=== PATIENT | female | born 1940 | race Caucasian/White ===

== ENCOUNTER 2016-10-29 11:28 | Outpatient (RCR) | payer MEDICARE, OTHER ==
--- OUTSIDE RECORDS SUMMARY | 2016-08-06 09:46 | XMS REPORT | Continuity of Care Document ---
Author Author [facility] Organization [facility] Address Unknown Phone Unavailable Support Name Relationship Address Phone MONROEMESHA CAMACHO Melly PATEL Caregiver [address] [place] [address] SHANTEL LIZ MD Caregiver VIA [facility] [address] [place] [address] REANNA PERSON Next Of Kin [address] [place] [address] Insurance Providers Payer Name Policy Number Subscriber Name Relationship Wps Medicare [id number] Shanita Luis 16 Self / Same As Patient Advance Directives Directive Response Recorded Date/Time Advance Directives No 11/14/14 9:15am Health Care Power of Reproduction Technician No 11/14/14 9:15am Organ Donor No 11/14/14 9:15am Problems Medical Problems Problem Onset Date Status Carcinoma of colon Unknown Active History of placement of stent for coronary artery disease Unknown Active History of - hypertension Unknown Active Hyperlipidemia Unknown Active Acute myocardial infarction Unknown Resolved Surgical Problems Problem Onset Date Recorded Date/Time Status Colostomy Unknown 09/17/2013 8:11am Active Medications Medication Dose Route Sig Days/Qty Instructions Order Date Discontinued Date Status Quinapril Hcl 20 Mg PO DAILY TAKES 1/2 (40MG) TABLET 10/31/09 Active Levothyroxine Sodium 175 Mcg PO DAILY 10/31/09 09/09/13 Discontinued Furosemide 20 Mg PO DAILY 10/31/09 09/09/13 Discontinued Amlodipine Besylate (Norvasc 5 Mg) 5 Mg PO DAILY 08/01/10 09/06/13 Discontinued Simvastatin 10 Mg PO BEDTIME 08/01/10 Active Cephalexin Monohydrate (Keflex) 1 Each PO THREE TIMES A DAY 09/27/10 09/02/13 Discontinued Atenolol 25 Mg PO 1500 09/06/13 Active Levothyroxine Sodium 175 Mcg PO DAILY 09/09/13 Active Furosemide 40 Mg PO DAILY 09/09/13 04/05/14 Discontinued Ferrous Sulfate 325 Mg PO TWICE A DAY 09/09/13 04/05/14 Discontinued Magnesium Oxide 400 Mg PO DAILY 09/09/13 Active Aspirin 81 Mg PO DAILY 09/09/13 Active Tramadol HCl 50 Mg PO TWICE A DAY PRN PAIN 30 Qty 09/22/13 04/05/14 Discontinued Furosemide (Lasix) 40 Mg PO DAILY 04/05/14 Active Calcium/Vitamin D 1 Tab PO DAILY 04/05/14 Active [place]-3 Fatty Acids/Fish Oil 1,000 Mg PO DAILY PRN WHEN NOT EATING FISH TAKE 1 CAPSULE WHEN NOT EATING FISH STICKS 04/05/14 Active Clopidogrel Bisulfate 75 Mg PO EVERY AFTERNOON 04/05/14 10/11/14 Discontinued Amlodipine Besylate 5 Mg PO DAILY 30 Qty 04/09/14 10/11/14 Discontinued Cefuroxime Axetil (Ceftin) 1 Each PO TWICE A DAY 14 Qty 04/09/1410/11 Discontinued Gentamicin Sulfate 1 Drop OD FOUR TIMES DAILY 10/11/14 Active Prednisolone Acetate 1 Drop OD FOUR TIMES DAILY 10/11/14 Active Potassium Gluconate 99 Mg PO DAILY 10/11/14 Active Amlodipine Besylate 10 Mg PO DAILY 30 Qty 10/11/14 Active Social History Social History Problem Response Recorded Date/Time Alcohol Use Denies Use 04/05/2014 3:05pm Recreational Drug Use No 04/05/2014 3:05pm Recent Foreign Travel No 04/05/2014 3:05pm Recent Infectious Disease Exposure No 04/05/2014 3:05pm Hospitalization with Isolation Denies 04/09/2014 3:20pm Sexually Transmitted Disease No 04/05/2014 3:05pm HIV/AIDS No 04/05/2014 3:05pm Hospital Discharge Instructions No hospital discharge instructions. Plan of Care No plan of care. Functional Status No functional status results. Allergies, Adverse Reactions, Alerts Allergen Type Severity Reaction Status Last Updated No Known Drug Allergies Active 01/02/09 Immunizations Name Given Type Date of Pneumonia Vaccine 11/03/11 Historical Date of Influenza Vaccine 08/24/14 Historical Tetanus Booster (TDap) More than 5yrs Historical Vital Signs Acute Vital Signs Vital Response Date/Time Temperature (Fahrenheit) 97.8 degrees F (97.6 - 99.5) Temperature (Calculated Celsius) 36.26456 degrees C (36.4 - 37.5) Temperature Source Tympanic Pulse Rate (adult) 52 bpm (60 - 90) Respiratory Rate 18 bpm (12 - 24) O2 Sat by Pulse Oximetry 96 % (88 - 100) Blood Pressure 149/57 mm Hg Pain Pain Intensity 0 Height (Feet) 5 feet Height (Inches) 2.00 inches Height (Calculated Centimeters) 157.372239 cm Weight (Pounds) 175 pounds Weight (Ounces) 6.4 oz Weight (Calculated Grams) 99310.102 gm Weight (Calculated Kilograms) 79.926732 kilograms Results No known relevant diagnostic tests, laboratory data and/or discharge summary. Procedures Procedure Status Date Provider(s) COLONOSCOPY W/LESION REMOVAL completed 10/24/14 YOLANDA CLEMONS MD Encounters Encounter Location Date/Time Registered Recurring Via [facility] 11/14/14 12:43pm Registered Surgical Day Care Via [facility] 11/14/14 8:48am Registered Clinic Via [facility] 11/11/14 5:55am Registered Surgical Day Care Via [facility] 10/24/14 11:48am Registered Clinic Via [facility] 10/19/14 6:21am
[2016-08-06 10:16] LABS: BASOPHILS % (AUTO) 0 % (0-10); EOSINOPHILS % (AUTO) 0 % (0-10); LYMPHOCYTES # (AUTO) 1.6 X 10^3 (1.0-4.0); LYMPHOCYTES % (AUTO) 43 % (12-44); MEAN CORPUSCULAR HEMOGLOBIN 31 PG (25-34); MEAN CORPUSCULAR HGB CONC 30 G/DL (32-36); MEAN CORPUSCULAR VOLUME 102 FL (80-99); MONOCYTES # (AUTO) 0.3 X 10^3 (0.0-1.0); MONOCYTES % (AUTO) 8 % (0-12); NEUTROPHILS # (AUTO) 1.8 X 10^3 (1.8-7.8); NEUTROPHILS % (AUTO) 48 % (42-75); PLATELET COUNT 111 10^3/uL (130-400); RED BLOOD COUNT 2.89 10^6/uL (4.35-5.85); RED CELL DISTRIBUTION WIDTH 15.4 % (10.0-14.5); WHITE BLOOD COUNT 3.8 10^3/uL (4.3-11.0)
[2016-08-06 10:45] LABS: CALCIUM 8.9 MG/DL (8.5-10.1); CREATININE SERUM 0.91 MG/DL (0.60-1.30); POTASSIUM 4.6 MMOL/L (3.6-5.0)
[2016-08-13 11:04] LABS: BASOPHILS % (AUTO) 0 % (0-10); EOSINOPHILS % (AUTO) 0 % (0-10); LYMPHOCYTES # (AUTO) 1.1 X 10^3 (1.0-4.0); LYMPHOCYTES % (AUTO) 23 % (12-44); MEAN CORPUSCULAR HEMOGLOBIN 30 PG (25-34); MEAN CORPUSCULAR HGB CONC 30 G/DL (32-36); MEAN CORPUSCULAR VOLUME 102 FL (80-99); MEAN PLATELET VOLUME 9.4 FL (7.4-10.4); MONOCYTES # (AUTO) 0.5 X 10^3 (0.0-1.0); MONOCYTES % (AUTO) 11 % (0-12); NEUTROPHILS % (AUTO) 66 % (42-75); PLATELET COUNT 105 10^3/uL (130-400); RED BLOOD COUNT 2.89 10^6/uL (4.35-5.85); RED CELL DISTRIBUTION WIDTH 15.4 % (10.0-14.5); WHITE BLOOD COUNT 4.6 10^3/uL (4.3-11.0)
[2016-08-13 11:35] LABS: ALANINE AMINOTRANSFERASE 11 U/L (0-55); ALBUMIN 3.5 G/DL (3.2-4.5); ANION GAP 12 MMOL/L (5-14); ASPARTATE AMINO TRANSFERASE 15 U/L (5-34); BILIRUBIN,TOTAL 0.3 MG/DL (0.1-1.0); BLOOD UREA NITROGEN 12 MG/DL (7-18); BUN/CREATININE RATIO 15; CALCIUM 8.7 MG/DL (8.5-10.1); CARBON DIOXIDE 23 MMOL/L (21-32); CHLORIDE 107 MMOL/L (98-107); CREATININE SERUM 0.78 MG/DL (0.60-1.30); GFR ESTIMATED > 60; GLUCOSE 98 MG/DL (70-105); POTASSIUM 3.4 MMOL/L (3.6-5.0); SODIUM 142 MMOL/L (135-145); TOTAL PROTEIN 5.9 G/DL (6.4-8.2)
[2016-08-20 10:39] LABS: BASOPHILS % (AUTO) 0 % (0-10); EOSINOPHILS % (AUTO) 0 % (0-10); LYMPHOCYTES % (AUTO) 39 % (12-44); MEAN CORPUSCULAR HEMOGLOBIN 30 PG (25-34); MEAN CORPUSCULAR HGB CONC 30 G/DL (32-36); MEAN CORPUSCULAR VOLUME 102 FL (80-99); MEAN PLATELET VOLUME 9.8 FL (7.4-10.4); MONOCYTES # (AUTO) 0.2 X 10^3 (0.0-1.0); MONOCYTES % (AUTO) 8 % (0-12); NEUTROPHILS # (AUTO) 1.4 X 10^3 (1.8-7.8); NEUTROPHILS % (AUTO) 53 % (42-75); PLATELET COUNT 102 10^3/uL (130-400); RED BLOOD COUNT 2.86 10^6/uL (4.35-5.85); RED CELL DISTRIBUTION WIDTH 15.3 % (10.0-14.5); WHITE BLOOD COUNT 2.6 10^3/uL (4.3-11.0)
[2016-08-20 11:22] LABS: ANION GAP 8 MMOL/L (5-14); BLOOD UREA NITROGEN 12 MG/DL (7-18); BUN/CREATININE RATIO 14; CALCIUM 8.7 MG/DL (8.5-10.1); CARBON DIOXIDE 28 MMOL/L (21-32); CHLORIDE 107 MMOL/L (98-107); CREATININE SERUM 0.88 MG/DL (0.60-1.30); GFR ESTIMATED > 60; GLUCOSE 114 MG/DL (70-105); POTASSIUM 4.5 MMOL/L (3.6-5.0); SODIUM 143 MMOL/L (135-145)
[2016-08-27 09:34] LABS: BASOPHILS % (AUTO) 0 % (0-10); EOSINOPHILS % (AUTO) 0 % (0-10); LYMPHOCYTES # (AUTO) 1.3 X 10^3 (1.0-4.0); LYMPHOCYTES % (AUTO) 28 % (12-44); MEAN CORPUSCULAR HEMOGLOBIN 31 PG (25-34); MEAN CORPUSCULAR HGB CONC 30 G/DL (32-36); MEAN CORPUSCULAR VOLUME 102 FL (80-99); MEAN PLATELET VOLUME 9.3 FL (7.4-10.4); MONOCYTES # (AUTO) 0.5 X 10^3 (0.0-1.0); MONOCYTES % (AUTO) 11 % (0-12); NEUTROPHILS # (AUTO) 2.8 X 10^3 (1.8-7.8); NEUTROPHILS % (AUTO) 61 % (42-75); PLATELET COUNT 107 10^3/uL (130-400); RED BLOOD COUNT 2.81 10^6/uL (4.35-5.85); RED CELL DISTRIBUTION WIDTH 15.7 % (10.0-14.5); WHITE BLOOD COUNT 4.6 10^3/uL (4.3-11.0)
[2016-08-27 10:02] LABS: ALANINE AMINOTRANSFERASE 11 U/L (0-55); ALBUMIN 3.5 G/DL (3.2-4.5); ANION GAP 8 MMOL/L (5-14); ASPARTATE AMINO TRANSFERASE 13 U/L (5-34); BILIRUBIN,TOTAL 0.4 MG/DL (0.1-1.0); BLOOD UREA NITROGEN 12 MG/DL (7-18); BUN/CREATININE RATIO 15; CALCIUM 8.5 MG/DL (8.5-10.1); CARBON DIOXIDE 25 MMOL/L (21-32); CHLORIDE 109 MMOL/L (98-107); CREATININE SERUM 0.81 MG/DL (0.60-1.30); GFR ESTIMATED > 60; GLUCOSE 99 MG/DL (70-105); MAGNESIUM 1.9 MG/DL (1.8-2.4); POTASSIUM 3.9 MMOL/L (3.6-5.0); SODIUM 142 MMOL/L (135-145); TOTAL PROTEIN 6.1 G/DL (6.4-8.2)
[2016-09-02 14:20] LABS: BASOPHILS % (AUTO) 0 % (0-10); EOSINOPHILS % (AUTO) 0 % (0-10); LYMPHOCYTES # (AUTO) 1.2 X 10^3 (1.0-4.0); LYMPHOCYTES % (AUTO) 47 % (12-44); MEAN CORPUSCULAR HEMOGLOBIN 30 PG (25-34); MEAN CORPUSCULAR HGB CONC 30 G/DL (32-36); MEAN CORPUSCULAR VOLUME 101 FL (80-99); MEAN PLATELET VOLUME 9.5 FL (7.4-10.4); MONOCYTES # (AUTO) 0.1 X 10^3 (0.0-1.0); MONOCYTES % (AUTO) 5 % (0-12); NEUTROPHILS # (AUTO) 1.2 X 10^3 (1.8-7.8); NEUTROPHILS % (AUTO) 47 % (42-75); PLATELET COUNT 131 10^3/uL (130-400); RED BLOOD COUNT 2.97 10^6/uL (4.35-5.85); RED CELL DISTRIBUTION WIDTH 15.4 % (10.0-14.5); WHITE BLOOD COUNT 2.5 10^3/uL (4.3-11.0)
[2016-09-02 14:39] LABS: BILIRUBIN,URINE NEGATIVE (NEGATIVE); KETONES,URINE NEGATIVE (NEGATIVE); LEUKOCYTE ESTERASE ,URINE 3+ (NEGATIVE); NITRITE,URINE NEGATIVE (NEGATIVE); PH,URINE 7 (5-9); PROTEIN,URINE NEGATIVE (NEGATIVE); UROBILINOGEN,URINE NORMAL (NORMAL)
[2016-09-02 14:48] LABS: ALANINE AMINOTRANSFERASE 17 U/L (0-55); ALBUMIN 3.6 G/DL (3.2-4.5); ANION GAP 5 MMOL/L (5-14); ASPARTATE AMINO TRANSFERASE 17 U/L (5-34); BILIRUBIN,TOTAL 0.3 MG/DL (0.1-1.0); BLOOD UREA NITROGEN 10 MG/DL (7-18); BUN/CREATININE RATIO 13; CALCIUM 8.6 MG/DL (8.5-10.1); CARBON DIOXIDE 31 MMOL/L (21-32); CHLORIDE 106 MMOL/L (98-107); CREATININE SERUM 0.79 MG/DL (0.60-1.30); GFR ESTIMATED > 60; GLUCOSE 106 MG/DL (70-105); POTASSIUM 4.1 MMOL/L (3.6-5.0); SODIUM 142 MMOL/L (135-145)
[2016-09-02 14:50] LABS: SQUAMOUS EPITHELIAL CELL,UR 25-50 /HPF
[2016-09-02 14:51] LABS: YEAST,URINE FEW /HPF
[2016-09-10 10:12] LABS: BASOPHILS % (AUTO) 0 % (0-10); EOSINOPHILS % (AUTO) 0 % (0-10); LYMPHOCYTES # (AUTO) 1.2 X 10^3 (1.0-4.0); LYMPHOCYTES % (AUTO) 38 % (12-44); MEAN CORPUSCULAR HEMOGLOBIN 31 PG (25-34); MEAN CORPUSCULAR HGB CONC 31 G/DL (32-36); MEAN CORPUSCULAR VOLUME 102 FL (80-99); MEAN PLATELET VOLUME 9.3 FL (7.4-10.4); MONOCYTES # (AUTO) 0.4 X 10^3 (0.0-1.0); MONOCYTES % (AUTO) 13 % (0-12); NEUTROPHILS # (AUTO) 1.6 X 10^3 (1.8-7.8); NEUTROPHILS % (AUTO) 49 % (42-75); PLATELET COUNT 95 10^3/uL (130-400); RED BLOOD COUNT 2.69 10^6/uL (4.35-5.85); RED CELL DISTRIBUTION WIDTH 16.3 % (10.0-14.5); WHITE BLOOD COUNT 3.1 10^3/uL (4.3-11.0)
[2016-09-17 09:09] LABS: BASOPHILS % (AUTO) 0 % (0-10); EOSINOPHILS % (AUTO) 0 % (0-10); LYMPHOCYTES % (AUTO) 29 % (12-44); MEAN CORPUSCULAR HEMOGLOBIN 31 PG (25-34); MEAN CORPUSCULAR HGB CONC 30 G/DL (32-36); MEAN CORPUSCULAR VOLUME 102 FL (80-99); MEAN PLATELET VOLUME 10.4 FL (7.4-10.4); MONOCYTES # (AUTO) 0.4 X 10^3 (0.0-1.0); MONOCYTES % (AUTO) 12 % (0-12); NEUTROPHILS % (AUTO) 59 % (42-75); PLATELET COUNT 134 10^3/uL (130-400); RED BLOOD COUNT 2.95 10^6/uL (4.35-5.85); RED CELL DISTRIBUTION WIDTH 16.2 % (10.0-14.5); WHITE BLOOD COUNT 3.3 10^3/uL (4.3-11.0)
[2016-09-23 09:53] LABS: BASOPHILS % (AUTO) 0 % (0-10); EOSINOPHILS % (AUTO) 0 % (0-10); LYMPHOCYTES # (AUTO) 1.3 X 10^3 (1.0-4.0); LYMPHOCYTES % (AUTO) 20 % (12-44); MEAN CORPUSCULAR HEMOGLOBIN 30 PG (25-34); MEAN CORPUSCULAR HGB CONC 30 G/DL (32-36); MEAN CORPUSCULAR VOLUME 101 FL (80-99); MEAN PLATELET VOLUME 10.1 FL (7.4-10.4); MONOCYTES # (AUTO) 0.6 X 10^3 (0.0-1.0); MONOCYTES % (AUTO) 10 % (0-12); NEUTROPHILS # (AUTO) 4.5 X 10^3 (1.8-7.8); NEUTROPHILS % (AUTO) 70 % (42-75); PLATELET COUNT 152 10^3/uL (130-400); RED BLOOD COUNT 3.08 10^6/uL (4.35-5.85); RED CELL DISTRIBUTION WIDTH 15.8 % (10.0-14.5); WHITE BLOOD COUNT 6.4 10^3/uL (4.3-11.0)
[2016-09-23 10:50] LABS: ANION GAP 10 MMOL/L (5-14); BLOOD UREA NITROGEN 14 MG/DL (7-18); BUN/CREATININE RATIO 20; CALCIUM 8.6 MG/DL (8.5-10.1); CARBON DIOXIDE 26 MMOL/L (21-32); CHLORIDE 109 MMOL/L (98-107); GFR ESTIMATED > 60; GLUCOSE 91 MG/DL (70-105); POTASSIUM 3.5 MMOL/L (3.6-5.0); SODIUM 145 MMOL/L (135-145)
[2016-09-30 13:54] LABS: BASOPHILS % (AUTO) 0 % (0-10); EOSINOPHILS % (AUTO) 0 % (0-10); LYMPHOCYTES # (AUTO) 1.4 X 10^3 (1.0-4.0); LYMPHOCYTES % (AUTO) 26 % (12-44); MEAN CORPUSCULAR HEMOGLOBIN 30 PG (25-34); MEAN CORPUSCULAR HGB CONC 29 G/DL (32-36); MEAN CORPUSCULAR VOLUME 102 FL (80-99); MEAN PLATELET VOLUME 9.8 FL (7.4-10.4); MONOCYTES # (AUTO) 0.5 X 10^3 (0.0-1.0); MONOCYTES % (AUTO) 9 % (0-12); NEUTROPHILS # (AUTO) 3.3 X 10^3 (1.8-7.8); NEUTROPHILS % (AUTO) 64 % (42-75); PLATELET COUNT 142 10^3/uL (130-400); RED BLOOD COUNT 2.83 10^6/uL (4.35-5.85); WHITE BLOOD COUNT 5.2 10^3/uL (4.3-11.0)
--- NOTE | 2016-09-30 15:28 | Diagnostic Imaging Report ---
PROCEDURE: US left lower extremity venous. INDICATION: Left leg pain and swelling. COMPARISON: None. TECHNIQUE: The left lower extremity deep venous system was interrogated from the common femoral vein through the popliteal vein. These images were assessed for grayscale appearance, color and spectral Doppler blood flow, compression, and augmentation. FINDINGS: There is no evidence of intraluminal filling defect. Normal compression and augmentation is noted throughout. Soft tissues are unremarkable. IMPRESSION: 1. No sonographic evidence of deep venous thrombosis in the left lower extremity. Dictated by: Dictated on workstation # [id number]
[2016-09-30 15:32] LABS: BILIRUBIN,URINE NEGATIVE (NEGATIVE); KETONES,URINE NEGATIVE (NEGATIVE); LEUKOCYTE ESTERASE ,URINE 3+ (NEGATIVE); NITRITE,URINE NEGATIVE (NEGATIVE); PH,URINE 6.5 (5-9); PROTEIN,URINE 1+ (NEGATIVE); UROBILINOGEN,URINE NORMAL (NORMAL)
[2016-09-30 15:35] LABS: WBC,URINE >100 /HPF
[2016-09-30 15:43] LABS: ALANINE AMINOTRANSFERASE 8 U/L (0-55); ALBUMIN 3.2 G/DL (3.2-4.5); ANION GAP 8 MMOL/L (5-14); ASPARTATE AMINO TRANSFERASE 19 U/L (5-34); BILIRUBIN,TOTAL 0.3 MG/DL (0.1-1.0); BLOOD UREA NITROGEN 14 MG/DL (7-18); BUN/CREATININE RATIO 18; CALCIUM 8.3 MG/DL (8.5-10.1); CARBON DIOXIDE 30 MMOL/L (21-32); CHLORIDE 107 MMOL/L (98-107); CREATININE SERUM 0.77 MG/DL (0.60-1.30); GFR ESTIMATED > 60; GLUCOSE 138 MG/DL (70-105); MAGNESIUM 1.4 MG/DL (1.8-2.4); POTASSIUM 3.1 MMOL/L (3.6-5.0); SODIUM 145 MMOL/L (135-145); TOTAL PROTEIN 5.6 G/DL (6.4-8.2)
[2016-10-08 10:43] LABS: BASOPHILS % (AUTO) 0 % (0-10); EOSINOPHILS % (AUTO) 0 % (0-10); LYMPHOCYTES % (AUTO) 32 % (12-44); MEAN CORPUSCULAR HEMOGLOBIN 30 PG (25-34); MEAN CORPUSCULAR HGB CONC 30 G/DL (32-36); MEAN CORPUSCULAR VOLUME 102 FL (80-99); MEAN PLATELET VOLUME 9.3 FL (7.4-10.4); MONOCYTES # (AUTO) 0.6 X 10^3 (0.0-1.0); MONOCYTES % (AUTO) 9 % (0-12); NEUTROPHILS # (AUTO) 3.7 X 10^3 (1.8-7.8); NEUTROPHILS % (AUTO) 59 % (42-75); PLATELET COUNT 149 10^3/uL (130-400); RED BLOOD COUNT 2.94 10^6/uL (4.35-5.85); RED CELL DISTRIBUTION WIDTH 16.3 % (10.0-14.5); WHITE BLOOD COUNT 6.3 10^3/uL (4.3-11.0)
[2016-10-08 11:37] LABS: ANION GAP 6 MMOL/L (5-14); BLOOD UREA NITROGEN 17 MG/DL (7-18); BUN/CREATININE RATIO 22; CALCIUM 8.8 MG/DL (8.5-10.1); CARBON DIOXIDE 29 MMOL/L (21-32); CHLORIDE 108 MMOL/L (98-107); CREATININE SERUM 0.77 MG/DL (0.60-1.30); GFR ESTIMATED > 60; GLUCOSE 90 MG/DL (70-105); POTASSIUM 4.1 MMOL/L (3.6-5.0); SODIUM 143 MMOL/L (135-145)
[2016-10-16 10:44] LABS: BASOPHILS % (AUTO) 0 % (0-10); EOSINOPHILS % (AUTO) 1 % (0-10); LYMPHOCYTES # (AUTO) 1.6 X 10^3 (1.0-4.0); LYMPHOCYTES % (AUTO) 33 % (12-44); MEAN CORPUSCULAR HEMOGLOBIN 30 PG (25-34); MEAN CORPUSCULAR HGB CONC 29 G/DL (32-36); MEAN CORPUSCULAR VOLUME 102 FL (80-99); MEAN PLATELET VOLUME 10.7 FL (7.4-10.4); MONOCYTES # (AUTO) 0.4 X 10^3 (0.0-1.0); MONOCYTES % (AUTO) 7 % (0-12); NEUTROPHILS # (AUTO) 2.9 X 10^3 (1.8-7.8); NEUTROPHILS % (AUTO) 59 % (42-75); PLATELET COUNT 123 10^3/uL (130-400); RED BLOOD COUNT 2.93 10^6/uL (4.35-5.85); RED CELL DISTRIBUTION WIDTH 15.5 % (10.0-14.5); WHITE BLOOD COUNT 4.9 10^3/uL (4.3-11.0)
[2016-10-16 11:19] LABS: ALANINE AMINOTRANSFERASE 10 U/L (0-55); ALBUMIN 3.3 G/DL (3.2-4.5); ANION GAP 9 MMOL/L (5-14); ASPARTATE AMINO TRANSFERASE 17 U/L (5-34); BILIRUBIN,TOTAL 0.3 MG/DL (0.1-1.0); BLOOD UREA NITROGEN 18 MG/DL (7-18); BUN/CREATININE RATIO 26; CALCIUM 8.5 MG/DL (8.5-10.1); CARBON DIOXIDE 25 MMOL/L (21-32); CHLORIDE 107 MMOL/L (98-107); CREATININE SERUM 0.69 MG/DL (0.60-1.30); GFR ESTIMATED > 60; GLUCOSE 93 MG/DL (70-105); MAGNESIUM 1.7 MG/DL (1.8-2.4); POTASSIUM 3.6 MMOL/L (3.6-5.0); SODIUM 141 MMOL/L (135-145); TOTAL PROTEIN 5.9 G/DL (6.4-8.2)
[~2016-10-29] VITALS: Ht 158.8 cm; Wt 72.1 kg
[~2016-10-29 11:28] MED LIST: AMLO10TA PO; AMLO5TAB2 PO; ASP81TEC PO; ATEN-155 PO; ATROPINE INJ 0.4 MG/ML SDV (CANCER CENTER) INJ SCH; CEFD300C3 PO; CEFU500T5 PO; CEPH500C PO; CLD600T PO; CLPD75T PO; D5W IV SCH; DARBEPOETIN 40 MCG/1 ML ARANESP IJ SCH; DEXAMETHASONE IV SCH; FAMOTIDINE 20MG/2ML IV (CANCER CTR) IV SCH; FLU TRIvalent (5 YOA+) 2016-17 (CANCER CTR) 0.5 ML IM ONE; FLUOROURACIL 700 MG in SYRINGE-IVPB 1 SYRINGE IV SCH; FLUOROURACIL IV SCH; FRS325T PO; FRSM20T PO; FRSM40T PO; FURO20TA4 PO; GABA-486 PO; GENT5DRO3 OD; HYDR-1231 PO; IRINOTECAN HCL 200 MG, IRINOTECAN HCL 40 MG in D5W 250 ML IVPB (CANCER CTR) 250 ML IV SCH; IRINOTECAN HCL IV SCH; LEUCOVORIN CALCIUM IV SCH; LEVO175T3 PO; LVT.025T PO; MAGN400T6 PO; MULT-301 PO; NS IV 500 ML (CANCER CENTER) IV SCH; OMEG1CAP51 PO; ONDANSETRON IV SCH; POTA99TA15 PO; PRED5DRO5 OD; QUIN40TA PO; SIMV10TA3 PO; TRAM50TA2 PO; TRM50T PO; VALA100033 PO; [UNRECOGNIZED DRUG - OTHER] IV SCH; diphenhydrAMINE 25 MG TAB (BENADRYL) CANCER CENTER PO SCH
[2016-10-29 12:24] LABS: BASOPHILS % (AUTO) 0 % (0-10); EOSINOPHILS % (AUTO) 0 % (0-10); LYMPHOCYTES # (AUTO) 1.3 X 10^3 (1.0-4.0); LYMPHOCYTES % (AUTO) 25 % (12-44); MEAN CORPUSCULAR HEMOGLOBIN 29 PG (25-34); MEAN CORPUSCULAR HGB CONC 29 G/DL (32-36); MEAN CORPUSCULAR VOLUME 99 FL (80-99); MEAN PLATELET VOLUME 10.3 FL (7.4-10.4); MONOCYTES # (AUTO) 0.4 X 10^3 (0.0-1.0); MONOCYTES % (AUTO) 8 % (0-12); NEUTROPHILS # (AUTO) 3.4 X 10^3 (1.8-7.8); NEUTROPHILS % (AUTO) 67 % (42-75); PLATELET COUNT 114 10^3/uL (130-400); RED BLOOD COUNT 3.21 10^6/uL (4.35-5.85); RED CELL DISTRIBUTION WIDTH 15.2 % (10.0-14.5)
== END 2016-11-04 | disposition home or self-care (01) ==
LOC: ONC 11:28
PROVIDERS: ATTEND Internal Medicine Hematology & Oncology
DX: Z51.11 Encounter for antineoplastic chemotherapy (principal); C18.7 Malignant neoplasm of sigmoid colon; D63.1 Anemia in chronic kidney disease; N18.9 Chronic kidney disease, unspecified; I12.9 Hypertensive chronic kidney disease with stage 1 through stage 4 chronic kidney disease, or unspecified chronic kidney disease; D51.3 Other dietary vitamin B12 deficiency anemia; I25.10 Atherosclerotic heart disease of native coronary artery without angina pectoris; E03.9 Hypothyroidism, unspecified; E78.5 Hyperlipidemia, unspecified; R60.9 Edema, unspecified; R82.99 Other abnormal findings in urine; Z95.1 Presence of aortocoronary bypass graft; Z79.899 Other long term (current) drug therapy; Z23 Encounter for immunization
CPT/HCPCS: 36415; 36591; 80048; 80053; 81000; 82378; 82607; 83735; 85025; 87088; 87106; 90471; 96368; 96372; 96375; 96411; 96413; 96415; 96521; 99213

== ENCOUNTER 2016-12-04 06:06 | Outpatient (CLI) | payer MEDICARE, OTHER ==
[~2016-12-04] VITALS: Ht 157.5 cm; Wt 68.5 kg
[~2016-12-04 06:06] MED LIST changes: -ATROPINE INJ 0.4 MG/ML SDV (CANCER CENTER) INJ SCH; -D5W IV SCH; -DARBEPOETIN 40 MCG/1 ML ARANESP IJ SCH; -DEXAMETHASONE IV SCH; -FAMOTIDINE 20MG/2ML IV (CANCER CTR) IV SCH; -FLU TRIvalent (5 YOA+) 2016-17 (CANCER CTR) 0.5 ML IM ONE; -FLUOROURACIL 700 MG in SYRINGE-IVPB 1 SYRINGE IV SCH; -FLUOROURACIL IV SCH; -IRINOTECAN HCL 200 MG, IRINOTECAN HCL 40 MG in D5W 250 ML IVPB (CANCER CTR) 250 ML IV SCH; -IRINOTECAN HCL IV SCH; -LEUCOVORIN CALCIUM IV SCH; -NS IV 500 ML (CANCER CENTER) IV SCH; -ONDANSETRON IV SCH; -[UNRECOGNIZED DRUG - OTHER] IV SCH; -diphenhydrAMINE 25 MG TAB (BENADRYL) CANCER CENTER PO SCH
--- OUTSIDE RECORDS SUMMARY | 2016-12-04 06:09 | XMS REPORT | Continuity of Care Document ---
Author Author [facility] Organization [facility] Address Unknown Phone Unavailable Support Name Relationship Address Phone MONROEMESHA CAMACHO Melly PATEL Caregiver [address] [place] [address] SHANTEL LIZ MD Caregiver VIA [facility] [address] [place] [address] REANNA PERSON Next Of Kin [address] [place] [address] Insurance Providers Payer Name Policy Number Subscriber Name Relationship Wps Medicare [id number] Shanita Luis 16 Self / Same As Patient Advance Directives Directive Response Recorded Date/Time Advance Directives No 11/14/14 9:15am Health Care Power of Certified Surgical Technician No 11/14/14 9:15am Organ Donor No [...] D 1 Tab PO DAILY 04/05/14 Active [place]-3 Fatty Acids/Fish Oil 1,000 Mg PO DAILY [...] F (97.6 - 99.5) Temperature (Calculated Celsius) 36.94552 degrees C (36.4 - 37.5) Temperature Source Tympanic Pulse Rate (adult) 52 bpm (60 - 90) Respiratory Rate 18 bpm (12 - 24) O2 Sat by Pulse Oximetry 96 % (88 - 100) Blood Pressure 149/57 mm Hg Pain Pain Intensity 0 Height (Feet) 5 feet Height (Inches) 2.00 inches Height (Calculated Centimeters) 157.222433 cm Weight (Pounds) 175 pounds Weight (Ounces) 6.4 oz Weight (Calculated Grams) 68285.102 gm Weight (Calculated Kilograms) 79.634367 kilograms Results No known relevant diagnostic tests, laboratory data and/or discharge summary. Procedures Procedure Status Date Provider(s) COLONOSCOPY W/LESION REMOVAL completed 10/24/14 YOLANDA CLEMONS MD Encounters Encounter Location Date/Time Registered Recurring Via [facility] 11/14/14 12:43pm Registered Surgical Day Care Via [facility] 11/14/14 8:48am Registered Clinic Via [facility] 11/11/14 5:55am Registered Surgical Day Care Via [facility] 10/24/14 11:48am Registered Clinic Via [facility] 10/19/14 6:21am
[2016-12-04] MEDS ORDERED: AMLO10TA2 PO (15:24)
[2016-12-04] MEDS ORDERED: GABA-488 PO (15:24)
== END 2016-12-04 15:31 ==
LOC: PREOP 06:06
PROVIDERS: ATTEND Surgery
DX: Z01.818 Encounter for other preprocedural examination (principal); C18.9 Malignant neoplasm of colon, unspecified

== ENCOUNTER 2016-12-06 09:35 | Day surgery (SDC) | payer MEDICARE, OTHER ==
[~2016-12-06] VITALS: Ht 157.5 cm; Wt 68.5 kg
--- NOTE | 2016-12-06 09:11 | History & Physicial ---
History of Present Illness History of Present Illness Reason for visit/HPI for removal of Lzctol-i-Qnvo, having completed adjuvant therapy Date of Admission I consulted on this patient on 12/06/16 09:10 Attending Physician Yolanda Clemons MD Admitting Physician Jhony Garcia DO Consult Allergies and Home Medications Allergies Coded Allergies: No Known Drug Allergies (Verified , 01/30/16) Home Medications Amlodipine Besylate 10 Mg Tablet 10 MG PO DAILY (Reported) Aspirin 81 Mg Tabec 81 MG PO DAILY (Reported) Atenolol 25 Mg Tablet 25 MG PO 1500 (Reported) Gabapentin 300 Mg Capsule 600 MG PO HS (Reported) take 2 (300mg) tabs Levothyroxine Sodium 175 Mcg Tablet 175 MCG PO DAILY (Reported) Magnesium Oxide 400 Mg Tablet 400 MG PO DAILY (Reported) Multivitamin 1 Each Tablet 1 EACH PO DAILY (Reported) Quinapril Hcl 40 Mg Tablet 40 MG PO DAILY (Reported) Simvastatin 10 Mg Tablet 10 MG PO HS (Reported) Past Faysbxz-Qscruz-Xymphj Hx Patient Social History Employed/Student: retired Alcohol Use: Denies Use Former smoker/When Quit: Oct 24, 1974 Recent Hopitalizations: No Immunizations Up To Date Tetanus Booster (TDap): More than 5yrs Date of Pneumonia Vaccine: Oct 15, 2012 Date of Influenza Vaccine: Aug 13, 2016 Seasonal Allergies Seasonal Allergies: No Surgeries HX Surgeries: Yes (COLON CA, ABDOMINAL HERNIA X 3, LASIK, PORT R CHEST) Surgeries: Abdominal, Appendectomy, Bowel Surgery, Cardiac, CABG, Eye Surgery, Gallbladder Respiratory Hx Respiratory Disorders: No Cardiovascular Hx Cardiovascular Disorders: Yes (LEGS SWELL, DOUBLE BYPASS) Cardiac Disorders: Aneurysm, Chronic Edema/Swelling, Coronary Artery Disease, Heart Attack, High Cholesterol, Hypertension Neurological Hx Neurological Disorders: No Reproductive System Hx Reproductive Disorders: No Sexually Transmitted Disease: No HIV/AIDS: No Female Reproductive Disorders: Denies Genitourinary Hx Genitourinary Disorders: No Gastrointestinal Hx Gastrointestinal Disorders: Yes (COLOSTOMY / COLON CANCER) Musculoskeletal Hx Musculoskeletal Disorders: Yes Musculoskeletal Disorders: Arthritis Endocrine Hx Endocrine Disorders: Yes Endocrine Disorders: Hypothyroidsim HEENT HX ENT Disorders: Yes (GLASSES, CATARACTS OU, DENTURES, LASIK SURGERY) HEENT Disorders: Cataract Loss of Vision: Denies Hearing Impairment: Denies Cancer Hx Cancer: Yes (RECURRENT COLON CA DX 2012-S/P SURGERY-COLOSTOMY,NOW ON CHEMO) Cancer: Skin, Colon Psychosocial Hx Psychiatric Problems: No Integumentary HX Skin/Integumentary Disorder: No Blood Transfusions Hx Blood Disorders: No (BRUISING) Adverse Reaction to a Blood Tr: No Family Medical History Family Hx: Cancer 03 FATHER (UNSURE OF TYPE) 09 SISTER (UTERUS) Family history: Hypertension 03 MOTHER 09 SISTER History of - respiratory disease 09 SISTER Myocardial infarction 09 BROTHER No Family History of: Abdominal aortic aneurysm Bhaskar's disease Alcoholism Aphasia Constitutional: see HPI EENTM: see HPI Respiratory: see HPI Cardiovascular: see HPI Gastrointestinal: see HPI Genitourinary: see HPI Physical Exam Vital Signs Capillary Refill : General Appearance: No Apparent Distress WD/WN HEENT: PERRL/EOMI Neck: Full Range of Motion Respiratory: Lungs Clear Cardiovascular: Regular Rate, Rhythm Gastrointestinal: No Organomegaly Non Tender Assessment/Plan Assessment and Plan for removal of Zximga-s-Nogs Admission Diagnosis colon cancer, adjuvant therapy completed YOLANDA CLEMONS MD Dec 06, 2016 9:11 am
[~2016-12-06 09:35] MED LIST changes: +AMLO10TA2 PO; +GABA-488 PO
--- OUTSIDE RECORDS SUMMARY | 2016-12-06 09:39 | XMS REPORT | Continuity of Care Document ---
Author Author [facility] Organization [facility] Address Unknown Phone Unavailable Support Name Relationship Address Phone MONROEMESHA CAMACHO Melly PATEL Caregiver [address] [place] [address] SHANTEL LIZ MD Caregiver VIA [facility] [address] [place] [address] REANNA PERSON Next Of Kin [address] [place] [address] Insurance Providers Payer Name Policy Number Subscriber Name Relationship Wps Medicare [id number] Shanita Luis 16 Self / Same As Patient Advance Directives Directive Response Recorded Date/Time Advance Directives No 11/14/14 9:15am Health Care Power of Advanced Analytics Associate No 11/14/14 9:15am Organ Donor No 11/14/14 [...] D 1 Tab PO DAILY 04/05/14 Active [place]-3 Fatty Acids/Fish Oil 1,000 Mg PO DAILY [...] F (97.6 - 99.5) Temperature (Calculated Celsius) 36.43336 degrees C (36.4 - 37.5) Temperature Source Tympanic Pulse Rate (adult) 52 bpm (60 - 90) Respiratory Rate 18 bpm (12 - 24) O2 Sat by Pulse Oximetry 96 % (88 - 100) Blood Pressure 149/57 mm Hg Pain Pain Intensity 0 Height (Feet) 5 feet Height (Inches) 2.00 inches Height (Calculated Centimeters) 157.893710 cm Weight (Pounds) 175 pounds Weight (Ounces) 6.4 oz Weight (Calculated Grams) 00542.102 gm Weight (Calculated Kilograms) 79.870885 kilograms Results No known relevant diagnostic tests, laboratory data and/or discharge summary. Procedures Procedure Status Date Provider(s) COLONOSCOPY W/LESION REMOVAL completed 10/24/14 YOLANDA CLEMONS MD Encounters Encounter Location Date/Time Registered Recurring Via [facility] 11/14/14 12:43pm Registered Surgical Day Care Via [facility] 11/14/14 8:48am Registered Clinic Via [facility] 11/11/14 5:55am Registered Surgical Day Care Via [facility] 10/24/14 11:48am Registered Clinic Via [facility] 10/19/14 6:21am
--- OUTSIDE RECORDS SUMMARY | 2016-12-06 09:39 | XMS REPORT | Continuity of Care Document ---
Author Author [facility] Organization [facility] Address Unknown Phone Unavailable Support Name Relationship Address Phone MONROEMESHA CAMACHO Melly PATEL Caregiver [address] [place] [address] SHANTEL LIZ MD Caregiver VIA [facility] [address] [place] [address] REANNA PERSON Next Of Kin [address] [place] [address] Insurance Providers Payer Name Policy Number Subscriber Name Relationship Wps Medicare [id number] Shanita Luis 16 Self / Same As Patient Advance Directives Directive Response Recorded Date/Time Advance Directives No 11/14/14 9:15am Health Care Power of White Metal Caster No 11/14/14 9:15am Organ Donor No 11/14/14 [...] D 1 Tab PO DAILY 04/05/14 Active [place]-3 Fatty Acids/Fish Oil 1,000 Mg PO DAILY [...] F (97.6 - 99.5) Temperature (Calculated Celsius) 36.79634 degrees C (36.4 - 37.5) Temperature Source Tympanic Pulse Rate (adult) 52 bpm (60 - 90) Respiratory Rate 18 bpm (12 - 24) O2 Sat by Pulse Oximetry 96 % (88 - 100) Blood Pressure 149/57 mm Hg Pain Pain Intensity 0 Height (Feet) 5 feet Height (Inches) 2.00 inches Height (Calculated Centimeters) 157.903331 cm Weight (Pounds) 175 pounds Weight (Ounces) 6.4 oz Weight (Calculated Grams) 69120.102 gm Weight (Calculated Kilograms) 79.450646 kilograms Results No known relevant diagnostic tests, laboratory data and/or discharge summary. Procedures Procedure Status Date Provider(s) COLONOSCOPY W/LESION REMOVAL completed 10/24/14 YOLANDA CLEMONS MD Encounters Encounter Location Date/Time Registered Recurring Via [facility] 11/14/14 12:43pm Registered Surgical Day Care Via [facility] 11/14/14 8:48am Registered Clinic Via [facility] 11/11/14 5:55am Registered Surgical Day Care Via [facility] 10/24/14 11:48am Registered Clinic Via [facility] 10/19/14 6:21am
--- NOTE | 2016-12-06 09:58 | Progress Note-Pre Operative ---
Pre-Operative Progress Note H&P Reviewed The H&P was reviewed, patient examined and no changes noted. Date H&P Reviewed: Dec 06, 2016 Time H&P Reviewed: 09:58 Pre-Operative Diagnosis: colon cancer treated YOLANDA CLEMONS MD Dec 06, 2016 9:58 am
[2016-12-06] MEDS ORDERED: BUP/EPI 0.25% 1:200,000 (MARCAINE) 30 ML VIAL ONE (10:02)
[2016-12-06] MEDS ORDERED: fentaNYL INJECTION 100 MCG/2 ML AMP ONE (10:15)
[2016-12-06] MEDS ORDERED: MIDAZOLAM 2 MG/2 ML (VERSED) VIAL ONE (10:15)
[2016-12-06] MEDS ORDERED: LIDOCAINE PF 2% 10 ML (XYLOCAINE) AMP ONE (10:15)
[2016-12-06] MEDS ORDERED: proPOfol 200 MG/20 ML (DIPRIVAN) VIAL IV ONE (10:15)
[2016-12-06] MEDS ORDERED: LACTATED RINGERS 1,000 ML IV PRN (10:18)
[2016-12-06] MEDS ORDERED: ceFAZolin 1,000 MG (ANCEF) VIAL ONE (10:21)
[2016-12-06] MEDS ORDERED: NS (IVPB) 50 ML ONE (10:21)
[2016-12-06 10:37] VITALS: BP 187/70
[2016-12-06] MEDS ORDERED: ceFAZolin 1 GM/NS 50 ML IVPB IV ONE ×2 (11:00)
--- NOTE | 2016-12-06 11:20 | Progress Note-Post Operative ---
Post-Operative Progess Note Pre-Operative Diagnosis colon cancer treated Post-Operative Diagnosis same Post-Op Procedure Note Date of Procedure: Dec 06, 2016 Name of Procedure: removal of Hkiemf-p-Wnff Anesthesia Type sedation with local YOLANDA CLEMONS MD Dec 06, 2016 11:20 am
--- NOTE | 2016-12-06 11:22 | Discharge Inst-Simple/Standard ---
Discharge Inst-Standard Discharge Medications New, Converted or Re-Newed RX: Other Patient Instructions/Follow Up Plan of Care/Instructions/FU: dressings off in 48 hours. Activity as Tolerated: Yes Discharge Diet: No Restrictions YOLANDA CLEMONS MD Dec 06, 2016 11:21 am
[2016-12-06] MEDS ORDERED: morphine INJ 10 MG/ML 1ML (SYR OR VIAL) IV PRN (11:30)
[2016-12-06] MEDS ORDERED: ONDANSETRON 4 MG/2 ML (SDV) Z0FRAN IV PRN (11:30)
[2016-12-06] MEDS ORDERED: PROMETHAZINE INJ 25 MG/ML (PHENERGAN) AMP IV PRN (11:30)
[2016-12-06 11:55] VITALS: BP 162/57
[2016-12-06 12:25] VITALS: BP 172/62
[2016-12-06 12:55] VITALS: BP 183/72
[2016-12-06 13:15] VITALS: BP 183/72
--- NOTE | 2016-12-09 10:18 | OPERATIVE REPORT ---
PROCEDURE PHYSICIAN: YOLANDA CLEMONS DATE OF PROCEDURE: 12/06/2016 PREOPERATIVE DIAGNOSIS: Colon cancer with inoperable recurrence. POSTOPERATIVE DIAGNOSIS: Colon cancer with inoperable recurrence. PROCEDURE: Removal of Uwoqfd-w-Kvxs. SURGEON: Dr. Clemons ANESTHESIA: Sedation with local. BLOOD LOSS: Minimal. FLUIDS: 300 mL of Crystalloids. TYPE OF WOUND: Type not I (clean wound). 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 She completed the recommend adjuvant therapy. She has since developed inoperable recurrence and requested comfort measures. After an adequate discussion with her oncologist, we elected to remove the Eelotm-y-Fbty. Informed consent was obtained after reviewing the procedure in detail. DESCRIPTION OF PROCEDURE: She was placed supine on the operative table and our FABRIC CUTTER administered sedation, monitoring her vital signs. A gram of Ancef was administered intravenously as prophylaxis against wound infection. Sequential compression devices were placed around her legs, to minimize the risk of venous thrombosis. Right infraclavicular fossa was prepared and draped in the usual sterile manner. Local anesthesia was achieved using 0.25% Marcaine with epinephrine. A secondary incision was made along the previous scar and the Jgmsim-t-Cgrt removed without risking air embolism. The incision was then closed using 3-0 Vicryl for subcutaneous tissue and 4-0 Vicryl for skin, in a subcuticular fashion. She tolerated the procedure well and was taken back to the nursing area in a stable condition. Job ID: [id number] Dictated Date: 12/06/2016 11:17:55 Ammonia Refrigeration Worker Date: 12/09/2016 10:11:32 / anastasia ESTES
== END 2016-12-06 13:15 | disposition home or self-care (01) ==
LOC: SDC 09:35
PROVIDERS: ATTEND Surgery
DX: C19 Malignant neoplasm of rectosigmoid junction (principal)
CPT/HCPCS: 87081

== ENCOUNTER 2017-01-27 14:46 | Outpatient (RCR) | payer MEDICARE, OTHER ==
--- OUTSIDE RECORDS SUMMARY | 2016-11-14 10:09 | XMS REPORT | Continuity of Care Document ---
Author Author [facility] Organization [facility] Address Unknown Phone Unavailable Support Name Relationship Address Phone MONROEMESHA CAMACHO Melly PATEL Caregiver [address] [place] [address] SHANTEL LIZ MD Caregiver VIA [facility] [address] [place] [address] REANNA PERSON Next Of Kin [address] [place] [address] Insurance Providers Payer Name Policy Number Subscriber Name Relationship Wps Medicare [id number] Shanita Luis 18 Self / Same As Patient Advance Directives Directive Response Recorded Date/Time Advance Directives No 11/14/14 9:15am Health Care Power of Notched Blade Loader No 11/14/14 9:15am Organ Donor No 11/14/14 [...] D 1 Tab PO DAILY 04/05/14 Active [place]-3 Fatty Acids/Fish Oil 1,000 Mg PO DAILY [...] F (97.6 - 99.5) Temperature (Calculated Celsius) 36.22367 degrees C (36.4 - 37.5) Temperature Source Tympanic Pulse Rate (adult) 52 bpm (60 - 90) Respiratory Rate 18 bpm (12 - 24) O2 Sat by Pulse Oximetry 96 % (88 - 100) Blood Pressure 149/57 mm Hg Pain Pain Intensity 0 Height (Feet) 5 feet Height (Inches) 2.00 inches Height (Calculated Centimeters) 157.186088 cm Weight (Pounds) 175 pounds Weight (Ounces) 6.4 oz Weight (Calculated Grams) 79127.102 gm Weight (Calculated Kilograms) 79.807543 kilograms Results No known relevant diagnostic tests, laboratory data and/or discharge summary. Procedures Procedure Status Date Provider(s) COLONOSCOPY W/LESION REMOVAL completed 10/24/14 YOLANDA CLEMONS MD Encounters Encounter Location Date/Time Registered Recurring Via [facility] 11/14/14 12:43pm Registered Surgical Day Care Via [facility] 11/14/14 8:48am Registered Clinic Via [facility] 11/11/14 5:55am Registered Surgical Day Care [facility] 10/24/14 11:48am Registered Clinic Via [facility] 10/19/14 6:21am
[2016-11-14 10:23] LABS: BASOPHILS % (AUTO) 0 % (0-10); EOSINOPHILS % (AUTO) 0 % (0-10); LYMPHOCYTES # (AUTO) 1.9 X 10^3 (1.0-4.0); LYMPHOCYTES % (AUTO) 34 % (12-44); MEAN CORPUSCULAR HEMOGLOBIN 28 PG (25-34); MEAN CORPUSCULAR HGB CONC 29 G/DL (32-36); MEAN CORPUSCULAR VOLUME 97 FL (80-99); MEAN PLATELET VOLUME 9.5 FL (7.4-10.4); MONOCYTES # (AUTO) 0.5 X 10^3 (0.0-1.0); MONOCYTES % (AUTO) 9 % (0-12); NEUTROPHILS # (AUTO) 3.2 X 10^3 (1.8-7.8); NEUTROPHILS % (AUTO) 57 % (42-75); PLATELET COUNT 136 10^3/uL (130-400); RED BLOOD COUNT 3.42 10^6/uL (4.35-5.85); RED CELL DISTRIBUTION WIDTH 15.7 % (10.0-14.5); WHITE BLOOD COUNT 5.6 10^3/uL (4.3-11.0)
[2016-11-14 11:03] LABS: ALANINE AMINOTRANSFERASE 12 U/L (0-55); ALBUMIN 3.7 G/DL (3.2-4.5); ANION GAP 9 MMOL/L (5-14); ASPARTATE AMINO TRANSFERASE 19 U/L (5-34); BILIRUBIN,TOTAL 0.4 MG/DL (0.1-1.0); BLOOD UREA NITROGEN 22 MG/DL (7-18); BUN/CREATININE RATIO 29; CALCIUM 9.1 MG/DL (8.5-10.1); CARBON DIOXIDE 27 MMOL/L (21-32); CHLORIDE 104 MMOL/L (98-107); CREATININE SERUM 0.75 MG/DL (0.60-1.30); GFR ESTIMATED > 60; GLUCOSE 89 MG/DL (70-105); POTASSIUM 4.1 MMOL/L (3.6-5.0); SODIUM 140 MMOL/L (135-145); TOTAL PROTEIN 6.5 G/DL (6.4-8.2)
[2016-12-11 10:51] LABS: BASOPHILS % (AUTO) 0 % (0-10); EOSINOPHILS % (AUTO) 0 % (0-10); LYMPHOCYTES # (AUTO) 1.7 X 10^3 (1.0-4.0); LYMPHOCYTES % (AUTO) 34 % (12-44); MEAN CORPUSCULAR HEMOGLOBIN 28 PG (25-34); MEAN CORPUSCULAR HGB CONC 30 G/DL (32-36); MEAN CORPUSCULAR VOLUME 95 FL (80-99); MEAN PLATELET VOLUME 10.2 FL (7.4-10.4); MONOCYTES # (AUTO) 0.4 X 10^3 (0.0-1.0); MONOCYTES % (AUTO) 8 % (0-12); NEUTROPHILS # (AUTO) 2.8 X 10^3 (1.8-7.8); NEUTROPHILS % (AUTO) 57 % (42-75); PLATELET COUNT 128 10^3/uL (130-400); RED BLOOD COUNT 3.56 10^6/uL (4.35-5.85); RED CELL DISTRIBUTION WIDTH 15.5 % (10.0-14.5)
[2016-12-11 11:18] LABS: ALANINE AMINOTRANSFERASE 10 U/L (0-55); ALBUMIN 3.7 G/DL (3.2-4.5); ANION GAP 9 MMOL/L (5-14); ASPARTATE AMINO TRANSFERASE 17 U/L (5-34); BILIRUBIN,TOTAL 0.3 MG/DL (0.1-1.0); BLOOD UREA NITROGEN 23 MG/DL (7-18); BUN/CREATININE RATIO 31; CALCIUM 9.1 MG/DL (8.5-10.1); CARBON DIOXIDE 29 MMOL/L (21-32); CHLORIDE 108 MMOL/L (98-107); CREATININE SERUM 0.75 MG/DL (0.60-1.30); GFR ESTIMATED > 60; GLUCOSE 86 MG/DL (70-105); POTASSIUM 4.5 MMOL/L (3.6-5.0); SODIUM 146 MMOL/L (135-145); TOTAL PROTEIN 6.6 G/DL (6.4-8.2)
[2016-12-24 10:27] LABS: BASOPHILS % (AUTO) 0 % (0-10); EOSINOPHILS % (AUTO) 0 % (0-10); LYMPHOCYTES # (AUTO) 1.3 X 10^3 (1.0-4.0); LYMPHOCYTES % (AUTO) 25 % (12-44); MEAN CORPUSCULAR HEMOGLOBIN 28 PG (25-34); MEAN CORPUSCULAR HGB CONC 30 G/DL (32-36); MEAN CORPUSCULAR VOLUME 94 FL (80-99); MEAN PLATELET VOLUME 9.9 FL (7.4-10.4); MONOCYTES # (AUTO) 0.4 X 10^3 (0.0-1.0); MONOCYTES % (AUTO) 7 % (0-12); NEUTROPHILS # (AUTO) 3.6 X 10^3 (1.8-7.8); NEUTROPHILS % (AUTO) 67 % (42-75); PLATELET COUNT 129 10^3/uL (130-400); RED BLOOD COUNT 3.59 10^6/uL (4.35-5.85); RED CELL DISTRIBUTION WIDTH 15.5 % (10.0-14.5); WHITE BLOOD COUNT 5.4 10^3/uL (4.3-11.0)
[2016-12-24 11:01] LABS: ALANINE AMINOTRANSFERASE 15 U/L (0-55); ALBUMIN 3.5 G/DL (3.2-4.5); ANION GAP 8 MMOL/L (5-14); ASPARTATE AMINO TRANSFERASE 20 U/L (5-34); BILIRUBIN,TOTAL 0.3 MG/DL (0.1-1.0); BLOOD UREA NITROGEN 22 MG/DL (7-18); BUN/CREATININE RATIO 30; CALCIUM 9.1 MG/DL (8.5-10.1); CARBON DIOXIDE 31 MMOL/L (21-32); CHLORIDE 106 MMOL/L (98-107); CREATININE SERUM 0.74 MG/DL (0.60-1.30); GFR ESTIMATED > 60; GLUCOSE 94 MG/DL (70-105); POTASSIUM 4.2 MMOL/L (3.6-5.0); SODIUM 145 MMOL/L (135-145); TOTAL PROTEIN 6.4 G/DL (6.4-8.2)
[~2017-01-27 14:46] MED LIST changes: +ATROPINE INJ 0.4 MG/ML SDV (CANCER CENTER) INJ SCH; +D5W IV SCH; +DARBEPOETIN 40 MCG/1 ML ARANESP IJ SCH; +DARBEPOETIN 60 MCG/ML ARANESP (CANCER CTR) INJ SCH; +DEXAMETHASONE IV SCH; +FAMOTIDINE 20MG/2ML IV (CANCER CTR) IV SCH; +FLUOROURACIL IV SCH; +IRINOTECAN HCL IV SCH; +LEUCOVORIN CALCIUM IV SCH; +NS IV 500 ML (CANCER CENTER) IV SCH; +ONDANSETRON IV SCH; +[UNRECOGNIZED DRUG - OTHER] IV SCH; +diphenhydrAMINE 25 MG TAB (BENADRYL) CANCER CENTER PO SCH
[2017-01-27 15:04] LABS: BASOPHILS % (AUTO) 0 % (0-10); EOSINOPHILS % (AUTO) 0 % (0-10); LYMPHOCYTES # (AUTO) 1.9 X 10^3 (1.0-4.0); LYMPHOCYTES % (AUTO) 28 % (12-44); MEAN CORPUSCULAR HEMOGLOBIN 28 PG (25-34); MEAN CORPUSCULAR HGB CONC 30 G/DL (32-36); MEAN CORPUSCULAR VOLUME 93 FL (80-99); MEAN PLATELET VOLUME 8.7 FL (7.4-10.4); MONOCYTES # (AUTO) 0.5 X 10^3 (0.0-1.0); MONOCYTES % (AUTO) 8 % (0-12); NEUTROPHILS # (AUTO) 4.2 X 10^3 (1.8-7.8); NEUTROPHILS % (AUTO) 64 % (42-75); PLATELET COUNT 203 10^3/uL (130-400); RED BLOOD COUNT 3.56 10^6/uL (4.35-5.85); RED CELL DISTRIBUTION WIDTH 15.9 % (10.0-14.5); WHITE BLOOD COUNT 6.7 10^3/uL (4.3-11.0)
[2017-01-27 16:10] LABS: ANION GAP 7 MMOL/L (5-14); BLOOD UREA NITROGEN 23 MG/DL (7-18); BUN/CREATININE RATIO 26; CARBON DIOXIDE 31 MMOL/L (21-32); CHLORIDE 107 MMOL/L (98-107); CREATININE SERUM 0.87 MG/DL (0.60-1.30); GFR ESTIMATED > 60; GLUCOSE 102 MG/DL (70-105); POTASSIUM 4.2 MMOL/L (3.6-5.0); SODIUM 145 MMOL/L (135-145)
[2017-01-30] MEDS ORDERED: GABA-488 PO (13:14)
[2017-01-30] MEDS ORDERED: TRAM50TA2 PO (13:14)
[2017-01-30] MEDS ORDERED: CYAN10006 PO (14:02)
[2017-01-30] MEDS ORDERED: TRIF1TAB7 PO (14:02)
[2017-01-30] MEDS ORDERED: TRIF1TAB10 PO (14:02)
[2017-01-31] MEDS ORDERED: APIX2.5T PO (08:32)
[2017-01-31] MEDS ORDERED: AMOX500C2 PO (10:47)
== END 2017-02-12 | disposition home or self-care (01) ==
LOC: ONC 14:46
PROVIDERS: ATTEND Internal Medicine Hematology & Oncology
DX: C18.7 Malignant neoplasm of sigmoid colon (principal); D63.1 Anemia in chronic kidney disease; N18.9 Chronic kidney disease, unspecified; I12.9 Hypertensive chronic kidney disease with stage 1 through stage 4 chronic kidney disease, or unspecified chronic kidney disease; D51.3 Other dietary vitamin B12 deficiency anemia; I25.10 Atherosclerotic heart disease of native coronary artery without angina pectoris; E03.9 Hypothyroidism, unspecified; E78.5 Hyperlipidemia, unspecified; R60.9 Edema, unspecified; R82.99 Other abnormal findings in urine; Z95.1 Presence of aortocoronary bypass graft; Z79.899 Other long term (current) drug therapy; Z23 Encounter for immunization
CPT/HCPCS: 36415; 36591; 80048; 80053; 82378; 82607; 82728; 83540; 85025; 96372; 99213

== ENCOUNTER 2017-01-30 10:20 | Observation (INO) | payer MEDICARE, OTHER ==
[~2017-01-30] VITALS: Ht 157.5 cm; Wt 67.5 kg
[~2017-01-30 10:20] MED LIST changes: -ATROPINE INJ 0.4 MG/ML SDV (CANCER CENTER) INJ SCH; -D5W IV SCH; -DARBEPOETIN 40 MCG/1 ML ARANESP IJ SCH; -DARBEPOETIN 60 MCG/ML ARANESP (CANCER CTR) INJ SCH; -DEXAMETHASONE IV SCH; -FAMOTIDINE 20MG/2ML IV (CANCER CTR) IV SCH; -FLUOROURACIL IV SCH; -IRINOTECAN HCL IV SCH; -LEUCOVORIN CALCIUM IV SCH; -NS IV 500 ML (CANCER CENTER) IV SCH; -ONDANSETRON IV SCH; -[UNRECOGNIZED DRUG - OTHER] IV SCH; -diphenhydrAMINE 25 MG TAB (BENADRYL) CANCER CENTER PO SCH
[2017-01-30] MEDS ORDERED: ASPIRIN 81 MG CHEW (CHILDREN'S ASA) ONE (10:26)
[2017-01-30] MEDS ORDERED: RX-NITROGLYCERIN 0.4 MG TAB BTL 25'S SL ONE ×2 (10:27→10:30)
[2017-01-30] MEDS ORDERED: ASPIRIN 81 MG CHEW (CHILDREN'S ASA) PO ONE (10:30)
--- NOTE | 2017-01-30 10:41 | ED Chest Pain ---
General Chief Complaint: Chest Pain Stated Complaint: CHEST PAIN Source: patient Exam Limitations: no limitations History of Present Illness Time seen by provider: 10:20 Initial Comments Here by wheelchair from cancer center where she presented with chest pain. Patient has history of colon cancer. States that she had chest pain started sometime this morning but not exactly sure. She believes it has been a couple hours. Described as a tightness across the top of her chest and is associated with nausea. Denies vomiting. Denies fever or chills. Timing/Duration: 1-3 hours Severity/Quality: moderate Location: central Radiation: other (across upper chest bilaterally) Activities at Onset: none Prior CP/Workup: heart attack Modifying Factors: improves with rest ASA po INVESTOR RELATIONS DIRECTOR: No NTG SL INVESTOR RELATIONS DIRECTOR: No Associated Symptoms: No abdominal pain, No back pain, No diaphoresis, nausea/ vomiting, shortness of breath, weakness Allergies and Home Medications Allergies Coded Allergies: No Known Drug Allergies (Verified , 01/30/16) Home Medications Amlodipine Besylate 10 Mg Tablet, 10 MG PO DAILY, (Reported) Amoxicillin 500 Mg Capsule, 500 MG PO TID for 7 Days, #21 Prescribed by: JIMMY JIMÉNEZ on 01/31/17 1047 Apixaban 2.5 Mg Tablet, 2.5 MG PO BID, #60 Ref 5 Prescribed by: LINH PAT on 01/31/17 0832 Aspirin 81 Mg Tabec, 81 MG PO DAILY, (Reported) Cyanocobalamin (Vitamin B-12) 1,000 Mcg Tablet, 1,000 MCG PO DAILY, (Reported) Gabapentin 300 Mg Capsule, 600 MG PO HS, (Reported) TAKES 2 (300 MG) CAPSULES Gabapentin 300 Mg Capsule, 300 MG PO DAILY@1100, (Reported) Magnesium Oxide 400 Mg Tablet, 400 MG PO DAILY, (Reported) Quinapril Hcl 40 Mg Tablet, 40 MG PO DAILY, (Reported) Simvastatin 10 Mg Tablet, 10 MG PO HS, (Reported) Tramadol HCl 50 Mg Tablet, 50 MG PO Q12H PRN for PAIN, (Reported) Trifluridine/Tipiracil HCl 1 Each Tablet, 40 MG PO UD, (Reported) TAKES 2 (20 MG) TABLETS ALONG WITH 1 (15 MG) TABLET FOR A TOTAL DOSE OF 55MG / TAKES ON DAYS 1-5 & 8-12 EVERY 28 DAYS Trifluridine/Tipiracil HCl 1 Each Tablet, 15 MG PO, (Reported) TAKES 1 (15 MG) TABLET ALONG WITH 2 (20 MG) TABLETS FOR A TOTAL DOSE OF 55MG / TAKES ON DAYS 1-5 & 8-12 EVERY 28 DAYS Review of Systems Constitutional: see HPI, No chills, No fever EENTM: No Symptoms Reported Respiratory: See HPI Cardiovascular: See HPI Gastrointestinal: See HPI, Denies Diarrhea Genitourinary: No Symptoms Reported Musculoskeletal: no symptoms reported Skin: no symptoms reported All Other Systems Reviewed Negative Unless Noted: Yes Past Omhwelu-Imcmex-Qkrztv Hx Patient Social History Alcohol Use: Denies Use Recreational Drug Use: No Smoking Status: Former Smoker Former Smoker/When Quit: Oct 24, 1974 Recent Hopitalizations: No Immunizations Up To Date Tetanus Booster (TDap): More than 5yrs Date of Pneumonia Vaccine: Oct 15, 2012 Date of Influenza Vaccine: Aug 13, 2016 Seasonal Allergies Seasonal Allergies: No Surgeries HX Surgeries: Yes (COLON CA, ABDOMINAL HERNIA X 3, LASIK, PORT R CHEST) Surgeries: Abdominal, Appendectomy, Bowel Surgery, Cardiac, CABG, Eye Surgery, Gallbladder Respiratory Hx Respiratory Disorders: No Cardiovascular Hx Cardiac Disorders: Yes (LEGS SWELL, DOUBLE BYPASS) Cardiac Disorders: Aneurysm, Chronic Edema/Swelling, Coronary Artery Disease, Heart Attack, High Cholesterol, Hypertension Neurological Hx Neurological Disorders: No Reproductive System Hx Reproductive Disorders: No Sexually Transmitted Disease: No HIV/AIDS: No Female Reproductive Disorders: Denies Genitourinary Hx Genitourinary Disorders: No Gastrointestinal Hx Gastrointestinal Disorders: Yes (COLOSTOMY / COLON CANCER) Musculoskeletal Hx Musculoskeletal Disorders: Yes Musculoskeletal Disorders: Arthritis Endocrine Hx Endocrine Disorders: Yes Endocrine Disorders: Hypothyroidsim HEENT HX ENT Disorders: Yes (GLASSES, CATARACTS OU, DENTURES, LASIK SURGERY) HEENT Disorders: Cataract Loss of Vision: Denies Hearing Impairment: Denies Cancer Hx Cancer: Yes (RECURRENT COLON CA DX 2012-S/P SURGERY-COLOSTOMY,NOW ON CHEMO) Cancer: Skin, Colon Psychosocial Hx Psychiatric Problems: No Integumentary HX Skin/Integumentary Disorder: No Blood Transfusions Hx Blood Disorders: No (BRUISING) Adverse Reaction to a Blood Tr: No Family Medical History Family Medial History: Cancer 03 FATHER (UNSURE OF TYPE) 09 SISTER (UTERUS) Family history: Hypertension 03 MOTHER 09 SISTER History of - respiratory disease 09 SISTER Myocardial infarction 09 BROTHER No Family History of: Abdominal aortic aneurysm Bhaskar's disease Alcoholism Aphasia Physical Exam Vital Signs Capillary Refill : Less Than 3 Seconds General Appearance: No Apparent Distress, WD/WN HEENT: PERRL/EOMI, Pharynx Normal Neck: Non Tender, Supple Respiratory: Lungs Clear, Normal Breath Sounds Cardiovascular: Regular Rate, Rhythm, Systolic Murmur Gastrointestinal: Non Tender, Soft Extremity: Normal Range of Motion, Non Tender, No Calf Tenderness Neurologic/Psychiatric: Alert, Oriented x3 Skin: Normal Color, Warm/Dry Progress/Results/Core Measures Results/Orders Lab Results Laboratory Tests Test 01/30/17 10:40 Range/Units White Blood Count 6.6 4.3-11.0 10^3/uL Red Blood Count 3.43 L 4.35-5.85 10^6/uL Hemoglobin 9.6 L 11.5-16.0 G/DL Hematocrit 32 L 35-52 % Mean Corpuscular Volume 93 80-99 FL Mean Corpuscular Hemoglobin 28 25-34 PG Mean Corpuscular Hemoglobin Concent 30 L 32-36 G/DL Red Cell Distribution Width 15.7 H 10.0-14.5 % Platelet Count 186 130-400 10^3/uL Mean Platelet Volume 9.6 7.4-10.4 FL Neutrophils (%) (Auto) 67 42-75 % Lymphocytes (%) (Auto) 25 12-44 % Monocytes (%) (Auto) 8 0-12 % Eosinophils (%) (Auto) 1 0-10 % Basophils (%) (Auto) 0 0-10 % Neutrophils # (Auto) 4.4 1.8-7.8 X 10^3 Lymphocytes # (Auto) 1.6 1.0-4.0 X 10^3 Monocytes # (Auto) 0.5 0.0-1.0 X 10^3 Eosinophils # (Auto) 0.0 0.0-0.3 10^3/uL Basophils # (Auto) 0.0 0.0-0.1 10^3/uL Prothrombin Time 13.8 12.2-14.7 SEC INR Comment 1.1 0.8-1.4 Activated Partial Thromboplast Time 29 24-35 SEC Sodium Level 144 135-145 MMOL/L Potassium Level 4.0 3.6-5.0 MMOL/L Chloride Level 106 98-107 MMOL/L Carbon Dioxide Level 31 21-32 MMOL/L Anion Gap 7 5-14 MMOL/L Blood Urea Nitrogen 23 H 7-18 MG/DL Creatinine 0.83 0.60-1.30 MG/DL Estimat Glomerular Filtration Rate > 60 BUN/Creatinine Ratio 28 Glucose Level 97 70-105 MG/DL Calcium Level 8.9 8.5-10.1 MG/DL Magnesium Level 1.7 L 1.8-2.4 MG/DL Total Bilirubin 0.3 0.1-1.0 MG/DL Aspartate Amino Transf (AST/SGOT) 19 5-34 U/L Alanine Aminotransferase (ALT/SGPT) 12 0-55 U/L Alkaline Phosphatase 72 40-136 U/L Myoglobin 52.8 10.0-92.0 NG/ML Troponin I < 0.30 <0.30 NG/ML Total Protein 6.4 6.4-8.2 G/DL Albumin 3.3 3.2-4.5 G/DL My Orders Orders - DENG MCMAHON MD Aspirin Chewable Tablet (Baby Aspirin Ch (01/30/17 10:26) Rx-Nitroglycerin Sl Tabs (Rx-Nitrostat S (01/30/17 10:27) Cbc With Automated Diff (01/30/17 10:30) Magnesium (01/30/17 10:30) Chest 1 View, Ap/Pa Only (01/30/17 10:30) Ekg Tracing (01/30/17 10:30) Cardiac Profile 1 (01/30/17 10:30) Comprehensive Metabolic Panel (01/30/17 10:30) Myoglobin Serum (01/30/17 10:30) Protime With Inr (01/30/17 10:30) Partial Thromboplastin Time (01/30/17 10:30) O2 (01/30/17 10:30) Monitor-Rhythm Ecg Trace Only (01/30/17 10:30) Lipid Panel (01/31/17 06:00) Aspirin Chewable Tablet (Baby Aspirin Ch (01/30/17 10:30) Rx-Nitroglycerin Sl Tabs (Rx-Nitrostat S (01/30/17 10:30) Saline Lock/Iv-Start (01/30/17 10:30) Medications Given in ED Vital Signs/I&O Progress Note : Progress Note Seen and evaluated. IV, labs, EKG and chest x-ray ordered. ASA 324 mg by mouth and nitroglycerin sublingual ordered. Monitor patient. No significant findings. Admit for further evaluation. Discussed with Dr. Fuentes who accepts admission. Consult Dr. Foster and Dr. fuentes. 10. Patient agrees to admission. ECG Initial ECG Impression Date: Jan 30, 2017 Initial ECG Impression Time: 10:24 Initial ECG Rate: 54 Initial ECG Rhythm: Normal Sinus Comment Sinus rhythm with left ventricular hypertrophy. Normal axis. No evidence of ST elevation MO. Overall similar in appearance to October,. Interpreted by me. Diagnostic Imaging Diagonstic Imaging: Xray Plain Films/CT/US/NM/MRI: chest Comments NAME: LIUDMILA KHAN [facility] REC#: [id number] PT STATUS: ADM Gabriela : 1940 PHYSICIAN: DENG MCMAHON MD ADMIT DATE: 01/30/17/ICU Signed Date of Exam: 01/30/17 CHEST 1 VIEW, AP/PA ONLY INDICATION: Chest pain and heaviness. Frontal chest obtained at 11:29 a.m. and compared with 08/31/16. FINDINGS: There is poststernotomy change with cardiomegaly. There is no acute infiltrate or pneumothorax or pleural fluid. IMPRESSION: Cardiomegaly and poststernotomy change. No acute infiltrate or edema or pleural fluid. Dictated by: Dictated on workstation # [id number] Dict: 01/30/17 1139 Trans: 01/31/17 0832 [id number] Interpreted by: REENA DOWELL MD Electronically signed by:REENA DOWELL MD 01/31/17 0832 Departure Communication Time/Spoke to Admitting Phy: 12:29 Time/Spoke to Consulting Physi: 12:30 Impression Impression: Primary Impression: Chest pain Qualified Codes: R07.9 - Chest pain, unspecified Disposition: ADMITTED INPATIENT Condition: Against Medical Advice Decision to Admit Reason: Admit from ER (General) Decision to Admit/Date: Jan 30, 2017 Time/Decision to Admit Time: 12:29 Departure-Patient Inst. Referrals: MESHA FUENTES DO (PCP/Family) Primary Care Physician Scripts Amoxicillin (Amoxicillin) 500 Mg Capsule 500 MG PO TID for 7 Days, #21 CAP Prov: MESHA FUENTES DO 01/31/17 Apixaban (Eliquis) 2.5 Mg Tablet 2.5 MG PO BID, #60 TAB 5 Refills Prov: LINH PAT 01/31/17 DENG MCMAHON MD Jan 30, 2017 10:41
[2017-01-30 10:53] LABS: BASOPHILS % (AUTO) 0 % (0-10); EOSINOPHILS % (AUTO) 1 % (0-10); LYMPHOCYTES # (AUTO) 1.6 X 10^3 (1.0-4.0); LYMPHOCYTES % (AUTO) 25 % (12-44); MEAN CORPUSCULAR HEMOGLOBIN 28 PG (25-34); MEAN CORPUSCULAR HGB CONC 30 G/DL (32-36); MEAN CORPUSCULAR VOLUME 93 FL (80-99); MEAN PLATELET VOLUME 9.6 FL (7.4-10.4); MONOCYTES # (AUTO) 0.5 X 10^3 (0.0-1.0); MONOCYTES % (AUTO) 8 % (0-12); NEUTROPHILS # (AUTO) 4.4 X 10^3 (1.8-7.8); NEUTROPHILS % (AUTO) 67 % (42-75); PLATELET COUNT 186 10^3/uL (130-400); RED BLOOD COUNT 3.43 10^6/uL (4.35-5.85); RED CELL DISTRIBUTION WIDTH 15.7 % (10.0-14.5); WHITE BLOOD COUNT 6.6 10^3/uL (4.3-11.0)
[2017-01-30 11:05] LABS: INR 1.1 (0.8-1.4); PROTHROMBIN TIME PATIENT 13.8 SEC (12.2-14.7)
[2017-01-30 11:16] LABS: ALANINE AMINOTRANSFERASE 12 U/L (0-55); ALBUMIN 3.3 G/DL (3.2-4.5); ANION GAP 7 MMOL/L (5-14); ASPARTATE AMINO TRANSFERASE 19 U/L (5-34); BILIRUBIN,TOTAL 0.3 MG/DL (0.1-1.0); BLOOD UREA NITROGEN 23 MG/DL (7-18); BUN/CREATININE RATIO 28; CALCIUM 8.9 MG/DL (8.5-10.1); CARBON DIOXIDE 31 MMOL/L (21-32); CHLORIDE 106 MMOL/L (98-107); CREATININE SERUM 0.83 MG/DL (0.60-1.30); GFR ESTIMATED > 60; GLUCOSE 97 MG/DL (70-105); MAGNESIUM 1.7 MG/DL (1.8-2.4); SODIUM 144 MMOL/L (135-145); TOTAL PROTEIN 6.4 G/DL (6.4-8.2)
[2017-01-30 11:22] LABS: MYOGLOBIN SERUM 52.8 NG/ML (10.0-92.0)
--- NOTE | 2017-01-30 11:42 | Diagnostic Imaging Report ---
INDICATION: Chest pain and heaviness. Frontal chest obtained at 11:29 a.m. and compared with 08/31/16. FINDINGS: There is poststernotomy change with cardiomegaly. There is no acute infiltrate or pneumothorax or pleural fluid. IMPRESSION: Cardiomegaly and poststernotomy change. No acute infiltrate or edema or pleural fluid. Dictated by: Dictated on workstation # [id number]
[2017-01-30] MEDS ORDERED: TRAM50TA2 PO (13:14)
[2017-01-30] MEDS ORDERED: GABA-488 PO (13:14)
[2017-01-30] MEDS ORDERED: NS IV 1000 ML 1,000 ML IV SCH (13:15)
[2017-01-30] MEDS ORDERED: CATHETER FLUSH 10 ML SYR IV PRN (13:15)
[2017-01-30] MEDS ORDERED: RT-ALBUTEROL/IPRATROPIUM 3 ML (DUONEB) VIAL INH PRN (14:00)
[2017-01-30] MEDS ORDERED: TRIF1TAB10 PO (14:02)
[2017-01-30] MEDS ORDERED: CYAN10006 PO (14:02)
[2017-01-30] MEDS ORDERED: TRIF1TAB7 PO (14:02)
[2017-01-30 16:00] VITALS: BP 154/52
--- NOTE | 2017-01-30 17:24 | History & Physicial ---
History of Present Illness History of Present Illness Reason for visit/HPI chest pain and chest tightness. Patient had this morning chest pain and chest tightness area Patient went out to the cancer Center and from there patient in wheelchair sent to the emergency room. Pain went across the chest and did not radiate down the arms or neck or upper abdomen. Surgeries appendectomy, gallbladder, hernia, hysterectomy, and colon cancer. Patient has history of having a heart attack. Family history father sister this cancer. Mother and large heart. Denies asthma TB diabetes in family Date of Admission Jan 30, 2017 at 12:33 I consulted on this patient on 01/30/17 17:19 Attending Physician Jhony Fuentes DO Admitting Physician Jhony Fuentes DO Consult Allergies and Home Medications Allergies Coded Allergies: No Known Drug Allergies (Verified , 01/30/16) Home Medications Amlodipine Besylate 10 Mg Tablet, 10 MG PO DAILY, (Reported) Aspirin 81 Mg Tabec, 81 MG PO DAILY, (Reported) Atenolol 25 Mg Tablet, 25 MG PO DAILY@1400, (Reported) Cyanocobalamin (Vitamin B-12) 1,000 Mcg Tablet, 1,000 MCG PO DAILY, (Reported) Gabapentin 300 Mg Capsule, 600 MG PO HS, (Reported) TAKES 2 (300 MG) CAPSULES Gabapentin 300 Mg Capsule, 300 MG PO DAILY@1100, (Reported) Levothyroxine Sodium 175 Mcg Tablet, 175 MCG PO DAILY@0015, (Reported) Magnesium Oxide 400 Mg Tablet, 400 MG PO DAILY, (Reported) Quinapril Hcl 40 Mg Tablet, 40 MG PO DAILY, (Reported) Simvastatin 10 Mg Tablet, 10 MG PO HS, (Reported) Tramadol HCl 50 Mg Tablet, 50 MG PO Q12H PRN for PAIN, (Reported) Trifluridine/Tipiracil HCl 1 Each Tablet, 40 MG PO UD, (Reported) TAKES 2 (20 MG) TABLETS ALONG WITH 1 (15 MG) TABLET FOR A TOTAL DOSE OF 55MG / TAKES ON DAYS 1-5 & 8-12 EVERY 28 DAYS Trifluridine/Tipiracil HCl 1 Each Tablet, 15 MG PO, (Reported) TAKES 1 (15 MG) TABLET ALONG WITH 2 (20 MG) TABLETS FOR A TOTAL DOSE OF 55MG / TAKES ON DAYS 1-5 & 8-12 EVERY 28 DAYS Past Iligffy-Ruasrl-Wetvpw Hx Patient Social History Employed/Student: unemployed Alcohol Use: Denies Use Recreational Drug Use: No Smoking Status: Former Smoker Former smoker/When Quit: Oct 24, 1974 Physical Abuse Screen: No Sexual Abuse: No Recent Foreign Travel: No Contact w/other who traveled: No Recent Hopitalizations: No Recent Infectious Disease Expo: No Immunizations Up To Date Tetanus Booster (TDap): More than 5yrs Date of Pneumonia Vaccine: Oct 15, 2012 Date of Influenza Vaccine: Aug 13, 2016 Seasonal Allergies Seasonal Allergies: No Surgeries HX Surgeries: Yes (COLON CA, ABDOMINAL HERNIA X 3, LASIK, PORT R CHEST) Surgeries: Abdominal, Appendectomy, Bowel Surgery, Cardiac, CABG, Eye Surgery, Gallbladder Respiratory Hx Respiratory Disorders: No Cardiovascular Hx Cardiovascular Disorders: Yes (LEGS SWELL, DOUBLE BYPASS) Cardiac Disorders: Aneurysm, Chronic Edema/Swelling, Coronary Artery Disease, Heart Attack, High Cholesterol, Hypertension Neurological Hx Neurological Disorders: No Reproductive System Hx Reproductive Disorders: No Sexually Transmitted Disease: No HIV/AIDS: No Female Reproductive Disorders: Denies Genitourinary Hx Genitourinary Disorders: No Gastrointestinal Hx Gastrointestinal Disorders: Yes (COLOSTOMY / COLON CANCER) Musculoskeletal Hx Musculoskeletal Disorders: Yes Musculoskeletal Disorders: Arthritis Endocrine Hx Endocrine Disorders: Yes Endocrine Disorders: Hypothyroidsim HEENT HX ENT Disorders: Yes (GLASSES, CATARACTS OU, DENTURES, LASIK SURGERY) HEENT Disorders: Cataract Loss of Vision: Denies Hearing Impairment: Denies Cancer Hx Cancer: Yes (RECURRENT COLON CA DX 2012-S/P SURGERY-COLOSTOMY,NOW ON CHEMO) Cancer: Skin, Colon Psychosocial Hx Psychiatric Problems: No Integumentary HX Skin/Integumentary Disorder: No Blood Transfusions Hx Blood Disorders: No (BRUISING) Adverse Reaction to a Blood Tr: No Family Medical History Family Hx: Cancer 03 FATHER (UNSURE OF TYPE) 09 SISTER (UTERUS) Family history: Hypertension 03 MOTHER 09 SISTER History of - respiratory disease 09 SISTER Myocardial infarction 09 BROTHER No Family History of: Abdominal aortic aneurysm Bhaskar's disease Alcoholism Aphasia Constitutional: no symptoms reported EENTM: no symptoms reported Respiratory: no symptoms reported Cardiovascular: chest pain Gastrointestinal: no symptoms reported, other (colostomy) Genitourinary: no symptoms reported Physical Exam Vital Signs Vital Sign - Last 12Hours 01/30/17 15:09 O2 Flow Rate 2.00 Capillary Refill : Less Than 3 Seconds General Appearance: No Apparent Distress, WD/WN Eyes: Bilateral Eye Normal Inspection HEENT: Normal ENT Inspection Neck: Full Range of Motion, Normal Inspection Respiratory: Chest Non Tender, Lungs Clear, Normal Breath Sounds, No Accessory Muscle Use, No Respiratory Distress Cardiovascular: Regular Rate, Rhythm, Other (murmur present) Gastrointestinal: Non Tender, Soft, Other (colostomy left lower abdomen) Assessment/Plan Assessment and Plan chest pain. Previous AR. Coronary artery disease. Hyperlipidemia. Colon cancer. Hypertension Problems: Clinical Quality Measures AMI/AHF: ASA po Prior to arrival: No DVT/VTE Risk/Contraindication: Risk Factor Score Per Nursin RFS Level Per Nursing on Admit: 3=High JHONY FUENTES DO Jan 30, 2017 17:24
[2017-01-30] MEDS ORDERED: ENOXAPARIN 40 MG/0.4 ML (LOVENOX) SYR SC SCH (17:30)
--- NOTE | 2017-01-30 17:40 | Consultation ---
History of Present Illness History of Present Illness Patient Consulted On(nash/time) 01/30/17 17:40 Date of Admission 01/30/17 History of Present Illness This is a 76-year-old lady well known to me who has metastatic colon cancer recently diagnosed in 2012 and found to have tumor progression after having received 11 cycles of FOLFOX and 3 cycles of FOLFIRI. Patient was recently started on Lonsurf (trifluridine and tipiracil) . She states that she noted onset of nausea and chest tightness this morning. The nausea resolved with use of Zofran but the chest I stressed this persisted so patient came to the cancer center. She was sent to the emergency room because of persistent chest tightness which resolved with use of sublingual nitroglycerin. She has been noted to the area between A. fib flutter and sinus bradycardia since being admitted to the cardiac stepdown unit. She is awaiting evaluation by the medical care administrator but states she has no chest pain at this time. Past medical history is significant for CABG in 1999 and done at [facility]. Allergies and Home Medications Allergies Coded Allergies: No Known Drug Allergies (Verified , 01/30/16) Home Medications Amlodipine Besylate 10 Mg Tablet, 10 MG PO DAILY, (Reported) Aspirin 81 Mg Tabec, 81 MG PO DAILY, (Reported) Atenolol 25 Mg Tablet, 25 MG PO DAILY@1400, (Reported) Cyanocobalamin (Vitamin B-12) 1,000 Mcg Tablet, 1,000 MCG PO DAILY, (Reported) Gabapentin 300 Mg Capsule, 600 MG PO HS, (Reported) TAKES 2 (300 MG) CAPSULES Gabapentin 300 Mg Capsule, 300 MG PO DAILY@1100, (Reported) Levothyroxine Sodium 175 Mcg Tablet, 175 MCG PO DAILY@0015, (Reported) Magnesium Oxide 400 Mg Tablet, 400 MG PO DAILY, (Reported) Quinapril Hcl 40 Mg Tablet, 40 MG PO DAILY, (Reported) Simvastatin 10 Mg Tablet, 10 MG PO HS, (Reported) Tramadol HCl 50 Mg Tablet, 50 MG PO Q12H PRN for PAIN, (Reported) Trifluridine/Tipiracil HCl 1 Each Tablet, 40 MG PO UD, (Reported) TAKES 2 (20 MG) TABLETS ALONG WITH 1 (15 MG) TABLET FOR A TOTAL DOSE OF 55MG / TAKES ON DAYS 1-5 & 8-12 EVERY 28 DAYS Trifluridine/Tipiracil HCl 1 Each Tablet, 15 MG PO, (Reported) TAKES 1 (15 MG) TABLET ALONG WITH 2 (20 MG) TABLETS FOR A TOTAL DOSE OF 55MG / TAKES ON DAYS 1-5 & 8-12 EVERY 28 DAYS Past Ehyofvc-Pqcgqe-Uccmpe Hx Patient Social History Alcohol Use: Denies Use Recreational Drug Use: No Smoking Status: Former Smoker Former Smoker/When Quit: Oct 24, 1974 Recent Foreign Travel: No Contact w/Someone Who Travel: No Recent Infectious Disease Expo: No Recent Hopitalizations: No Physical Abuse Screen: No Sexual Abuse: No Immunizations Up To Date Tetanus Booster (TDap): More than 5yrs Date of Pneumonia Vaccine: Oct 15, 2012 Date of Influenza Vaccine: Aug 13, 2016 Seasonal Allergies Seasonal Allergies: No Surgeries HX Surgeries: Yes (COLON CA, ABDOMINAL HERNIA X 3, LASIK, PORT R CHEST) Surgeries: Abdominal, Appendectomy, Bowel Surgery, Cardiac, CABG, Eye Surgery, Gallbladder Respiratory Hx Respiratory Disorders: No Cardiovascular Hx Cardiac Disorders: Yes (LEGS SWELL, DOUBLE BYPASS) Cardiac Disorders: Aneurysm, Chronic Edema/Swelling, Coronary Artery Disease, Heart Attack, High Cholesterol, Hypertension Neurological Hx Neurological Disorders: No Reproductive System Hx Reproductive Disorders: No Sexually Transmitted Disease: No HIV/AIDS: No Female Reproductive Disorders: Denies Genitourinary Hx Genitourinary Disorders: No Gastrointestinal Hx Gastrointestinal Disorders: Yes (COLOSTOMY / COLON CANCER) Musculoskeletal Hx Musculoskeletal Disorders: Yes Musculoskeletal Disorders: Arthritis Endocrine Hx Endocrine Disorders: Yes Endocrine Disorders: Hypothyroidsim HEENT HX ENT Disorders: Yes (GLASSES, CATARACTS OU, DENTURES, LASIK SURGERY) HEENT Disorders: Cataract Loss of Vision: Denies Hearing Impairment: Denies Cancer Hx Cancer: Yes (RECURRENT COLON CA DX 2012-S/P SURGERY-COLOSTOMY,NOW ON CHEMO) Cancer: Skin, Colon Psychosocial Hx Psychiatric Problems: No Integumentary HX Skin/Integumentary Disorder: No Blood Transfusions Hx Blood Disorders: No (BRUISING) Adverse Reaction to a Blood Tr: No Family Medical History Family Medial History: Cancer 03 FATHER (UNSURE OF TYPE) 09 SISTER (UTERUS) Family history: Hypertension 03 MOTHER 09 SISTER History of - respiratory disease 09 SISTER Myocardial infarction 09 BROTHER No Family History of: Abdominal aortic aneurysm Bhasakr's disease Alcoholism Aphasia Review of Systems-General Constitutional: see HPI Cardiovascular: see HPI, chest pain Gastrointestinal: nausea Psychiatric/Neurological: Numbness (chronic numbness in fingers and toes) Physical Exam-General Problems Physical Exam Vital Signs Vital Sign - Last 12Hours 01/30/17 15:09 O2 Flow Rate 2.00 Capillary Refill : Less Than 3 Seconds General Appearance: no apparent distress HEENT: PERRL/EOMI Neck: non-tender, full range of motion, supple, normal inspection Respiratory: lungs clear, normal breath sounds, no respiratory distress, no accessory muscle use Cardiovascular: regular rate, rhythm, bradycardia, extra beats Gastrointestinal: normal bowel sounds, non tender, other ( colostomy with brown stool in bag and multiple abdominal scars present) Rectal: deferred Back: normal inspection, no CVA tenderness Extremities: normal range of motion, non-tender, normal inspection, no pedal edema, no calf tenderness Neurologic/Psychiatric: 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 No acute infiltrate or edema or pleural fluid. Assessment/Plan Assessment/Plan Admission Diagnosis/Plan 1. Chest pain--troponin is not elevated; currently does have paroxysmal atrial fib and intermittent a flight of alternating with sinus bradycardia-cardiology is evaluating. 2. Paroxysmal atrial fibrillation-Cardiology is following. 3. Metastatic colon cancer-receiving treatment with the oral agent, Lonsurf, which is a combination agent of trifluridine (a nucleoside analog) and tipiracil , a thymidine phosphorylase inhibitor. 4. CAD-status post CABG 2009 5. Hypothyroidism 6. Hypertension 7. Chronic anemia, multifactorial in origin secondary to cancer and his treatment, anemia of chronic disease, and vitamin B-12 deficiency. Clinical Quality Measures AMI/AHF: ASA po Prior to arrival: No DVT/VTE Risk/Contraindication: Risk Factor Score Per Nursin RFS Level Per Nursing on Admit: 3=High SHANTEL LIZ MD Jan 30, 2017 17:40
[2017-01-30] MEDS ORDERED: PATIENT MAY USE OWN MEDS, ALL MC SCH (17:45)
--- NOTE | 2017-01-30 18:07 | Consultation-Cardiology ---
HPI-Cardiology Cardiology Consultation: Date of Consultation 01/30/17 Date of Admission 01/30/17 Attending Physician Jhony Garcia DO Admitting Physician Jhony Garcia DO Consulting Physician FRANK WINKLER MD, FACP, FACC, [facility], CCDS Physician requesting consult: Dr Gracia HPI: Chief Complaint: Chest discomfort 76 yo woman who suffers from colon CA and had [facility] she had reported chest discomfort and was transferred to ER from where she was admitted Chest discomfort transthoracic, pressure-like, mild to mod, nonradiating, lasting only a few min, not associated with other symptoms, improved with s/l NTG, non-recurrent She feels comfortable now Denies syncope or palp. Has chronic exertional shortness of breath. Denies ankle swelling Review of Systems-Cardiology Review of Systems Constitutional: malaise, tiredness, No weight loss, No weight gain Eyes: No vision change Ears/Nose/Throat: No ear discharge, No nasal drainage, No recent hearing loss Respiratory: As described under HPI Cardiovascular: As described under HPI Gastrointestinal: No constipation, No diarrhea, No nausea, No vomiting Genitourinary: No dysuria, No hematuria, No urine frequency changes Musculoskeletal: back pain (chronic) Skin: No rash, No ulcerations Psychiatric/Neurological: No focal weakness, No seizure, No syncope Hematologic: No bleeding abnormalities All Other Systems Reviewed Negative Unless Noted: Yes [id number] Hx Patient Social History Employed/Student: unemployed Alcohol Use: Denies Use Recreational Drug Use: No Smoking Status: Former Smoker Former smoker/When Quit: Oct 24, 1974 Recent Foreign Travel: No Recent Infectious Disease Expo: No Hospitalization with Isolation: Denies Physical Abuse Screen: No Sexual Abuse: No Immunizations Up To Date Tetanus Booster (TDap): More than 5yrs Date of Pneumonia Vaccine: Oct 15, 2012 Date of Influenza Vaccine: Aug 13, 2016 Past Medical History PMH As described under Assessment. Family Medical History Family History: Cancer 03 FATHER (UNSURE OF TYPE) 09 SISTER (UTERUS) Family history: Hypertension 03 MOTHER 09 SISTER History of - respiratory disease 09 SISTER Myocardial infarction 09 BROTHER No Family History of: Abdominal aortic aneurysm Ransom's disease Alcoholism Aphasia Allergies and Home Medications Allergies Coded Allergies: No Known Drug Allergies (Verified , 01/30/16) Home Medications Amlodipine Besylate 10 Mg Tablet, 10 MG PO DAILY, (Reported) Aspirin 81 Mg Tabec, 81 MG PO DAILY, (Reported) Atenolol 25 Mg Tablet, 25 MG PO DAILY@1400, (Reported) Cyanocobalamin (Vitamin B-12) 1,000 Mcg Tablet, 1,000 MCG PO DAILY, (Reported) Gabapentin 300 Mg Capsule, 600 MG PO HS, (Reported) TAKES 2 (300 MG) CAPSULES Gabapentin 300 Mg Capsule, 300 MG PO DAILY@1100, (Reported) Levothyroxine Sodium 175 Mcg Tablet, 175 MCG PO DAILY@0015, (Reported) Magnesium Oxide 400 Mg Tablet, 400 MG PO DAILY, (Reported) Quinapril Hcl 40 Mg Tablet, 40 MG PO DAILY, (Reported) Simvastatin 10 Mg Tablet, 10 MG PO HS, (Reported) Tramadol HCl 50 Mg Tablet, 50 MG PO Q12H PRN for PAIN, (Reported) Trifluridine/Tipiracil HCl 1 Each Tablet, 40 MG PO UD, (Reported) TAKES 2 (20 MG) TABLETS ALONG WITH 1 (15 MG) TABLET FOR A TOTAL DOSE OF 55MG / TAKES ON DAYS 1-5 & 8-12 EVERY 28 DAYS Trifluridine/Tipiracil HCl 1 Each Tablet, 15 MG PO, (Reported) TAKES 1 (15 MG) TABLET ALONG WITH 2 (20 MG) TABLETS FOR A TOTAL DOSE OF 55MG / TAKES ON DAYS 1-5 & 8-12 EVERY 28 DAYS Physical Exam-Cardiology Physical Exam Vital Signs/I&O Vital Sign - Last 12Hours 01/30/17 01/30/17 01/30/17 01/30/17 10:20 10:20 13:00 13:07 Temp 97.2 97.2 Pulse 51 51 43 Resp 18 18 B/P (MAP) 162/67 Pulse Ox 97 97 O2 Delivery Room Air Room Air 01/30/17 01/30/17 01/30/17 01/30/17 13:49 15:09 16:00 16:00 Temp 98.0 Pulse 49 Resp 20 B/P (MAP) 154/52 Pulse Ox 88 98 96 O2 Delivery Nasal Cannula Nasal Cannula O2 Flow Rate 2.00 2.00 2.00 Capillary Refill : Less Than 3 Seconds Constitutional: AAO x 3, other (thin-appearin) HEENT: PERRL, hearing is well preserved, No xanthelasmas are seen Neck: carotid pulses are 2 + bilaterally, with good upstrokes Respiratory: No accessory muscle use, other (fair bilat air entry) Cardiovascular: regular rate-rhythm, S1 and S2, systolic murmur (faint MENDY at card base) Gastrointestinal: No tender, soft, No guarding, No rebound, audible bowel sounds Extremities: No clubbing, No cyanosis, No significant edema Neurologic/Psychiatric: grossly intact, power is 5/5 both on sides Skin: No rash on exposed areas, No ulcerations on exposed areas Data Review Labs Laboratory Tests 01/30/17 10:40: White Blood Count 6.6, Red Blood Count 3.43L, Hemoglobin 9.6L, Hematocrit 32L, Mean Corpuscular Volume 93, Mean Corpuscular Hemoglobin 28, Mean Corpuscular Hemoglobin Concent 30L, Red Cell Distribution Width 15.7H, Platelet Count 186, Mean Platelet Volume 9.6, Neutrophils (%) (Auto) 67, Lymphocytes (%) (Auto) 25, Monocytes (%) (Auto) 8, Eosinophils (%) (Auto) 1, Basophils (%) (Auto) 0, Neutrophils # (Auto) 4.4, Lymphocytes # (Auto) 1.6, Monocytes # (Auto) 0.5, Eosinophils # (Auto) 0.0, Basophils # (Auto) 0.0, Prothrombin Time 13.8, INR Comment 1.1, Activated Partial Thromboplast Time 29, Sodium Level 144, Potassium Level 4.0, Chloride Level 106, Carbon Dioxide Level 31, Anion Gap 7, Blood Urea Nitrogen 23H, Creatinine 0.83, Estimat Glomerular Filtration Rate > 60, BUN/Creatinine Ratio 28, Glucose Level 97, Calcium Level 8.9, Magnesium Level 1.7L, Total Bilirubin 0.3, Aspartate Amino Transf (AST/SGOT) 19, Alanine Aminotransferase (ALT/SGPT) 12, Alkaline Phosphatase 72, Myoglobin 52.8, Troponin I < 0.30, Total Protein 6.4, Albumin 3.3 01/30/17 16:58: Troponin I < 0.30 Laboratory Tests 01/30/17 10:40 A/P-Cardiology Assessment/Admission Diagnosis Paroxysmal atrial flutter with controlled/slow vent response alternating with sinus ross, asymptomatic Chest discomfort w/o any evidence of ACS so far Coronary artery disease with a history of coronary artery bypass surgery in late September 2010. This consisted of left internal mammary artery graft to left anterior descending artery and a saphenous vein graft to the distal right coronary artery by Dr. Tinoco at [facility] in [place], [place]. Cardiac cath of October 2014 showed patent left intermal mammary artery graft to mid left anterior descending aretery. Patent saphenous vein graft to distal right coronary artery. Moderate sized abdominal aortic aneurysm, infrarenal per cardiac cath of 2013 for which she is following with Dr. Devries. CT abdomen of 04/02/16 at [facility] showed l AAA measuring up to 3.6 cm Echo of 04/05/16 showed LVEF 60%, mild MR & TR, mod with valve area approx 1.2 sq cm, PASP 35 mmHg Hypothyroidism, being treated with thyroid replacement therapy and being followed by Dr. Garcia Hypertension, currently controlled Hyperlipidemia, being treated with simvastatin and currently well controlled Remote history of tobaccoism. She quit 30 years ago Chronic bilateral lower extremity edema, greater on the left, which has improved after cessation of calcium channel gianluca therapy and addition of diuretics Chronic chest wall sternal incision tenderness, from coronary artery bypass grafting carried out in 2009, now resolved Recent episode of shingles, which was managed by Dr. Garcia Carotid u/s from March 2014 showed 60-79% right ICA; 40-59% left ICA. U/S from April 2015 shoed 40-59% bilat stenoses. U/S of 10/06/15 showed mild carotid arterial disease Normal ankle brachial indices bilaterally on 10/02/2012. 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
[2017-01-30 20:00] VITALS: BP_SYST 133; BP_SYST 154; BP_DIAS 52; BP_DIAS 80
[2017-01-30] MEDS ORDERED: GABAPENTIN 300 MG (NEURONTIN) CAP PO SCH (21:00)
[2017-01-30] MEDS ORDERED: SIMvastatin 10 MG (ZOCOR) TAB PO SCH (21:00)
[2017-01-30] MEDS: APIXABAN 2.5 MG (ELIQUIS) TABLET PO SCH (21:11)
[2017-01-30 22:29] LABS: BILIRUBIN,URINE NEGATIVE (NEGATIVE); KETONES,URINE NEGATIVE (NEGATIVE); LEUKOCYTE ESTERASE ,URINE 3+ (NEGATIVE); NITRITE,URINE NEGATIVE (NEGATIVE); PH,URINE 6 (5-9); PROTEIN,URINE 1+ (NEGATIVE); UROBILINOGEN,URINE NORMAL (NORMAL)
[2017-01-30 22:40] LABS: WBC,URINE TNTC /HPF
[2017-01-31] VITALS: BP 141/52
[2017-01-31] MEDS ORDERED: LEVOTHYROXINE 175 MCG TAB PO SCH (00:15)
[2017-01-31 04:00] VITALS: BP 116/51
[2017-01-31 04:01] LABS: BASOPHILS % (AUTO) 0 % (0-10); EOSINOPHILS % (AUTO) 0 % (0-10); LYMPHOCYTES # (AUTO) 1.3 X 10^3 (1.0-4.0); LYMPHOCYTES % (AUTO) 18 % (12-44); MEAN CORPUSCULAR HEMOGLOBIN 28 PG (25-34); MEAN CORPUSCULAR HGB CONC 31 G/DL (32-36); MEAN CORPUSCULAR VOLUME 93 FL (80-99); MEAN PLATELET VOLUME 10.1 FL (7.4-10.4); MONOCYTES # (AUTO) 0.5 X 10^3 (0.0-1.0); MONOCYTES % (AUTO) 6 % (0-12); NEUTROPHILS # (AUTO) 5.4 X 10^3 (1.8-7.8); NEUTROPHILS % (AUTO) 75 % (42-75); PLATELET COUNT 172 10^3/uL (130-400); RED BLOOD COUNT 3.24 10^6/uL (4.35-5.85); RED CELL DISTRIBUTION WIDTH 15.7 % (10.0-14.5); WHITE BLOOD COUNT 7.2 10^3/uL (4.3-11.0)
[2017-01-31 04:59] LABS: CHOLESTEROL 123 MG/DL (< 200); DIRECT LDL 64 MG/DL (1-129); TRIGLYCERIDES 94 MG/DL (<150); VLDL CHOLESTEROL 19 MG/DL (5-40)
[2017-01-31 05:08] LABS: ALANINE AMINOTRANSFERASE 27 U/L (0-55); ALBUMIN 2.9 G/DL (3.2-4.5); ANION GAP 8 MMOL/L (5-14); ASPARTATE AMINO TRANSFERASE 66 U/L (5-34); BILIRUBIN,TOTAL 0.3 MG/DL (0.1-1.0); BLOOD UREA NITROGEN 22 MG/DL (7-18); BUN/CREATININE RATIO 29; CALCIUM 8.4 MG/DL (8.5-10.1); CARBON DIOXIDE 25 MMOL/L (21-32); CHLORIDE 109 MMOL/L (98-107); CREATININE SERUM 0.76 MG/DL (0.60-1.30); GFR ESTIMATED > 60; GLUCOSE 84 MG/DL (70-105); POTASSIUM 3.9 MMOL/L (3.6-5.0); SODIUM 142 MMOL/L (135-145); TOTAL PROTEIN 5.8 G/DL (6.4-8.2)
[2017-01-31 05:29] LABS: THYROID STIMULATING HORMONE 0.11 UIU/ML (0.35-4.94)
--- NOTE | 2017-01-31 07:43 | Progress Note (SOAP) ---
Subjective Subjective/Events-last exam chest pain. Coronary artery disease. Colon cancer. Hypothyroid. UA shows infection. TSH low on Synthroid the hold off on it. Patient had a good night feels good and no chest pain. Pulse ox went down below 88. Patient may need oxygen at home Objective Exam Vital Signs Date Time Temp Pulse Resp B/P (MAP) Pulse Ox O2 Delivery O2 Flow Rate FiO2 01/31/17 07:23 96 1.00 01/31/17 04:00 2.00 01/31/17 04:00 97.7 59 18 116/51 93 Nasal Cannula 2.00 01/31/17 01:00 57 01/31/17 00:00 2.00 01/31/17 00:00 97.5 59 18 141/52 96 Nasal Cannula 2.00 01/30/17 21:14 95 2.00 01/30/17 21:00 Nasal Cannula 1.00 01/30/17 20:00 98.0 49 20 133/80 98 Nasal Cannula 1.00 01/30/17 20:00 1.00 01/30/17 19:00 49 01/30/17 16:00 2.00 01/30/17 16:00 98.0 49 20 154/52 96 Nasal Cannula 2.00 01/30/17 15:09 98 Nasal Cannula 2.00 01/30/17 13:49 88 01/30/17 13:07 43 01/30/17 13:00 97.2 51 18 97 01/30/17 10:20 Room Air 01/30/17 10:20 97.2 51 18 162/67 97 Room Air I & O 01/31/17 07:00 Intake Total 550 ml Output Total 475 ml Balance 75 ml Capillary Refill : Less Than 3 Seconds General Appearance: No Apparent Distress, WD/WN HEENT: Normal ENT Inspection Neck: Full Range of Motion, Non Tender Respiratory: Chest Non Tender, No Accessory Muscle Use, No Respiratory Distress Cardiovascular: Regular Rate, Rhythm, Other (marijuana) Gastrointestinal: non tender, soft Results Lab Laboratory Tests 01/30/17 10:40 01/31/17 03:07 Laboratory Tests 01/30/17 10:40: White Blood Count 6.6, Red Blood Count 3.43L, Hemoglobin 9.6L, Hematocrit 32L, Mean Corpuscular Volume 93, Mean Corpuscular Hemoglobin 28, Mean Corpuscular Hemoglobin Concent 30L, Red Cell Distribution Width 15.7H, Platelet Count 186, Mean Platelet Volume 9.6, Neutrophils (%) (Auto) 67, Lymphocytes (%) (Auto) 25, Monocytes (%) (Auto) 8, Eosinophils (%) (Auto) 1, Basophils (%) (Auto) 0, Neutrophils # (Auto) 4.4, Lymphocytes # (Auto) 1.6, Monocytes # (Auto) 0.5, Eosinophils # (Auto) 0.0, Basophils # (Auto) 0.0, Prothrombin Time 13.8, INR Comment 1.1, Activated Partial Thromboplast Time 29, Sodium Level 144, Potassium Level 4.0, Chloride Level 106, Carbon Dioxide Level 31, Anion Gap 7, Blood Urea Nitrogen 23H, Creatinine 0.83, Estimat Glomerular Filtration Rate > 60, BUN/Creatinine Ratio 28, Glucose Level 97, Calcium Level 8.9, Magnesium Level 1.7L, Total Bilirubin 0.3, Aspartate Amino Transf (AST/SGOT) 19, Alanine Aminotransferase (ALT/SGPT) 12, Alkaline Phosphatase 72, Myoglobin 52.8, Troponin I < 0.30, Total Protein 6.4, Albumin 3.3 01/30/17 16:58: Troponin I < 0.30 01/30/17 22:20: Urine Color YELLOW, Urine Clarity SLIGHTLY CLOUDY, Urine pH 6, Urine Specific [place] 1.015L, Urine Protein 1+H, Urine Glucose (UA) NEGATIVE, Urine Ketones NEGATIVE, Urine Nitrite NEGATIVE, Urine Bilirubin NEGATIVE, Urine Urobilinogen NORMAL, Urine Leukocyte Esterase 3+H, Urine RBC (Auto) 1+H, Urine RBC RARE, Urine WBC TNTCH, Urine Crystals NONE, Urine Bacteria MODERATEH, Urine Casts NONE , Urine Mucus NEGATIVE, Urine Culture Indicated YES 01/31/17 03:07: White Blood Count 7.2, Red Blood Count 3.24L, Hemoglobin 9.2L, Hematocrit 30L, Mean Corpuscular Volume 93, Mean Corpuscular Hemoglobin 28, Mean Corpuscular Hemoglobin Concent 31L, Red Cell Distribution Width 15.7H, Platelet Count 172, Mean Platelet Volume 10.1, Neutrophils (%) (Auto) 75, Lymphocytes (%) (Auto) 18 , Monocytes (%) (Auto) 6, Eosinophils (%) (Auto) 0, Basophils (%) (Auto) 0, Neutrophils # (Auto) 5.4, Lymphocytes # (Auto) 1.3, Monocytes # (Auto) 0.5, Eosinophils # (Auto) 0.0, Basophils # (Auto) 0.0, Sodium Level 142, Potassium Level 3.9, Chloride Level 109H, Carbon Dioxide Level 25, Anion Gap 8, Blood Urea Nitrogen 22H, Creatinine 0.76, Estimat Glomerular Filtration Rate > 60, BUN /Creatinine Ratio 29, Glucose Level 84, Calcium Level 8.4L, Total Bilirubin 0.3 , Aspartate Amino Transf (AST/SGOT) 66H, Alanine Aminotransferase (ALT/SGPT) 27 , Alkaline Phosphatase 75, Total Protein 5.8L, Albumin 2.9L, Triglycerides Level 94, Cholesterol Level 123, LDL Cholesterol Direct 64, VLDL Cholesterol 19 , HDL Cholesterol 31L, Thyroid Stimulating Hormone (TSH) 0.11L Assessment/Plan Assessment/Plan Assess & Plan/Chief Complaint chest pain resolved. Coronary artery disease. Colon cancer. Hypothyroid history. Patient feeling good today. Clinical Quality Measures AMI/AHF: ASA po Prior to arrival: No DVT/VTE Risk/Contraindication: Risk Factor Score Per Nursin RFS Level Per Nursing on Admit: 3=High MESHA FUENTES DO Jan 31, 2017 07:43
[2017-01-31 08:27] VITALS: BP 157/56
--- NOTE | 2017-01-31 08:30 | Progress Note-Cardiology ---
Cardiology SOAP Progress Note Subjective: Sitting up on the side of the bed. Daughter at the bedside. No c/o CP, palpitations, syncope or near syncope. No c/o shortness of breath. States she feels good this morning. Objective: I&O/Vital Signs Vital Sign - Last 12Hours 01/30/17 01/31/17 01/31/17 01/31/17 21:14 00:00 00:00 01:00 Temp 97.5 Pulse 59 57 Resp 18 B/P (MAP) 141/52 Pulse Ox 95 96 O2 Delivery Nasal Cannula O2 Flow Rate 2.00 2.00 2.00 01/31/17 01/31/17 01/31/17 01/31/17 04:00 04:00 07:00 07:23 Temp 97.7 Pulse 59 51 Resp 18 B/P (MAP) 116/51 Pulse Ox 93 96 O2 Delivery Nasal Cannula O2 Flow Rate 2.00 2.00 1.00 01/31/17 01/31/17 08:05 08:27 Temp 97.4 Pulse 51 Resp 20 B/P (MAP) 157/56 Pulse Ox 97 O2 Delivery Nasal Cannula O2 Flow Rate 2.00 2.00 Intake and Output 01/31/17 00:00 Intake Total 400 ml Balance 400 ml Weight (Pounds): 148 Weight (Ounces): 14.0 Weight (Calculated Kilograms): [id number] Constitutional: AAO x 3, other (thin-appearin) Respiratory: No accessory muscle use, other (fair bilat air entry) Cardiovascular: regular rate-rhythm, S1 and S2, systolic murmur (faint MENDY at card base) Gastrointestional: No tender, soft, No guarding, No rebound, audible bowel sounds Extremities: No clubbing, No cyanosis, No significant edema Neurologic/Psychiatric: grossly intact, power is 5/5 both on sides Skin: No rash on exposed areas, No ulcerations on exposed areas Results/Procedures: Labs Laboratory Tests 01/30/17 10:40: White Blood Count 6.6, Red Blood Count 3.43L, Hemoglobin 9.6L, Hematocrit 32L, Mean Corpuscular Volume 93, Mean Corpuscular Hemoglobin 28, Mean Corpuscular Hemoglobin Concent 30L, Red Cell Distribution Width 15.7H, Platelet Count 186, Mean Platelet Volume 9.6, Neutrophils (%) (Auto) 67, Lymphocytes (%) (Auto) 25, Monocytes (%) (Auto) 8, Eosinophils (%) (Auto) 1, Basophils (%) (Auto) 0, Neutrophils # (Auto) 4.4, Lymphocytes # (Auto) 1.6, Monocytes # (Auto) 0.5, Eosinophils # (Auto) 0.0, Basophils # (Auto) 0.0, Prothrombin Time 13.8, INR Comment 1.1, Activated Partial Thromboplast Time 29, Sodium Level 144, Potassium Level 4.0, Chloride Level 106, Carbon Dioxide Level 31, Anion Gap 7, Blood Urea Nitrogen 23H, Creatinine 0.83, Estimat Glomerular Filtration Rate > 60, BUN/Creatinine Ratio 28, Glucose Level 97, Calcium Level 8.9, Magnesium Level 1.7L, Total Bilirubin 0.3, Aspartate Amino Transf (AST/SGOT) 19, Alanine Aminotransferase (ALT/SGPT) 12, Alkaline Phosphatase 72, Myoglobin 52.8, Troponin I < 0.30, Total Protein 6.4, Albumin 3.3 01/30/17 16:58: Troponin I < 0.30 01/30/17 22:20: Urine Color YELLOW, Urine Clarity SLIGHTLY CLOUDY, Urine pH 6, Urine Specific [place] 1.015L, Urine Protein 1+H, Urine Glucose (UA) NEGATIVE, Urine Ketones NEGATIVE, Urine Nitrite NEGATIVE, Urine Bilirubin NEGATIVE, Urine Urobilinogen NORMAL, Urine Leukocyte Esterase 3+H, Urine RBC (Auto) 1+H, Urine RBC RARE, Urine WBC TNTCH, Urine Crystals NONE, Urine Bacteria MODERATEH, Urine Casts NONE , Urine Mucus NEGATIVE, Urine Culture Indicated YES 01/31/17 03:07: White Blood Count 7.2, Red Blood Count 3.24L, Hemoglobin 9.2L, Hematocrit 30L, Mean Corpuscular Volume 93, Mean Corpuscular Hemoglobin 28, Mean Corpuscular Hemoglobin Concent 31L, Red Cell Distribution Width 15.7H, Platelet Count 172, Mean Platelet Volume 10.1, Neutrophils (%) (Auto) 75, Lymphocytes (%) (Auto) 18 , Monocytes (%) (Auto) 6, Eosinophils (%) (Auto) 0, Basophils (%) (Auto) 0, Neutrophils # (Auto) 5.4, Lymphocytes # (Auto) 1.3, Monocytes # (Auto) 0.5, Eosinophils # (Auto) 0.0, Basophils # (Auto) 0.0, Sodium Level 142, Potassium Level 3.9, Chloride Level 109H, Carbon Dioxide Level 25, Anion Gap 8, Blood Urea Nitrogen 22H, Creatinine 0.76, Estimat Glomerular Filtration Rate > 60, BUN /Creatinine Ratio 29, Glucose Level 84, Calcium Level 8.4L, Total Bilirubin 0.3 , Aspartate Amino Transf (AST/SGOT) 66H, Alanine Aminotransferase (ALT/SGPT) 27 , Alkaline Phosphatase 75, Total Protein 5.8L, Albumin 2.9L, Triglycerides Level 94, Cholesterol Level 123, LDL Cholesterol Direct 64, VLDL Cholesterol 19 , HDL Cholesterol 31L, Thyroid Stimulating Hormone (TSH) 0.11L A/P: Assessment: Paroxysmal atrial flutter with controlled/slow vent response alternating with sinus ross, asymptomatic Chest discomfort w/o any evidence of ACS so far - no further c/o UTI - management per medical services Coronary artery disease with a history of coronary artery bypass surgery in late September 2010. This consisted of left internal mammary artery graft to left anterior descending artery and a saphenous vein graft to the distal right coronary artery by Dr. Tinoco at [facility] in [place], [place]. Cardiac cath of October 2014 showed patent left internal mammary artery graft to mid left anterior descending artery. Patent saphenous vein graft to distal right coronary artery. Moderate sized abdominal aortic aneurysm, infrarenal per cardiac cath of 2013 for which she is following with Dr. Devries. CT abdomen of 04/02/16 at [facility] showed l AAA measuring up to 3.6 cm Echo of 04/05/16 showed LVEF 60%, mild MR & TR, mod with valve area approx 1.2 sq cm, PASP 35 mmHg Hypothyroidism, being treated with thyroid replacement therapy and being followed by Dr. Garcia - currently hyperthyroid - replacement being managed by her PCP Hypertension, currently controlled Hyperlipidemia, being treated with simvastatin and currently well controlled Remote history of tobaccoism. She quit 30 years ago Chronic bilateral lower extremity edema, greater on the left, which has improved after cessation of calcium channel gianluca therapy and addition of diuretics Chronic chest wall sternal incision tenderness, from coronary artery bypass grafting carried out in 2009, now resolved Recent episode of shingles, which was managed by Dr. Gellender Carotid u/s from March 2014 showed 60-79% right ICA; 40-59% left ICA. U/S from April 2015 shoed 40-59% bilat stenoses. U/S of 10/06/15 showed mild carotid arterial disease Normal ankle brachial indices bilaterally on 10/02/2012. 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 Plan: * No evidence of ACS; no further c/o chest discomfort * UTI - management per medical services * Stroke prophylaxis with apixaban * Given age approaching 78, low body wgt, anemia and risk bleed, we will use the lower dose for apixaban, if approved by the Med and Onc services * O2 de-sat overnight - home oxygen arrangements being made per medical services * Hyperthyroid at this time - thyroid replacement being managed per medical services Physician Assessment Physician Assessment Lungs: good bilat air entry Cor: reg A&R * As documented in our note above * I spoke with her and her fam in detail and answered questions and advised outpatient f/u * Beta-gianluca d/c'd Clinical Quality Measures AMI/AHF: ASA po Prior to arrival: LINH Sutton Jan 31, 2017 08:30 FRANK WINKLER MD FACP FAC CCDS Jan 31, 2017 09:11
[2017-01-31] MEDS ORDERED: APIX2.5T PO (08:32)
[2017-01-31] MEDS: APIXABAN 2.5 MG (ELIQUIS) TABLET PO SCH (08:36)
[2017-01-31] MEDS: AMOXICILLIN 500 MG (POLYMOX) CAP PO SCH ×2 (08:36→13:15)
[2017-01-31] MEDS ORDERED: ASPIRIN E.C. 81 MG (ECOTRIN) TAB PO SCH (09:00)
[2017-01-31] MEDS ORDERED: MAGNESIUM OXIDE (MAG-OX)400 MG TAB PO SCH ×2 (09:00)
[2017-01-31] MEDS ORDERED: QUINAPRIL 40 MG PO SCH (09:00)
[2017-01-31] MEDS ORDERED: amLODIPine 10 MG (NORVASC) TAB PO SCH (09:00)
[2017-01-31] MEDS ORDERED: VITAMIN B-12 1000 MCG TAB PO SCH (09:00)
[2017-01-31] MEDS ORDERED: AMOX500C2 PO (10:47)
[2017-01-31] MEDS ORDERED: GABAPENTIN 300 MG (NEURONTIN) CAP PO SCH (11:00)
[2017-01-31 11:18] VITALS: BP 131/47
--- NOTE | 2017-01-31 12:53 | Progress Note (SOAP) ---
Subjective Subjective/Events-last exam No complaints of chest pain; Sitting up and feeling ready to go home; Objective Exam Vital Signs Date Time Temp Pulse Resp B/P (MAP) Pulse Ox O2 Delivery O2 Flow Rate FiO2 01/31/17 11:18 96.7 54 20 131/47 93 Room Air 01/31/17 08:27 97.4 51 20 157/56 97 Nasal Cannula 2.00 01/31/17 08:05 2.00 01/31/17 08:05 Nasal Cannula 2.00 01/31/17 07:23 96 1.00 01/31/17 07:00 51 01/31/17 04:00 2.00 01/31/17 04:00 97.7 59 18 116/51 93 Nasal Cannula 2.00 01/31/17 01:00 57 01/31/17 00:00 2.00 01/31/17 00:00 97.5 59 18 141/52 96 Nasal Cannula 2.00 01/30/17 21:14 95 2.00 01/30/17 21:00 Nasal Cannula 1.00 01/30/17 20:00 98.0 49 20 133/80 98 Nasal Cannula 1.00 01/30/17 20:00 1.00 01/30/17 19:00 49 01/30/17 16:00 2.00 01/30/17 16:00 98.0 49 20 154/52 96 Nasal Cannula 2.00 01/30/17 15:09 98 Nasal Cannula 2.00 01/30/17 13:49 88 01/30/17 13:07 43 01/30/17 13:00 97.2 51 18 97 I & O 01/31/17 07:00 Intake Total 550 ml Output Total 475 ml Balance 75 ml Capillary Refill : Less Than 3 Seconds General Appearance: No Apparent Distress, WD/WN HEENT: PERRL/EOMI Neck: Full Range of Motion, Non Tender, Supple Respiratory: Lungs Clear, No Accessory Muscle Use Cardiovascular: No Edema, No Gallop, No JVD, Bradycardia Gastrointestinal: normal bowel sounds, non tender, soft, other (Colostomy in place with brown stool in bag;) Extremity: Non Tender, No Calf Tenderness, No Pedal Edema Neurologic/Psychiatric: Alert, Oriented x3, No Motor/Sensory Deficits, Normal Mood/Affect, ux manager II-XII Norm as Tested Lymphatic: No Adenopathy Results Lab Laboratory Tests 01/30/17 16:58: Troponin I < 0.30 01/30/17 22:20: Urine Color YELLOW, Urine Clarity SLIGHTLY CLOUDY, Urine pH 6, Urine Specific [place] 1.015L, Urine Protein 1+H, Urine Glucose (UA) NEGATIVE, Urine Ketones NEGATIVE, Urine Nitrite NEGATIVE, Urine Bilirubin NEGATIVE, Urine Urobilinogen NORMAL, Urine Leukocyte Esterase 3+H, Urine RBC (Auto) 1+H, Urine RBC RARE, Urine WBC TNTCH, Urine Crystals NONE, Urine Bacteria MODERATEH, Urine Casts NONE , Urine Mucus NEGATIVE, Urine Culture Indicated YES 01/31/17 03:07: White Blood Count 7.2, Red Blood Count 3.24L, Hemoglobin 9.2L, Hematocrit 30L, Mean Corpuscular Volume 93, Mean Corpuscular Hemoglobin 28, Mean Corpuscular Hemoglobin Concent 31L, Red Cell Distribution Width 15.7H, Platelet Count 172, Mean Platelet Volume 10.1, Neutrophils (%) (Auto) 75, Lymphocytes (%) (Auto) 18 , Monocytes (%) (Auto) 6, Eosinophils (%) (Auto) 0, Basophils (%) (Auto) 0, Neutrophils # (Auto) 5.4, Lymphocytes # (Auto) 1.3, Monocytes # (Auto) 0.5, Eosinophils # (Auto) 0.0, Basophils # (Auto) 0.0, Sodium Level 142, Potassium Level 3.9, Chloride Level 109H, Carbon Dioxide Level 25, Anion Gap 8, Blood Urea Nitrogen 22H, Creatinine 0.76, Estimat Glomerular Filtration Rate > 60, BUN /Creatinine Ratio 29, Glucose Level 84, Calcium Level 8.4L, Total Bilirubin 0.3 , Aspartate Amino Transf (AST/SGOT) 66H, Alanine Aminotransferase (ALT/SGPT) 27 , Alkaline Phosphatase 75, Total Protein 5.8L, Albumin 2.9L, Triglycerides Level 94, Cholesterol Level 123, LDL Cholesterol Direct 64, VLDL Cholesterol 19 , HDL Cholesterol 31L, Thyroid Stimulating Hormone (TSH) 0.11L Assessment/Plan Assessment/Plan Assess & Plan/Chief Complaint 1. Chest pain-- chest pain has resolved. Serial Troponins were not elevated; Paroxysmal atrial fib and intermittent a flight of alternating with sinus bradycardia was found and patient has been started on Eliquis (apixaban) 2.5mg twice daily.. 2. Paroxysmal atrial fibrillation-Cardiology is following. Agree with starting apixaban at 2.5 mg twice daily 3. Metastatic colon cancer-receiving treatment with the oral agent, Lonsurf, which is a combination agent of trifluridine (a nucleoside analog) and tipiracil , a thymidine phosphorylase inhibitor. 4. CAD-status post CABG 2009 5. Hypothyroidism 6. Hypertension 7. Chronic anemia, multifactorial in origin secondary to cancer and his treatment, anemia of chronic disease, and vitamin B-12 deficiency. 8. Keep follow-up appointment in cancer Center as previously scheduled and continue with weekly lab visits. Clinical Quality Measures AMI/AHF: ASA po Prior to arrival: No DVT/VTE Risk/Contraindication: Risk Factor Score Per Nursin RFS Level Per Nursing on Admit: 3=High SHANTEL LIZ MD Jan 31, 2017 12:53
[2017-01-31 14:00] VITALS: BP 131/47
[2017-01-31] MEDS ORDERED: ATENOLOL 25 MG (TENORMIN) TAB PO SCH (14:00)
--- OUTSIDE RECORDS SUMMARY | 2017-02-23 06:01 | XMS REPORT | Continuity of Care Document ---
Author Author [facility] Organization [facility] Address Unknown Phone Unavailable Allergies Active Description Code Type Severity Reaction Onset Reported/Identified Relationship to Patient Clinical Status Yes No Known Drug Allergies [id number] Drug Allergy Unknown N/ A 01/30/2016 Medications Problems Date Dx Coded Attending Type Code Diagnosis Diagnosed By 08/07/2010 Ot 173.7 09/27/2010 Ot 244.9 09/27/2010 Ot 401.9 09/27/2010 Ot 410.41 09/27/2010 Ot 414.01 09/27/2010 Ot 715.90 09/27/2010 Ot V15.82 09/22/2013 KACI ORTA, YOLANDA Mccoy Ot 154.0 MAL DESTINY RECTOSIGMOID JCT 09/22/2013 KACI ORTA, YOLANDA Mccoy Ot 211.3 BENIGN NEOPLASM LG BOWEL 09/22/2013 KACI ORTA, YOLANDA Mccoy Ot 244.9 HYPOTHYROIDISM NOS 09/22/2013 YOLANDA CLEMONS MD Ot 272.0 PURE HYPERCHOLESTEROLEM 09/22/2013 YOLANDA CLEMONS MD Ot 275.2 DIS MAGNESIUM METABOLISM 09/22/2013 YOLANDA CLEMONS MD Ot 276.8 HYPOPOTASSEMIA 09/22/2013 YOLANDA CLEMONS MD Ot 285.9 ANEMIA NOS 09/22/2013 KACI ORTA, YOLANDA Mccoy Ot 401.9 HYPERTENSION NOS 09/22/2013 KACI ORTA, YOLANDA Mccoy Ot 412 OLD MYOCARDIAL INFARCT 09/22/2013 KACI ORTA, YOLANDA Mccoy Ot 414.00 CORON ATHEROSCLER NOS TYPE VESSEL, NATIV 09/22/2013 KACI ORTA, YOLANDA Mccoy Ot 442.1 RENAL ARTERY ANEURYSM 09/22/2013 YOLANDA CLEMONS MD Ot 553.21 INCISIONAL HERNIA 09/22/2013 YOLANDA CLEMONS MD Ot V45.81 AORTOCORONARY BYPASS 11/04/2013 MESHA FUENTES DO Ot 569.62 [facility] COMPL/COLOSTOMY ENTEROSTOMY 02/14/2014 SHANTEL LIZ MD Ot 154.0 MAL DESTINY RECTOSIGMOID JCT 02/14/2014 SHANTEL LIZ MD Ot 244.9 HYPOTHYROIDISM NOS 02/14/2014 SHANTEL LIZ MD Ot 272.4 HYPERLIPIDEMIA NEC/NOS 02/14/2014 SHANTEL LIZ MD Ot 401.9 HYPERTENSION NOS 02/14/2014 SHANTEL LIZ MD Ot 414.00 CORON ATHEROSCLER NOS TYPE VESSEL, NATIV 02/14/2014 SHANTEL LIZ MD Ot 782.3 EDEMA 02/14/2014 SHANTEL LIZ MD Ot V44.3 COLOSTOMY STATUS 02/14/2014 SHANTEL LIZ MD Ot V45.81 AORTOCORONARY BYPASS 02/14/2014 SHANTEL LIZ MD Ot V58.69 OTH MED,LT,CURRENT USE 04/09/2014 MONROELENDER MESHA PATEL Ot 272.4 HYPERLIPIDEMIA NEC/NOS 04/09/2014 MONROELENMESHA DORADO DO Ot 401.9 HYPERTENSION NOS 04/09/2014 GELLENDER , MESHA Pickard Ot 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 04/09/2014 MESHA FUENTES DO Ot 682.6 CELLULITIS OF LEG 04/09/2014 MESHA FUENTES DO Ot V44.3 COLOSTOMY STATUS 06/27/2014 SHANTEL LIZ MD Ot 154.0 MAL DESTINY RECTOSIGMOID JCT 06/27/2014 SHANTEL LIZ MD Ot 244.9 HYPOTHYROIDISM NOS 06/27/2014 SHANTEL LIZ MD Ot 272.4 HYPERLIPIDEMIA NEC/NOS 06/27/2014 SHANTEL LIZ MD Ot 285.9 ANEMIA NOS 06/27/2014 SHANTEL LIZ MD Ot 401.9 HYPERTENSION NOS 06/27/2014 SHANTEL LIZ MD Ot 414.00 CORON ATHEROSCLER NOS TYPE VESSEL, NATIV 06/27/2014 SHANTEL LIZ MD Ot 782.3 EDEMA 06/27/2014 SHANTEL LIZ MD Ot V44.3 COLOSTOMY STATUS 06/27/2014 SHANTEL LIZ MD Ot V45.81 AORTOCORONARY BYPASS 06/27/2014 SHANTEL LIZ MD Ot V58.69 OTH MED,LT,CURRENT USE 06/30/2014 GELLENDER MESHA PATEL Ot 457.1 OTHER LYMPHEDEMA 06/30/2014 MESHA FUENTES DO Ot 729.81 SWELLING OF LIMB 06/30/2014 MESHA FUENTES DO Ot V57.21 ENCOUNTER FOR OCCUPATIONAL THERAPY 09/21/2014 Ot V76.12 09/21/2014 Ot 173.2 09/21/2014 Ot V72.63 09/21/2014 Ot V72.81 09/21/2014 Ot V74.8 09/21/2014 Ot 709.9 09/21/2014 Ot V72.63 09/21/2014 Ot V72.81 09/21/2014 Ot V74.8 09/21/2014 Ot V76.12 09/21/2014 Ot 272.4 09/21/2014 Ot 396.3 09/21/2014 Ot 397.0 09/21/2014 Ot 414.00 09/21/2014 Ot 425.4 09/21/2014 Ot V58.69 09/21/2014 Ot V58.83 09/21/2014 Ot 275.2 09/21/2014 Ot 401.9 09/21/2014 Ot 414.01 09/21/2014 Ot 414.8 09/21/2014 Ot 244.9 09/21/2014 Ot 272.4 09/21/2014 Ot 275.2 09/21/2014 Ot 401.9 09/21/2014 Ot 414.01 09/21/2014 Ot 729.81 09/21/2014 Ot 275.2 09/21/2014 Ot 401.9 09/21/2014 Ot 414.01 09/21/2014 Ot V58.69 09/21/2014 Ot 272.4 09/21/2014 Ot 401.9 09/21/2014 Ot 414.01 09/21/2014 Ot V58.69 09/21/2014 Ot 401.9 09/21/2014 Ot 414.00 09/21/2014 Ot V58.69 09/21/2014 Ot 401.9 09/21/2014 Ot 414.01 09/21/2014 Ot V58.69 09/21/2014 Ot 401.9 09/21/2014 Ot 414.00 09/21/2014 Ot V58.69 09/21/2014 Ot 275.2 09/21/2014 Ot V58.69 09/21/2014 Ot 401.9 09/21/2014 Ot 414.01 09/21/2014 Ot V58.69 09/21/2014 Ot 244.9 09/21/2014 Ot 272.4 09/21/2014 Ot V58.69 09/21/2014 Ot 729.5 09/21/2014 BIEVONNELINH L PLANT PACKER Ot 785.2 09/21/2014 LINH PAT PLANT PACKER Ot 272.4 09/21/2014 BAIMALINH PLANT PACKER Ot V58.69 09/21/2014 KACI ORAT, YOLANDA M Ot 154.0 09/21/2014 KACI ORTA, YOLANDA M Ot 211.3 09/21/2014 KACI ORTA, YOLANDA M Ot 280.9 09/21/2014 KACI ORTA, YOLANDA M Ot V16.0 09/21/2014 KACI ORTA, YOLANDA M Ot V72.84 09/21/2014 KACI ORTA, YOLANDA M Ot 153.3 09/21/2014 KACI ORTA, YOLANDA M Ot 441.4 09/21/2014 KACI ORTA, YOLANDA M Ot 553.20 09/21/2014 KACI ORTA, YOLANDA M Ot 199.1 09/21/2014 KACI ORTA, YOLANDA M Ot V72.63 09/21/2014 KACI ORTA, YOLANDA M Ot V74.8 09/21/2014 CATHI ORTA FACC, ALI FACP CCDS Ot 244.9 09/21/2014 CATHI ORTA FACC, ALI FACP CCDS Ot 272.4 09/21/2014 CATHI ORTA FACC, ALI FACP CCDS Ot 401.9 09/21/2014 CATHI ORTA FACC, ALI FACP CCDS Ot 414.00 09/21/2014 CATHI ORTA FACC, ALI FACP CCDS Ot 414.8 09/21/2014 CATHI ORTA FACC, ALI FACP CCDS Ot 447.9 09/21/2014 CATHI ORTA FACC, ALI FACP CCDS Ot 782.0 09/21/2014 CATHI ORTA FACC, ALI FACP CCDS Ot 782.3 09/21/2014 LINH PAT L PLANT PACKER Ot 272.4 09/21/2014 LINH PTA L PLANT PACKER Ot 401.9 09/21/2014 BI LINH L PLANT PACKER Ot 414.00 09/21/2014 LINH PAT L PLANT PACKER Ot V58.69 09/21/2014 SHALONDA ORTA, SHANTEL Crain Ot 154.0 09/21/2014 SHALONDA ORTA, SHANTEL Crain Ot 244.9 09/21/2014 SHALONDA ORTA, SHANTEL Crain Ot 272.4 09/21/2014 SHALONDA ORTA, SHANTEL Crain Ot 285.9 09/21/2014 SHALONDA ORTA, SHANTEL Crain Ot 401.9 09/21/2014 SHALONDA ORTA, SHANTEL Crain Ot 414.00 09/21/2014 SHALONDA ORTA, SHANTEL Breann Ot 782.3 09/21/2014 SHALONDA ORTA, SHANTEL Crain Ot V44.3 09/21/2014 SHANTEL LIZ MD Ot V45.81 09/21/2014 SHALONDA ORTA SHANTEL Breann Ot V58.69 09/21/2014 SHALONDA ORTA, SHANTEL Breann Ot 153.3 09/21/2014 SHALONDA ORTA SHANTEL Breann Ot V76.12 09/21/2014 LINH PAT PLANT PACKER Ot 272.4 09/26/2014 SHANTEL LIZ MD Ot 154.0 MAL DESTINY RECTOSIGMOID JCT 09/26/2014 SHANTEL LIZ MD Ot 244.9 HYPOTHYROIDISM NOS 09/26/2014 SHANTEL LIZ MD Ot 272.4 HYPERLIPIDEMIA NEC/NOS 09/26/2014 SHANTEL LIZ MD Ot 285.9 ANEMIA NOS 09/26/2014 SHALONDA ORTA, SHANTEL Crain Ot 401.9 HYPERTENSION NOS 09/26/2014 SHALONDA ORTA, SHANTEL Crain Ot 414.00 CORON ATHEROSCLER NOS TYPE VESSEL, NATIV 09/26/2014 SHALONDA ORTA, SHANTEL Crain Ot 782.3 EDEMA 09/26/2014 SHANTEL LIZ MD Ot V44.3 COLOSTOMY STATUS 09/26/2014 SHANTEL LIZ MD Ot V45.81 AORTOCORONARY BYPASS 09/26/2014 SHALONDA ORTA, SHANTEL Crain Ot V58.69 OTH MED,LT,CURRENT USE 09/26/2014 Ot V76.12 09/26/2014 Ot 173.2 09/26/2014 Ot V72.63 09/26/2014 Ot V72.81 09/26/2014 Ot V74.8 09/26/2014 Ot 709.9 09/26/2014 Ot V72.63 09/26/2014 Ot V72.81 09/26/2014 Ot V74.8 09/26/2014 Ot V76.12 09/26/2014 Ot 272.4 09/26/2014 Ot 396.3 09/26/2014 Ot 397.0 09/26/2014 Ot 414.00 09/26/2014 Ot 425.4 09/26/2014 Ot V58.69 09/26/2014 Ot V58.83 09/26/2014 Ot 275.2 09/26/2014 Ot 401.9 09/26/2014 Ot 414.01 09/26/2014 Ot 414.8 09/26/2014 Ot 244.9 09/26/2014 Ot 272.4 09/26/2014 Ot 275.2 09/26/2014 Ot 401.9 09/26/2014 Ot 414.01 09/26/2014 Ot 729.81 09/26/2014 Ot 275.2 09/26/2014 Ot 401.9 09/26/2014 Ot 414.01 09/26/2014 Ot V58.69 09/26/2014 Ot 272.4 09/26/2014 Ot 401.9 09/26/2014 Ot 414.01 09/26/2014 Ot V58.69 09/26/2014 Ot 401.9 09/26/2014 Ot 414.00 09/26/2014 Ot V58.69 09/26/2014 Ot 401.9 09/26/2014 Ot 414.01 09/26/2014 Ot V58.69 09/26/2014 Ot 401.9 09/26/2014 Ot 414.00 09/26/2014 Ot V58.69 09/26/2014 Ot 275.2 09/26/2014 Ot V58.69 09/26/2014 Ot 401.9 09/26/2014 Ot 414.01 09/26/2014 Ot V58.69 09/26/2014 Ot 244.9 09/26/2014 Ot 272.4 09/26/2014 Ot V58.69 09/26/2014 Ot 729.5 09/26/2014 LINH PAT PLANT PACKER Ot 785.2 09/26/2014 LINH PAT PLANT PACKER Ot 272.4 09/26/2014 LINH PAT PLANT PACKER Ot V58.69 09/26/2014 KACI ORTA, YOLANDA M Ot 154.0 09/26/2014 KACI ORTA, YOLANDA M Ot 211.3 09/26/2014 KACI ORTA, YOLANDA M Ot 280.9 09/26/2014 KACI ORTA, YOLANDA M Ot V16.0 09/26/2014 KACI ORTA, YOLANDA M Ot V72.84 09/26/2014 KACI ORTA, YOLANDA M Ot 153.3 09/26/2014 KACI ORTA, YOLANDA M Ot 441.4 09/26/2014 KACI ORTA, YOLANDA M Ot 553.20 09/26/2014 KACI ORTA, YOLANDA M Ot 199.1 09/26/2014 KACI ORTA, YOLANDA M Ot V72.63 09/26/2014 KACI ORTA, YOLANDA M Ot V74.8 09/26/2014 CATHI ORTA FACC, ALI FACP CCDS Ot 244.9 09/26/2014 CATHI ORTA FACC, ALI FACP CCDS Ot 272.4 09/26/2014 CATHI ORTA FACC, ALI FACP CCDS Ot 401.9 09/26/2014 CATHI ORTA FACC, ALI FACP CCDS Ot 414.00 09/26/2014 CATHI ORTA FACC, ALI FACP CCDS Ot 414.8 09/26/2014 CATHI ORTA FACC, ALI FACP CCDS Ot 447.9 09/26/2014 CATHI ORTA FACC, ALI FACP CCDS Ot 782.0 09/26/2014 CATHI ORTA FACC, ALI FACP CCDS Ot 782.3 09/26/2014 LINH PAT PLANT PACKER Ot 272.4 09/26/2014 LINH PAT PLANT PACKER Ot 401.9 09/26/2014 LINH PAT PLANT PACKER Ot 414.00 09/26/2014 LINH PAT PLANT PACKER Ot V58.69 09/26/2014 SHALONDA ORTA, SHANTEL K Ot 154.0 09/26/2014 SHALONDA ORTA, SHANTEL K Ot 244.9 09/26/2014 SHALONDA ORTA, SHANTEL K Ot 272.4 09/26/2014 SHALONDA ORTA, SHANTEL Breann Ot 285.9 09/26/2014 SHALONDA ORTA, SHANTEL K Ot 401.9 09/26/2014 SHALONDA ORTA, SHANTEL K Ot 414.00 09/26/2014 SHALONDA ORTA, SHANTEL K Ot 782.3 09/26/2014 SHALONDA ORTA, SHANTEL K Ot V44.3 09/26/2014 SHALONDA ORTA, SHANTEL K Ot V45.81 09/26/2014 SHALONDA ORTA, SHANTEL K Ot V58.69 09/26/2014 SHALONDA ORTA, SHANTEL K Ot 153.3 09/26/2014 SHALONDA ORTA, SHANTEL K Ot V76.12 09/26/2014 LINH PAT PLANT PACKER Ot 272.4 09/26/2014 CATHI ORTA FACC, ALI FACP CCDS Ot 401.9 09/26/2014 CATHI ORTA FACC, FRANK FACP CCDS Ot 414.00 09/26/2014 CATHI ORTA FACC, ALI FACP CCDS Ot 414.8 09/26/2014 CATHI ORTA FACC, ALI FACP CCDS Ot 441.9 09/26/2014 CATHI ORTA FACC, ALI FACP CCDS Ot 786.09 10/03/2014 Ot V76.12 10/03/2014 Ot 173.2 10/03/2014 Ot V72.63 10/03/2014 Ot V72.81 10/03/2014 Ot V74.8 10/03/2014 Ot 709.9 10/03/2014 Ot V72.63 10/03/2014 Ot V72.81 10/03/2014 Ot V74.8 10/03/2014 Ot V76.12 10/03/2014 Ot 272.4 10/03/2014 Ot 396.3 10/03/2014 Ot 397.0 10/03/2014 Ot 414.00 10/03/2014 Ot 425.4 10/03/2014 Ot V58.69 10/03/2014 Ot V58.83 10/03/2014 Ot 275.2 10/03/2014 Ot 401.9 10/03/2014 Ot 414.01 10/03/2014 Ot 414.8 10/03/2014 Ot 244.9 10/03/2014 Ot 272.4 10/03/2014 Ot 275.2 10/03/2014 Ot 401.9 10/03/2014 Ot 414.01 10/03/2014 Ot 729.81 10/03/2014 Ot 275.2 10/03/2014 Ot 401.9 10/03/2014 Ot 414.01 10/03/2014 Ot V58.69 10/03/2014 Ot 272.4 10/03/2014 Ot 401.9 10/03/2014 Ot 414.01 10/03/2014 Ot V58.69 10/03/2014 Ot 401.9 10/03/2014 Ot 414.00 10/03/2014 Ot V58.69 10/03/2014 Ot 401.9 10/03/2014 Ot 414.01 10/03/2014 Ot V58.69 10/03/2014 Ot 401.9 10/03/2014 Ot 414.00 10/03/2014 Ot V58.69 10/03/2014 Ot 275.2 10/03/2014 Ot V58.69 10/03/2014 Ot 401.9 10/03/2014 Ot 414.01 10/03/2014 Ot V58.69 10/03/2014 Ot 244.9 10/03/2014 Ot 272.4 10/03/2014 Ot V58.69 10/03/2014 Ot 729.5 10/03/2014 LINH PAT PLANT PACKER Ot 785.2 10/03/2014 LINH PAT PLANT PACKER Ot 272.4 10/03/2014 LINH PAT PLANT PACKER Ot V58.69 10/03/2014 KACI ORTA, YOLANDA M Ot 154.0 10/03/2014 KACI ORTA, YOLANDA M Ot 211.3 10/03/2014 KACI ORTA, YOLANDA M Ot 280.9 10/03/2014 KACI ORTA, YOLANDA M Ot V16.0 10/03/2014 KACI ORTA, YOLANDA M Ot V72.84 10/03/2014 KACI ORTA, YOLANDA M Ot 153.3 10/03/2014 KACI ORTA, YOLANDA M Ot 441.4 10/03/2014 KACI ORTA, YOLANDA M Ot 553.20 10/03/2014 KACI ORTA, YOLANDA M Ot 199.1 10/03/2014 KACI ORTA, YOLANDA M Ot V72.63 10/03/2014 KACI ORTA, YOLANDA M Ot V74.8 10/03/2014 CATHI ORTA FACC, ALI FACP CCDS Ot 244.9 10/03/2014 CATHI ORTA FACC, ALI FACP CCDS Ot 272.4 10/03/2014 CATHI ORTA FACC, ALI FACP CCDS Ot 401.9 10/03/2014 CATHI ORTA FACC, ALI FACP CCDS Ot 414.00 10/03/2014 CATHI ORTA FACC, ALI FACP CCDS Ot 414.8 10/03/2014 CATHI ORTA FACC, ALI FACP CCDS Ot 447.9 10/03/2014 CATHI ORTA FACC, ALI FACP CCDS Ot 782.0 10/03/2014 CATHI ORTA FACC, ALI FACP CCDS Ot 782.3 10/03/2014 LINH PAT L PLANT PACKER Ot 272.4 10/03/2014 FRANKIELINH REYEZ L PLANT PACKER Ot 401.9 10/03/2014 FRANKIELINH REYEZ L PLANT PACKER Ot 414.00 10/03/2014 BILINH L PLANT PACKER Ot V58.69 10/03/2014 SHALONDA ORTA, SHANTEL K Ot 153.3 10/03/2014 SHALONDA ORTA, SHANTEL K Ot V76.12 10/03/2014 BILINH PLANT PACKER Ot 272.4 10/03/2014 CATHI ORTA FACC, ALI FACP CCDS Ot 401.9 10/03/2014 CATHI ORTA FACC, ALI FACP CCDS Ot 414.00 10/03/2014 CATHI ORTA FACC, ALI FACP CCDS Ot 414.8 10/03/2014 CATHI ORTA FACC, ALI FACP CCDS Ot 441.9 10/03/2014 CATHI ORTA FACC, ALI FACP CCDS Ot 786.09 10/03/2014 CATHI ORTA FACC, ALI FACP CCDS Ot 272.4 10/03/2014 CATHI ORTA FACC, ALI FACP CCDS Ot 401.9 10/03/2014 CATHI ORTA FACC, ALI FACP CCDS Ot 414.00 10/03/2014 CATHI ORTA FACC, ALI FACP CCDS Ot 414.8 10/03/2014 CATHI ORTA FACC, ALI FACP CCDS Ot 786.09 10/03/2014 SHALONDA ORTA, SHANTEL K Ot 154.0 10/03/2014 SHALONDA ORTA, SHANTEL K Ot 244.9 10/03/2014 SHALONDA ORTA, SHANTEL K Ot 272.4 10/03/2014 SHALONDA ORTA, SHANTEL K Ot 285.9 10/03/2014 SHALONDA ORTA, SHANTEL K Ot 401.9 10/03/2014 SHALONDA ORTA, SHANTEL K Ot 414.00 10/03/2014 SHALONDA ORTA, SHANTEL K Ot 782.3 10/03/2014 SHALONDA ORTA, SHANTEL K Ot V44.3 10/03/2014 SHALONDA ORTA, SHANTEL K Ot V45.81 10/03/2014 SHALONDA ORTA, SHANTEL K Ot V58.69 10/11/2014 CATHI ORTA FACC, ALI FACP CCDS Ot 244.9 HYPOTHYROIDISM NOS 10/11/2014 CATHI ORTA FACC, ALI FACP CCDS Ot 272.4 HYPERLIPIDEMIA NEC/NOS 10/11/2014 CATHI GONZALEZ, FRANK FACP CCDS Ot 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 10/11/2014 CATHI ORTA FACC, FRANK FACP CCDS Ot 441.4 ABDOM AORTIC ANEURYSM 10/11/2014 CATHI ORTA FACC, ALI FACP CCDS Ot 794.30 ABN CARDIOVASC STUDY NOS 10/11/2014 CATHI ORTA FACC, ALI FACP CCDS Ot V15.82 HISTORY OF TOBACCO USE 10/11/2014 CATHI ORTA FACC, FRANK FACP CCDS Ot V45.81 AORTOCORONARY BYPASS 10/11/2014 CATHI ORTA FACC, FRANK FACP CCDS Ot V58.69 OTH MED,LT,CURRENT USE 10/13/2014 SHALONDA ORTA, SHANTEL K Ot 154.0 10/13/2014 SHALONDA ORTA, SHANTEL K Ot 244.9 10/13/2014 SHALONDA ORTA, SHANTEL K Ot 272.4 10/13/2014 SHALONDA ORTA, SHANTEL K Ot 285.9 10/13/2014 SHALONDA ORTA, SHANTEL K Ot 401.9 10/13/2014 SHALONDA ORTA, SHANTEL K Ot 414.00 10/13/2014 SHALONDA ORTA, SHANTEL K Ot 782.3 10/13/2014 SHALONDA ORTA, SHANTEL K Ot V44.3 10/13/2014 SHALONDA ORTA, SHANTEL K Ot V45.81 10/13/2014 SHALONDA ORTA, SHANTEL K Ot V58.69 10/13/2014 SHALONDA ORTA, SHANTEL K Ot 154.0 10/13/2014 SHALONDA ORTA, SHANTEL K Ot 244.9 10/13/2014 SHALONDA ORTA, SHANTEL K Ot 272.4 10/13/2014 SHALONDA ORTA, SHANTEL K Ot 285.9 10/13/2014 SHALONDA ORTA, SHANTEL K Ot 401.9 10/13/2014 SHALONDA ORTA, SHANTEL K Ot 414.00 10/13/2014 SHALONDA ORTA, SHANTEL K Ot 782.3 10/13/2014 SHALONDA ORTA, SHANTEL K Ot V44.3 10/13/2014 SHALONDA ORTA, SHANTEL K Ot V45.81 10/13/2014 SHALONDA ORTA, SHANTEL K Ot V58.69 10/13/2014 SHALONDA ORTA, SHANTEL K Ot 154.0 10/13/2014 SHALONDA ORTA, SHANTEL K Ot 244.9 10/13/2014 SHALONDA ORTA, SHANTEL K Ot 272.4 10/13/2014 SHALONDA ORTA, SHANTEL K Ot 285.9 10/13/2014 SHALONDA ORTA, SHANTEL Crain Ot 401.9 10/13/2014 SHALONDA ORTA, SHANTEL Crain Ot 414.00 10/13/2014 SHALONDA ORTA, SHANTEL Crain Ot 782.3 10/13/2014 SHALONDA ORTA, SHANTEL Crain Ot V44.3 10/13/2014 SHALONDA ORTA, SHANTEL Crain Ot V45.81 10/13/2014 SHALONDA ORTA, SHANTEL Crain Ot V58.69 10/14/2014 Ot 173.2 10/14/2014 Ot 401.9 10/14/2014 Ot V58.69 10/14/2014 Ot V72.81 10/14/2014 Ot V72.83 10/14/2014 Ot V76.12 10/14/2014 Ot V76.12 10/14/2014 Ot 173.6 10/14/2014 Ot V72.81 10/14/2014 Ot V72.83 10/14/2014 Ot V74.8 10/14/2014 Ot V76.12 10/14/2014 Ot 173.2 10/14/2014 Ot V72.63 10/14/2014 Ot V72.81 10/14/2014 Ot V74.8 10/14/2014 KACI ORTA, YOLANDA Mccoy Ot V72.84 10/14/2014 SHALONDA ORTA, SHANTEL Crain Ot 154.0 10/14/2014 SHALONDA ORTA, SHANTEL Crain Ot 244.9 10/14/2014 SHALONDA ORTA, SHANTEL Crain Ot 272.4 10/14/2014 SHALONDA ORTA, SHANTEL Crain Ot 285.9 10/14/2014 SHALONDA ORTA, SHANTEL Crain Ot 401.9 10/14/2014 SHALONDA ORTA, SHANTEL Crain Ot 414.00 10/14/2014 SHALONDA ORTA, SHANTEL Crain Ot 782.3 10/14/2014 SHALONDA ORTA, SHANTEL Crain Ot V44.3 10/14/2014 SHALONDA ORTA, SHANTEL Crain Ot V45.81 10/14/2014 SHALONDA ORTA, SHANTEL Crain Ot V58.69 10/20/2014 CATHI ORTA FACC, ALI FACP CCDS Ot 401.9 10/20/2014 CATHI ORTA FACC, ALI FACP CCDS Ot 414.00 10/20/2014 CATHI ORTA FACC, ALI FACP CCDS Ot 414.8 10/20/2014 CATHI ORTA FACC, ALI FACP CCDS Ot 441.9 10/20/2014 CATHI ORTA FACC, ALI FACP CCDS Ot 786.09 10/24/2014 KACI ORTA, YOLANDA Mccoy Ot 154.0 MAL DESTINY RECTOSIGMOID JCT 10/24/2014 KACI ORTA, YOLANDA Mccoy Ot 211.3 BENIGN NEOPLASM LG BOWEL 10/24/2014 KACI ORTA, YOLANDA Mccoy Ot V67.09 SURGERY FOLLOW-UP, OTHER SURGERY 10/24/2014 CATHI ORTA FACC, ALI FACP CCDS Ot 272.4 10/24/2014 CATHI ORTA FACC, ALI FACP CCDS Ot 401.9 10/24/2014 CATHI ORTA FACC, ALI FACP CCDS Ot 414.00 10/24/2014 CATHI ORTA FACC, ALI FACP CCDS Ot 414.8 10/24/2014 CATHI ORTA FACC, FRANK FACP CCDS Ot 786.09 11/14/2014 KACI ORTA, YOLANDA Mccoy Ot 211.3 BENIGN NEOPLASM LG BOWEL 11/14/2014 KACI ORTA, YOLANDA Mccoy Ot V10.05 HX OF COLONIC MALIGNANCY 11/14/2014 KACI ORTA, YOLANDA Mccoy Ot V67.09 SURGERY FOLLOW-UP, OTHER SURGERY 11/16/2014 DARRIAN PRICE Ot 560.9 INTESTINAL OBSTRUCT NOS 11/16/2014 DARRIAN PRICE L Ot 724.2 LUMBAGO 11/22/2014 SHALONDA ORTA, SHANTEL K Ot 154.0 11/22/2014 SHALONDA ORTA, SHANTEL K Ot 244.9 11/22/2014 SHALONDA ORTA, SHANTEL K Ot 272.4 11/22/2014 SHALONDA ORTA, SHANTEL K Ot 285.9 11/22/2014 SHALONDA ORTA, SHANTEL K Ot 401.9 11/22/2014 SHALONDA ORTA, SHANTEL K Ot 414.00 11/22/2014 SHALONDA ORTA, SHANTEL K Ot 782.3 11/22/2014 SHALONDA ORTA, SHANTEL K Ot V44.3 11/22/2014 SHALONDA ORTA, SHANTEL K Ot V45.81 11/22/2014 SHALONDA ORTA, SHANTEL K Ot V58.69 11/22/2014 CATHI ORTA FACC, ALI FACP CCDS Ot 401.9 11/22/2014 CATHI GONZALEZC, ALI FACP CCDS Ot 414.00 11/22/2014 CATHI ORTA FACC, ALI FACP CCDS Ot 414.8 11/22/2014 CATHI ORTA FACC, ALI FACP CCDS Ot 441.9 11/22/2014 CATHI ORTA FAC, ALI FACP CCDS Ot 786.09 11/22/2014 CATHI ORTA FAC, ALI FACP CCDS Ot 272.4 11/22/2014 CATHI ORTA FAC, ALI FACP CCDS Ot 401.9 11/22/2014 CATHI ORTA FAC, ALI FACP CCDS Ot 414.00 11/22/2014 CATHI ORTA FAC, ALI FACP CCDS Ot 414.8 11/22/2014 [facility] ORTA FAC, [facility] Ot 786.09 11/30/2014 SHALONDA ORTA, SHANTEL Crain Ot 266.2 11/30/2014 SHALONDA ORTA SHANTEL Crain Ot V58.69 11/30/2014 Ot V76.12 11/30/2014 Ot 173.2 11/30/2014 Ot V72.63 11/30/2014 Ot V72.81 11/30/2014 Ot V74.8 11/30/2014 Ot 709.9 11/30/2014 Ot V72.63 11/30/2014 Ot V72.81 11/30/2014 Ot V74.8 11/30/2014 Ot V76.12 11/30/2014 Ot 272.4 11/30/2014 Ot 396.3 11/30/2014 Ot 397.0 11/30/2014 Ot 414.00 11/30/2014 Ot 425.4 11/30/2014 Ot V58.69 11/30/2014 Ot V58.83 11/30/2014 Ot 275.2 11/30/2014 Ot 401.9 11/30/2014 Ot 414.01 11/30/2014 Ot 414.8 11/30/2014 Ot 244.9 11/30/2014 Ot 272.4 11/30/2014 Ot 275.2 11/30/2014 Ot 401.9 11/30/2014 Ot 414.01 11/30/2014 Ot 729.81 11/30/2014 Ot 275.2 11/30/2014 Ot 401.9 11/30/2014 Ot 414.01 11/30/2014 Ot V58.69 11/30/2014 Ot 272.4 11/30/2014 Ot 401.9 11/30/2014 Ot 414.01 11/30/2014 Ot V58.69 11/30/2014 Ot 401.9 11/30/2014 Ot 414.00 11/30/2014 Ot V58.69 11/30/2014 Ot 401.9 11/30/2014 Ot 414.01 11/30/2014 Ot V58.69 11/30/2014 Ot 401.9 11/30/2014 Ot 414.00 11/30/2014 Ot V58.69 11/30/2014 Ot 275.2 11/30/2014 Ot V58.69 11/30/2014 Ot 401.9 11/30/2014 Ot 414.01 11/30/2014 Ot V58.69 11/30/2014 Ot 244.9 11/30/2014 Ot 272.4 11/30/2014 Ot V58.69 11/30/2014 Ot 729.5 11/30/2014 LINH PAT PLANT PACKER Ot 785.2 11/30/2014 LINH PAT PLANT PACKER Ot 272.4 11/30/2014 LINH PAT PLANT PACKER Ot V58.69 11/30/2014 KACI ORTA, YOLANDA M Ot 154.0 11/30/2014 KACI ORTA, YOLANDA M Ot 211.3 11/30/2014 KACI ORTA, YOLANDA M Ot 280.9 11/30/2014 KACI ORTA, YOLANDA M Ot V16.0 11/30/2014 KACI ORTA, YOLANDA M Ot V72.84 11/30/2014 KACI ORTA, YOLANDA M Ot 153.3 11/30/2014 KACI ORTA, YOLANDA M Ot 441.4 11/30/2014 KACI ORTA, YOLANDA M Ot 553.20 11/30/2014 KACI ORTA, YOLANDA M Ot 199.1 11/30/2014 KACI ORTA, YOLANDA M Ot V72.63 11/30/2014 KACI ORTA, YOLANDA M Ot V74.8 11/30/2014 CATHI ORTA FACC, ALI FACP CCDS Ot 244.9 11/30/2014 CATHI ORTA FACC, ALI FACP CCDS Ot 272.4 11/30/2014 CATHI ORTA FACC, ALI FACP CCDS Ot 401.9 11/30/2014 CATHI ORTA FACC, ALI FACP CCDS Ot 414.00 11/30/2014 CATHI ORTA FACC, ALI FACP CCDS Ot 414.8 11/30/2014 CATHI ORTA FACC, ALI FACP CCDS Ot 447.9 11/30/2014 CATHI ORTA FACC, ALI FACP CCDS Ot 782.0 11/30/2014 CATHI ORTA FACC, ALI FACP CCDS Ot 782.3 11/30/2014 BILINH L PLANT PACKER Ot 272.4 11/30/2014 BAIMA, LINH L PLANT PACKER Ot 401.9 11/30/2014 BAIMA, LINH L PLANT PACKER Ot 414.00 11/30/2014 BI, LINH L PLANT PACKER Ot V58.69 11/30/2014 SHALONDA ORTA, SHANTEL Crain Ot 153.3 11/30/2014 SHALONDA ORTA, SHANTEL Breann Ot V76.12 11/30/2014 BI, LINH L PLANT PACKER Ot 272.4 11/30/2014 CATHI ORTA FACC, ALI FACP CCDS Ot 401.9 11/30/2014 CATHI ORTA FACC, ALI FACP CCDS Ot 414.00 11/30/2014 CATHI ORTA FACC, ALI FACP CCDS Ot 414.8 11/30/2014 CATHI ORTA FACC, ALI FACP CCDS Ot 441.9 11/30/2014 CATHI ORTA FACC, ALI FACP CCDS Ot 786.09 11/30/2014 CATHI ORTA FACC, ALI FACP CCDS Ot 272.4 11/30/2014 CATHI ORTA FACC, ALI FACP CCDS Ot 401.9 11/30/2014 CATHI ORTA FACC, ALI FACP CCDS Ot 414.00 11/30/2014 CATHI ORTA FACC, ALI FACP CCDS Ot 414.8 11/30/2014 CATHI ORTA FACC, ALI FACP CCDS Ot 786.09 11/30/2014 SHALONDA ORTA, SHANTEL Breann Ot 154.0 11/30/2014 SHALONDA ORTA, SHANTEL Breann Ot 244.9 11/30/2014 SHALONDA ORTA, SHANTEL Breann Ot 272.4 11/30/2014 SHALONDA ORTA, SHANTEL Crain Ot 285.9 11/30/2014 SHALONDA ORTA, SHANTEL Crain Ot 401.9 11/30/2014 SHALONDA ORTA, SHANTEL Crain Ot 414.00 11/30/2014 SHALONDA ORTA, SHANTEL Crain Ot 782.3 11/30/2014 SHALONDA ORTA, SHANTEL Crain Ot V44.3 11/30/2014 SHALONDA ORTA, SHANTEL Crain Ot V45.81 11/30/2014 SHALONDA ORTA, SHANTEL Crain Ot V58.69 11/30/2014 KACI ORTA, YOLANDA M Ot V72.84 11/30/2014 SHALONDA ORTA, SHANTEL Crain Ot 266.2 11/30/2014 SHALONDA ORTA, SHANTEL Crain Ot V58.69 11/30/2014 KACI ORTA, YOLANDA M Ot V72.84 11/30/2014 SHALONDA ORTA, SHANTEL Crain Ot 266.2 11/30/2014 SHALONDA ORTA, SHANTEL Crain Ot V58.69 12/29/2014 CATHI ORTA FACC, ALI FACP CCDS Ot 401.9 12/29/2014 CATHI ORTA FACC, ALI FACP CCDS Ot 414.00 12/29/2014 CATHI ORTA FACC, ALI FACP CCDS Ot 414.8 12/29/2014 CATHI ORTA FACC, ALI FACP CCDS Ot 441.9 12/29/2014 CATHI ORTA FACC, ALI FACP CCDS Ot 786.09 12/29/2014 CATHI ORTA FACC, ALI FACP CCDS Ot 272.4 12/29/2014 CATHI ORTA FACC, ALI FACP CCDS Ot 401.9 12/29/2014 CATHI ORTA FACC, ALI FACP CCDS Ot 414.00 12/29/2014 CATHI ORTA FACC, ALI FACP CCDS Ot 414.8 12/29/2014 CATHI ORTA FACC, ALI FACP CCDS Ot 786.09 12/29/2014 SHALONDA ORTA, SHANTEL Breann Ot 154.0 12/29/2014 SHALONDA ORTA, SHANTEL Breann Ot 244.9 12/29/2014 SHALONDA ORTA, SHANTEL Breann Ot 272.4 12/29/2014 SHALONDA ORTA, SHANTEL Breann Ot 285.9 12/29/2014 SHALONDA ORTA, SHANTEL Breann Ot 401.9 12/29/2014 SHALONDA ORTA, SHANTEL Breann Ot 414.00 12/29/2014 SHALONDA ORTA, SHANTEL Breann Ot 782.3 12/29/2014 SHALONDA ORTA, SHANTEL Crain Ot V44.3 12/29/2014 SHALONDA ORTA, SHANTEL Crain Ot V45.81 12/29/2014 SHALONDA ORTA, SHANTEL Crain Ot V58.69 01/31/2015 SHALONDA ORTA, SHANTEL Crain Ot 266.2 01/31/2015 SHALONDA ORTA, SHANTEL Crain Ot V58.69 02/06/2015 SHALONDA ORTA, SHANTEL Crain Ot 266.2 B-COMPLEX DEFIC NEC 02/06/2015 SHALONDA ORTA, SHANTEL Crain Ot V58.69 OTH MED,LT,CURRENT USE 02/07/2015 SHALONDA ORTA, SHANTEL Crain Ot 266.2 02/07/2015 SHALONDA ORTA, SHANTEL Crain Ot V58.69 02/07/2015 SHALONDA ORTA, SHANTEL Crain Ot 266.2 02/07/2015 SHALONDA ORTA, SHANTEL Crain Ot V58.69 02/08/2015 SHALONDA ORTA, SHANTEL Crain Ot 266.2 02/08/2015 SHALONDA ORTA, SHANTEL Crain Ot V58.69 02/15/2015 SHALONDA ORTA, SHANTEL Crain Ot 266.2 02/15/2015 SHALONDA ORTA, SHANTEL Crain Ot V58.69 02/22/2015 KACI ORTA, YOLANDA Mccoy Ot V72.84 04/02/2015 SHALONDA ORTA, SHANTEL Crain Ot 153.3 04/02/2015 SHALONDA ORTA, SHANTEL Crain Ot 305.1 04/14/2015 LINH PAT PLANT PACKER Ot 272.4 04/14/2015 LINH PAT PLANT PACKER Ot 401.9 04/14/2015 LINH PAT PLANT PACKER Ot 414.00 04/14/2015 LINH PAT L PLANT PACKER Ot 414.8 04/14/2015 BI LINH L PLANT PACKER Ot 433.10 04/14/2015 LINH PAT L PLANT PACKER Ot 441.4 04/17/2015 SHALONDA ORTA, SHANTEL Crain Ot 153.3 04/17/2015 SHALONDA ORTA, SHANTEL Crain Ot 305.1 04/19/2015 SHALONDA ORTA, SHANTEL Crain Ot 153.3 04/19/2015 SHALNODA ORTA, SHANTEL Crain Ot 305.1 04/27/2015 SHALONDA ORTA, SHANTEL Crain Ot 153.3 04/27/2015 SHALONDA ORTA, SHANTEL Crain Ot 305.1 05/15/2015 SHALONDA ORTA, SHANTEL Crain Ot 154.0 MAL DESTINY RECTOSIGMOID JCT 05/15/2015 SHANTEL LIZ MD Ot 244.9 HYPOTHYROIDISM NOS 05/15/2015 SHANTEL LIZ MD Ot 266.2 B-COMPLEX DEFIC NEC 05/15/2015 SHANTEL LIZ MD Ot 272.4 HYPERLIPIDEMIA NEC/NOS 05/15/2015 SHANTEL LIZ MD Ot 285.9 ANEMIA NOS 05/15/2015 SHANTEL LIZ MD Ot 401.9 HYPERTENSION NOS 05/15/2015 SHANTEL LIZ MD Ot 414.00 CORON ATHEROSCLER NOS TYPE VESSEL, NATIV 05/15/2015 SHANTEL LIZ MD Ot 782.3 EDEMA 05/15/2015 SHALONDA ORTA, SHANTEL Crain Ot V44.3 COLOSTOMY STATUS 05/15/2015 SHALONDA ORTA, SHANTEL Crain Ot V45.81 AORTOCORONARY BYPASS 05/15/2015 SHALONDA ORTA, SHANTEL Crain Ot V58.69 OT MED,LT,CURRENT USE 05/16/2015 SHALONDA ORTA, SHANTEL Crain Ot 154.0 05/16/2015 SHALONDA ORTA, SHANTEL Crain Ot 244.9 05/16/2015 SHALONDA ORTA, SHANTEL Crain Ot 266.2 05/16/2015 SHALONDA ORTA, SHANTEL Crain Ot 272.4 05/16/2015 SHALONDA ORTA, SHANTEL Crain Ot 285.9 05/16/2015 SHALONDA ORTA, SHANTEL Crain Ot 401.9 05/16/2015 SHALONDA ORTA, SHANTEL Crain Ot 414.00 05/16/2015 SHALONDA ORTA, SHANTEL Crain Ot 782.3 05/16/2015 SHALONDA ORTA, SHANTEL Crain Ot V44.3 05/16/2015 SHALONDA ORTA, SHANTEL Crain Ot V45.81 05/16/2015 SHALONDA ORTA, SHANTEL Crain Ot V58.69 05/16/2015 SHALONDA ORTA, SHANTEL Crain Ot 154.0 05/16/2015 SHALONDA ORTA, SHANTEL Crain Ot 244.9 05/16/2015 SHALONDA ORTA, SHANTEL Crain Ot 266.2 05/16/2015 SHALONDA ORTA, SHANTEL Crain Ot 272.4 05/16/2015 SHALONDA ORTA, SHANTEL Crain Ot 285.9 05/16/2015 SHALONDA ORTA, SHANTEL Crain Ot 401.9 05/16/2015 SHALONDA ORTA, SHANTEL Crain Ot 414.00 05/16/2015 SHALONDA ORTA, SHANTEL Crain Ot 782.3 05/16/2015 SHALONDA ORTA, SHANTEL Crain Ot V44.3 05/16/2015 SHALONDA ORTA, SHANTEL Crain Ot V45.81 05/16/2015 SHALONDA ORTA, SHANTEL Crain Ot V58.69 05/16/2015 SHALONDA ORTA, SHANTEL Crain Ot 154.0 05/16/2015 SHALONDA ORTA, SHANTEL Crain Ot 244.9 05/16/2015 SHALONDA ORTA, SHANTEL Crain Ot 266.2 05/16/2015 SHALONDA ORTA, SHANTEL Crain Ot 272.4 05/16/2015 SHALONDA ORAT, SHANTEL Crain Ot 285.9 05/16/2015 SHALONDA ORTA, SHANTEL Crain Ot 401.9 05/16/2015 SHALONDA ORTA, SHANTEL Crain Ot 414.00 05/16/2015 SHALONDA ORTA, SHANTEL Crain Ot 782.3 05/16/2015 SHALONDA ORTA, SHANTEL K Ot V44.3 05/16/2015 SHALONDA ORTA, SHANTEL K Ot V45.81 05/16/2015 SHALONDA ORTA, SHANTEL K Ot V58.69 05/17/2015 SHALONDA ORTA, SHANTEL K Ot 154.0 05/17/2015 SHALONDA ORTA, SHANTEL K Ot 244.9 05/17/2015 SHALONDA ORTA, SHANTEL K Ot 266.2 05/17/2015 SHALONDA ORTA, SHANTEL K Ot 272.4 05/17/2015 SHALONDA ORTA, SHANTEL K Ot 285.9 05/17/2015 SHALONDA ORTA, SHANTEL K Ot 401.9 05/17/2015 SHALONDA ORTA, SHANTEL K Ot 414.00 05/17/2015 SHALONDA ORTA, SHANTEL K Ot 782.3 05/17/2015 SHALONDA ORTA, SHANTEL K Ot V44.3 05/17/2015 SHALONDA ORTA, SHANTEL K Ot V45.81 05/17/2015 SHALONDA ORTA, SHANTEL K Ot V58.69 05/25/2015 SHALONDA ORTA, SHANTEL K Ot 154.0 05/25/2015 SHALONDA ORTA, SHANTEL K Ot 244.9 05/25/2015 SHALONDA ORTA, SHANTEL K Ot 272.4 05/25/2015 SHALONDA ORTA, SHANTEL K Ot 285.9 05/25/2015 SHALONDA ORTA, SHANTEL K Ot 401.9 05/25/2015 SHALONDA ORTA, SHANTEL K Ot 414.00 05/25/2015 SHALONDA ORTA, SHANTEL K Ot 782.3 05/25/2015 SHALONDA ORTA, SHANTEL K Ot V44.3 05/25/2015 SHALONDA ORTA, SHANTEL K Ot V45.81 05/25/2015 SHALONDA ORTA, SHANTEL K Ot V58.69 06/30/2015 SHALONDA ORTA, SHANTEL K Ot 153.3 06/30/2015 SHALONDA ORTA, SHANTEL K Ot 305.1 07/17/2015 SHALONDA ORTA, SHANTEL K Ot 154.0 07/17/2015 SHALONDA ORTA, SHANTEL K Ot 244.9 07/17/2015 SHALONDA ORTA, SHANTEL K Ot 266.2 07/17/2015 SHALONDA ORTA, SHANTEL K Ot 272.4 07/17/2015 SHALONDA ORTA, SHANTEL K Ot 285.9 07/17/2015 SHALONDA ORTA, SHANTEL K Ot 401.9 07/17/2015 SHALONDA ORTA, SHANTEL K Ot 414.00 07/17/2015 SHALONDA ORTA, SHANTEL K Ot 782.3 07/17/2015 SHALONDA ORTA, SHANTEL K Ot V44.3 07/17/2015 SHALONDA ORTA, SHANTEL K Ot V45.81 07/17/2015 SHALONDA ORTA, SHANTEL Crain Ot V58.69 07/17/2015 SHALONDA ORTA, SHANTEL Crain Ot 153.3 07/17/2015 SHALONDA ORTA, SHANTEL Crain Ot 305.1 07/17/2015 GINA PATELMESHA Ot V76.12 07/17/2015 Ot 709.9 07/17/2015 Ot V72.63 07/17/2015 Ot V72.81 07/17/2015 Ot V74.8 07/17/2015 Ot V76.12 07/17/2015 Ot 272.4 07/17/2015 Ot 396.3 07/17/2015 Ot 397.0 07/17/2015 Ot 414.00 07/17/2015 Ot 425.4 07/17/2015 Ot V58.69 07/17/2015 Ot V58.83 07/17/2015 Ot 275.2 07/17/2015 Ot 401.9 07/17/2015 Ot 414.01 07/17/2015 Ot 414.8 07/17/2015 Ot 244.9 07/17/2015 Ot 272.4 07/17/2015 Ot 275.2 07/17/2015 Ot 401.9 07/17/2015 Ot 414.01 07/17/2015 Ot 729.81 07/17/2015 Ot 275.2 07/17/2015 Ot 401.9 07/17/2015 Ot 414.01 07/17/2015 Ot V58.69 07/17/2015 Ot 272.4 07/17/2015 Ot 401.9 07/17/2015 Ot 414.01 07/17/2015 Ot V58.69 07/17/2015 Ot 401.9 07/17/2015 Ot 414.00 07/17/2015 Ot V58.69 07/17/2015 Ot 401.9 07/17/2015 Ot 414.01 07/17/2015 Ot V58.69 07/17/2015 Ot 401.9 07/17/2015 Ot 414.00 07/17/2015 Ot V58.69 07/17/2015 Ot 275.2 07/17/2015 Ot V58.69 07/17/2015 Ot 401.9 07/17/2015 Ot 414.01 07/17/2015 Ot V58.69 07/17/2015 Ot 244.9 07/17/2015 Ot 272.4 07/17/2015 Ot V58.69 07/17/2015 Ot 729.5 07/17/2015 BILINH L PLANT PACKER Ot 785.2 07/17/2015 BAIMALINH L PLANT PACKER Ot 272.4 07/17/2015 BAIMALINH L PLANT PACKER Ot V58.69 07/17/2015 KACI ORTA, YOLANDA M Ot 154.0 07/17/2015 KACI ORTA, YOLANDA M Ot 211.3 07/17/2015 KACI ORTA, YOLANDA M Ot 280.9 07/17/2015 KACI ORTA, YOLANDA M Ot V16.0 07/17/2015 KACI ORTA, YOLANDA M Ot V72.84 07/17/2015 KACI ORTA, YOLANDA M Ot 153.3 07/17/2015 KACI ORTA, YOLANDA M Ot 441.4 07/17/2015 KACI ORTA, YOLANDA M Ot 553.20 07/17/2015 KACI ORTA, YOLANDA M Ot 199.1 07/17/2015 KACI ORTA, YOLANDA M Ot V72.63 07/17/2015 KACI ORTA, YOLANDA M Ot V74.8 07/17/2015 CATHI ORTA FACC, ALI FACP CCDS Ot 244.9 07/17/2015 CATHI ORTA FACC, ALI FACP CCDS Ot 272.4 07/17/2015 CATHI ORTA FACC, ALI FACP CCDS Ot 401.9 07/17/2015 CATHI ORTA FACC, ALI FACP CCDS Ot 414.00 07/17/2015 CATHI ORTA FACC, ALI FACP CCDS Ot 414.8 07/17/2015 CATHI ORTA FACC, ALI FACP CCDS Ot 447.9 07/17/2015 CATHI ORTA FACC, ALI FACP CCDS Ot 782.0 07/17/2015 CATHI ORTA FACC, ALI FACP CCDS Ot 782.3 07/17/2015 BILINH L PLANT PACKER Ot 272.4 07/17/2015 FRANKIEMALINH L PLANT PACKER Ot 401.9 07/17/2015 FRANKIELINH REYEZ L PLANT PACKER Ot 414.00 07/17/2015 LINH PAT L PLANT PACKER Ot V58.69 07/17/2015 SHALONDA ORTA, SHANTEL K Ot 153.3 07/17/2015 SHALONDA ORTA, SHANTEL K Ot V76.12 07/17/2015 BI, LINH L PLANT PACKER Ot 272.4 07/17/2015 CATHI ORTA FACC, ALI FACP CCDS Ot 401.9 07/17/2015 CATHI ORTA FACC, ALI FACP CCDS Ot 414.00 07/17/2015 CATHI ORTA FACC, ALI FACP CCDS Ot 414.8 07/17/2015 CATHI ORTA FACC, ALI FACP CCDS Ot 441.9 07/17/2015 CATHI ORTA FACC, ALI FACP CCDS Ot 786.09 07/17/2015 CATHI ORTA FACC, ALI FACP CCDS Ot 272.4 07/17/2015 CATHI ORTA FACC, ALI FACP CCDS Ot 401.9 07/17/2015 CATHI ORTA FACC, ALI FACP CCDS Ot 414.00 07/17/2015 CATHI ORTA FACC, ALI FACP CCDS Ot 414.8 07/17/2015 CATHI OTRA FACC, ALI FACP CCDS Ot 786.09 07/17/2015 SHALONDA ORTA, SHANTEL K Ot 154.0 07/17/2015 SHALONDA ORTA, SHANTEL K Ot 244.9 07/17/2015 SHALONDA ORTA, SHANTEL K Ot 272.4 07/17/2015 SHALONDA ORTA, SHANTEL K Ot 285.9 07/17/2015 SHALONDA ORTA, SHANTEL K Ot 401.9 07/17/2015 SHALONDA ORTA, SHANTEL K Ot 414.00 07/17/2015 SHALONDA ORTA, SHANTEL K Ot 782.3 07/17/2015 SHALONDA ORTA, SHANTEL K Ot V44.3 07/17/2015 SHALONDA ORTA, SHANTEL K Ot V45.81 07/17/2015 SHALONDA ORTA, SHANTEL K Ot V58.69 07/17/2015 KACI ORTA, YOLANDA Mccoy Ot V72.84 07/17/2015 KACI ORTA, YOLANDA M Ot V72.84 07/17/2015 SHALONDA ORTA, SHANTEL K Ot 153.3 07/17/2015 SHALONDA ORTA, SHANTEL K Ot 305.1 07/17/2015 BI, LINH L PLANT PACKER Ot 272.4 07/17/2015 BI, LINH L PLANT PACKER Ot 401.9 07/17/2015 BI, LINH L PLANT PACKER Ot 414.00 07/17/2015 BI, LINH L PLANT PACKER Ot 414.8 07/17/2015 BILINH PLANT PACKER Ot 433.10 07/17/2015 BILINH PLANT PACKER Ot 441.4 07/17/2015 SHALONDA ORTA, SHANTEL Crain Ot 154.0 07/17/2015 SHALONDA ORTA, SHANTEL Crain Ot 244.9 07/17/2015 SHALONDA ORTA, SHANTEL Crain Ot 266.2 07/17/2015 SHALONDA ORTA, SHANTEL Crain Ot 272.4 07/17/2015 SHALONDA ORTA, SHANTEL Crain Ot 285.9 07/17/2015 SHALONDA ORTA, SHANTEL Crain Ot 401.9 07/17/2015 SHALONDA ORTA, SHANTEL Crain Ot 414.00 07/17/2015 SHALONDA ORTA, SHANTEL Crain Ot 782.3 07/17/2015 SHALONDA ORTA, SHANTEL Crain Ot V44.3 07/17/2015 SHALONDA ORTA, SHANTEL Crain Ot V45.81 07/17/2015 SHALONDA ORTA, SHANTEL Crain Ot V58.69 07/17/2015 SHALONDA ORTA, SHANTEL Crain Ot 153.3 07/17/2015 SHALONDA ORTA, SHANTEL Crain Ot 305.1 07/17/2015 MESHA FUENTES DO Ot V76.12 07/31/2015 SHALONDA ORTA, SHANTEL Crain Ot 153.3 07/31/2015 SHALONDA ORTA, SHANTEL Crain Ot 305.1 08/01/2015 SHALONDA ORTA, SHANTEL Crain Ot 154.0 08/01/2015 SHALONDA ORTA, SHANTEL Crain Ot 244.9 08/01/2015 SHALONDA ORTA, SHANTEL Crain Ot 266.2 08/01/2015 SHALONDA ORTA, SHANTEL Crain Ot 272.4 08/01/2015 SHALONDA ORTA, SHANTEL Crain Ot 285.9 08/01/2015 SHALONDA ORTA, SHANTEL Crain Ot 401.9 08/01/2015 SHALONDA ORTA, SHANTEL Crain Ot 414.00 08/01/2015 SHALONDA ORTA, SHANTEL Crain Ot 782.3 08/01/2015 SHALONDA ORTA, SHANTEL Crain Ot V44.3 08/01/2015 SHALONDA ORTA, SHANTEL Crain Ot V45.81 08/01/2015 SHALONDA ORTA, SHANTEL Crain Ot V58.69 08/02/2015 SHALONDA ORTA, SHANTEL Crain Ot 154.0 MAL DESTINY RECTOSIGMOID JCT 08/02/2015 SHALONDA ORTA, SHANTEL Crain Ot 244.9 HYPOTHYROIDISM NOS 08/02/2015 SHALONDA ORTA, SHANTEL Crain Ot 266.2 B-COMPLEX DEFIC NEC 08/02/2015 SHALONDA ORTA, SHANTEL Crain Ot 272.4 HYPERLIPIDEMIA NEC/NOS 08/02/2015 SHALONDA ORTA, SHANTEL Crain Ot 285.9 ANEMIA NOS 08/02/2015 SHALONDA ORTA, SHANTEL Crain Ot 401.9 HYPERTENSION NOS 08/02/2015 SHALONDA ORTA, SHANTEL Crain Ot 414.00 CORON ATHEROSCLER NOS TYPE VESSEL, NATIV 08/02/2015 SHALONDA ORTA, SHANTEL Crain Ot 782.3 EDEMA 08/02/2015 SHALONDA ORTA, SHANTEL Crain Ot V44.3 COLOSTOMY STATUS 08/02/2015 SHALONDA ORTA, SHANTEL Crain Ot V45.81 AORTOCORONARY BYPASS 08/02/2015 SHALONDA ORTA, SHANTEL Crain Ot V58.69 [facility] MED,LT,CURRENT USE 08/02/2015 GINA DOMESHA Ot V76.12 09/21/2015 BAIMALINH L PLANT PACKER Ot E78.5 09/21/2015 BAIMA LINH L PLANT PACKER Ot I10 09/21/2015 BAIMA, LINH L PLANT PACKER Ot I25.10 09/21/2015 BAIMA, LINH L PLANT PACKER Ot I25.5 09/21/2015 BAIMA, LINH L PLANT PACKER Ot I71.4 09/21/2015 BAIMA, LINH L PLANT PACKER Ot I77.9 10/02/2015 SHALONDA ORTA, SHANTEL Crain Ot 154.0 10/02/2015 SHALONDA ORTA, SHANTEL Crain Ot 244.9 10/02/2015 SHALONDA ORTA, SHANTEL Crain Ot 266.2 10/02/2015 SHALONDA ORTA, SHANTEL Crain Ot 272.4 10/02/2015 SHALONDA ORTA, SHANTEL Crain Ot 285.9 10/02/2015 SHALONDA ORTA, SHANTEL Crain Ot 401.9 10/02/2015 SHALONDA ORTA, SHANTEL Crain Ot 414.00 10/02/2015 SHALONDA ORTA, SHANTEL Crain Ot 782.3 10/02/2015 SHALONDA ORTA, SHANTEL Crain Ot V44.3 10/02/2015 SHALONDA ORTA, SHANTEL Crain Ot V45.81 10/02/2015 SHALONDA ORTA, SHANTEL Crain Ot V58.69 10/09/2015 BAIMA, LINH L PLANT PACKER Ot E78.5 10/09/2015 BAIMA, LINH L PLANT PACKER Ot I10 10/09/2015 BAIMA, LINH L PLANT PACKER Ot I25.10 10/09/2015 BAIMA, LINH L PLANT PACKER Ot I25.5 10/09/2015 BAIMA, LINH L PLANT PACKER Ot I71.4 10/09/2015 LINH PAT Heidy PLANT PACKER Ot I77.9 11/06/2015 SHALONDA ORTA, SHANTEL Crain Ot E53.8 DEFICIENCY OF OTHER SPECIFIED B GROUP 11/06/2015 SHALONDA ORTA, SHANTEL Crain Ot Z79.899 OTHER STEWARD RACETRACK (CURRENT) DRUG THERAPY 12/05/2015 SHALONDA ORTA, SHANTEL Crain Ot E53.8 12/05/2015 SHALONDA ORTA, SHANTEL Crain Ot Z79.899 12/13/2015 SHALONDA ORTA, SHANTEL Crain Ot E53.8 12/13/2015 SHALONDA ORTA, SHANTEL Crain Ot Z79.899 12/25/2015 SHALONDA ORTA, SHANTEL Crain Ot C18.7 01/12/2016 KACI ORTA, YOLANDA Mccoy Ot Z01.818 ENCOUNTER FOR OTHER PREPROCEDURAL EXAMIN 01/15/2016 KACI ORTA, YOLANDA Mccoy Ot Z08 ENCNTR FOR FOLLOW-UP EXAM AFTER TRTMT FO 01/15/2016 KACI ORTA, YOLANDA Mccoy Ot Z85.048 PRSNL HX OF MALIG NEOPLM OF RECTUM, RECT 01/15/2016 SHALONDA ORTA, SHANTEL Crain Ot C18.7 01/15/2016 KACI ORTA, YOLANDA Mccoy Ot Z01.818 01/16/2016 SHALONDA ORTA, SHANTEL Crain Ot D51.3 01/16/2016 SHALONDA ORTA, SHANTEL Crain Ot E03.9 01/16/2016 SHALONDA ORTA, SHANTEL Crain Ot E78.5 01/16/2016 SHALONDA ORTA, SHANTEL Crain Ot I10 01/16/2016 SHALONDA ORTA, SHANTEL Crain Ot I25.10 01/16/2016 SHALONDA ORTA, SHANTEL Crain Ot R60.9 01/16/2016 SHALONDA ORTA, SHANTEL Crain Ot Z08 01/16/2016 SHALONDA ORTA, SHANTEL Crain Ot Z79.899 01/16/2016 SHALONDA ORTA, SHANTEL Crain Ot Z85.038 01/16/2016 SHALONDA ORTA, SHANTEL Crain Ot Z95.1 01/17/2016 SHALONDA ORTA, SHANTEL Crain Ot R94.8 01/24/2016 SHAE VERDUGO PLANT PACKER Ot C79.51 01/24/2016 SHAE VERDUGO PLANT PACKER Ot C79.89 01/24/2016 SHAE VERDUGO PLANT PACKER Ot D51.3 01/24/2016 SHAE VERDUGO PLANT PACKER Ot E03.9 01/24/2016 SHAE VERDUGOP Ot E78.5 01/24/2016 VERDUGOSHAE Young PLANT PACKER Ot I10 01/24/2016 VERDUGOSHAE Young S PLANT PACKER Ot I25.10 01/24/2016 SHAE VERDUGO S PLANT PACKER Ot R60.9 01/24/2016 VERDUGOSHAE Young S PLANT PACKER Ot Z79.899 01/24/2016 VERDUGOSHAE S PLANT PACKER Ot Z85.038 01/24/2016 VERDUGOSHAE Young S PLANT PACKER Ot Z95.1 01/24/2016 SHALONDA ORTA, SHANTEL K Ot R94.8 01/24/2016 VERDUGOSHAE S PLANT PACKER Ot C79.51 01/24/2016 VERDUGOSHAE S PLANT PACKER Ot C79.89 01/24/2016 VERDUGOSHAE Young S PLANT PACKER Ot D51.3 01/24/2016 VERDUGOSHAE Young PLANT PACKER Ot E03.9 01/24/2016 KARTIKSHAE PLANT PACKER Ot E78.5 01/24/2016 VERDUGOSHAE Young S PLANT PACKER Ot I10 01/24/2016 VERDUGOSHAE Young PLANT PACKER Ot I25.10 01/24/2016 VERDUGOSHAE Young PLANT PACKER Ot R60.9 01/24/2016 VERDUGOSHAE Young S PLANT PACKER Ot Z79.899 01/24/2016 VERDUGOSHAE Young S PLANT PACKER Ot Z85.038 01/24/2016 VERDUGOSHAE Yonug PLANT PACKER Ot Z95.1 01/24/2016 SHALONDA ORTA, SHANTEL K Ot C18.7 01/24/2016 SHALONDA ORTA, SHANTEL K Ot R97.0 01/24/2016 SHALONDA ORTA, SHANTEL K Ot C18.7 01/24/2016 SHALONDA ORTA, SHANTEL K Ot D51.3 01/24/2016 SHALONDA ORTA, SHANTEL K Ot E03.9 01/24/2016 SHALONDA ORTA, SHANTEL K Ot E78.5 01/24/2016 SHALONDA ORTA, SHANTEL K Ot I10 01/24/2016 SHALONDA ORTA, SHANTEL K Ot I25.10 01/24/2016 SHALONDA ORTA, SHANTEL K Ot R60.9 01/24/2016 SHALONDA ORTA, SHANTEL K Ot Z08 01/24/2016 SHALONDA ORTA, SHANTEL K Ot Z79.899 01/24/2016 SHALONDA ORTA, SHANTEL K Ot Z85.038 01/24/2016 SHALONDA ORTA, SHANTEL Crain Ot Z95.1 01/30/2016 KACI ORTA, YOLANDA M Ot C18.9 MALIGNANT NEOPLASM OF COLON, UNSPECIFIED 01/30/2016 KACI ORTA, YOLANDA M Ot Z01.818 ENCOUNTER FOR OTHER PREPROCEDURAL EXAMIN 01/30/2016 SHALONDA ORTA, SHANTEL Crain Ot C18.7 01/30/2016 SHALONDA ORTA, SHANTEL Crain Ot R97.0 01/31/2016 KACI ORTA, YOLANDA M Ot C18.9 01/31/2016 KACI ORTA, YOLANDA M Ot Z01.818 02/01/2016 KACI ORTA, YOLANDA M Ot C18.9 MALIGNANT NEOPLASM OF COLON, UNSPECIFIED 02/01/2016 KACI ORTA, YOLANDA M Ot E03.9 HYPOTHYROIDISM, UNSPECIFIED 02/01/2016 KACI ORTA, YOLANDA M Ot E78.5 HYPERLIPIDEMIA, UNSPECIFIED 02/01/2016 KACI ORTA, YOLANDA M Ot I10 ESSENTIAL (PRIMARY) HYPERTENSION 02/02/2016 KACI ORTA, YOLANDA M Ot C18.9 02/02/2016 KACI ORTA, YOLANDA M Ot E03.9 02/02/2016 KACI ORTA, YOLANDA M Ot E78.5 02/02/2016 KACI ORTA, YOLANDA M Ot I10 02/06/2016 SHALONDA ORTA, SHANTEL Breann Ot D51.3 02/06/2016 SHALONDA ORTA, SHANTEL Crain Ot E03.9 02/06/2016 SHALONDA ORTA, SHANTEL Crain Ot E78.5 02/06/2016 SHALONDA ORTA, SHANTEL Crain Ot I10 02/06/2016 SHALONDA ORTA, SHANTEL Breann Ot I25.10 02/06/2016 SHALONDA ORTA, SHANTEL Crain Ot R60.9 02/06/2016 SHALONDA ORTA, SHANTEL Crain Ot Z08 02/06/2016 SHALONDA ORTA, SHANTEL Crain Ot Z79.899 02/06/2016 SHALONDA ORTA, SHANTEL Crain Ot Z85.038 02/06/2016 SHALONDA ORTA, SHANTEL Crain Ot Z95.1 02/09/2016 AMBROSIO VALENTINO DO Ot C18.9 MALIGNANT NEOPLASM OF COLON, UNSPECIFIED 02/09/2016 AMBROSIO VALENTINO DO Ot T82.514A BREAKDOWN (MECHANICAL) OF INFUSION MAR[place] 02/09/2016 AMBROSIO VALENTINO DO Ot Z87.891 PERSONAL HISTORY OF NICOTINE DEPENDENCE 02/09/2016 AMBROSIO VALENTINO DO Ot Z93.3 COLOSTOMY STATUS 02/09/2016 AMBROSIO VALENTNIO DO Ot C18.9 02/09/2016 AMBROSIO VALENTINO DO Ot T82.514A 02/09/2016 AMBROSIO VALENTINO DO Ot Z87.891 02/09/2016 AMBROSIO VALENTINO DO Ot Z93.3 02/14/2016 KARTIK SHAE Young PLANT PACKER Ot C79.51 02/14/2016 KARTIK SHAE S PLANT PACKER Ot C79.89 02/14/2016 KARTIK SHAE S PLANT PACKER Ot D51.3 02/14/2016 KARTIK SHAE S PLANT PACKER Ot E03.9 02/14/2016 PAVITHRA VERDUGOBIBI S PLANT PACKER Ot E78.5 02/14/2016 KARTIK SHAE S PLANT PACKER Ot I10 02/14/2016 KARTIK SHAE S PLANT PACKER Ot I25.10 02/14/2016 KARTIK SHAE S PLANT PACKER Ot R60.9 02/14/2016 KARTIK SHAE S PLANT PACKER Ot Z79.899 02/14/2016 KARTIK SHAE S PLANT PACKER Ot Z85.038 02/14/2016 PAVITHRA VERDUGOBIBI S PLANT PACKER Ot Z95.1 02/21/2016 SHANTEL LIZ MD Ot C79.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 OF OTHER SP 02/21/2016 SHANTEL LIZ MD Ot C80.1 MALIGNANT (PRIMARY) NEOPLASM, UNSPECIFIE 02/21/2016 SHANTEL LIZ MD Ot D51.3 OTHER DIETARY VITAMIN B12 DEFICIENCY ANE 02/21/2016 SHANTEL LIZ MD Ot E03.9 HYPOTHYROIDISM, UNSPECIFIED 02/21/2016 SHANTEL LIZ MD Ot E78.5 HYPERLIPIDEMIA, UNSPECIFIED 02/21/2016 SHANTEL LIZ MD Ot I10 ESSENTIAL (PRIMARY) HYPERTENSION 02/21/2016 SHANTEL LIZ MD Ot 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 02/21/2016 SHANTEL LIZ MD Ot R60.9 EDEMA, UNSPECIFIED 02/21/2016 SHANTEL LIZ MD Ot Z08 ENCNTR FOR FOLLOW-UP EXAM AFTER TRTMT FO 02/21/2016 SHANTEL LIZ MD Ot Z79.899 OTHER STEWARD RACETRACK (CURRENT) DRUG THERAPY 02/21/2016 SHANTEL LIZ MD Ot Z85.038 PERSONAL HISTORY OF MALIGNANT NEOPLASM O 02/21/2016 SHANTEL LIZ MD Ot Z95.1 PRESENCE OF AORTOCORONARY BYPASS GRAFT 03/01/2016 SHANTEL LIZ MD Ot C79.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 OF OTHER SP 03/01/2016 SHANTEL LIZ MD, Ot C80.1 MALIGNANT (PRIMARY) NEOPLASM, UNSPECIFIE 03/01/2016 SHANTEL LIZ MD Ot C18.7 MALIGNANT NEOPLASM OF SIGMOID COLON 03/01/2016 SHANTEL LIZ MD, Ot R97.0 ELEVATED CARCINOEMBRYONIC ANTIGEN [CEA] 03/06/2016 SHANTEL LIZ MD, Ot D51.3 OTHER DIETARY VITAMIN B12 DEFICIENCY ANE 03/06/2016 SHANTEL LIZ MD, Ot E03.9 HYPOTHYROIDISM, UNSPECIFIED 03/06/2016 SHANTEL LIZ MD, Ot E78.5 HYPERLIPIDEMIA, UNSPECIFIED 03/06/2016 SHANTEL LIZ MD Ot I10 ESSENTIAL (PRIMARY) HYPERTENSION 03/06/2016 SHANTEL LIZ MD, Ot 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 03/06/2016 SHANTEL LIZ MD Ot R60.9 EDEMA, UNSPECIFIED 03/06/2016 SHANTEL LIZ MD Ot Z08 ENCNTR FOR FOLLOW-UP EXAM AFTER TRTMT FO 03/06/2016 SHANTEL LIZ MD, Ot Z79.899 OTHER CUSTODIAL (CURRENT) DRUG THERAPY 03/06/2016 SHANTEL LIZ MD, Ot Z85.038 PERSONAL HISTORY OF MALIGNANT NEOPLASM O 03/06/2016 SHANTEL LIZ MD Ot Z95.1 PRESENCE OF AORTOCORONARY BYPASS GRAFT 03/11/2016 SHANTEL LIZ MD, Ot D51.3 OTHER DIETARY VITAMIN B12 DEFICIENCY ANE 03/11/2016 SHANTEL LIZ MD, Ot E03.9 HYPOTHYROIDISM, UNSPECIFIED 03/11/2016 SHANTEL LIZ MD, Ot E78.5 HYPERLIPIDEMIA, UNSPECIFIED 03/11/2016 SHANTEL LIZ MD Ot I10 ESSENTIAL (PRIMARY) HYPERTENSION 03/11/2016 SHANTEL LIZ MD Ot 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 03/11/2016 SHANTEL LIZ MD Ot R60.9 EDEMA, UNSPECIFIED 03/11/2016 SHANTEL LIZ MD Ot Z08 ENCNTR FOR FOLLOW-UP EXAM AFTER TRTMT FO 03/11/2016 SHANTEL LIZ MD, Ot Z79.899 OTHER STEWARD RACETRACK (CURRENT) DRUG THERAPY 03/11/2016 SHANTEL LIZ MD Ot Z85.038 PERSONAL HISTORY OF MALIGNANT NEOPLASM O 03/11/2016 SHANTEL ILZ MD Ot Z95.1 PRESENCE OF AORTOCORONARY BYPASS GRAFT 03/14/2016 SHANTEL LIZ MD Ot C18.7 MALIGNANT NEOPLASM OF SIGMOID COLON 03/14/2016 SHANTEL LIZ MD, Ot R97.0 ELEVATED CARCINOEMBRYONIC ANTIGEN [CEA] 03/14/2016 SHANTEL LIZ MD, Ot C79.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 OF OTHER SP 03/14/2016 SHANTEL LIZ MD, Ot C80.1 MALIGNANT (PRIMARY) NEOPLASM, UNSPECIFIE 03/20/2016 SHANTEL LIZ MD, Ot D51.3 OTHER DIETARY VITAMIN B12 DEFICIENCY ANE 03/20/2016 SHANTEL LIZ MD Ot E03.9 HYPOTHYROIDISM, UNSPECIFIED 03/20/2016 SHANTEL LIZ MD Ot E78.5 HYPERLIPIDEMIA, UNSPECIFIED 03/20/2016 SHANTEL LIZ MD Ot I10 ESSENTIAL (PRIMARY) HYPERTENSION 03/20/2016 SHANTEL LIZ MD, Ot 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 03/20/2016 SHANTEL LIZ MD Ot R60.9 EDEMA, UNSPECIFIED 03/20/2016 SHANTEL LIZ MD Ot Z08 ENCNTR FOR FOLLOW-UP EXAM AFTER TRTMT FO 03/20/2016 SHANTEL LIZ MD, Ot Z79.899 OTHER STEWARD RACETRACK (CURRENT) DRUG THERAPY 03/20/2016 SHANTEL LIZ MD Ot Z85.038 PERSONAL HISTORY OF MALIGNANT NEOPLASM O 03/20/2016 SHANTEL LIZ MD Ot Z95.1 PRESENCE OF AORTOCORONARY BYPASS GRAFT 04/03/2016 SHANTEL LIZ MD, Ot D51.3 OTHER DIETARY VITAMIN B12 DEFICIENCY ANE 04/03/2016 SHANTEL LIZ MD Ot E03.9 HYPOTHYROIDISM, UNSPECIFIED 04/03/2016 SHANTEL LIZ MD Ot E78.5 HYPERLIPIDEMIA, UNSPECIFIED 04/03/2016 SHANTEL LIZ MD Ot I10 ESSENTIAL (PRIMARY) HYPERTENSION 04/03/2016 SHANTEL LIZ MD Ot 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 04/03/2016 SHANTEL LIZ MD Ot R60.9 EDEMA, UNSPECIFIED 04/03/2016 SHANTEL LIZ MD Ot Z08 ENCNTR FOR FOLLOW-UP EXAM AFTER TRTMT FO 04/03/2016 SHANTEL LIZ MD Ot Z79.899 OTHER STEWARD RACETRACK (CURRENT) DRUG THERAPY 04/03/2016 SHANTEL LIZ MD Ot Z85.038 PERSONAL HISTORY OF MALIGNANT NEOPLASM O 04/03/2016 SHANTEL LIZ MD Ot Z95.1 PRESENCE OF AORTOCORONARY BYPASS GRAFT 04/08/2016 SHANTEL LIZ MD Ot C18.7 MALIGNANT NEOPLASM OF SIGMOID COLON 04/08/2016 SHANTEL LIZ MD Ot C79.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 OF OTHER SP 04/08/2016 SHANTEL LIZ MD Ot I71.4 ABDOMINAL AORTIC ANEURYSM, WITHOUT RUPTU 04/17/2016 SHANTEL LIZ MD Ot D51.3 OTHER DIETARY VITAMIN B12 DEFICIENCY ANE 04/17/2016 SHANTEL LIZ MD Ot E03.9 HYPOTHYROIDISM, UNSPECIFIED 04/17/2016 SHANTEL LIZ MD Ot E78.5 HYPERLIPIDEMIA, UNSPECIFIED 04/17/2016 SHANTEL LIZ MD Ot I10 ESSENTIAL (PRIMARY) HYPERTENSION 04/17/2016 SHANTEL LIZ MD Ot 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 04/17/2016 SHANTEL LIZ MD Ot R60.9 EDEMA, UNSPECIFIED 04/17/2016 SHANTEL LIZ MD Ot Z08 ENCNTR FOR FOLLOW-UP EXAM AFTER TRTMT FO 04/17/2016 SHANTEL LIZ MD Ot Z79.899 OTHER STEWARD RACETRACK (CURRENT) DRUG THERAPY 04/17/2016 SHANTEL LIZ MD Ot Z85.038 PERSONAL HISTORY OF MALIGNANT NEOPLASM O 04/17/2016 SHANTEL LIZ MD Ot Z95.1 PRESENCE OF AORTOCORONARY BYPASS GRAFT 04/25/2016 CATHI ORTA FACC, FRANK GONZALEZP CCDS Ot C79.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 OF OTHER SP 04/25/2016 CATHI ORTA FACC, FRANK FACP CCDS Ot E78.4 OTHER HYPERLIPIDEMIA 04/25/2016 CATHI ORTA FACC, ALI FACP CCDS Ot I10 ESSENTIAL (PRIMARY) HYPERTENSION 04/25/2016 CATHI ORTA FACC, FRANK FACP CCDS Ot 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 04/25/2016 CATHI ORTA FACC, FRANK FACP CCDS Ot I65.23 OCCLUSION AND STENOSIS OF BILATERAL ELAINE 04/25/2016 CATHI ORTA FACC, FRANK FACP CCDS Ot I71.4 ABDOMINAL AORTIC ANEURYSM, WITHOUT RUPTU 04/26/2016 SHANTEL LIZ MD Ot C18.7 MALIGNANT NEOPLASM OF SIGMOID COLON 04/26/2016 SHANTEL LIZ MD Ot C79.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 OF OTHER SP 04/26/2016 SHANTEL LIZ MD, Ot I71.4 ABDOMINAL AORTIC ANEURYSM, WITHOUT RUPTU 05/13/2016 SHANTEL LIZ MD Ot D51.3 OTHER DIETARY VITAMIN B12 DEFICIENCY ANE 05/13/2016 SHANTEL LIZ MD Ot E03.9 HYPOTHYROIDISM, UNSPECIFIED 05/13/2016 SHANTEL LIZ MD Ot E78.5 HYPERLIPIDEMIA, UNSPECIFIED 05/13/2016 SHANTEL LIZ MD Ot I10 ESSENTIAL (PRIMARY) HYPERTENSION 05/13/2016 SHANTEL LIZ MD Ot 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 05/13/2016 SHANTEL LIZ MD Ot R60.9 EDEMA, UNSPECIFIED 05/13/2016 SHANTEL LIZ MD Ot Z08 ENCNTR FOR FOLLOW-UP EXAM AFTER TRTMT FO 05/13/2016 SHANTEL LIZ MD, Ot Z79.899 OTHER STEWARD RACETRACK (CURRENT) DRUG THERAPY 05/13/2016 SHANTEL LIZ MD Ot Z85.038 PERSONAL HISTORY OF MALIGNANT NEOPLASM O 05/13/2016 SHANTEL LIZ MD Ot Z95.1 PRESENCE OF AORTOCORONARY BYPASS GRAFT 05/15/2016 SHANTEL LIZ MD, Ot C18.7 MALIGNANT NEOPLASM OF SIGMOID COLON 05/15/2016 SHANTEL LIZ MD, Ot D51.3 OTHER DIETARY VITAMIN B12 DEFICIENCY ANE 05/15/2016 SHANTEL LIZ MD Ot E03.9 HYPOTHYROIDISM, UNSPECIFIED 05/15/2016 SHANTEL LIZ MD, Ot E78.5 HYPERLIPIDEMIA, UNSPECIFIED 05/15/2016 SHANTEL LIZ MD Ot I10 ESSENTIAL (PRIMARY) HYPERTENSION 05/15/2016 SHANTEL LIZ MD Ot 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 05/15/2016 SHANTEL LIZ MD Ot R60.9 EDEMA, UNSPECIFIED 05/15/2016 SHANTEL LIZ MD Ot Z51.11 ENCOUNTER FOR ANTINEOPLASTIC CHEMOTHERAP 05/15/2016 SHANTEL LIZ MD Ot Z79.899 OTHER STEWARD RACETRACK (CURRENT) DRUG THERAPY 05/15/2016 SHANTEL LIZ MD Ot Z95.1 PRESENCE OF AORTOCORONARY BYPASS GRAFT 05/16/2016 SHANTEL LIZ MD, Ot C18.7 MALIGNANT NEOPLASM OF SIGMOID COLON 05/16/2016 SHANTEL LIZ MD, Ot C79.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 OF OTHER SP 05/16/2016 SHANTEL LIZ MD, Ot I71.4 ABDOMINAL AORTIC ANEURYSM, WITHOUT RUPTU 05/16/2016 CATHI GONZALEZ, ALI LISAP DAYNES Ot C79.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 OF OTHER SP 05/16/2016 CATHI ORTA FACC, ALI FACP CCDS Ot E78.4 OTHER HYPERLIPIDEMIA 05/16/2016 [facility] F[facility] CCDS Ot I10 ESSENTIAL (PRIMARY) HYPERTENSION 05/16/2016 CATHI ORTA [facility], ALI FACP CCDS Ot 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 05/16/2016 CATHI ORTA FACC, FRANK FACP CCDS Ot I65.23 OCCLUSION AND STENOSIS OF BILATERAL ELAINE 05/16/2016 CATHI ORTA FACC, FRANK GONZALEZP CCDS Ot I71.4 ABDOMINAL AORTIC ANEURYSM, WITHOUT RUPTU 05/29/2016 SHANTEL LIZ MD, Ot C18.7 MALIGNANT NEOPLASM OF SIGMOID COLON 05/29/2016 SHANTEL LIZ MD Ot D51.3 OTHER DIETARY VITAMIN B12 DEFICIENCY ANE 05/29/2016 SHANTEL LIZ MD Ot E03.9 HYPOTHYROIDISM, UNSPECIFIED 05/29/2016 SHANTEL LIZ MD, Ot E78.5 HYPERLIPIDEMIA, UNSPECIFIED 05/29/2016 SHANTEL LIZ MD, Ot I10 ESSENTIAL (PRIMARY) HYPERTENSION 05/29/2016 SHANTEL LIZ MD Ot 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 05/29/2016 SHANTEL LIZ MD, Ot R60.9 EDEMA, UNSPECIFIED 05/29/2016 SHANTEL LIZ MD, Ot Z51.11 ENCOUNTER FOR ANTINEOPLASTIC CHEMOTHERAP 05/29/2016 SHANTEL LIZ MD, Ot Z79.899 OTHER CUSTODIAL (CURRENT) DRUG THERAPY 05/29/2016 SHANTEL LIZ MD, Ot Z95.1 PRESENCE OF AORTOCORONARY BYPASS GRAFT 05/29/2016 AMBROSIO VALENTINO DO, Ot Z53.21 PROC/TRTMT NOT CRD OUT D/T PT LV BEF SEE 06/06/2016 SHANTEL LIZ MD, Ot C79.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 OF OTHER SP 06/06/2016 SHANTEL LIZ MD, Ot I71.4 ABDOMINAL AORTIC ANEURYSM, WITHOUT RUPTU 06/11/2016 SHANTEL LIZ MD, Ot C18.7 MALIGNANT NEOPLASM OF SIGMOID COLON 06/11/2016 SHANTEL LIZ MD Ot D51.3 OTHER DIETARY VITAMIN B12 DEFICIENCY ANE 06/11/2016 SHANTEL LIZ MD Ot E03.9 HYPOTHYROIDISM, UNSPECIFIED 06/11/2016 SHANTEL LIZ MD, Ot E78.5 HYPERLIPIDEMIA, UNSPECIFIED 06/11/2016 SHANTEL LIZ MD Ot I10 ESSENTIAL (PRIMARY) HYPERTENSION 06/11/2016 SHANTEL LIZ MD Ot 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 06/11/2016 SHANTEL LIZ MD Ot R60.9 EDEMA, UNSPECIFIED 06/11/2016 SHANTEL LIZ MD Ot Z51.11 ENCOUNTER FOR ANTINEOPLASTIC CHEMOTHERAP 06/11/2016 SHANTEL LIZ MD, Ot Z79.899 OTHER STEWARD RACETRACK (CURRENT) DRUG THERAPY 06/11/2016 SHANTEL LIZ MD Ot Z95.1 PRESENCE OF AORTOCORONARY BYPASS GRAFT 06/19/2016 SHANTEL LIZ MD, Ot C18.7 MALIGNANT NEOPLASM OF SIGMOID COLON 06/19/2016 SHANTEL LIZ MD, Ot D51.3 OTHER DIETARY VITAMIN B12 DEFICIENCY ANE 06/19/2016 SHANTEL LIZ MD, Ot E03.9 HYPOTHYROIDISM, UNSPECIFIED 06/19/2016 SHANTEL LIZ MD, Ot E78.5 HYPERLIPIDEMIA, UNSPECIFIED 06/19/2016 SHANTEL LIZ MD Ot I10 ESSENTIAL (PRIMARY) HYPERTENSION 06/19/2016 SHANTEL LIZ MD Ot 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 06/19/2016 SHANTEL LIZ MD, Ot R60.9 EDEMA, UNSPECIFIED 06/19/2016 SHANTEL LIZ MD Ot Z51.11 ENCOUNTER FOR ANTINEOPLASTIC CHEMOTHERAP 06/19/2016 SHANTEL LIZ MD, Ot Z79.899 OTHER CUSTODIAL (CURRENT) DRUG THERAPY 06/19/2016 SHANTEL LIZ MD Ot Z95.1 PRESENCE OF AORTOCORONARY BYPASS GRAFT 06/28/2016 SHANTEL LIZ MD, Ot C79.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 OF OTHER SP 06/28/2016 SHANTEL LIZ MD Ot I71.4 ABDOMINAL AORTIC ANEURYSM, WITHOUT RUPTU 07/23/2016 SHANTEL LIZ MD, Ot C18.7 MALIGNANT NEOPLASM OF SIGMOID COLON 07/23/2016 SHANTEL LIZ MD, Ot C79.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 OF OTHER SP 07/23/2016 SHANTEL LIZ MD Ot I71.4 ABDOMINAL AORTIC ANEURYSM, WITHOUT RUPTU 07/30/2016 SHANTEL LIZ MD Ot C18.7 MALIGNANT NEOPLASM OF SIGMOID COLON 07/30/2016 SAHNTEL LIZ MD Ot D51.3 OTHER DIETARY VITAMIN B12 DEFICIENCY ANE 07/30/2016 SHANTEL LIZ MD Ot E03.9 HYPOTHYROIDISM, UNSPECIFIED 07/30/2016 SHANTEL LIZ MD Ot E78.5 HYPERLIPIDEMIA, UNSPECIFIED 07/30/2016 SHANTEL LIZ MD Ot I10 ESSENTIAL (PRIMARY) HYPERTENSION 07/30/2016 SHANTEL LIZ MD Ot 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 07/30/2016 SHANTEL LIZ MD Ot R60.9 EDEMA, UNSPECIFIED 07/30/2016 SHANTEL LIZ MD Ot Z51.11 ENCOUNTER FOR ANTINEOPLASTIC CHEMOTHERAP 07/30/2016 SHANTEL LIZ MD Ot Z79.899 OTHER STEWARD RACETRACK (CURRENT) DRUG THERAPY 07/30/2016 SHANTEL LIZ MD Ot Z95.1 PRESENCE OF AORTOCORONARY BYPASS GRAFT 08/05/2016 SHANTEL LIZ MD Ot C18.7 MALIGNANT NEOPLASM OF SIGMOID COLON 08/05/2016 SHANTEL LIZ MD Ot D51.3 OTHER DIETARY VITAMIN B12 DEFICIENCY ANE 08/05/2016 SHANTEL LIZ MD Ot E03.9 HYPOTHYROIDISM, UNSPECIFIED 08/05/2016 SHANTEL LIZ MD Ot E78.5 HYPERLIPIDEMIA, UNSPECIFIED 08/05/2016 SHANTEL LIZ MD Ot I10 ESSENTIAL (PRIMARY) HYPERTENSION 08/05/2016 SHANTEL LIZ MD Ot 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 08/05/2016 SHANTEL LIZ MD Ot R60.9 EDEMA, UNSPECIFIED 08/05/2016 SHANTEL LIZ MD Ot Z51.11 ENCOUNTER FOR ANTINEOPLASTIC CHEMOTHERAP 08/05/2016 SHANTEL LIZ MD Ot Z79.899 OTHER CUSTODIAL (CURRENT) DRUG THERAPY 08/05/2016 SHANTEL LIZ MD Ot Z95.1 PRESENCE OF AORTOCORONARY BYPASS GRAFT 08/13/2016 SHANTEL LIZ MD Ot C18.7 MALIGNANT NEOPLASM OF SIGMOID COLON 08/13/2016 SHANTEL LIZ MD Ot D51.3 OTHER DIETARY VITAMIN B12 DEFICIENCY ANE 08/13/2016 SHANTEL LIZ MD Ot E03.9 HYPOTHYROIDISM, UNSPECIFIED 08/13/2016 SHANTEL LIZ MD Ot E78.5 HYPERLIPIDEMIA, UNSPECIFIED 08/13/2016 SHANTEL LIZ MD Ot I10 ESSENTIAL (PRIMARY) HYPERTENSION 08/13/2016 SHANTEL LIZ MD Ot 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 08/13/2016 SHANTEL LIZ MD Ot R60.9 EDEMA, UNSPECIFIED 08/13/2016 SHANTEL LIZ MD Ot Z51.11 ENCOUNTER FOR ANTINEOPLASTIC CHEMOTHERAP 08/13/2016 SHANTEL LIZ MD, Ot Z79.899 OTHER STEWARD RACETRACK (CURRENT) DRUG THERAPY 08/13/2016 SHANTEL LIZ MD Ot Z95.1 PRESENCE OF AORTOCORONARY BYPASS GRAFT 08/14/2016 SHANTEL LIZ MD, Ot C18.7 MALIGNANT NEOPLASM OF SIGMOID COLON 08/14/2016 SHANTEL LIZ MD, Ot C79.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 OF OTHER SP 08/14/2016 SHANTEL LIZ MD, Ot I71.4 ABDOMINAL AORTIC ANEURYSM, WITHOUT RUPTU 08/26/2016 SHANTEL LIZ MD, Ot C18.7 MALIGNANT NEOPLASM OF SIGMOID COLON 08/26/2016 SHANTEL LIZ MD, Ot D51.3 OTHER DIETARY VITAMIN B12 DEFICIENCY ANE 08/26/2016 SHANTEL LIZ MD Ot E03.9 HYPOTHYROIDISM, UNSPECIFIED 08/26/2016 SHANTEL LIZ MD, Ot E78.5 HYPERLIPIDEMIA, UNSPECIFIED 08/26/2016 SHANTEL LIZ MD Ot I10 ESSENTIAL (PRIMARY) HYPERTENSION 08/26/2016 SHANTEL LIZ MD Ot 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 08/26/2016 SHANTEL LIZ MD Ot R60.9 EDEMA, UNSPECIFIED 08/26/2016 SHANTEL LIZ MD Ot Z51.11 ENCOUNTER FOR ANTINEOPLASTIC CHEMOTHERAP 08/26/2016 SHANTEL LIZ MD, Ot Z79.899 OTHER STEWARD RACETRACK (CURRENT) DRUG THERAPY 08/26/2016 SHANTEL LIZ MD Ot Z95.1 PRESENCE OF AORTOCORONARY BYPASS GRAFT 08/26/2016 SHANTEL LIZ MD, Ot C18.7 MALIGNANT NEOPLASM OF SIGMOID COLON 08/26/2016 SHANTEL LIZ MD, Ot C79.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 OF OTHER SP 08/26/2016 SHANTEL LIZ MD Ot I71.4 ABDOMINAL AORTIC ANEURYSM, WITHOUT RUPTU 08/27/2016 SHANTEL LIZ MD Ot C18.7 MALIGNANT NEOPLASM OF SIGMOID COLON 08/27/2016 SHANTEL LIZ MD Ot D51.3 OTHER DIETARY VITAMIN B12 DEFICIENCY ANE 08/27/2016 SHANTEL LIZ MD Ot E03.9 HYPOTHYROIDISM, UNSPECIFIED 08/27/2016 SHANTEL LIZ MD Ot E78.5 HYPERLIPIDEMIA, UNSPECIFIED 08/27/2016 SHANTEL LIZ MD Ot I10 ESSENTIAL (PRIMARY) HYPERTENSION 08/27/2016 SHANTEL LIZ MD Ot 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 08/27/2016 SHANTEL LIZ MD Ot R60.9 EDEMA, UNSPECIFIED 08/27/2016 SHANTEL LIZ MD Ot Z51.11 ENCOUNTER FOR ANTINEOPLASTIC CHEMOTHERAP 08/27/2016 SHANTEL LIZ MD Ot Z79.899 OTHER STEWARD RACETRACK (CURRENT) DRUG THERAPY 08/27/2016 SHANTEL LIZ MD Ot Z95.1 PRESENCE OF AORTOCORONARY BYPASS GRAFT 08/31/2016 DESHAUN JOHNSON MD, Ot C18.9 MALIGNANT NEOPLASM OF COLON, UNSPECIFIED 08/31/2016 DESHAUN JOHNSON MD Ot I10 ESSENTIAL (PRIMARY) HYPERTENSION 08/31/2016 DESHAUN JOHNSON MD Ot 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 08/31/2016 DESHAUN JOHNSON MD Ot R53.81 OTHER MALAISE 08/31/2016 DESHAUN JOHNSON MD Ot Z79.82 STEWARD RACETRACK (CURRENT) USE OF ASPIRIN 08/31/2016 DESHAUN JOHNSON MD Ot Z79.899 OTHER STEWARD RACETRACK (CURRENT) DRUG THERAPY 08/31/2016 DESHAUN JOHNSON MD Ot Z93.3 COLOSTOMY STATUS 08/31/2016 DESHAUN JOHNSON MD Ot Z95.1 PRESENCE OF AORTOCORONARY BYPASS GRAFT 09/02/2016 DESHAUN JOHNSON MD Ot C18.9 MALIGNANT NEOPLASM OF COLON, UNSPECIFIED 09/02/2016 DESHAUN JOHNSON MD Ot I10 ESSENTIAL (PRIMARY) HYPERTENSION 09/02/2016 DESHAUN JOHNSON MD Ot 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 09/02/2016 DESHAUN JOHNSON MD Ot R53.81 OTHER MALAISE 09/02/2016 DESHAUN JOHNSON MD Ot Z79.82 CUSTODIAL (CURRENT) USE OF ASPIRIN 09/02/2016 DESHAUN JOHNSON MD Ot Z79.899 OTHER CUSTODIAL (CURRENT) DRUG THERAPY 09/02/2016 DESHAUN JOHNSON MD Ot Z93.3 COLOSTOMY STATUS 09/02/2016 DESHAUN JOHNSON MD Ot Z95.1 PRESENCE OF AORTOCORONARY BYPASS GRAFT 09/03/2016 Ot 401.9 HYPERTENSION NOS 09/03/2016 Ot 414.00 CORON ATHEROSCLER NOS TYPE VESSEL, NATIV 09/03/2016 Ot V58.69 OTH MED,LT,CURRENT USE 09/03/2016 Ot 401.9 HYPERTENSION NOS 09/03/2016 Ot 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 09/03/2016 Ot V58.69 OTH MED,LT,CURRENT USE 09/03/2016 Ot 401.9 HYPERTENSION NOS 09/03/2016 Ot 414.00 CORON ATHEROSCLER NOS TYPE VESSEL, NATIV 09/03/2016 Ot V58.69 OTH MED,LT,CURRENT USE 09/03/2016 Ot 275.2 DIS MAGNESIUM METABOLISM 09/03/2016 Ot V58.69 OTH MED,LT,CURRENT USE 09/03/2016 Ot 401.9 HYPERTENSION NOS 09/03/2016 Ot 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 09/03/2016 Ot V58.69 OTH MED,LT,CURRENT USE 09/03/2016 Ot 244.9 HYPOTHYROIDISM NOS 09/03/2016 Ot 272.4 HYPERLIPIDEMIA NEC/NOS 09/03/2016 Ot V58.69 OTH MED,LT,CURRENT USE 09/03/2016 Ot 729.5 PAIN IN LIMB 09/03/2016 LINH PAT L PLANT PACKER Ot 785.2 CARDIAC MURMURS NEC 09/03/2016 BAIMA LINH L PLANT PACKER Ot 272.4 HYPERLIPIDEMIA NEC/NOS 09/03/2016 BAIMAEVONNELINH L PLANT PACKER Ot V58.69 OTH MED,LT,CURRENT USE 09/03/2016 KACI ORTA, YOLANDA Mccoy Ot 154.0 MAL DESTINY RECTOSIGMOID JCT 09/03/2016 KACI ORTA, YOLANDA Mccoy Ot 211.3 BENIGN NEOPLASM LG BOWEL 09/03/2016 KACI ORTA, YOLANDA Mccoy Ot 280.9 IRON DEFIC ANEMIA NOS 09/03/2016 KACI ORTA, YOLANDA Mccoy Ot V16.0 FAMILY HX-GI MALIGNANCY 09/03/2016 KACI ORTA, YOLANDA Mccoy Ot V72.84 EXAM PRE-OPERATIVE NOS 09/03/2016 KACI ORTA, YOLANDA Mccoy Ot 153.3 MAL DESTINY SIGMOID COLON 09/03/2016 KACI ORTA, YOLANDA Mccoy Ot 441.4 ABDOM AORTIC ANEURYSM 09/03/2016 KACI ORTA, YOLANDA Mccoy Ot 553.20 VENTRAL HERNIA NOS 09/03/2016 KACI ORTA, YOLANDA Mccoy Ot 199.1 MALIGNANT NEOPLASM NOS 09/03/2016 KACI ORTA, YOLANDA Mccoy Ot V72.63 PRE-PROCEDURAL LABORATORY EXAMINATION 09/03/2016 KACI ORTA, YOLANDA Mccoy Ot V74.8 SCREEN-BACTERIAL DIS NEC 09/03/2016 CATHI ORTA FACC, ALI FACP CCDS Ot 244.9 HYPOTHYROIDISM NOS 09/03/2016 CATHI ORTA FACC, ALI FACP CCDS Ot 272.4 HYPERLIPIDEMIA NEC/NOS 09/03/2016 CATHI ORTA FACC, ALI FACP CCDS Ot 401.9 HYPERTENSION NOS 09/03/2016 CATHI ORTA FACC, ALI FACP CCDS Ot 414.00 CORON ATHEROSCLER NOS TYPE VESSEL, NATIV 09/03/2016 CATHI ORTA FACC, ALI FACP CCDS Ot 414.8 CHR ISCHEMIC HRT DIS NEC 09/03/2016 CATHI ORTA FACC, ALI FACP CCDS Ot 447.9 ARTERIAL DISEASE NOS 09/03/2016 CATHI ORTA FACC, ALI FACP CCDS Ot 782.0 SKIN SENSATION DISTURB 09/03/2016 CATHI ORTA FACC, ALI FACP CCDS Ot 782.3 EDEMA 09/03/2016 BI LINH L PLANT PACKER Ot 272.4 HYPERLIPIDEMIA NEC/NOS 09/03/2016 BI LINH L PLANT PACKER Ot 401.9 HYPERTENSION NOS 09/03/2016 LINH PAT L PLANT PACKER Ot 414.00 CORON ATHEROSCLER NOS TYPE VESSEL, NATIV 09/03/2016 BI LINH L PLANT PACKER Ot V58.69 OTH MED,LT,CURRENT USE 09/03/2016 SHALONDA ORTA, SHANTEL Crain Ot 153.3 MAL DESTINY SIGMOID COLON 09/03/2016 SHALONDA ORTA, SHANTEL Crain Ot V76.12 OTH SCREEN MAMMO-MALIGN NEOPLASM OF JO[place] 09/03/2016 EVONNE PATHER L PLANT PACKER Ot 272.4 HYPERLIPIDEMIA NEC/NOS 09/03/2016 CATHI GONZALEZC, ALI FACP CCDS Ot 401.9 HYPERTENSION NOS 09/03/2016 CATHI GONZALEZC, ALI FACP CCDS Ot 414.00 CORON ATHEROSCLER NOS TYPE VESSEL, NATIV 09/03/2016 CATHI ORTA FAC, ALI FACP CCDS Ot 414.8 CHR ISCHEMIC HRT DIS NEC 09/03/2016 CATHI ORTA FACC, ALI FACP CCDS Ot 441.9 AORTIC ANEURYSM NOS 09/03/2016 CATHI ORTA FACC, ALI FACP CCDS Ot 786.09 RESPIRATORY ABNORM NEC 09/03/2016 CATHI ORTA FACC, ALI FACP CCDS Ot 272.4 HYPERLIPIDEMIA NEC/NOS 09/03/2016 CATHI ORTA FACC, ALI FACP CCDS Ot 401.9 HYPERTENSION NOS 09/03/2016 CATHI ORTA FACC, ALI FACP CCDS Ot 414.00 CORON ATHEROSCLER NOS TYPE VESSEL, NATIV 09/03/2016 CATHI ORTA FACC, ALI FACP CCDS Ot 414.8 CHR ISCHEMIC HRT DIS NEC 09/03/2016 CATHI ORTA FACC, ALI FACP CCDS Ot 786.09 RESPIRATORY ABNORM NEC 09/03/2016 SHALONDA ORTA, SHANTEL Crain Ot 154.0 MAL DESTINY RECTOSIGMOID JCT 09/03/2016 SHANTEL LIZ MD Ot 244.9 HYPOTHYROIDISM NOS 09/03/2016 SHALONDA ORTA, SHANTEL Crain Ot 272.4 HYPERLIPIDEMIA NEC/NOS 09/03/2016 SHANTEL LIZ MD Ot 285.9 ANEMIA NOS 09/03/2016 SHANTEL LIZ MD Ot 401.9 HYPERTENSION NOS 09/03/2016 SHALONDA ORTA, SHANTEL Crain Ot 414.00 CORON ATHEROSCLER NOS TYPE VESSEL, NATIV 09/03/2016 SHANTEL LIZ MD Ot 782.3 EDEMA 09/03/2016 SHANTEL ILZ MD Ot V44.3 COLOSTOMY STATUS 09/03/2016 SHANTEL LIZ MD Ot V45.81 AORTOCORONARY BYPASS 09/03/2016 SHANTEL LIZ MD Ot V58.69 OT MED,LT,CURRENT USE 09/03/2016 KACI ORTA, YOLANDA Mccoy Ot V72.84 EXAM PRE-OPERATIVE NOS 09/03/2016 KACI ORTA, YOLANDA Mccoy Ot V72.84 EXAM PRE-OPERATIVE NOS 09/03/2016 SHANTEL LIZ MD Ot 153.3 MAL DESTINY SIGMOID COLON 09/03/2016 SHANTEL LIZ MD Ot 305.1 TOBACCO USE DISORDER 09/03/2016 BAIMALINH L PLANT PACKER Ot 272.4 HYPERLIPIDEMIA NEC/NOS 09/03/2016 BAIMAEVONNELINH L PLANT PACKER Ot 401.9 HYPERTENSION NOS 09/03/2016 LINH PAT [employer] PACKER Ot 414.00 CORON ATHEROSCLER NOS TYPE VESSEL, NATIV 09/03/2016 LINH PAT [employer] P[employer]ER Ot 414.8 CHR ISCHEMIC HRT DIS NEC 09/03/2016 LINH PAT [employer] P[employer] Ot 433.10 CAROTID ARTERY OCCLUSION W O CEREBRAL IN 09/03/2016 LINH PAT [employer] PACKER Ot 441.4 ABDOM AORTIC ANEURYSM 09/03/2016 SHALONDA ORTA, SHANTEL Crain Ot 153.3 MAL DESTINY SIGMOID COLON 09/03/2016 SHALONDA ORTA, SHANTEL Crain Ot 305.1 TOBACCO USE DISORDER 09/03/2016 MESHA FUENTES DO Ot V76.12 OTH SCREEN MAMMO-MALIGN NEOPLASM OF [place] 09/03/2016 LINH PAT [employer] PACKER Ot E78.5 HYPERLIPIDEMIA, UNSPECIFIED 09/03/2016 LINH PAT [employer] PACKER Ot I10 ESSENTIAL (PRIMARY) HYPERTENSION 09/03/2016 LINH PAT [employer] PACKER Ot 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 09/03/2016 LINH PAT PL[employer] PACKER Ot I25.5 ISCHEMIC CARDIOMYOPATHY 09/03/2016 LINH PATP Ot I71.4 ABDOMINAL AORTIC ANEURYSM, WITHOUT RUPTU 09/03/2016 LINH PAT [employer] PACKER Ot I77.9 DISORDER OF ARTERIES AND ARTERIOLES, UNS 09/03/2016 SHANTEL LIZ MD Ot C18.7 MALIGNANT NEOPLASM OF SIGMOID COLON 09/03/2016 SHANTEL LIZ MD Ot C18.7 MALIGNANT NEOPLASM OF SIGMOID COLON 09/03/2016 SHANTEL LIZ MD Ot R97.0 ELEVATED CARCINOEMBRYONIC ANTIGEN [CEA] 09/03/2016 SHANTEL LIZ MD Ot C79.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 OF OTHER SP 09/03/2016 SHANTEL LIZ MD Ot C80.1 MALIGNANT (PRIMARY) NEOPLASM, UNSPECIFIE 09/03/2016 SHAE VERDUGOP Ot C79.51 SECONDARY MALIGNANT NEOPLASM OF BONE 09/03/2016 SHAE VERDUGOP Ot C79.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 OF OTHER SP 09/03/2016 SHAE VERDUGOP Ot D51.3 OTHER DIETARY VITAMIN B12 DEFICIENCY ANE 09/03/2016 SHAE VERDUGOP Ot E03.9 HYPOTHYROIDISM, UNSPECIFIED 09/03/2016 SHAE VERDUGO PLANT PACKER Ot E78.5 HYPERLIPIDEMIA, UNSPECIFIED 09/03/2016 SHAE VERDUGO PL[employer] PACKER Ot I10 ESSENTIAL (PRIMARY) HYPERTENSION 09/03/2016 SHAE VERDUGO PL[employer] PACKER Ot 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 09/03/2016 SHAE VERDUGO PL[employer] P[employer]ER Ot R60.9 EDEMA, UNSPECIFIED 09/03/2016 SHAE VERDUGO PL[employer] PACKER Ot Z79.899 OTHER STEWARD RACETRACK (CURRENT) DRUG THERAPY 09/03/2016 SHAE VERDUGO PL[employer] PACKER Ot Z85.038 PERSONAL HISTORY OF MALIGNANT NEOPLASM O 09/03/2016 SHAE VERDUGO PLANT PACKER Ot Z95.1 PRESENCE OF AORTOCORONARY BYPASS GRAFT 09/03/2016 CATHI ORTA FACC, FRANK FACP CCDS Ot C79.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 OF 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 09/03/2016 CATHI ORTA FACC, ALI FACP CCDS Ot E78.4 OTHER HYPERLIPIDEMIA 09/03/2016 CATHI ORTA FACC, ALI FACP CCDS Ot I10 ESSENTIAL (PRIMARY) HYPERTENSION 09/03/2016 CATHI ORTA FACMelvin, ALI FACP CCDS Ot 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 09/03/2016 CATHI ORTA FACC, ALI FACP CCDS Ot I65.23 OCCLUSION AND STENOSIS OF BILATERAL ELAINE 09/03/2016 CATHI ORTA FACC, ALI FACP CCDS Ot I71.4 ABDOMINAL AORTIC ANEURYSM, WITHOUT RUPTU 09/03/2016 SHANTEL LIZ MD Ot C18.7 MALIGNANT NEOPLASM OF SIGMOID COLON 09/03/2016 SHANTEL LIZ MD Ot C79.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 OF OTHER SP 09/03/2016 SHANTEL LIZ MD Ot I71.4 ABDOMINAL AORTIC ANEURYSM, WITHOUT RUPTU 09/03/2016 SHANTEL LIZ MD Ot C79.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 OF OTHER SP 09/03/2016 SHANTEL LIZ MD Ot I71.4 ABDOMINAL AORTIC ANEURYSM, WITHOUT RUPTU 09/03/2016 SHANTEL LIZ MD, Ot C18.7 MALIGNANT NEOPLASM OF SIGMOID COLON 09/03/2016 SHANTEL LIZ MD Ot C79.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 OF OTHER SP 09/03/2016 SHANTEL LIZ MD Ot I71.4 ABDOMINAL AORTIC ANEURYSM, WITHOUT RUPTU 09/03/2016 SHANTEL LIZ MD Ot C18.7 MALIGNANT NEOPLASM OF SIGMOID COLON 09/03/2016 SHANTEL LIZ MD Ot D51.3 OTHER DIETARY VITAMIN B12 DEFICIENCY ANE 09/03/2016 SHANTEL LIZ MD Ot E03.9 HYPOTHYROIDISM, UNSPECIFIED 09/03/2016 SHANTEL LIZ MD Ot E78.5 HYPERLIPIDEMIA, UNSPECIFIED 09/03/2016 SHANTEL LIZ MD Ot I10 ESSENTIAL (PRIMARY) HYPERTENSION 09/03/2016 SHANTEL LIZ MD Ot 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 09/03/2016 SHANTEL LIZ MD Ot R60.9 EDEMA, UNSPECIFIED 09/03/2016 SHANTEL LIZ MD Ot Z51.11 ENCOUNTER FOR ANTINEOPLASTIC CHEMOTHERAP 09/03/2016 SHANTEL LIZ MD Ot Z79.899 OTHER CUSTODIAL (CURRENT) DRUG THERAPY 09/03/2016 SHANTEL LIZ MD Ot Z95.1 PRESENCE OF AORTOCORONARY BYPASS GRAFT 09/09/2016 SHANTEL LIZ MD Ot C18.7 MALIGNANT NEOPLASM OF SIGMOID COLON 09/09/2016 SHANTEL LIZ MD Ot D51.3 OTHER DIETARY VITAMIN B12 DEFICIENCY ANE 09/09/2016 SHANTEL LIZ MD Ot E03.9 HYPOTHYROIDISM, UNSPECIFIED 09/09/2016 SHANTEL ILZ MD Ot E78.5 HYPERLIPIDEMIA, UNSPECIFIED 09/09/2016 SHANTEL LIZ MD Ot I10 ESSENTIAL (PRIMARY) HYPERTENSION 09/09/2016 SHANTEL LIZ MD Ot 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 09/09/2016 SHANTEL LIZ MD Ot R60.9 EDEMA, UNSPECIFIED 09/09/2016 SHANTEL LIZ MD Ot Z51.11 ENCOUNTER FOR ANTINEOPLASTIC CHEMOTHERAP 09/09/2016 SHANTEL LIZ MD Ot Z79.899 OTHER STEWARD RACETRACK (CURRENT) DRUG THERAPY 09/09/2016 SHANTEL LIZ MD Ot Z95.1 PRESENCE OF AORTOCORONARY BYPASS GRAFT 10/04/2016 Ot 401.9 HYPERTENSION NOS 10/04/2016 Ot 414.00 CORON ATHEROSCLER NOS TYPE VESSEL, NATIV 10/04/2016 Ot V58.69 OTH MED,LT,CURRENT USE 10/04/2016 Ot 401.9 HYPERTENSION NOS 10/04/2016 Ot 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 10/04/2016 Ot V58.69 OTH MED,LT,CURRENT USE 10/04/2016 Ot 401.9 HYPERTENSION NOS 10/04/2016 Ot 414.00 CORON ATHEROSCLER NOS TYPE VESSEL, NATIV 10/04/2016 Ot V58.69 OTH MED,LT,CURRENT USE 10/04/2016 Ot 275.2 DIS MAGNESIUM METABOLISM 10/04/2016 Ot V58.69 OTH MED,LT,CURRENT USE 10/04/2016 Ot 401.9 HYPERTENSION NOS 10/04/2016 Ot 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 10/04/2016 Ot V58.69 OTH MED,LT,CURRENT USE 10/04/2016 Ot 244.9 HYPOTHYROIDISM NOS 10/04/2016 Ot 272.4 HYPERLIPIDEMIA NEC/NOS 10/04/2016 Ot V58.69 OTH MED,LT,CURRENT USE 10/04/2016 Ot 729.5 PAIN IN LIMB 10/04/2016 BAIMALINH L [employer] Ot 785.2 CARDIAC MURMURS NEC 10/04/2016 BAIMA LINH L [employer] Ot 272.4 HYPERLIPIDEMIA NEC/NOS 10/04/2016 BAIMAEVONNELINH L [employer] Ot V58.69 OTH MED,LT,CURRENT USE 10/04/2016 KACI ORTA, YOLANDA Mccoy Ot 154.0 MAL DESTINY RECTOSIGMOID JCT 10/04/2016 KACI ORTA, YOLANDA Mccoy Ot 211.3 BENIGN NEOPLASM LG BOWEL 10/04/2016 KACI ORTA, YOLANDA Mccoy Ot 280.9 IRON DEFIC ANEMIA NOS 10/04/2016 KACI ORTA, YOLANDA Mccoy Ot V16.0 FAMILY HX-GI MALIGNANCY 10/04/2016 KACI ORTA, YOLANDA Mccoy Ot V72.84 EXAM PRE-OPERATIVE NOS 10/04/2016 KACI ORTA, YOLANDA Mccoy Ot 153.3 MAL DESTINY SIGMOID COLON 10/04/2016 KACI ORTA, YOLANDA Mccoy Ot 441.4 ABDOM AORTIC ANEURYSM 10/04/2016 KACI ORTA, YOLANDA Mccoy Ot 553.20 VENTRAL HERNIA NOS 10/04/2016 KACI ORTA, YOLANDA Mccoy Ot 199.1 MALIGNANT NEOPLASM NOS 10/04/2016 KACI ORTA, YOLANDA Mccoy Ot V72.63 PRE-PROCEDURAL LABORATORY EXAMINATION 10/04/2016 KACI ORTA, YOLANDA Mccoy Ot V74.8 SCREEN-BACTERIAL DIS NEC 10/04/2016 CATHI ORTA FACC, ALI FACP CCDS Ot 244.9 HYPOTHYROIDISM NOS 10/04/2016 CATHI ORTA FACC, ALI FACP CCDS Ot 272.4 HYPERLIPIDEMIA NEC/NOS 10/04/2016 CATHI ORTA FACC, ALI FACP CCDS Ot 401.9 HYPERTENSION NOS 10/04/2016 CATHI ORTA FACC, ALI FACP CCDS Ot 414.00 CORON ATHEROSCLER NOS TYPE VESSEL, NATIV 10/04/2016 CATHI ORTA FACC, ALI FACP CCDS Ot 414.8 CHR ISCHEMIC HRT DIS NEC 10/04/2016 CATHI ORTA FACC, ALI FACP CCDS Ot 447.9 ARTERIAL DISEASE NOS 10/04/2016 CATHI ORTA FACC, ALI FACP CCDS Ot 782.0 SKIN SENSATION DISTURB 10/04/2016 CATHI ORTA FACC, ALI FACP CCDS Ot 782.3 EDEMA 10/04/2016 BI LINH L [employer] Ot 272.4 HYPERLIPIDEMIA NEC/NOS 10/04/2016 FRANKIEMA LINH L [employer] Ot 401.9 HYPERTENSION NOS 10/04/2016 BI LINH L [employer] Ot 414.00 CORON ATHEROSCLER NOS TYPE VESSEL, NATIV 10/04/2016 EVONNE PATHER L [employer] Ot V58.69 OTH MED,LT,CURRENT USE 10/04/2016 SHALONDA ORTA, SHANTEL Crain Ot 153.3 MAL DESTINY SIGMOID COLON 10/04/2016 SHANTEL LIZ MD Ot V76.12 OTH SCREEN MAMMO-MALIGN NEOPLASM OF [place] 10/04/2016 EVONNE PATHER L [employer] Ot 272.4 HYPERLIPIDEMIA NEC/NOS 10/04/2016 CATHI ORTA FACC, FRANK FACP CCDS Ot 401.9 HYPERTENSION NOS 10/04/2016 CATHI ORTA FACC, FRANK FACP CCDS Ot 414.00 CORON ATHEROSCLER NOS TYPE VESSEL, NATIV 10/04/2016 CATHI ORTA FACC, ALI FACP CCDS Ot 414.8 CHR ISCHEMIC HRT DIS NEC 10/04/2016 CATHI ORTA FACC, ALI FACP CCDS Ot 441.9 AORTIC ANEURYSM NOS 10/04/2016 CATHI ORTA FACC, ALI FACP CCDS Ot 786.09 RESPIRATORY ABNORM NEC 10/04/2016 CATHI ORTA FACC, ALI FACP CCDS Ot 272.4 HYPERLIPIDEMIA NEC/NOS 10/04/2016 CATHI ORTA FACC, ALI FACP CCDS Ot 401.9 HYPERTENSION NOS 10/04/2016 CATHI ORTA FACC, ALI FACP CCDS Ot 414.00 CORON ATHEROSCLER NOS TYPE VESSEL, NATIV 10/04/2016 [facility] FRANK CARUSO CCDS Ot 414.8 CHR ISCHEMIC HRT DIS NEC 10/04/2016 CATHI ORTA FACC, FRANK FACJanis CCDS Ot 786.09 RESPIRATORY ABNORM NEC 10/04/2016 SHANTEL LIZ MD Ot 154.0 MAL DESTINY RECTOSIGMOID JCT 10/04/2016 SHANTEL LIZ MD Ot 244.9 HYPOTHYROIDISM NOS 10/04/2016 SHANTEL LIZ MD Ot 272.4 HYPERLIPIDEMIA NEC/NOS 10/04/2016 SHANTEL LIZ MD Ot 285.9 ANEMIA NOS 10/04/2016 SHANTEL LIZ MD Ot 401.9 HYPERTENSION NOS 10/04/2016 SHANTEL LIZ MD Ot 414.00 CORON ATHEROSCLER NOS TYPE VESSEL, NATIV 10/04/2016 SHANTEL LIZ MD Ot 782.3 EDEMA 10/04/2016 SHANTEL LIZ MD Ot V44.3 COLOSTOMY STATUS 10/04/2016 SHANTEL LIZ MD Ot V45.81 AORTOCORONARY BYPASS 10/04/2016 SHANTEL LIZ MD Ot V58.69 OTH MED,LT,CURRENT USE 10/04/2016 KACI ORTA, YOLANDA Mccoy Ot V72.84 EXAM PRE-OPERATIVE NOS 10/04/2016 KACI ORTA, YOLANDA Mccoy Ot V72.84 EXAM PRE-OPERATIVE NOS 10/04/2016 SHALONDA ORTA, SHANTEL Crain Ot 153.3 MAL DESTINY SIGMOID COLON 10/04/2016 SHANTEL LIZ MD Ot 305.1 TOBACCO USE DISORDER 10/04/2016 LINH PAT [employer] Ot 272.4 HYPERLIPIDEMIA NEC/NOS 10/04/2016 LINH PAT [employer] Ot 401.9 HYPERTENSION NOS 10/04/2016 LINH PAT L [employer] P[employer] Ot 414.00 CORON ATHEROSCLER NOS TYPE VESSEL, NATIV 10/04/2016 LINH PAT [employer] Ot 414.8 CHR ISCHEMIC HRT DIS NEC 10/04/2016 LINH PAT [employer] Ot 433.10 CAROTID ARTERY OCCLUSION W O CEREBRAL IN 10/04/2016 LINH PAT [employer] Ot 441.4 ABDOM AORTIC ANEURYSM 10/04/2016 SHANTEL LIZ MD Ot 153.3 MAL DESTINY SIGMOID COLON 10/04/2016 SHANTEL LIZ MD Ot 305.1 TOBACCO USE DISORDER 10/04/2016 GELLENDER DO, MESHA A Ot V76.12 OTH SCREEN MAMMO-MALIGN NEOPLASM OF [place] 10/04/2016 LINH PAT [employer] Ot E78.5 HYPERLIPIDEMIA, UNSPECIFIED 10/04/2016 LINH PAT [employer] Ot I10 ESSENTIAL (PRIMARY) HYPERTENSION 10/04/2016 LINH PAT [employer] Ot 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 10/04/2016 LINH PAT [employer] Ot I25.5 ISCHEMIC CARDIOMYOPATHY 10/04/2016 LINH PAT [employer] Ot I71.4 ABDOMINAL AORTIC ANEURYSM, WITHOUT RUPTU 10/04/2016 LINH PAT [employer] Ot I77.9 DISORDER OF ARTERIES AND ARTERIOLES, UNS 10/04/2016 SHALONDA ORTA, SHANTEL Crain Ot C18.7 MALIGNANT NEOPLASM OF SIGMOID COLON 10/04/2016 SHALONDA ORTA, SHANTEL Crain Ot C18.7 MALIGNANT NEOPLASM OF SIGMOID COLON 10/04/2016 SHALONDA ORTA, SHANTEL Crain Ot R97.0 ELEVATED CARCINOEMBRYONIC ANTIGEN [CEA] 10/04/2016 SHALONDA ORTA, SHANTEL Crain Ot C79.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 OF OTHER SP 10/04/2016 SHALONDA ORTA, SHANTEL Crain Ot C80.1 MALIGNANT (PRIMARY) NEOPLASM, UNSPECIFIE 10/04/2016 SHAE VERDUGOP Ot C79.51 SECONDARY MALIGNANT NEOPLASM OF BONE 10/04/2016 SHAE VERDUGOP Ot C79.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 OF OTHER SP 10/04/2016 SHAE VERDUGOP Ot D51.3 OTHER DIETARY VITAMIN B12 DEFICIENCY ANE 10/04/2016 SHAE VERDUGOP Ot E03.9 HYPOTHYROIDISM, UNSPECIFIED 10/04/2016 SHAE VERUDGOP Ot E78.5 HYPERLIPIDEMIA, UNSPECIFIED 10/04/2016 SHAE VERDUGOP Ot I10 ESSENTIAL (PRIMARY) HYPERTENSION 10/04/2016 SHAE VERDUGO Ot 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 10/04/2016 SHAE VERDUGOP Ot R60.9 EDEMA, UNSPECIFIED 10/04/2016 SHAE VERDUGOP Ot Z79.899 OTHER STEWARD RACETRACK (CURRENT) DRUG THERAPY 10/04/2016 SHAE VERDUGOP Ot Z85.038 PERSONAL HISTORY OF MALIGNANT NEOPLASM O 10/04/2016 SHAE VERDUGO PLANT PACKER Ot Z95.1 PRESENCE OF AORTOCORONARY BYPASS GRAFT 10/04/2016 CATHI ORTA FACC, FRANK OSCARS Ot C79.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 OF OTHER SP 10/04/2016 CATHI ORTA FACC, FRANK GONZALEZP CCDS Ot E78.4 OTHER HYPERLIPIDEMIA 10/04/2016 CATHI ORTA FACC, FRANK FACP CCDS Ot I10 ESSENTIAL (PRIMARY) HYPERTENSION 10/04/2016 CATHI ORTA FACC, FRANK GONZALEZP CCDS Ot 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 10/04/2016 CATHI ORTA FACC, FRANK GONZALEZP CCDS Ot I65.23 OCCLUSION AND STENOSIS OF BILATERAL ELAINE 10/04/2016 FRANK WINKLER MD, FACC, FACP CCDS Ot I71.4 ABDOMINAL AORTIC ANEURYSM, WITHOUT RUPTU 10/04/2016 SHANTEL LIZ MD Ot C18.7 MALIGNANT NEOPLASM OF SIGMOID COLON 10/04/2016 SHANTEL LIZ MD, Ot C79.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 OF OTHER SP 10/04/2016 SHANTEL LIZ MD Ot I71.4 ABDOMINAL AORTIC ANEURYSM, WITHOUT RUPTU 10/04/2016 SHANTEL LIZ MD, Ot C79.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 OF OTHER SP 10/04/2016 SHANTEL LIZ MD, Ot I71.4 ABDOMINAL AORTIC ANEURYSM, WITHOUT RUPTU 10/04/2016 SHANTEL LIZ MD, Ot C18.7 MALIGNANT NEOPLASM OF SIGMOID COLON 10/04/2016 SHANTEL LIZ MD, Ot C79.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 OF OTHER SP 10/04/2016 SHANTEL LIZ MD Ot I71.4 ABDOMINAL AORTIC ANEURYSM, WITHOUT RUPTU 10/04/2016 SHANTEL LIZ MD, Ot C18.7 MALIGNANT NEOPLASM OF SIGMOID COLON 10/04/2016 SHANTEL LIZ MD Ot D51.3 OTHER DIETARY VITAMIN B12 DEFICIENCY ANE 10/04/2016 SHANTEL LIZ MD Ot E03.9 HYPOTHYROIDISM, UNSPECIFIED 10/04/2016 SHANTEL LIZ MD, Ot E78.5 HYPERLIPIDEMIA, UNSPECIFIED 10/04/2016 SHANTEL LIZ MD Ot I10 ESSENTIAL (PRIMARY) HYPERTENSION 10/04/2016 SHANTEL LIZ MD Ot 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 10/04/2016 SHANTEL LIZ MD Ot R60.9 EDEMA, UNSPECIFIED 10/04/2016 SHANTEL LIZ MD Ot R82.99 OTHER ABNORMAL FINDINGS IN URINE 10/04/2016 SHALONDA ORTA, SHANTEL Breann Ot Z23 ENCOUNTER FOR IMMUNIZATION 10/04/2016 SHALONDA ORTA, SHANTEL Breann Ot Z51.11 ENCOUNTER FOR ANTINEOPLASTIC CHEMOTHERAP 10/04/2016 SHALONDA ORTA, SHANTEL Breann Ot Z79.899 OTHER STEWARD RACETRACK (CURRENT) DRUG THERAPY 10/04/2016 SHALONDA ORTA, SHANTEL Breann Ot Z95.1 PRESENCE OF AORTOCORONARY BYPASS GRAFT 10/04/2016 Ot 401.9 HYPERTENSION NOS 10/04/2016 Ot 414.00 CORON ATHEROSCLER NOS TYPE VESSEL, NATIV 10/04/2016 Ot V58.69 OTH MED,LT,CURRENT USE 10/04/2016 Ot 401.9 HYPERTENSION NOS 10/04/2016 Ot 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 10/04/2016 Ot V58.69 OTH MED,LT,CURRENT USE 10/04/2016 Ot 401.9 HYPERTENSION NOS 10/04/2016 Ot 414.00 CORON ATHEROSCLER NOS TYPE VESSEL, NATIV 10/04/2016 Ot V58.69 OTH MED,LT,CURRENT USE 10/04/2016 Ot 275.2 DIS MAGNESIUM METABOLISM 10/04/2016 Ot V58.69 OTH MED,LT,CURRENT USE 10/04/2016 Ot 401.9 HYPERTENSION NOS 10/04/2016 Ot 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 10/04/2016 Ot V58.69 OTH MED,LT,CURRENT USE 10/04/2016 Ot 244.9 HYPOTHYROIDISM NOS 10/04/2016 Ot 272.4 HYPERLIPIDEMIA NEC/NOS 10/04/2016 Ot V58.69 OTH MED,LT,CURRENT USE 10/04/2016 Ot 729.5 PAIN IN LIMB 10/04/2016 BAIMA, LINH L PLANT PACKER Ot 785.2 CARDIAC MURMURS NEC 10/04/2016 BAIMA, LINH L [employer] P[employer]ER Ot 272.4 HYPERLIPIDEMIA NEC/NOS 10/04/2016 BAIMA, LINH L PL[employer] P[employer] Ot V58.69 OTH MED,LT,CURRENT USE 10/04/2016 KACI ORTA, YOLANDA Mccoy Ot 154.0 MAL DESTINY RECTOSIGMOID JCT 10/04/2016 KACI ORTA, YOLANDA Mccoy Ot 211.3 BENIGN NEOPLASM LG BOWEL 10/04/2016 KACI ORTA, YOLANDA Mccoy Ot 280.9 IRON DEFIC ANEMIA NOS 10/04/2016 KACI ORTA, YOLANDA Mccoy Ot V16.0 FAMILY HX-GI MALIGNANCY 10/04/2016 KACI ORTA, YOLANDA Mccoy Ot V72.84 EXAM PRE-OPERATIVE NOS 10/04/2016 KACI ORTA, YOLANDA Mccoy Ot 153.3 MAL DESTINY SIGMOID COLON 10/04/2016 KACI ORTA, YOLANDA Mccoy Ot 441.4 ABDOM AORTIC ANEURYSM 10/04/2016 KACI ORTA, YOLANDA Mccoy Ot 553.20 VENTRAL HERNIA NOS 10/04/2016 KACI ORTA, YOLANDA Mccoy Ot 199.1 MALIGNANT NEOPLASM NOS 10/04/2016 KACI ORTA, YOLANDA Mccoy Ot V72.63 PRE-PROCEDURAL LABORATORY EXAMINATION 10/04/2016 KAIC ORTA, YOLANDA Mccoy Ot V74.8 SCREEN-BACTERIAL DIS NEC 10/04/2016 CATHI ORTA FACC, ALI FACP CCDS Ot 244.9 HYPOTHYROIDISM NOS 10/04/2016 CATHI ORTA FACC, ALI FACP CCDS Ot 272.4 HYPERLIPIDEMIA NEC/NOS 10/04/2016 CATHI ORTA FACC, ALI FACP CCDS Ot 401.9 HYPERTENSION NOS 10/04/2016 CATHI ORTA FACC, ALI FACP CCDS Ot 414.00 CORON ATHEROSCLER NOS TYPE VESSEL, NATIV 10/04/2016 CATHI ORTA FACC, ALI FACP CCDS Ot 414.8 CHR ISCHEMIC HRT DIS NEC 10/04/2016 CATHI ORTA FACC, ALI FACP CCDS Ot 447.9 ARTERIAL DISEASE NOS 10/04/2016 CATHI ORTA FACC, ALI FACP CCDS Ot 782.0 SKIN SENSATION DISTURB 10/04/2016 CATHI ORTA FACC, ALI FACP CCDS Ot 782.3 EDEMA 10/04/2016 LINH PAT L PLANT PACKER Ot 272.4 HYPERLIPIDEMIA NEC/NOS 10/04/2016 BI LINH L [employer] P[employer]ER Ot 401.9 HYPERTENSION NOS 10/04/2016 FRANKIEMA LINH L PL[employer] P[employer]ER Ot 414.00 CORON ATHEROSCLER NOS TYPE VESSEL, NATIV 10/04/2016 LINH PAT L [employer] P[employer]ER Ot V58.69 OTH MED,LT,CURRENT USE 10/04/2016 SHALONDA ORTA, SHANTEL Crain Ot 153.3 MAL DESTINY SIGMOID COLON 10/04/2016 SHALONDA ORTA, SHANTEL Crain Ot V76.12 OTH SCREEN MAMMO-MALIGN NEOPLASM OF [place] 10/04/2016 LINH PAT L [employer] P[employer]ER Ot 272.4 HYPERLIPIDEMIA NEC/NOS 10/04/2016 CATHI ORTA FACC, ALI FACP CCDS Ot 401.9 HYPERTENSION NOS 10/04/2016 CATHI ORTA FACC, ALI FACP CCDS Ot 414.00 CORON ATHEROSCLER NOS TYPE VESSEL, NATIV 10/04/2016 CATHI ORTA FACC, ALI FACP CCDS Ot 414.8 CHR ISCHEMIC HRT DIS NEC 10/04/2016 CATHI ORTA FACC, ALI FACP CCDS Ot 441.9 AORTIC ANEURYSM NOS 10/04/2016 CATHI ORTA FACC, ALI FACP CCDS Ot 786.09 RESPIRATORY ABNORM NEC 10/04/2016 CATHI ORTA FACC, ALI FACP CCDS Ot 272.4 HYPERLIPIDEMIA NEC/NOS 10/04/2016 CATHI ORTA FACC, ALI FACP CCDS Ot 401.9 HYPERTENSION NOS 10/04/2016 CATHI ORTA FACC, ALI FACP CCDS Ot 414.00 CORON ATHEROSCLER NOS TYPE VESSEL, NATIV 10/04/2016 CATHI ORTA FACC, ALI FACP CCDS Ot 414.8 CHR ISCHEMIC HRT DIS NEC 10/04/2016 CATHI ORTA FACC, ALI FACP CCDS Ot 786.09 RESPIRATORY ABNORM NEC 10/04/2016 SHALONDA ORTA, SHANTEL Crain Ot 154.0 MAL DESTINY RECTOSIGMOID JCT 10/04/2016 SHALONDA ORTA, SHANTEL Crain Ot 244.9 HYPOTHYROIDISM NOS 10/04/2016 SHANTEL LIZ MD Ot 272.4 HYPERLIPIDEMIA NEC/NOS 10/04/2016 SHANTEL LIZ MD Ot 285.9 ANEMIA NOS 10/04/2016 SHANTEL LIZ MD Ot 401.9 HYPERTENSION NOS 10/04/2016 SHALONDA ORTA, SHANTEL Crain Ot 414.00 CORON ATHEROSCLER NOS TYPE VESSEL, NATIV 10/04/2016 SHANTEL LIZ MD Ot 782.3 EDEMA 10/04/2016 SHANTEL LIZ MD Ot V44.3 COLOSTOMY STATUS 10/04/2016 SHANTEL LIZ MD Ot V45.81 AORTOCORONARY BYPASS 10/04/2016 SHANTEL LIZ MD Ot V58.69 OT MED,LT,CURRENT USE 10/04/2016 KACI ORTA, YOLANDA Mccoy Ot V72.84 EXAM PRE-OPERATIVE NOS 10/04/2016 YOLANDA CLEMONS MD Ot V72.84 EXAM PRE-OPERATIVE NOS 10/04/2016 SHANTEL LIZ MD Ot 153.3 MAL DESTINY SIGMOID COLON 10/04/2016 SHANTEL LIZ MD Ot 305.1 TOBACCO USE DISORDER 10/04/2016 LINH PAT [employer] P[employer]ER Ot 272.4 HYPERLIPIDEMIA NEC/NOS 10/04/2016 LINH PAT L [employer] P[employer]ER Ot 401.9 HYPERTENSION NOS 10/04/2016 LINH PAT [employer] P[employer]ER Ot 414.00 CORON ATHEROSCLER NOS TYPE VESSEL, NATIV 10/04/2016 BI LINH L PLANT PACKER Ot 414.8 CHR ISCHEMIC HRT DIS NEC 10/04/2016 LINH PAT [employer] PACKER Ot 433.10 CAROTID ARTERY OCCLUSION W O CEREBRAL IN 10/04/2016 LINH PAT PL[employer] PACKER Ot 441.4 ABDOM AORTIC ANEURYSM 10/04/2016 SHANTEL LIZ MD Ot 153.3 MAL DESTINY SIGMOID COLON 10/04/2016 SHANTEL LIZ MD Ot 305.1 TOBACCO USE DISORDER 10/04/2016 MESHA FUENTES DO Ot V76.12 OTH SCREEN MAMMO-MALIGN NEOPLASM OF [place] 10/04/2016 LINH PAT [employer] PACKER Ot E78.5 HYPERLIPIDEMIA, UNSPECIFIED 10/04/2016 LINH PAT L PLANT PACKER Ot I10 ESSENTIAL (PRIMARY) HYPERTENSION 10/04/2016 BI LINH L PLANT PACKER Ot 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 10/04/2016 LINH PAT PL[employer] PACKER Ot I25.5 ISCHEMIC CARDIOMYOPATHY 10/04/2016 LINH PAT [employer] PACKER Ot I71.4 ABDOMINAL AORTIC ANEURYSM, WITHOUT RUPTU 10/04/2016 BI LINH L PLANT PACKER Ot I77.9 DISORDER OF ARTERIES AND ARTERIOLES, UNS 10/04/2016 SHANTEL LIZ MD Ot C18.7 MALIGNANT NEOPLASM OF SIGMOID COLON 10/04/2016 SHANTEL LIZ MD Ot C18.7 MALIGNANT NEOPLASM OF SIGMOID COLON 10/04/2016 SHANTEL LIZ MD Ot R97.0 ELEVATED CARCINOEMBRYONIC ANTIGEN [CEA] 10/04/2016 SHANTEL LIZ MD Ot C79.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 OF OTHER SP 10/04/2016 SHANTEL LIZ MD Ot C80.1 MALIGNANT (PRIMARY) NEOPLASM, UNSPECIFIE 10/04/2016 SHAE VERDUGO PLANT PACKER Ot C79.51 SECONDARY MALIGNANT NEOPLASM OF BONE 10/04/2016 SHAE VERDUGO PLANT PACKER Ot C79.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 OF OTHER SP 10/04/2016 SHAE VERDUGO PLANT PACKER Ot D51.3 OTHER DIETARY VITAMIN B12 DEFICIENCY ANE 10/04/2016 SHAE VERDUGO PLANT PACKER Ot E03.9 HYPOTHYROIDISM, UNSPECIFIED 10/04/2016 SHAE VERDUGO PLANT PACKER Ot E78.5 HYPERLIPIDEMIA, UNSPECIFIED 10/04/2016 SHAE VERDUGO PLANT PACKER Ot I10 ESSENTIAL (PRIMARY) HYPERTENSION 10/04/2016 SHAE VERDUGO PLANT PACKER Ot 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 10/04/2016 SHAE VERDUGO PLANT PACKER Ot R60.9 EDEMA, UNSPECIFIED 10/04/2016 SHAE VERDUGO PLANT PACKER Ot Z79.899 OTHER STEWARD RACETRACK (CURRENT) DRUG THERAPY 10/04/2016 SHAE VERDUGO PLANT PACKER Ot Z85.038 PERSONAL HISTORY OF MALIGNANT NEOPLASM O 10/04/2016 SHAE VERDUGO PLANT PACKER Ot Z95.1 PRESENCE OF AORTOCORONARY BYPASS GRAFT 10/04/2016 CATHI ORTA FACC, FRANK GONZALEZP CCDS Ot C79.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 OF OTHER SP 10/04/2016 CATHI ORTA FACC, ALI FACP CCDS Ot E78.4 OTHER HYPERLIPIDEMIA 10/04/2016 CATHI ORTA FACC, ALI FACP CCDS Ot I10 ESSENTIAL (PRIMARY) HYPERTENSION 10/04/2016 CATHI ORTA FACC, ALI FACP CCDS Ot 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7 MALIGNANT NEOPLASM OF SIGMOID COLON 10/04/2016 SHANTEL LIZ MD, Ot C79.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 OF OTHER SP 10/04/2016 SHANTEL LIZ MD Ot I71.4 ABDOMINAL AORTIC ANEURYSM, WITHOUT RUPTU 10/04/2016 SHANTEL LIZ MD, Ot C18.7 MALIGNANT NEOPLASM OF SIGMOID COLON 10/04/2016 SHANTEL LIZ MD, Ot D51.3 OTHER DIETARY VITAMIN B12 DEFICIENCY ANE 10/04/2016 SHANTEL LIZ MD, Ot E03.9 HYPOTHYROIDISM, UNSPECIFIED 10/04/2016 SHANTEL LIZ MD, Ot E78.5 HYPERLIPIDEMIA, UNSPECIFIED 10/04/2016 SHANTEL LIZ MD Ot I10 ESSENTIAL (PRIMARY) HYPERTENSION 10/04/2016 SHANTEL LIZ MD, Ot 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 10/04/2016 SHANTEL LIZ MD, Ot R60.9 EDEMA, UNSPECIFIED 10/04/2016 SHANTEL LIZ MD, Ot R82.99 OTHER ABNORMAL FINDINGS IN URINE 10/04/2016 SHANTEL LIZ MD Ot Z23 ENCOUNTER FOR IMMUNIZATION 10/04/2016 SHANTEL LIZ MD, Ot Z51.11 ENCOUNTER FOR ANTINEOPLASTIC CHEMOTHERAP 10/04/2016 SHANTEL LIZ MD, Ot Z79.899 OTHER STEWARD RACETRACK (CURRENT) DRUG THERAPY 10/04/2016 SHANTEL LIZ MD, Ot Z95.1 PRESENCE OF AORTOCORONARY BYPASS GRAFT 10/09/2016 SHANTEL LIZ MD, Ot M79.662 PAIN IN LEFT LOWER LEG 10/10/2016 SHANTEL LIZ MD, Ot M79.662 PAIN IN LEFT LOWER LEG 10/31/2016 SHANTEL LIZ MD, Ot M79.662 PAIN IN LEFT LOWER LEG 11/04/2016 SHANTEL LIZ MD, Ot C18.7 MALIGNANT NEOPLASM OF SIGMOID COLON 11/04/2016 SHANTEL LIZ MD, Ot D51.3 OTHER DIETARY VITAMIN B12 DEFICIENCY ANE 11/04/2016 SHANTEL LIZ MD, Ot D63.1 ANEMIA IN CHRONIC KIDNEY DISEASE 11/04/2016 SHANTEL LIZ MD, Ot E03.9 HYPOTHYROIDISM, UNSPECIFIED 11/04/2016 SHANTEL LIZ MD, Ot E78.5 HYPERLIPIDEMIA, UNSPECIFIED 11/04/2016 SHANTEL LIZ MD, Ot I12.9 HYPERTENSIVE CHRONIC KIDNEY DISEASE W ST 11/04/2016 SHANTEL LIZ MD, Ot 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 11/04/2016 SHANTEL LIZ MD, Ot N18.9 CHRONIC KIDNEY DISEASE, UNSPECIFIED 11/04/2016 SHANTEL LIZ MD Ot R60.9 EDEMA, UNSPECIFIED 11/04/2016 SHANTEL LIZ MD, Ot R82.99 OTHER ABNORMAL FINDINGS IN URINE 11/04/2016 SHANTEL LIZ MD Ot Z23 ENCOUNTER FOR IMMUNIZATION 11/04/2016 SHANTEL LIZ MD, Ot Z51.11 ENCOUNTER FOR ANTINEOPLASTIC CHEMOTHERAP 11/04/2016 SHANTEL LIZ MD, Ot Z79.899 OTHER CUSTODIAL (CURRENT) DRUG THERAPY 11/04/2016 SHANTEL LIZ MD, Ot Z95.1 PRESENCE OF AORTOCORONARY BYPASS GRAFT 11/15/2016 SHANTEL LIZ MD, Ot M79.662 PAIN IN LEFT LOWER LEG 12/05/2016 YOLANDA CLEMONS MD Ot C18.9 MALIGNANT NEOPLASM OF COLON, UNSPECIFIED 12/05/2016 YOLANDA CLEMONS MD, Ot Z01.818 ENCOUNTER FOR OTHER PREPROCEDURAL EXAMIN 12/06/2016 YOLANDA CLEMONS MD Ot C19 MALIGNANT NEOPLASM OF RECTOSIGMOID JUNCT 12/11/2016 SHANTEL LIZ MD, Ot C18.7 MALIGNANT NEOPLASM OF SIGMOID COLON 12/11/2016 SHANTEL LIZ MD, Ot D51.3 OTHER DIETARY VITAMIN B12 DEFICIENCY ANE 12/11/2016 SHANTEL LIZ MD, Ot D63.1 ANEMIA IN CHRONIC KIDNEY DISEASE 12/11/2016 SHANTEL LIZ MD, Ot E03.9 HYPOTHYROIDISM, UNSPECIFIED 12/11/2016 SHANTEL LIZ MD, Ot E78.5 HYPERLIPIDEMIA, UNSPECIFIED 12/11/2016 SHANTEL LIZ MD, Ot I12.9 HYPERTENSIVE CHRONIC KIDNEY DISEASE W ST 12/11/2016 SHANTEL LIZ MD, Ot 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 12/11/2016 SHANTEL LIZ MD Ot N18.9 CHRONIC KIDNEY DISEASE, UNSPECIFIED 12/11/2016 SHANTEL LIZ MD, Ot R60.9 EDEMA, UNSPECIFIED 12/11/2016 SHANTEL LIZ MD, Ot R82.99 OTHER ABNORMAL FINDINGS IN URINE 12/11/2016 SHANTEL LIZ MD Ot Z23 ENCOUNTER FOR IMMUNIZATION 12/11/2016 SHANTEL LIZ MD, Ot Z51.11 ENCOUNTER FOR ANTINEOPLASTIC CHEMOTHERAP 12/11/2016 SHANTEL LIZ MD, Ot Z79.899 OTHER STEWARD RACETRACK (CURRENT) DRUG THERAPY 12/11/2016 SHANTEL LIZ MD, Ot Z95.1 PRESENCE OF AORTOCORONARY BYPASS GRAFT 12/11/2016 KACI ORTA, YOLANDA M Ot C19 MALIGNANT NEOPLASM OF RECTOSIGMOID JUNCT 01/31/2017 [facility] C18.7 MALIGNANT NEOPLASM OF SIGMOID COLON 01/31/2017 [facility] MESHA Ot D51.3 OTHER DIETARY VITAMIN B12 DEFICIENCY ANE 01/31/2017 [facility] MESHA Ot D63.8 ANEMIA IN OTHER CHRONIC DISEASES CLASSIF 01/31/2017 [facility] MESHA Ot E03.9 HYPOTHYROIDISM, UNSPECIFIED 01/31/2017 [facility] I10 ESSENTIAL (PRIMARY) HYPERTENSION 01/31/2017 [facility] 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 01/31/2017 [facility] I48.0 PAROXYSMAL ATRIAL FIBRILLATION 01/31/2017 [facility] R07.9 CHEST PAIN, UNSPECIFIED 01/31/2017 [facility] Z95.1 PRESENCE OF AORTOCORONARY BYPASS GRAFT Procedures Code Description Performed By Performed On 38.93 VENOUS CATHETERIZATION NEC 09/15/2013 45.75 OPEN AND OTHER LEFT HEMICOLECTOMY 09/15/2013 Results Test Result Range Complete blood count (CBC) with automated white blood cell (WBC) differential - 08/31/16 10:00 Blood leukocytes automated count (number/volume) 2.6 10*3/ uL 4.3-11.0 Blood erythrocytes automated count (number/volume) 2.87 10*6 /uL 4.35-5.85 Venous blood hemoglobin measurement (mass/volume) 9.0 g/dL 11.5-16.0 Blood hematocrit (volume fraction) 29 % 35-52 Automated erythrocyte mean corpuscular volume 101 [foz_us] 80-99 Automated erythrocyte mean corpuscular hemoglobin (mass per erythrocyte) 31 pg 25-34 Automated erythrocyte mean corpuscular hemoglobin concentration measurement ( mass/volume) 31 g/dL 32-36 Automated erythrocyte distribution width ratio 15.4 % 10.0-14.5 Automated blood platelet count (count/volume) 125 10*3/uL 130-400 Automated blood platelet mean volume measurement 10.4 [foz_ us] 7.4-10.4 Automated blood neutrophils/100 leukocytes 63 % 42-75 Automated blood lymphocytes/100 leukocytes 35 % 12-44 Blood monocytes/100 leukocytes 2 % 0-12 Automated blood eosinophils/100 leukocytes 0 % 0-10 Automated blood basophils/100 leukocytes 0 % 0-10 Blood neutrophils automated count (number/volume) 1.6 10*3 1.8-7.8 Blood lymphocytes automated count (number/volume) 0.9 10*3 1.0-4.0 Blood monocytes automated count (number/volume) 0.0 10*3 0.0-1.0 Automated eosinophil count 0.0 10*3/uL 0.0-0.3 Automated blood basophil count (count/volume) 0.0 10*3/uL 0.0-0.1 Comprehensive metabolic panel - 08/31/16 10:00 Serum or plasma sodium measurement (moles/volume) 139 mmol/ L 135-145 Serum or plasma potassium measurement (moles/volume) 3.6 mmol/L 3.6-5.0 Serum or plasma chloride measurement (moles/volume) 106 mmol /L 98-107 Carbon dioxide 24 mmol/L 21-32 Serum or plasma anion gap determination (moles/volume) 9 mmol/L 5-14 Serum or plasma urea nitrogen measurement (mass/volume) 18 mg/dL 7-18 Serum or plasma creatinine measurement (mass/volume) 0.88 mg /dL 0.60-1.30 Serum or plasma urea nitrogen/creatinine mass ratio 20 NRG Serum or plasma creatinine measurement with calculation of estimated glomerular filtration rate > NRG Serum or plasma glucose measurement (mass/volume) 129 mg/dL 70-105 Serum or plasma calcium measurement (mass/volume) 8.3 mg/dL 8.5-10.1 Serum or plasma total bilirubin measurement (mass/volume) 0.4 mg/dL 0.1-1.0 Serum or plasma alkaline phosphatase measurement (enzymatic activity/volume) 68 U/L 40-136 Serum or plasma aspartate aminotransferase measurement (enzymatic activity/ volume) 13 U/L 5-34 Serum or plasma alanine aminotransferase measurement (enzymatic activity/volume ) 14 U/L 0-55 Serum or plasma protein measurement (mass/volume) 5.9 g/dL 6.4-8.2 Serum or plasma albumin measurement (mass/volume) 3.4 g/dL 3.2-4.5 Bacterial blood culture - 08/31/16 10:00 Bacterial blood culture NG NRG Bacterial blood culture - 08/31/16 10:08 Bacterial blood culture NG NRG Complete urinalysis with reflex to culture - 08/31/16 11:00 Urine color determination YELLOW NRG Urine clarity determination CLEAR NRG Urine pH measurement by test strip 6 5- 9 Specific gravity of urine by test strip 1.010 1.016-1.022 Urine protein assay by test strip, semi-quantitative NEGATIVE NEGATIVE Urine glucose detection by automated test strip NEGATIVE NEGATIVE Erythrocytes detection in urine sediment by light microscopy 1+ NEGATIVE Urine ketones detection by automated test strip NEGATIVE NEGATIVE Urine nitrite detection by test strip NEGATIVE NEGATIVE Urine total bilirubin detection by test strip NEGATIVE NEGATIVE Urine urobilinogen measurement by automated test strip (mass/volume) NORMAL NORMAL Urine leukocyte esterase detection by dipstick 3+ NEGATIVE Automated urine sediment erythrocyte count by microscopy (number/high power field) NONE NRG Automated urine sediment leukocyte count by microscopy (number/high power field ) TNTC NRG Bacteria detection in urine sediment by light microscopy LARGE NRG Squamous epithelial cells detection in urine sediment by light microscopy 5-10 NRG Crystals detection in urine sediment by light microscopy NONE NRG Casts detection in urine sediment by light microscopy NONE NRG Mucus detection in urine sediment by light microscopy NEGATIVE NRG Complete urinalysis with reflex to culture YES NRG Bacterial urine culture - 08/31/16 11:00 Bacterial urine culture [id number] NRG COLONY COUNT >100,000/ML NRG URINE CULTURE RESULTS PLUS NRG Bacterial urine culture - 09/02/16 14:30 Bacterial urine culture [id number] NRG COLONY COUNT 10,000/ML - 100,000/ML NRG URINE CULTURE RESULTS PLUS NRG Bacterial urine culture - 09/30/16 14:20 URINE CULTURE RESULTS <10,000/ML NRG Methicillin resistant Staphylococcus aureus (MRSA) screening culture - 10:05 MRSA SCREEN RESULT MRSA ISOLATED NRG Complete blood count (CBC) with automated white blood cell (WBC) differential - 01/30/17 10:40 Blood leukocytes automated count (number/volume) 6.6 10*3/ uL 4.3-11.0 Blood erythrocytes automated count (number/volume) 3.43 10*6 /uL 4.35-5.85 Venous blood hemoglobin measurement (mass/volume) 9.6 g/dL 11.5-16.0 Blood hematocrit (volume fraction) 32 % 35-52 Automated erythrocyte mean corpuscular volume 93 [foz_us] 80-99 Automated erythrocyte mean corpuscular hemoglobin (mass per erythrocyte) 28 pg 25-34 Automated erythrocyte mean corpuscular hemoglobin concentration measurement ( mass/volume) 30 g/dL 32-36 Automated erythrocyte distribution width ratio 15.7 % 10.0-14.5 Automated blood platelet count (count/volume) 186 10*3/uL 130-400 Automated blood platelet mean volume measurement 9.6 [foz_us ] 7.4-10.4 Automated blood neutrophils/100 leukocytes 67 % 42-75 Automated blood lymphocytes/100 leukocytes 25 % 12-44 Blood monocytes/100 leukocytes 8 % 0-12 Automated blood eosinophils/100 leukocytes 1 % 0-10 Automated blood basophils/100 leukocytes 0 % 0-10 Blood neutrophils automated count (number/volume) 4.4 10*3 1.8-7.8 Blood lymphocytes automated count (number/volume) 1.6 10*3 1.0-4.0 Blood monocytes automated count (number/volume) 0.5 10*3 0.0-1.0 Automated eosinophil count 0.0 10*3/uL 0.0-0.3 Automated blood basophil count (count/volume) 0.0 10*3/uL 0.0-0.1 PT panel in platelet poor plasma by coagulation assay - 01/30/17 10:40 Prothrombin time (PT) in platelet poor plasma by coagulation assay 13.8 s 12.2-14.7 INR in platelet poor plasma or blood by coagulation assay 1.1 0.8-1.4 Activated partial thromboplastin time (aPTT) in platelet poor plasma bycoagulation assay - 01/30/17 10:40 Activated partial thromboplastin time (aPTT) in platelet poor plasma bycoagulation assay 29 s 24-35 Comprehensive metabolic panel - 01/30/17 10:40 Serum or plasma sodium measurement (moles/volume) 144 mmol/ L 135-145 Serum or plasma potassium measurement (moles/volume) 4.0 mmol/L 3.6-5.0 Serum or plasma chloride measurement (moles/volume) 106 mmol /L 98-107 Carbon dioxide 31 mmol/L 21-32 Serum or plasma anion gap determination (moles/volume) 7 mmol/L 5-14 Serum or plasma urea nitrogen measurement (mass/volume) 23 mg/dL 7-18 Serum or plasma creatinine measurement (mass/volume) 0.83 mg /dL 0.60-1.30 Serum or plasma urea nitrogen/creatinine mass ratio 28 NRG Serum or plasma creatinine measurement with calculation of estimated glomerular filtration rate > NRG Serum or plasma glucose measurement (mass/volume) 97 mg/dL 70-105 Serum or plasma calcium measurement (mass/volume) 8.9 mg/dL 8.5-10.1 Serum or plasma total bilirubin measurement (mass/volume) 0.3 mg/dL 0.1-1.0 Serum or plasma alkaline phosphatase measurement (enzymatic activity/volume) 72 U/L 40-136 Serum or plasma aspartate aminotransferase measurement (enzymatic activity/ volume) 19 U/L 5-34 Serum or plasma alanine aminotransferase measurement (enzymatic activity/volume ) 12 U/L 0-55 Serum or plasma protein measurement (mass/volume) 6.4 g/dL 6.4-8.2 Serum or plasma albumin measurement (mass/volume) 3.3 g/dL 3.2-4.5 Magnesium - 01/30/17 10:40 Magnesium 1.7 mg/dL 1.8-2.4 Serum or plasma troponin i.cardiac measurement (mass/volume) - 01/30/17 10:40 Serum or plasma troponin i.cardiac measurement (mass/volume) < ng/mL <0.30 Myoglobin, serum - 01/30/17 10:40 Myoglobin, serum 52.8 ng/mL 10.0-92.0 Serum or plasma troponin i.cardiac measurement (mass/volume) - 01/30/17 16:58 Serum or plasma troponin i.cardiac measurement (mass/volume) < ng/mL <0.30 Complete urinalysis with reflex to culture - 01/30/17 22:20 Urine color determination YELLOW NRG Urine clarity determination SLIGHTLY CLOUDY NRG Urine pH measurement by test strip 6 5- 9 Specific gravity of urine by test strip 1.015 1.016-1.022 Urine protein assay by test strip, semi-quantitative 1+ NEGATIVE Urine glucose detection by automated test strip NEGATIVE NEGATIVE Erythrocytes detection in urine sediment by light microscopy 1+ NEGATIVE Urine ketones detection by automated test strip NEGATIVE NEGATIVE Urine nitrite detection by test strip NEGATIVE NEGATIVE Urine total bilirubin detection by test strip NEGATIVE NEGATIVE Urine urobilinogen measurement by automated test strip (mass/volume) NORMAL NORMAL Urine leukocyte esterase detection by dipstick 3+ NEGATIVE Automated urine sediment erythrocyte count by microscopy (number/high power field) RARE NRG Automated urine sediment leukocyte count by microscopy (number/high power field ) TNTC NRG Bacteria detection in urine sediment by light microscopy MODERATE NRG Crystals detection in urine sediment by light microscopy NONE NRG Casts detection in urine sediment by light microscopy NONE NRG Mucus detection in urine sediment by light microscopy NEGATIVE NRG Complete urinalysis with reflex to culture YES NRG Bacterial urine culture - 01/30/17 22:20 Bacterial urine culture [id number] NRG COLONY COUNT 10,000/ML - 100,000/ML NRG FTX;REPORTABLE SEE COMMENT NRG Complete blood count (CBC) with automated white blood cell (WBC) differential - 01/31/17 03:07 Blood leukocytes automated count (number/volume) 7.2 10*3/ uL 4.3-11.0 Blood erythrocytes automated count (number/volume) 3.24 10*6 /uL 4.35-5.85 Venous blood hemoglobin measurement (mass/volume) 9.2 g/dL 11.5-16.0 Blood hematocrit (volume fraction) 30 % 35-52 Automated erythrocyte mean corpuscular volume 93 [foz_us] 80-99 Automated erythrocyte mean corpuscular hemoglobin (mass per erythrocyte) 28 pg 25-34 Automated erythrocyte mean corpuscular hemoglobin concentration measurement ( mass/volume) 31 g/dL 32-36 Automated erythrocyte distribution width ratio 15.7 % 10.0-14.5 Automated blood platelet count (count/volume) 172 10*3/uL 130-400 Automated blood platelet mean volume measurement 10.1 [foz_ us] 7.4-10.4 Automated blood neutrophils/100 leukocytes 75 % 42-75 Automated blood lymphocytes/100 leukocytes 18 % 12-44 Blood monocytes/100 leukocytes 6 % 0-12 Automated blood eosinophils/100 leukocytes 0 % 0-10 Automated blood basophils/100 leukocytes 0 % 0-10 Blood neutrophils automated count (number/volume) 5.4 10*3 1.8-7.8 Blood lymphocytes automated count (number/volume) 1.3 10*3 1.0-4.0 Blood monocytes automated count (number/volume) 0.5 10*3 0.0-1.0 Automated eosinophil count 0.0 10*3/uL 0.0-0.3 Automated blood basophil count (count/volume) 0.0 10*3/uL 0.0-0.1 Lipid 1996 panel - 01/31/17 03:07 Serum or plasma triglyceride measurement (mass/volume) 94 mg /dL <150 Serum or plasma cholesterol measurement (mass/volume) 123 mg /dL < 200 Serum or plasma cholesterol in HDL measurement (mass/volume) 31 mg/dL 40-60 Cholesterol in LDL [mass/volume] in serum or plasma by direct assay 64 mg/dL 1-129 Serum or plasma cholesterol in VLDL measurement (mass/volume) 19 mg/dL 5-40 Comprehensive metabolic panel - 01/31/17 03:07 Serum or plasma sodium measurement (moles/volume) 142 mmol/ L 135-145 Serum or plasma potassium measurement (moles/volume) 3.9 mmol/L 3.6-5.0 Serum or plasma chloride measurement (moles/volume) 109 mmol /L 98-107 Carbon dioxide 25 mmol/L 21-32 Serum or plasma anion gap determination (moles/volume) 8 mmol/L 5-14 Serum or plasma urea nitrogen measurement (mass/volume) 22 mg/dL 7-18 Serum or plasma creatinine measurement (mass/volume) 0.76 mg /dL 0.60-1.30 Serum or plasma urea nitrogen/creatinine mass ratio 29 NRG Serum or plasma creatinine measurement with calculation of estimated glomerular filtration rate > NRG Serum or plasma glucose measurement (mass/volume) 84 mg/dL 70-105 Serum or plasma calcium measurement (mass/volume) 8.4 mg/dL 8.5-10.1 Serum or plasma total bilirubin measurement (mass/volume) 0.3 mg/dL 0.1-1.0 Serum or plasma alkaline phosphatase measurement (enzymatic activity/volume) 75 U/L 40-136 Serum or plasma aspartate aminotransferase measurement (enzymatic activity/ volume) 66 U/L 5-34 Serum or plasma alanine aminotransferase measurement (enzymatic activity/volume ) 27 U/L 0-55 Serum or plasma protein measurement (mass/volume) 5.8 g/dL 6.4-8.2 Serum or plasma albumin measurement (mass/volume) 2.9 g/dL 3.2-4.5 THYROID STIMULATING HORMONE - 01/31/17 03:07 THYROID STIMULATING HORMONE 0.11 u[iU]/mL 0.35-4.94 Encounters ACCT No. Visit Date/Time Discharge Status Pt. Type Provider Facility Loc./Unit Complaint [id number] 01/30/2017 12:33:00 2016 14:00:00 DIS Outpatient MONROEDELANEYAVE DO MESHA Pickard [facility] ICU CHEST PAIN [id number] 12/06/2016 09:35:00 2016 13:15:00 DIS Outpatient YOLANDA CLEMONS MD [facility] SDC COL CANCER [id number] 12/04/2016 06:06:00 2016 15:31:00 DIS Outpatient YOLANDA CLEMONS MD [facility] PREOP PALLATIVE CARE [id number] 10/29/2016 11:28:00 2016 00:01:00 DIS Outpatient SHANTEL LIZ MD [facility] ONC [id number] 08/31/2016 09:26:00 2015 13:29:00 DIS Emergency DESHAUN JOHNSON MD [facility] ER CHEMO/CHILLS [id number] 07/30/2016 09:49:00 2015 09:17:00 DIS Outpatient SHANTEL LIZ MD [facility] ONC [id number] 06/05/2016 08:46:00 2015 00:01:00 DIS Outpatient SHANTEL LIZ MD [facility] ONC [id number] 05/29/2016 22:27:00 2015 22:36:00 DIS Emergency AMBROSIO VALENTINO DO [facility] ER I-V PORT ISSUES [id number] 03/06/2016 10:33:00 2015 00:01:00 DIS Outpatient SHANTEL LIZ MD [facility] ONC [id number] 02/08/2016 22:46:00 2015 00:15:00 DIS Emergency AMBROSIO VALENTINO DO [facility] ER BLOOD COMING OUT OF PORT [id number] 01/30/2016 05:34:00 2015 09:03:00 DIS Outpatient YOLANDA CLEMONS MD [facility] PREOP COLON CANCER [id number] 01/15/2016 07:18:00 2015 10:35:00 DIS Outpatient YOLANDA CLEMONS MD [facility] SDC HX COLON CANCER [id number] 01/12/2016 05:49:00 2015 15:38:00 DIS Outpatient YOLANDA CLEMONS MD [facility] PREOP HISTORY COLON CANCER [id number] 10/31/2015 12:51:00 2015 00:01:00 DIS Outpatient SHANTEL LIZ MD [facility] ONC [id number] 09/11/2015 08:55:00 2014 23:59:59 CLS Outpatient LINH PAT [facility] LAB AAA,CAD [id number] 07/11/2015 09:59:00 2014 00:01:00 DIS Outpatient SHANTEL LIZ MD [facility] ONC [id number] 07/11/2015 09:08:00 2014 23:59:59 CLS Outpatient MESHA FUENTES DO [facility] RAD SCREENING [id number] 06/06/2015 10:47:00 2014 23:59:59 CLS Outpatient SHANTEL LIZ MD [facility] RAD COLON CA [id number] 05/09/2015 08:39:00 2014 00:01:00 DIS Outpatient SHANTEL LIZ MD [facility] ONC [id number] 03/17/2015 07:37:00 2014 23:59:59 CLS Outpatient LINH PAT [facility] LAB CAD, AAA [id number] 02/13/2015 10:44:00 2014 23:59:59 CLS Outpatient SHANTEL LIZ MD [facility] RAD TOBACCO USE, SIGMOID COLON CA [id number] 01/10/2015 08:45:00 2014 00:01:00 DIS Outpatient SHANTEL LIZ MD [facility] ONC [id number] 11/16/2014 12:16:00 2014 17:39:00 DIS Emergency DUC LONGO, DARRIAN Moody [facility] ER BACK PAIN [id number] 11/14/2014 08:48:00 2014 12:35:00 DIS Outpatient YOLANDA CLEMONS MD [facility] HX OF COLON CA [id number] 11/11/2014 05:55:00 2014 23:59:59 CLS Outpatient YOLANDA CLEMONS MD [facility] PREOP HX OF COLON CANCER [id number] 10/24/2014 11:48:00 2013 16:55:00 DIS Outpatient YOLANDA CLEMONS MD [facility] HX COLON CANCER [id number] 10/19/2014 06:21:00 2013 23:59:59 CLS Outpatient YOLANDA CLEMONS MD [facility] PREOP HX COLON CANCER [id number] 10/13/2014 10:26:00 2013 23:59:59 CLS Outpatient SHANTEL LIZ MD [facility] ONC [id number] 10/11/2014 07:19:00 2013 15:30:00 DIS Outpatient FRANK WINKLER MD, FACC, FACP CCDS [facility] CATH ABNORMAL STRESS, CAD,SOB [id number] 09/26/2014 11:35:00 2013 23:59:59 CLS Outpatient FRANK WINKLER MD, FACC, FACP CCDS [facility] CARD CAD,HTN,HLP [id number] 06/28/2014 10:42:00 2013 00:01:00 DIS Outpatient SHANTEL LIZ MD [facility] ONC [id number] 09/22/2014 08:44:00 2013 23:59:59 CLS Outpatient FRANK WINKLER MD, FACC, FACP CCDS [facility] RAD AAA,CAD,ISCHEMIC CARDIOMYOPATHY [id number] 08/05/2014 09:00:00 2013 23:59:59 CLS Outpatient LINH PAT [facility] LAB HYPERLIPADEMIA [id number] 07/05/2014 10:24:00 2013 23:59:59 CLS Outpatient SHANTEL LIZ MD [facility] RAD SCREENING [id number] 06/24/2014 12:53:00 2013 16:05:00 DIS Outpatient MESHA FUENTES DO [facility] REHAB LYMPHEDEMA JOSE DE JESUS LEGS [id number] 03/29/2014 08:43:00 2013 00:01:00 DIS Outpatient SHANTEL LIZ MD [facility] ONC [id number] 04/05/2014 14:03:00 2013 11:30:00 DIS Inpatient MESHA FUENTES DO [facility] 4TH RT LEG SWELLING, CELLULITIS PAIN [id number] 12/28/2013 10:19:00 2013 00:01:00 DIS Outpatient SHANTEL LIZ MD [facility] ONC [id number] 02/04/2014 09:03:00 2013 23:59:59 CLS Outpatient LINH PAT [employer] [facility] LAB STATIN TX,HTN,CAD, HYPERLIPADEMIA [id number] 10/12/2013 10:30:00 2013 13:56:00 DIS Outpatient MESHA FUENTES DO [facility] WOUNDCARE LEAKING WOUND [id number] 09/15/2013 06:20:00 2012 11:10:00 DIS Inpatient YOLANDA CLEMONS MD [facility] SURGICAL CANCER [id number] 09/10/2013 07:47:00 2012 23:59:59 CLS Outpatient CATHI ROTA FACC, FRANK FACJanis CCDS [facility] RAD CAD,HTN,HLP SURGERY CLEARANCE [id number] 09/09/2013 09:30:00 2012 23:59:59 CLS Outpatient YOLANDA CLEMONS MD [facility] PREOP CANCER [id number] 09/06/2013 14:16:00 2012 23:59:59 CLS Outpatient YOLANDA CLEMONS MD [facility] RAD SIGMOID CARCINOMA [id number] 09/06/2013 07:27:00 2012 23:59:59 [facility] [id number] 09/02/2013 09:28:00 2012 23:59:59 CLS Outpatient YOLANDA CLEMONS MD [facility] PREOP ANEMIA/BLOOD IN STOOL [id number] 08/06/2013 07:40:00 2012 23:59:59 CLS Outpatient LINH PAT [facility] LAB HLP,HTN [id number] 04/12/2013 07:55:00 2012 23:59:59 CLS Outpatient LINH PAT [facility] CARD POSITIVE MURMUR [id number] 01/30/2017 10:11:00 ACT Outpatient SHANTEL LIZ MD [facility] ONC [id number] 10/08/2016 10:54:00 ACT Outpatient SHANTEL LIZ MD [facility] RAD PAIN AND SWELLING [id number] 07/22/2016 10:56:00 ACT Outpatient SHANTEL LIZ MD [facility] RAD COLON CA [id number] 06/05/2016 10:36:00 ACT Outpatient SHANTEL LIZ MD [facility] RAD 1-I71.4 [id number] 04/05/2016 12:56:00 ACT Outpatient CATHI ORTA FACC, ALI FACJanis CCDS [facility] CARD AAA,CAD,CAROTID ARTERIAL DISEASE,HTN,HLP [id number] 04/02/2016 10:56:00 ACT Outpatient SHANTEL LIZ MD [facility] RAD AAA [id number] 01/31/2016 10:24:00 [facility] [id number] 01/19/2016 13:28:00 ACT Outpatient SHAE VERDUGO [employer] [facility] ONC [id number] 01/12/2016 07:00:00 ACT Outpatient SHANTEL LIZ MD [facility] RAD ABNORMAL POSITRON EMISSION TOMOGRAPHY PET SCAN [id number] 01/09/2016 08:52:00 ACT Outpatient SHANTEL LIZ MD [facility] RAD PRIMARY MALIGNANT NEOPLASM OF SIGMOID COLON [id number] 12/20/2015 09:25:00 ACT Outpatient SHANTEL LIZ MD [facility] RAD PRIMARY MALIGNANT NEOPLASM OF SIGMOID COLON [id number] 10/14/2014 08:33:00 Document Registration [id number] 10/14/2014 08:33:00 Document Registration [id number] 09/21/2014 09:55:00 Document Registration [id number] 10/02/2012 09:30:00 Document Registration [id number] 09/04/2012 07:07:00 Document Registration [id number] 03/05/2012 06:48:00 Document Registration [id number] 03/05/2012 06:43:00 Document Registration [id number] 02/10/2012 08:38:00 Document Registration [id number] 12/16/2011 08:20:00 Document Registration [id number] 09/06/2011 07:29:00 Document Registration [id number] 06/03/2011 07:22:00 Document Registration [id number] 03/06/2011 07:30:00 Document Registration [id number] 02/06/2011 07:35:00 Document Registration [id number] 01/30/2011 12:40:00 Document Registration [id number] 01/07/2011 07:41:00 Document Registration [id number] 12/21/2010 08:53:00 Document Registration [id number] 12/10/2010 10:02:00 Document Registration [id number] 09/27/2010 10:52:00 Document Registration [id number] 09/04/2010 08:15:00 Document Registration [id number] 08/07/2010 05:54:00 Document Registration [id number] 08/01/2010 08:46:00 Document Registration [id number] 10/31/2009 12:09:00 Document Registration [id number] 08/16/2009 12:32:00 Document Registration [id number] 12/28/2008 07:17:00 Document Registration [id number] 08/12/2008 10:49:00 Document Registration [id number] 08/10/2007 13:28:00 Document Registration [id number] 06/09/2006 13:22:00 Document Registration
--- OUTSIDE RECORDS SUMMARY | 2017-02-23 06:36 | XMS REPORT | Continuity of Care Document ---
Author Author [facility] Organization [facility] Address Unknown Phone Unavailable Allergies Active Description Code Type Severity Reaction Onset Reported/Identified Relationship to Patient Clinical Status Yes No Known Drug Allergies [id number] Drug Allergy Unknown N/ A 01/30/2016 Medications [...] Mccoy Ot 412 OLD MYOCARDIAL INFARCT 09/22/2013 KCAI ORTA, YOLANDA Mccoy Ot 414.00 CORON ATHEROSCLER NOS TYPE VESSEL, NATIV 09/22/2013 KACI ORTA, YOLANDA Mccoy Ot 442.1 RENAL ARTERY ANEURYSM 09/22/2013 YOLANDA CLEMONS MD Ot 553.21 INCISIONAL HERNIA 09/22/2013 YOLANDA CLEMONS MD Ot V45.81 AORTOCORONARY BYPASS 11/04/2013 MESHA FUENTES DO Ot 569.62 [facility] COMPL/COLOSTOMY ENTEROSTOMY 02/14/2014 SHANTEL LIZ MD Ot [...] MESHA Pickard Ot 414.01 CORONARY ATHEROSCLEROSIS OF [place] CORON 04/09/2014 MESHA FUENTES DO Ot 682.6 [...] V58.69 09/21/2014 Ot 729.5 09/21/2014 BIEVONNELINH L DIRECTOR SALES AND TRADE MARKETING Ot 785.2 09/21/2014 LINH PAT DIRECTOR SALES AND TRADE MARKETING Ot 272.4 09/21/2014 BAIMALINH DIRECTOR SALES AND TRADE MARKETING Ot V58.69 09/21/2014 KACI ORTA, YOLANDA M Ot 154.0 09/21/2014 KACI ORTA, [...] CCDS Ot 782.3 09/21/2014 LINH PAT L DIRECTOR SALES AND TRADE MARKETING Ot 272.4 09/21/2014 LINH PAT L DIRECTOR SALES AND TRADE MARKETING Ot 401.9 09/21/2014 BI LINH L DIRECTOR SALES AND TRADE MARKETING Ot 414.00 09/21/2014 LINH PAT L DIRECTOR SALES AND TR[employer] MARKETING Ot V58.69 09/21/2014 SHALONDA ORTA, SHANTEL Crain [...] SHANTEL Breann Ot V76.12 09/21/2014 LINH PAT DIRECTOR SALES [employer] MARKETING Ot 272.4 09/26/2014 SHANTEL LIZ MD Ot 154.0 MAL DESTINY RECTOSIGMOID JCT 09/26/2014 SHANTEL LIZ MD Ot 244.9 HYPOTHYROIDISM NOS 09/26/2014 SHANTEL LIZ MD Ot 272.4 HYPERLIPIDEMIA NEC/NOS 09/26/2014 SHANTEL LIZ MD Ot 285.9 ANEMIA NOS 09/26/2014 SHALONAD ORTA, SHANTEL Crain Ot 401.9 HYPERTENSION NOS [...] V58.69 09/26/2014 Ot 729.5 09/26/2014 LINH PAT DIRECTOR SALES [employer] MARKETING Ot 785.2 09/26/2014 LINH PAT DIRECTOR SALES AND [employer] MARKETING Ot 272.4 09/26/2014 LINH PAT DIRECTOR SALES [employer] MARKETING Ot V58.69 09/26/2014 KACI ORTA, YOLANDA M [...] FACP CCDS Ot 782.3 09/26/2014 LINH PAT DIRECTOR [employer] MARKET[employer] Ot 272.4 09/26/2014 LINH PAT DIRECTOR SALES [employer] MARKETING Ot 401.9 09/26/2014 LINH PAT DIRECTOR SALES [employer] MARKETING Ot 414.00 09/26/2014 LINH PAT DIRECTOR SALES [employer] MARKETING Ot V58.69 09/26/2014 SHALONDA ORTA, SHANTEL K Ot 154.0 09/26/2014 SHALONDA ORTA, SHANTEL K Ot 244.9 09/26/2014 SHALONDA ORTA, SHANTEL K Ot 272.4 09/26/2014 SHALNODA ORTA, SHANTEL Breann Ot 285.9 09/26/2014 SHALONDA [...] SHANTEL K Ot V76.12 09/26/2014 LINH PAT DIRECTOR [employer]ES [employer] MARKETING Ot 272.4 09/26/2014 CATHI ORTA FACC, ALI [...] V58.69 10/03/2014 Ot 729.5 10/03/2014 LINH PAT DIRECTOR [employer]ES [employer] MARKETING Ot 785.2 10/03/2014 LINH PAT DIRECTOR SALES [employer] MARKETING Ot 272.4 10/03/2014 LINH PAT DIRECTOR SALES [employer] MARKETING Ot V58.69 10/03/2014 KACI ORTA, YOLANDA M [...] CCDS Ot 782.3 10/03/2014 LINH PAT L DIRECTOR SALES [employer] MARKETING Ot 272.4 10/03/2014 FRANKIELINH REYEZ L DIRECTOR SALES AND TRADE MARKETING Ot 401.9 10/03/2014 FRANKIELINH REYEZ L DIRECTOR SALES AND [employer] MARKETING Ot 414.00 10/03/2014 BILINH L DIRECTOR SALES AND [employer]ADE MARKETING Ot V58.69 10/03/2014 SHALONDA ORTA, SHANTEL K Ot 153.3 10/03/2014 SHALONDA ORTA, SHANTEL K Ot V76.12 10/03/2014 BILINH DIRECTOR SALES AND TR[employer] MARKETING Ot 272.4 10/03/2014 CATHI ORTA FACC, ALI FACP CCDS Ot 401.9 10/03/2014 CATHI ORTA FACC, ALI FACP CCDS Ot 414.00 10/03/2014 CATHI ORTA FACC, ALI FACP CCDS Ot 414.8 10/03/2014 CATHI ORTA FACC, ALI FACP CCDS Ot 441.9 10/03/2014 CATHI ORTA FACC, ALI FACP CCDS Ot 786.09 10/03/2014 CATHI ORTA FACC, ALI FACP CCDS Ot 272.4 10/03/2014 CATHI ORAT FACC, ALI FACP CCDS Ot 401.9 10/03/2014 [...] FACP CCDS Ot 414.01 CORONARY ATHEROSCLEROSIS OF [place] CORON 10/11/2014 CATHI ORTA FACC, FRANK FACP [...] Ot 414.8 11/22/2014 CATHI ORTA FAC, ALI [facility] CCD[facility] Ot 786.09 11/30/2014 SHALONDA ORTA, SHANTEL [...] V58.69 11/30/2014 Ot 729.5 11/30/2014 LINH PAT DIRECTOR [employer] MARKETING Ot 785.2 11/30/2014 LINH PAT DIRECTOR SALES [employer] MARKETING Ot 272.4 11/30/2014 LINH PAT DIRECTOR [employer] MARKET[employer] Ot V58.69 11/30/2014 KACI ORTA, YOLANDA M [...] ORTA, YOLANDA M Ot V72.63 11/30/2014 KACI ROTA, YOLANDA M Ot V74.8 11/30/2014 CATHI ORTA [...] FACP CCDS Ot 782.3 11/30/2014 BILINH L DIRECTOR SALES [employer] MARKETING Ot 272.4 11/30/2014 BAIMA, LINH L DIRECTOR SALES AND [employer] MARKETING Ot 401.9 11/30/2014 BAIMA, LINH L DIRECTOR SALES [employer] MARKETING Ot 414.00 11/30/2014 BI, LINH L DIRECTOR SALES [employer] MARKETING Ot V58.69 11/30/2014 SHALONDA ORTA, SHANTEL Crain Ot 153.3 11/30/2014 SHALONDA ORTA, SHANTEL Breann Ot V76.12 11/30/2014 BI, LINH L DIRECTOR SALES [employer] MARKETING Ot 272.4 11/30/2014 CATHI ORTA FACC, ALI [...] SHANTEL Crain Ot 305.1 04/14/2015 LINH PAT DIRECTOR SALES [employer] MARKETING Ot 272.4 04/14/2015 LINH PAT DIRECTOR SALES [employer] MARKETING Ot 401.9 04/14/2015 LINH PAT DIRECTOR SALES [employer] MARKETING Ot 414.00 04/14/2015 LINH PAT L DIRECTOR SALES [employer] MARKETING Ot 414.8 04/14/2015 BI LINH L DIRECTOR SALES [employer] MARKETING Ot 433.10 04/14/2015 LINH PAT L DIRECTOR SALES [employer] MARKETING Ot 441.4 04/17/2015 SHALONDA ORTA, SHANTEL Crain Ot 153.3 04/17/2015 SHALONDA ORTA, SHANTEL Crain Ot 305.1 04/19/2015 SHALONDA ORTA, SHANTEL Crain Ot 153.3 04/19/2015 SHALONDA ORTA, SHANTEL Crain Ot 305.1 04/27/2015 SHALONDA [...] SHALONDA ORTA, SHANTEL Crain Ot 305.1 07/17/2015 IGNA PATELMESHA Ot V76.12 07/17/2015 Ot 709.9 07/17/2015 [...] V58.69 07/17/2015 Ot 729.5 07/17/2015 BILINH L DIRECTOR SALES [employer] MARKETING Ot 785.2 07/17/2015 BAIMALINH L DIRECTOR SALES [employer] MARKETING Ot 272.4 07/17/2015 BAIMALINH L DIRECTOR SALES [employer] MARKETING Ot V58.69 07/17/2015 KACI ORTA, YOLANDA M [...] FACP CCDS Ot 782.3 07/17/2015 BILINH L DIRECTOR SALES [employer] MARKETING Ot 272.4 07/17/2015 FRANKIEMALINH L DIRECTOR SALES AND [employer] MARKETING Ot 401.9 07/17/2015 FRANKIELINH REYEZ L DIRECTOR SALES [employer] MARKETING Ot 414.00 07/17/2015 LINH PAT L DIRECTOR SALES [employer] MARKETING Ot V58.69 07/17/2015 SHALONDA ORTA, SHANTEL K Ot 153.3 07/17/2015 SHALONDA ORTA, SHANTEL K Ot V76.12 07/17/2015 BI, LINH L DIRECTOR SALES [employer] MARKETING Ot 272.4 07/17/2015 CATHI ORTA FACC, ALI [...] SHALONDA ORTA, SHANTEL K Ot 414.00 07/17/2015 SHALNODA ORTA, SHANTEL K Ot 782.3 07/17/2015 SHALONDA ORTA, SHANTEL K Ot V44.3 07/17/2015 SHALONDA ORTA, SHANTEL K Ot V45.81 07/17/2015 SHALONDA ORTA, SHANTEL K Ot V58.69 07/17/2015 KACI ORTA, YOLANDA Mccoy Ot V72.84 07/17/2015 KACI ORTA, YOLANDA M Ot V72.84 07/17/2015 SHALONDA ORTA, SHANTEL K Ot 153.3 07/17/2015 SHALONDA ORTA, SHANTEL K Ot 305.1 07/17/2015 BI, LINH L DIRECTOR SALES [employer] MARKETING Ot 272.4 07/17/2015 BI, LINH L DIRECTOR SALES [employer] MARKETING Ot 401.9 07/17/2015 BI, LINH L DIRECTOR SALES [employer] MARKETING Ot 414.00 07/17/2015 BI, LINH L DIRECTOR SALES [employer] MARKETING Ot 414.8 07/17/2015 BILINH DIRECTOR SALES [employer] MARKETING Ot 433.10 07/17/2015 BILINH DIRECTOR SALES [employer] MARKETING Ot 441.4 07/17/2015 SHALONDA ORTA, SHANTEL Crain [...] ORTA, SHANTEL Crain Ot V45.81 07/17/2015 SHALONDA OTRA, SHANTEL Crain Ot V58.69 07/17/2015 SHALONDA ORTA, [...] 08/02/2015 SHALONDA ORTA, SHANTEL Crain Ot V58.69 [facility],LT,CURRENT USE 08/02/2015 GINA DOMESHA Ot V76.12 09/21/2015 BAIMALINH L DIRECTOR SALES [employer] MARKETING Ot E78.5 09/21/2015 BAIMA LINH L DIRECTOR SALES AND [employer] MARKETING Ot I10 09/21/2015 BAIMA, LINH L DIRECTOR SALES AND [employer] MARKETING Ot I25.10 09/21/2015 BAIMA, LINH L DIRECTOR SALES AND [employer] MARKETING Ot I25.5 09/21/2015 BAIMA, LINH L DIRECTOR SALES [employer] MARKETING Ot I71.4 09/21/2015 BAIMA, LINH L DIRECTOR SALES AND [employer] MARKETING Ot I77.9 10/02/2015 SHALONDA ORTA, SHANTEL Crain [...] Crain Ot V58.69 10/09/2015 BAIMA, LINH L DIRECTOR SALES [employer] MARKETING Ot E78.5 10/09/2015 BAIMA, LINH L DIRECTOR SALES AND [employer] MARKETING Ot I10 10/09/2015 BAIMA, LINH L DIRECTOR SALES AND [employer] MARKETING Ot I25.10 10/09/2015 BAIMA, LINH L DIRECTOR SALES AND [employer] MARKETING Ot I25.5 10/09/2015 BAIMA, LINH L DIRECTOR SALES AND [employer] MARKETING Ot I71.4 10/09/2015 LINH PAT Heidy DIRECTOR SALES AND [employer] MARKETING Ot I77.9 11/06/2015 SHALONDA ORTA, SHANTEL Crain Ot E53.8 DEFICIENCY OF OTHER SPECIFIED B GROUP 11/06/2015 SHALONDA ORTA, SHANTEL Crain Ot 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 12/05/2015 SHALONDA ORTA, SHANTEL [...] SHANTEL Crain Ot R94.8 01/24/2016 SHAE VERDUGO DIRECTOR SALES AND [employer] MARKETING Ot C79.51 01/24/2016 SHAE VERDUGO DIRECTOR SALES AND [employer] MARKETING Ot C79.89 01/24/2016 SHAE VERDUGO DIRECTOR SALES AND [employer] MARKETING Ot D51.3 01/24/2016 SHAE VERDUGO DIRECTOR SALES AND [employer] MARKETING Ot E03.9 01/24/2016 SHAE VERDUGOP Ot E78.5 01/24/2016 VERDUGOSHAE Young DIRECTOR SALES AND TRADE MARKETING Ot I10 01/24/2016 VERDUGOSHAE Young S DIRECTOR SALES AND [employer] MARKETING Ot I25.10 01/24/2016 SHAE VERDUGO S DIRECTOR SALES AND [employer] MARKETING Ot R60.9 01/24/2016 VERDUGOSHAE Young S DIRECTOR SALES AND [employer] MARKETING Ot Z79.899 01/24/2016 VERDUGOSHAE S DIRECTOR SALES AND [employer] MARKETING Ot Z85.038 01/24/2016 VERDUGOSHAE Young S DIRECTOR SALES AND [employer] MARKETING Ot Z95.1 01/24/2016 SHALONDA ORTA, SHANTEL K Ot R94.8 01/24/2016 VERDUGOSHAE S DIRECTOR SALES AND [employer] MARKETING Ot C79.51 01/24/2016 VERDUGOSHAE S DIRECTOR SALES AND [employer] MARKETING Ot C79.89 01/24/2016 VERDUGOSHAE Young S DIRECTOR SALES AND [employer] MARKETING Ot D51.3 01/24/2016 VERDUGOSHAE Young DIRECTOR SALES AND TR[employer] MARKETING Ot E03.9 01/24/2016 KARTIKSHAE DIRECTOR SALES AND TRADE MARKETING Ot E78.5 01/24/2016 VERDUGOSHAE Young S DIRECTOR SALES AND [employer] MARKETING Ot I10 01/24/2016 VERDUGOSHAE Young DIRECTOR SALES AND TRADE MARKETING Ot I25.10 01/24/2016 VERDUGOSHAE Young DIRECTOR SALES AND [employer] MARKETING Ot R60.9 01/24/2016 VERDUGOSHAE Young S DIRECTOR SALES AND [employer] MARKETING Ot Z79.899 01/24/2016 VERDUGOSHAE Young S DIRECTOR SALES AND [employer] MARKETING Ot Z85.038 01/24/2016 VERDUGOSHAE Young DIRECTOR SALES AND [employer] MARKETING Ot Z95.1 01/24/2016 SHALONDA ORTA, SHANTEL K [...] Crain Ot Z85.038 02/06/2016 SHALONDA ORTA, SHANTEL Crani Ot Z95.1 02/09/2016 AMBROSIO VALENTINO DO Ot C18.9 MALIGNANT NEOPLASM OF COLON, UNSPECIFIED 02/09/2016 AMBROSIO VALENTINO DO Ot T82.514A BREAKDOWN (MECHANICAL) OF INFUSION MARSHALL 02/09/2016 AMBROSIO VALENTINO DO Ot Z87.891 PERSONAL HISTORY OF NICOTINE DEPENDENCE 02/09/2016 AMBROSIO VALENTINO DO Ot Z93.3 COLOSTOMY STATUS 02/09/2016 AMBROSIO VALENTINO DO Ot C18.9 02/09/2016 AMBROSIO VALENTINO DO Ot T82.514A 02/09/2016 AMBROSIO VALENTINO DO Ot Z87.891 02/09/2016 AMBROSIO VALENTINO DO Ot Z93.3 02/14/2016 KARTIK SHAE Young DIRECTOR SALES AND [employer] MARKETING Ot C79.51 02/14/2016 KARTIK SHAE S DIRECTOR SALES AND [employer] MARKETING Ot C79.89 02/14/2016 KARTIK SHAE S DIRECTOR SALES AND [employer] MARKETING Ot D51.3 02/14/2016 KARTIK SHAE S DIRECTOR SALES AND [employer] MARKETING Ot E03.9 02/14/2016 PAVITHRA VERDUGOBIBI S DIRECTOR SALES AND TRADE MARKETING Ot E78.5 02/14/2016 KARTIK SHAE S DIRECTOR SALES AND [employer] MARKETING Ot I10 02/14/2016 KARTIK SHAE S DIRECTOR SALES AND [employer] MARKETING Ot I25.10 02/14/2016 KARTIK SHAE S DIRECTOR SALES AND [employer] MARKETING Ot R60.9 02/14/2016 KARTIK SHAE S DIRECTOR SALES AND [employer] MARKETING Ot Z79.899 02/14/2016 KARTIK SHAE S DIRECTOR SALES AND [employer] MARKETING Ot Z85.038 02/14/2016 PAVITHRA VERDUGOBIBI S DIRECTOR SALES AND [employer] MARKETING Ot Z95.1 02/21/2016 SHANTEL LIZ MD Ot [...] MD Ot I25.10 ATHSCL HEART DISEASE OF [place] CORONARY 02/21/2016 SHANTEL LIZ MD Ot R60.9 EDEMA, UNSPECIFIED 02/21/2016 SHANTEL LIZ MD Ot Z08 ENCNTR FOR FOLLOW-UP EXAM AFTER TRTMT FO 02/21/2016 SHANTEL LIZ MD Ot 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 02/21/2016 SHANTEL LIZ MD [...] MD, Ot I25.10 ATHSCL HEART DISEASE OF [place] CORONARY 03/06/2016 SHANTEL LIZ MD Ot R60.9 EDEMA, UNSPECIFIED 03/06/2016 SHANTEL LIZ MD Ot Z08 ENCNTR FOR FOLLOW-UP EXAM AFTER TRTMT FO 03/06/2016 SHANTEL LIZ MD, Ot Z79.899 OTHER MCC (CURRENT) DRUG THERAPY 03/06/2016 SHANTEL LIZ MD, [...] MD Ot I25.10 ATHSCL HEART DISEASE OF [place] CORONARY 03/11/2016 SHANTEL LIZ MD Ot R60.9 EDEMA, UNSPECIFIED 03/11/2016 SHANTEL LIZ MD Ot Z08 ENCNTR FOR FOLLOW-UP EXAM AFTER TRTMT FO 03/11/2016 SHANTEL LIZ MD, Ot 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 03/11/2016 SHANTEL LIZ MD Ot Z85.038 PERSONAL HISTORY OF MALIGNANT NEOPLASM O 03/11/2016 SHANTEL LIZ MD Ot Z95.1 PRESENCE OF [...] MD, Ot I25.10 ATHSCL HEART DISEASE OF [place] CORONARY 03/20/2016 SHANTEL LIZ MD Ot R60.9 EDEMA, UNSPECIFIED 03/20/2016 SHANTEL LIZ MD Ot Z08 ENCNTR FOR FOLLOW-UP EXAM AFTER TRTMT FO 03/20/2016 SHANTEL LIZ MD, Ot 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 03/20/2016 SHANTEL LIZ MD [...] MD Ot I25.10 ATHSCL HEART DISEASE OF [place] CORONARY 04/03/2016 SHANTEL LIZ MD Ot R60.9 EDEMA, UNSPECIFIED 04/03/2016 SHANTEL LIZ MD Ot Z08 ENCNTR FOR FOLLOW-UP EXAM AFTER TRTMT FO 04/03/2016 SHANTEL LIZ MD Ot 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 04/03/2016 SHANTEL LIZ MD [...] MD Ot I25.10 ATHSCL HEART DISEASE OF [place] CORONARY 04/17/2016 SHANTEL LIZ MD Ot R60.9 EDEMA, UNSPECIFIED 04/17/2016 SHANTEL LIZ MD Ot Z08 ENCNTR FOR FOLLOW-UP EXAM AFTER TRTMT FO 04/17/2016 SHANTEL LIZ MD Ot 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 04/17/2016 SHANTEL LIZ MD [...] CCDS Ot I25.10 ATHSCL HEART DISEASE OF [place] CORONARY 04/25/2016 CATHI ORTA FACC, FRANK FACP [...] MD Ot I25.10 ATHSCL HEART DISEASE OF [place] CORONARY 05/13/2016 SHANTEL LIZ MD Ot R60.9 EDEMA, UNSPECIFIED 05/13/2016 SHANTEL LIZ MD Ot Z08 ENCNTR FOR FOLLOW-UP EXAM AFTER TRTMT FO 05/13/2016 SHANTEL LIZ MD, Ot 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 05/13/2016 SHANTEL LIZ MD [...] MD Ot I25.10 ATHSCL HEART DISEASE OF [place] CORONARY 05/15/2016 SHANTEL LIZ MD Ot R60.9 EDEMA, UNSPECIFIED 05/15/2016 SHANTEL LIZ MD Ot Z51.11 ENCOUNTER FOR ANTINEOPLASTIC CHEMOTHERAP 05/15/2016 SHANTEL LIZ MD Ot 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 05/15/2016 SHANTEL LIZ MD [...] Ot E78.4 OTHER HYPERLIPIDEMIA 05/16/2016 [facility] OR[facility] FACP CCDS Ot I10 ESSENTIAL (PRIMARY) HYPERTENSION 05/16/2016 CATHI ORTA [facility], ALI FACP CCDS Ot I25.10 ATHSCL HEART DISEASE OF [place] CORONARY 05/16/2016 CATHI ORTA FACC, FRANK FACP [...] MD Ot I25.10 ATHSCL HEART DISEASE OF [place] CORONARY 05/29/2016 SHANTEL LIZ MD, Ot R60.9 EDEMA, UNSPECIFIED 05/29/2016 SHANTEL LIZ MD, Ot Z51.11 ENCOUNTER FOR ANTINEOPLASTIC CHEMOTHERAP 05/29/2016 SHANTEL LIZ MD, Ot Z79.899 OTHER MCC (CURRENT) DRUG THERAPY 05/29/2016 SHANTEL LIZ MD, [...] MD Ot I25.10 ATHSCL HEART DISEASE OF [place] CORONARY 06/11/2016 SHANTEL LIZ MD Ot R60.9 EDEMA, UNSPECIFIED 06/11/2016 SHANTEL LIZ MD Ot Z51.11 ENCOUNTER FOR ANTINEOPLASTIC CHEMOTHERAP 06/11/2016 SHANTEL LIZ MD, Ot 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 06/11/2016 SHANTEL LIZ MD Ot Z95.1 PRESENCE OF AORTOCORONARY BYPASS GRAFT 06/19/2016 SHANTEL ILZ MD, Ot C18.7 MALIGNANT NEOPLASM OF SIGMOID COLON 06/19/2016 SHANTEL LIZ MD, Ot D51.3 OTHER DIETARY VITAMIN B12 DEFICIENCY ANE 06/19/2016 SHANTEL LIZ MD, Ot E03.9 HYPOTHYROIDISM, UNSPECIFIED 06/19/2016 SHANTEL LIZ MD, Ot E78.5 HYPERLIPIDEMIA, UNSPECIFIED 06/19/2016 SHANTEL LIZ MD Ot I10 ESSENTIAL (PRIMARY) HYPERTENSION 06/19/2016 SHANTEL LIZ MD Ot I25.10 ATHSCL HEART DISEASE OF [place] CORONARY 06/19/2016 SHANTEL LIZ MD, Ot R60.9 EDEMA, UNSPECIFIED 06/19/2016 SHANTEL LIZ MD Ot Z51.11 ENCOUNTER FOR ANTINEOPLASTIC CHEMOTHERAP 06/19/2016 SHANTEL LIZ MD, Ot Z79.899 OTHER MCC (CURRENT) DRUG THERAPY 06/19/2016 SHANTEL LIZ MD [...] C18.7 MALIGNANT NEOPLASM OF SIGMOID COLON 07/30/2016 SHANTEL LIZ MD Ot D51.3 OTHER DIETARY VITAMIN B12 DEFICIENCY ANE 07/30/2016 SHANTEL LIZ MD Ot E03.9 HYPOTHYROIDISM, UNSPECIFIED 07/30/2016 SHANTEL LIZ MD Ot E78.5 HYPERLIPIDEMIA, UNSPECIFIED 07/30/2016 SHANTEL LIZ MD Ot I10 ESSENTIAL (PRIMARY) HYPERTENSION 07/30/2016 SHANTEL LIZ MD Ot I25.10 ATHSCL HEART DISEASE OF [place] CORONARY 07/30/2016 SHANTEL LIZ MD Ot R60.9 EDEMA, UNSPECIFIED 07/30/2016 SHANTEL LIZ MD Ot Z51.11 ENCOUNTER FOR ANTINEOPLASTIC CHEMOTHERAP 07/30/2016 SHANTEL LIZ MD Ot 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 07/30/2016 SHANTEL LIZ MD [...] MD Ot I25.10 ATHSCL HEART DISEASE OF [place] CORONARY 08/05/2016 SHANTEL LIZ MD Ot R60.9 EDEMA, UNSPECIFIED 08/05/2016 SHANTEL LIZ MD Ot Z51.11 ENCOUNTER FOR ANTINEOPLASTIC CHEMOTHERAP 08/05/2016 SHANTEL LIZ MD Ot Z79.899 OTHER MCC (CURRENT) DRUG THERAPY 08/05/2016 SHANTEL LIZ MD [...] MD Ot I25.10 ATHSCL HEART DISEASE OF [place] CORONARY 08/13/2016 SHANTEL LIZ MD Ot R60.9 EDEMA, UNSPECIFIED 08/13/2016 SHANTEL LIZ MD Ot Z51.11 ENCOUNTER FOR ANTINEOPLASTIC CHEMOTHERAP 08/13/2016 SHANTEL LIZ MD, Ot 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 08/13/2016 SHANTEL LIZ MD [...] MD Ot I25.10 ATHSCL HEART DISEASE OF [place] CORONARY 08/26/2016 SHANTEL LIZ MD Ot R60.9 EDEMA, UNSPECIFIED 08/26/2016 SHANTEL LIZ MD Ot Z51.11 ENCOUNTER FOR ANTINEOPLASTIC CHEMOTHERAP 08/26/2016 SHANTEL LIZ MD, Ot 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 08/26/2016 SHANTEL LIZ MD [...] MD Ot I25.10 ATHSCL HEART DISEASE OF [place] CORONARY 08/27/2016 SHANTEL LIZ MD Ot R60.9 EDEMA, UNSPECIFIED 08/27/2016 SHANTEL LIZ MD Ot Z51.11 ENCOUNTER FOR ANTINEOPLASTIC CHEMOTHERAP 08/27/2016 SHANTEL LIZ MD Ot 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 08/27/2016 SHANTEL LIZ MD Ot Z95.1 PRESENCE OF AORTOCORONARY BYPASS GRAFT 08/31/2016 DESHAUN JOHNSON MD, Ot C18.9 MALIGNANT NEOPLASM OF COLON, UNSPECIFIED 08/31/2016 DESHAUN JOHNSON MD Ot I10 ESSENTIAL (PRIMARY) HYPERTENSION 08/31/2016 DESHAUN JOHNSON MD Ot I25.10 ATHSCL HEART DISEASE OF [place] CORONARY 08/31/2016 DESHAUN JOHNSON MD Ot R53.81 OTHER MALAISE 08/31/2016 DESHAUN JOHNSON MD Ot Z79.82 WATER POLLUTION CONTROL INSPECTOR (CURRENT) USE OF ASPIRIN 08/31/2016 DESHAUN JOHNSON MD Ot 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 08/31/2016 DESHAUN JOHNSON MD Ot Z93.3 COLOSTOMY STATUS 08/31/2016 DESHAUN JOHNSON MD Ot Z95.1 PRESENCE OF AORTOCORONARY BYPASS GRAFT 09/02/2016 DESHAUN JOHNSON MD Ot C18.9 MALIGNANT NEOPLASM OF COLON, UNSPECIFIED 09/02/2016 DESHAUN JOHNSON MD Ot I10 ESSENTIAL (PRIMARY) HYPERTENSION 09/02/2016 DESHAUN JOHNSON MD Ot I25.10 ATHSCL HEART DISEASE OF [place] CORONARY 09/02/2016 DESHAUN JOHNSON MD Ot R53.81 OTHER MALAISE 09/02/2016 DESHAUN JOHNSON MD Ot Z79.82 MCC (CURRENT) USE OF ASPIRIN 09/02/2016 DESHAUN JOHNSON MD Ot Z79.899 OTHER MCC (CURRENT) DRUG THERAPY 09/02/2016 DESHAUN JOHNSON MD Ot Z93.3 COLOSTOMY STATUS 09/02/2016 DESHAUN JOHNSON MD Ot Z95.1 PRESENCE OF AORTOCORONARY BYPASS GRAFT 09/03/2016 Ot 401.9 HYPERTENSION NOS 09/03/2016 Ot 414.00 CORON ATHEROSCLER NOS TYPE VESSEL, NATIV 09/03/2016 Ot V58.69 OTH MED,LT,CURRENT USE 09/03/2016 Ot 401.9 HYPERTENSION NOS 09/03/2016 Ot 414.01 CORONARY ATHEROSCLEROSIS OF [place] CORON 09/03/2016 Ot V58.69 OTH MED,LT,CURRENT USE 09/03/2016 Ot 401.9 HYPERTENSION NOS 09/03/2016 Ot 414.00 CORON ATHEROSCLER NOS TYPE VESSEL, NATIV 09/03/2016 Ot V58.69 OTH MED,LT,CURRENT USE 09/03/2016 Ot 275.2 DIS MAGNESIUM METABOLISM 09/03/2016 Ot V58.69 OTH MED,LT,CURRENT USE 09/03/2016 Ot 401.9 HYPERTENSION NOS 09/03/2016 Ot 414.01 CORONARY ATHEROSCLEROSIS OF [place] CORON 09/03/2016 Ot V58.69 OTH MED,LT,CURRENT USE 09/03/2016 Ot 244.9 HYPOTHYROIDISM NOS 09/03/2016 Ot 272.4 HYPERLIPIDEMIA NEC/NOS 09/03/2016 Ot V58.69 OTH MED,LT,CURRENT USE 09/03/2016 Ot 729.5 PAIN IN LIMB 09/03/2016 LINH PAT L DIRECTOR SALES AND TRADE MARKETING Ot 785.2 CARDIAC MURMURS NEC 09/03/2016 BAIMA LINH L DIRECTOR SALES AND TRADE MARKETING Ot 272.4 HYPERLIPIDEMIA NEC/NOS 09/03/2016 BAIMAEVONNELINH L [employer] Ot V58.69 OTH MED,LT,CURRENT USE 09/03/2016 KACI [...] Ot 782.3 EDEMA 09/03/2016 BI LINH L [employer] Ot 272.4 HYPERLIPIDEMIA NEC/NOS 09/03/2016 BI LINH L [employer] Ot 401.9 HYPERTENSION NOS 09/03/2016 LINH PAT L [employer] Ot 414.00 CORON ATHEROSCLER NOS TYPE VESSEL, NATIV 09/03/2016 BI LINH L [employer] Ot V58.69 OTH MED,LT,CURRENT USE 09/03/2016 SHALONDA ORTA, SHANTEL Crain Ot 153.3 MAL DESTINY SIGMOID COLON 09/03/2016 SHALONDA ORTA, SHANTEL Crain Ot V76.12 OTH SCREEN MAMMO-MALIGN NEOPLASM OF [place] 09/03/2016 EVONNE PATHER L [employer] Ot 272.4 HYPERLIPIDEMIA NEC/NOS 09/03/2016 CATHI GONZALEZC, [...] LIZ MD Ot 782.3 EDEMA 09/03/2016 SHANTEL LIZ MD Ot V44.3 COLOSTOMY STATUS 09/03/2016 SHANTEL [...] 305.1 TOBACCO USE DISORDER 09/03/2016 BAIMALINH L [employer] Ot 272.4 HYPERLIPIDEMIA NEC/NOS 09/03/2016 BAIMAEVONNELINH L [employer] Ot 401.9 HYPERTENSION NOS 09/03/2016 LINH PAT [employer] Ot 414.00 CORON ATHEROSCLER NOS TYPE VESSEL, NATIV 09/03/2016 LINH PAT [employer] Ot 414.8 CHR ISCHEMIC HRT DIS NEC 09/03/2016 LINH PAT [employer] Ot 433.10 CAROTID ARTERY OCCLUSION W O CEREBRAL IN 09/03/2016 LINH PAT [employer] Ot 441.4 ABDOM AORTIC ANEURYSM 09/03/2016 SHALONDA ORTA, SHANTEL Crain Ot 153.3 MAL DESTINY SIGMOID COLON 09/03/2016 SHALONDA ORTA, SHANTEL Crain Ot 305.1 TOBACCO USE DISORDER 09/03/2016 MESHA FUENTES DO Ot V76.12 OTH SCREEN MAMMO-MALIGN NEOPLASM OF [place] 09/03/2016 LIN[facility] PAT [employer] Ot E78.5 HYPERLIPIDEMIA, UNSPECIFIED 09/03/2016 LINH PAT [employer] Ot I10 ESSENTIAL (PRIMARY) HYPERTENSION 09/03/2016 LINH PAT [employer] Ot I25.10 ATHSCL HEART DISEASE OF [place] CORONARY 09/03/2016 LINH PAT [employer] Ot I25.5 ISCHEMIC CARDIOMYOPATHY 09/03/2016 LINH PATP Ot I71.4 ABDOMINAL AORTIC ANEURYSM, WITHOUT RUPTU 09/03/2016 LINH PAT [employer] Ot I77.9 DISORDER OF ARTERIES AND ARTERIOLES, [...] Ot E03.9 HYPOTHYROIDISM, UNSPECIFIED 09/03/2016 SHAE VERDUGO [employer] Ot E78.5 HYPERLIPIDEMIA, UNSPECIFIED 09/03/2016 SHAE VERDUGO [employer] Ot I10 ESSENTIAL (PRIMARY) HYPERTENSION 09/03/2016 SHAE VERDUGO [employer] Ot I25.10 ATHSCL HEART DISEASE OF [place] CORONARY 09/03/2016 SHAE VERDUGO [employer] Ot R60.9 EDEMA, UNSPECIFIED 09/03/2016 SHAE VERDUGO [employer] Ot 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 09/03/2016 SHAE VERDUGO [employer] Ot Z85.038 PERSONAL HISTORY OF MALIGNANT NEOPLASM O 09/03/2016 SHAE VERDUGO [employer] Ot Z95.1 PRESENCE OF AORTOCORONARY BYPASS GRAFT 09/03/2016 CATHI ORTA FACC, FRANK FACP CCDS Ot C79.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 OF OTHER SP 09/03/2016 CATHI ORTA FACC, ALI FACP CCDS Ot E78.4 OTHER HYPERLIPIDEMIA 09/03/2016 CATHI ORTA FACC, ALI FACP CCDS Ot I10 ESSENTIAL (PRIMARY) HYPERTENSION 09/03/2016 CATHI ORTA FACMelvin, ALI FACP CCDS Ot I25.10 ATHSCL HEART DISEASE OF [place] CORONARY 09/03/2016 CATHI ORTA FACC, ALI FACP [...] MD Ot I25.10 ATHSCL HEART DISEASE OF [place] CORONARY 09/03/2016 SHANTEL LIZ MD Ot R60.9 EDEMA, UNSPECIFIED 09/03/2016 SHANTEL LIZ MD Ot Z51.11 ENCOUNTER FOR ANTINEOPLASTIC CHEMOTHERAP 09/03/2016 SHANTEL LIZ MD Ot Z79.899 OTHER [facility] (CURRENT) DRUG THERAPY 09/03/2016 SHANTEL LIZ MD Ot Z95.1 PRESENCE OF AORTOCORONARY BYPASS GRAFT 09/09/2016 SHANTEL LIZ MD Ot C18.7 MALIGNANT NEOPLASM OF SIGMOID COLON 09/09/2016 SHANTEL LIZ MD Ot D51.3 OTHER DIETARY VITAMIN B12 DEFICIENCY ANE 09/09/2016 SHANTEL LIZ MD Ot E03.9 HYPOTHYROIDISM, UNSPECIFIED 09/09/2016 SHANTEL LIZ MD Ot E78.5 HYPERLIPIDEMIA, UNSPECIFIED 09/09/2016 SHANTEL LIZ MD Ot I10 ESSENTIAL (PRIMARY) HYPERTENSION 09/09/2016 SHANTEL LIZ MD Ot I25.10 ATHSCL HEART DISEASE OF [place] CORONARY 09/09/2016 SHANTEL LIZ MD Ot R60.9 EDEMA, UNSPECIFIED 09/09/2016 SHANTEL LIZ MD Ot Z51.11 ENCOUNTER FOR ANTINEOPLASTIC CHEMOTHERAP 09/09/2016 SHANTEL LIZ MD Ot 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 09/09/2016 SHANTEL LIZ MD Ot Z95.1 PRESENCE OF AORTOCORONARY BYPASS GRAFT 10/04/2016 Ot 401.9 HYPERTENSION NOS 10/04/2016 Ot 414.00 CORON ATHEROSCLER NOS TYPE VESSEL, NATIV 10/04/2016 Ot V58.69 OTH MED,LT,CURRENT USE 10/04/2016 Ot 401.9 HYPERTENSION NOS 10/04/2016 Ot 414.01 CORONARY ATHEROSCLEROSIS OF [place] CORON 10/04/2016 Ot V58.69 OTH MED,LT,CURRENT USE 10/04/2016 Ot 401.9 HYPERTENSION NOS 10/04/2016 Ot 414.00 CORON ATHEROSCLER NOS TYPE VESSEL, NATIV 10/04/2016 Ot V58.69 OTH MED,LT,CURRENT USE 10/04/2016 Ot 275.2 DIS MAGNESIUM METABOLISM 10/04/2016 Ot V58.69 OTH MED,LT,CURRENT USE 10/04/2016 Ot 401.9 HYPERTENSION NOS 10/04/2016 Ot 414.01 CORONARY ATHEROSCLEROSIS OF [place] CORON 10/04/2016 Ot V58.69 OTH MED,LT,CURRENT USE 10/04/2016 Ot 244.9 HYPOTHYROIDISM NOS 10/04/2016 Ot 272.4 HYPERLIPIDEMIA NEC/NOS 10/04/2016 Ot V58.69 OTH MED,LT,CURRENT USE 10/04/2016 Ot 729.5 PAIN IN LIMB 10/04/2016 BAIMALINH L DIRECTOR SALES [employer] MARKETING Ot 785.2 CARDIAC MURMURS NEC 10/04/2016 BAIMA LINH L DIRECTOR [employer] Ot 272.4 HYPERLIPIDEMIA NEC/NOS 10/04/2016 BAIMAEVONNELINH L DIRECTOR [employer] Ot V58.69 OTH MED,LT,CURRENT USE 10/04/2016 KACI ORTA, YOLANDA Mccoy Ot 154.0 MAL DESTINY RECTOSIGMOID JCT 10/04/2016 KACI ORTA, YOLANDA Mccoy Ot 211.3 BENIGN NEOPLASM LG BOWEL 10/04/2016 KACI ORTA, YOLANDA Mccoy Ot 280.9 IRON DEFIC ANEMIA NOS 10/04/2016 KACI ORTA, YOLANDA Mccoy Ot V16.0 FAMILY HX-GI MALIGNANCY 10/04/2016 KACI ORTA, YLOANDA Mccoy Ot V72.84 EXAM PRE-OPERATIVE NOS 10/04/2016 [...] Ot 782.3 EDEMA 10/04/2016 BI LINH L [employer] Ot 272.4 HYPERLIPIDEMIA NEC/NOS 10/04/2016 FRANKIEMA LINH L DIRECTOR [employer] Ot 401.9 HYPERTENSION NOS 10/04/2016 BI LINH L [employer] Ot 414.00 CORON ATHEROSCLER NOS TYPE VESSEL, NATIV 10/04/2016 EVONNE PATHER L DIRECTOR [employer] Ot V58.69 OTH MED,LT,CURRENT USE 10/04/2016 SHALONDA ORTA, SHANTEL Crain Ot 153.3 MAL DESTINY SIGMOID COLON 10/04/2016 SHANTEL LIZ MD Ot V76.12 OTH SCREEN MAMMO-MALIGN NEOPLASM OF [place] 10/04/2016 EVONNE PATHER L [employer]OR [employer] Ot 272.4 HYPERLIPIDEMIA NEC/NOS 10/04/2016 CATHI ORTA [...] NOS TYPE VESSEL, NATIV 10/04/2016 [facility]I OR[facility]ALL[facility]DM[facility], FRANK CARUSO CCDS Ot 414.8 CHR ISCHEMIC [...] 305.1 TOBACCO USE DISORDER 10/04/2016 LINH PAT [employer] Ot 272.4 HYPERLIPIDEMIA NEC/NOS 10/04/2016 LINH PAT [employer] Ot 401.9 HYPERTENSION NOS 10/04/2016 LINH PAT L [employer] Ot 414.00 CORON ATHEROSCLER NOS TYPE VESSEL, NATIV 10/04/2016 LINH PAT [employer] Ot 414.8 CHR ISCHEMIC HRT DIS NEC 10/04/2016 LINH PAT [employer] Ot 433.10 CAROTID ARTERY OCCLUSION W O CEREBRAL IN 10/04/2016 LINH PAT [employer] Ot 441.4 ABDOM AORTIC ANEURYSM 10/04/2016 SHANTEL LIZ MD Ot 153.3 MAL DESTINY SIGMOID COLON 10/04/2016 SHANTEL LIZ MD Ot 305.1 TOBACCO USE DISORDER 10/04/2016 GELLENDER DO, MESHA A Ot V76.12 OTH SCREEN MAMMO-MALIGN NEOPLASM OF [place] 10/04/2016 LINH PAT [employer] Ot E78.5 HYPERLIPIDEMIA, UNSPECIFIED 10/04/2016 LINH PAT [employer] Ot I10 ESSENTIAL (PRIMARY) HYPERTENSION 10/04/2016 LINH PAT [employer] Ot I25.10 ATHSCL HEART DISEASE OF [place] CORONARY 10/04/2016 LINH PAT [employer] Ot I25.5 ISCHEMIC CARDIOMYOPATHY 10/04/2016 LINH PAT [employer] Ot I71.4 ABDOMINAL AORTIC ANEURYSM, WITHOUT RUPTU 10/04/2016 LINH PAT [employer] Ot I77.9 DISORDER OF ARTERIES AND ARTERIOLES, UNS 10/04/2016 SHALONDA ORTA, SHANTEL Crain Ot C18.7 MALIGNANT NEOPLASM OF SIGMOID COLON 10/04/2016 SHALONDA ORTA, SHANTEL Crain Ot C18.7 MALIGNANT NEOPLASM OF SIGMOID COLON 10/04/2016 SHALONDA ORTA, SHATNEL Crain Ot R97.0 ELEVATED CARCINOEMBRYONIC ANTIGEN [CEA] [...] VERDUGOP Ot E03.9 HYPOTHYROIDISM, UNSPECIFIED 10/04/2016 SHAE VERDUGOP Ot E78.5 HYPERLIPIDEMIA, UNSPECIFIED 10/04/2016 SHAE VERDUGOP Ot I10 ESSENTIAL (PRIMARY) HYPERTENSION 10/04/2016 SHAE VERDUGO Ot I25.10 ATHSCL HEART DISEASE OF [place] CORONARY 10/04/2016 SHAE VERDUGOP Ot R60.9 EDEMA, UNSPECIFIED 10/04/2016 SHAE VERDUGOP Ot 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 10/04/2016 SHAE VERDUGOP Ot Z85.038 PERSONAL HISTORY OF MALIGNANT NEOPLASM O 10/04/2016 SHAE VERDUGO DIRECTOR SALES [employer] MARKET[employer] Ot Z95.1 PRESENCE OF AORTOCORONARY BYPASS GRAFT 10/04/2016 CATHI ORTA FACC, FRANK OSCARS Ot C79.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 OF OTHER SP 10/04/2016 CATHI ORTA FACC, FRANK GONZALEZP CCDS Ot E78.4 OTHER HYPERLIPIDEMIA 10/04/2016 CATHI ORTA FACC, FRANK FACP CCDS Ot I10 ESSENTIAL (PRIMARY) HYPERTENSION 10/04/2016 CATHI ORTA FACC, FRANK GONZALEZP CCDS Ot I25.10 ATHSCL HEART DISEASE OF [place] CORONARY 10/04/2016 CATHI ORTA FACC, FRANK GONZALEZP [...] MD Ot I25.10 ATHSCL HEART DISEASE OF [place] CORONARY 10/04/2016 SHANTEL LIZ MD Ot R60.9 EDEMA, UNSPECIFIED 10/04/2016 SHANTEL LIZ MD Ot R82.99 OTHER ABNORMAL FINDINGS IN URINE 10/04/2016 SHALONDA ORTA, SHANTEL Breann Ot Z23 ENCOUNTER FOR IMMUNIZATION 10/04/2016 SHALONDA ORTA, SHANTEL Breann Ot Z51.11 ENCOUNTER FOR ANTINEOPLASTIC CHEMOTHERAP 10/04/2016 SHALONDA ORTA, SHANTEL Breann Ot 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 10/04/2016 SHALONDA ORTA, SHANTEL Breann Ot Z95.1 PRESENCE OF AORTOCORONARY BYPASS GRAFT 10/04/2016 Ot 401.9 HYPERTENSION NOS 10/04/2016 Ot 414.00 CORON ATHEROSCLER NOS TYPE VESSEL, NATIV 10/04/2016 Ot V58.69 OTH MED,LT,CURRENT USE 10/04/2016 Ot 401.9 HYPERTENSION NOS 10/04/2016 Ot 414.01 CORONARY ATHEROSCLEROSIS OF [place] CORON 10/04/2016 Ot V58.69 OTH MED,LT,CURRENT USE 10/04/2016 Ot 401.9 HYPERTENSION NOS 10/04/2016 Ot 414.00 CORON ATHEROSCLER NOS TYPE VESSEL, NATIV 10/04/2016 Ot V58.69 OTH MED,LT,CURRENT USE 10/04/2016 Ot 275.2 DIS MAGNESIUM METABOLISM 10/04/2016 Ot V58.69 OTH MED,LT,CURRENT USE 10/04/2016 Ot 401.9 HYPERTENSION NOS 10/04/2016 Ot 414.01 CORONARY ATHEROSCLEROSIS OF [place] CORON 10/04/2016 Ot V58.69 OTH MED,LT,CURRENT USE 10/04/2016 Ot 244.9 HYPOTHYROIDISM NOS 10/04/2016 Ot 272.4 HYPERLIPIDEMIA NEC/NOS 10/04/2016 Ot V58.69 OTH MED,LT,CURRENT USE 10/04/2016 Ot 729.5 PAIN IN LIMB 10/04/2016 BAIMA, LINH L DIRECTOR [employer] Ot 785.2 CARDIAC MURMURS NEC 10/04/2016 BAIMA, LINH L DIRECTOR [employer] Ot 272.4 HYPERLIPIDEMIA NEC/NOS 10/04/2016 BAIMA, LINH L DIRECTOR [employer] Ot V58.69 OTH MED,LT,CURRENT USE 10/04/2016 KACI [...] Ot 782.3 EDEMA 10/04/2016 LINH PAT L DIRECTOR [employer] Ot 272.4 HYPERLIPIDEMIA NEC/NOS 10/04/2016 BI LINH L DIRECTOR [employer] Ot 401.9 HYPERTENSION NOS 10/04/2016 FRANKIEMA LINH L DIRECTOR [employer] Ot 414.00 CORON ATHEROSCLER NOS TYPE VESSEL, NATIV 10/04/2016 LINH PAT L DIRECTOR [employer] Ot V58.69 OTH MED,LT,CURRENT USE 10/04/2016 SHALONDA ORTA, SHANTEL Crain Ot 153.3 MAL DESTINY SIGMOID COLON 10/04/2016 SHALONDA ORTA, SHANTEL Crain Ot V76.12 OTH SCREEN MAMMO-MALIGN NEOPLASM OF [place] 10/04/2016 LINH PAT L DIRECTOR [employer] Ot 272.4 HYPERLIPIDEMIA NEC/NOS 10/04/2016 CATHI ORTA [...] 305.1 TOBACCO USE DISORDER 10/04/2016 LINH PAT DIRECTOR [employer] Ot 272.4 HYPERLIPIDEMIA NEC/NOS 10/04/2016 LINH PAT L DIRECTOR [employer] Ot 401.9 HYPERTENSION NOS 10/04/2016 LINH PAT [employer]OR [employer] Ot 414.00 CORON ATHEROSCLER NOS TYPE VESSEL, NATIV 10/04/2016 BI LINH L DIRECTOR [employer] Ot 414.8 CHR ISCHEMIC HRT DIS NEC 10/04/2016 LINH PAT [employer]OR [employer] Ot 433.10 CAROTID ARTERY OCCLUSION W O CEREBRAL IN 10/04/2016 LINH PAT [employer]OR [employer] Ot 441.4 ABDOM AORTIC ANEURYSM 10/04/2016 SHANTEL LIZ MD Ot 153.3 MAL DESTINY SIGMOID COLON 10/04/2016 SHANTEL LIZ MD Ot 305.1 TOBACCO USE DISORDER 10/04/2016 MESHA FUENTES DO Ot V76.12 OTH SCREEN MAMMO-MALIGN NEOPLASM OF [place] 10/04/2016 LINH PAT [employer]OR [employer] Ot E78.5 HYPERLIPIDEMIA, UNSPECIFIED 10/04/2016 LINH PAT L [employer]OR [employer] Ot I10 ESSENTIAL (PRIMARY) HYPERTENSION 10/04/2016 BI LINH L DIRECTOR [employer] Ot I25.10 ATHSCL HEART DISEASE OF [place] CORONARY 10/04/2016 LINH PAT DIRECTOR [employer] Ot I25.5 ISCHEMIC CARDIOMYOPATHY 10/04/2016 LINH PAT DIRECTOR [employer] Ot I71.4 ABDOMINAL AORTIC ANEURYSM, WITHOUT RUPTU 10/04/2016 BI LINH L DIRECTOR [employer] Ot I77.9 DISORDER OF ARTERIES AND ARTERIOLES, UNS 10/04/2016 SHANTEL LIZ MD Ot C18.7 MALIGNANT NEOPLASM OF SIGMOID COLON 10/04/2016 SHANTEL LIZ MD Ot C18.7 MALIGNANT NEOPLASM OF SIGMOID COLON 10/04/2016 SHNATEL LIZ MD Ot R97.0 ELEVATED CARCINOEMBRYONIC ANTIGEN [CEA] 10/04/2016 SHANTEL LIZ MD Ot C79.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 OF 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 10/04/2016 SHANTEL LIZ MD Ot C80.1 MALIGNANT (PRIMARY) NEOPLASM, UNSPECIFIE 10/04/2016 SHAE VERDUGO DIRECTOR SALES [employer] MARK[employer] Ot C79.51 SECONDARY MALIGNANT NEOPLASM OF BONE 10/04/2016 SHAE VERDUGO DIRECTOR [employer] Ot C79.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 OF OTHER SP 10/04/2016 SHAE VERDUGO DIRECTOR [employer] Ot D51.3 OTHER DIETARY VITAMIN B12 DEFICIENCY ANE 10/04/2016 SHAE VERDUGO DIRECTOR [employer] Ot E03.9 HYPOTHYROIDISM, UNSPECIFIED 10/04/2016 SHAE VERDUGO DIRECTOR [employer] Ot E78.5 HYPERLIPIDEMIA, UNSPECIFIED 10/04/2016 SHAE VERDUGO DIRECTOR [employer] Ot I10 ESSENTIAL (PRIMARY) HYPERTENSION 10/04/2016 SHAE VERDUGO DIRECTOR [employer] Ot I25.10 ATHSCL HEART DISEASE OF [place] CORONARY 10/04/2016 SHAE VERDUGO DIRECTOR [employer] Ot R60.9 EDEMA, UNSPECIFIED 10/04/2016 SHAE VERDUGO DIRECTOR [employer] Ot 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 10/04/2016 SHAE VERDUGO DIRECTOR [employer] Ot Z85.038 PERSONAL HISTORY OF MALIGNANT NEOPLASM O 10/04/2016 SHAE VERDUGO DIRECTOR SAL[employer] MARKET[employer] Ot Z95.1 PRESENCE OF AORTOCORONARY BYPASS GRAFT 10/04/2016 CATHI ORTA FACC, FRANK GONZALEZP CCDS Ot C79.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 OF OTHER SP 10/04/2016 CATHI ORTA FACC, ALI FACP CCDS Ot E78.4 OTHER HYPERLIPIDEMIA 10/04/2016 CATHI ORTA FACC, ALI FACP CCDS Ot I10 ESSENTIAL (PRIMARY) HYPERTENSION 10/04/2016 CATHI ORTA FACC, ALI FACP CCDS Ot I25.10 ATHSCL HEART DISEASE OF [place] CORONARY 10/04/2016 CATHI ORTA FACC, FRANK FACP [...] MD, Ot I25.10 ATHSCL HEART DISEASE OF [place] CORONARY 10/04/2016 SHANTEL LIZ MD, Ot R60.9 EDEMA, UNSPECIFIED 10/04/2016 SHANTEL LIZ MD, Ot R82.99 OTHER ABNORMAL FINDINGS IN URINE 10/04/2016 SHANTEL LIZ MD Ot Z23 ENCOUNTER FOR IMMUNIZATION 10/04/2016 SHANTEL LIZ MD, Ot Z51.11 ENCOUNTER FOR ANTINEOPLASTIC CHEMOTHERAP 10/04/2016 SHANTEL LIZ MD, Ot 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 10/04/2016 SHANTEL LIZ MD, [...] MD, Ot I25.10 ATHSCL HEART DISEASE OF [place] CORONARY 11/04/2016 SHANTEL LIZ MD, Ot N18.9 CHRONIC KIDNEY DISEASE, UNSPECIFIED 11/04/2016 SHANTEL LIZ MD Ot R60.9 EDEMA, UNSPECIFIED 11/04/2016 SHANTEL LIZ MD, Ot R82.99 OTHER ABNORMAL FINDINGS IN URINE 11/04/2016 SHANTEL LIZ MD Ot Z23 ENCOUNTER FOR IMMUNIZATION 11/04/2016 SHANTEL LIZ MD, Ot Z51.11 ENCOUNTER FOR ANTINEOPLASTIC CHEMOTHERAP 11/04/2016 SHANTEL LIZ MD, Ot Z79.899 OTHER MCC (CURRENT) DRUG THERAPY 11/04/2016 SHANTEL LIZ MD, [...] MD, Ot I25.10 ATHSCL HEART DISEASE OF [place] CORONARY 12/11/2016 SHANTEL LIZ MD Ot N18.9 CHRONIC KIDNEY DISEASE, UNSPECIFIED 12/11/2016 SHANTEL LIZ MD, Ot R60.9 EDEMA, UNSPECIFIED 12/11/2016 SHANTEL LIZ MD, Ot R82.99 OTHER ABNORMAL FINDINGS IN URINE 12/11/2016 SHANTEL LIZ MD Ot Z23 ENCOUNTER FOR IMMUNIZATION 12/11/2016 SHANTEL LIZ MD, Ot Z51.11 ENCOUNTER FOR ANTINEOPLASTIC CHEMOTHERAP 12/11/2016 SHANTEL LIZ MD, Ot 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 12/11/2016 SHANTEL LIZ MD, Ot Z95.1 PRESENCE OF AORTOCORONARY BYPASS GRAFT 12/11/2016 KACI ORTA, YOLANDA M Ot C19 MALIGNANT NEOPLASM OF RECTOSIGMOID JUNCT 01/31/2017 [facility] Ot C18.7 MALIGNANT NEOPLASM OF SIGMOID COLON 01/31/2017 [facility] MESHA Ot D51.3 OTHER DIETARY VITAMIN B12 DEFICIENCY ANE 01/31/2017 [facility] MESHA Ot D63.8 ANEMIA IN OTHER CHRONIC DISEASES CLASSIF 01/31/2017 [facility] MESHA Ot E03.9 HYPOTHYROIDISM, UNSPECIFIED 01/31/2017 [facility] I10 ESSENTIAL (PRIMARY) HYPERTENSION 01/31/2017 [facility] Ot I25.10 ATHSCL HEART DISEASE OF [place] CORONARY 01/31/2017 [facility] Ot I48.0 PAROXYSMAL ATRIAL FIBRILLATION 01/31/2017 [facility] Ot R07.9 CHEST PAIN, UNSPECIFIED 01/31/2017 [facility] Ot Z95.1 PRESENCE OF AORTOCORONARY BYPASS GRAFT [...] culture - 08/31/16 11:00 Bacterial urine culture [id number] NRG COLONY COUNT >100,000/ML NRG URINE CULTURE RESULTS PLUS NRG Bacterial urine culture - 09/02/16 14:30 Bacterial urine culture [id number] NRG COLONY COUNT 10,000/ML - 100,000/ML NRG [...] culture - 01/30/17 22:20 Bacterial urine culture [id number] NRG COLONY COUNT 10,000/ML - 100,000/ML NRG [...] Status Pt. Type Provider Facility Loc./Unit Complaint [id number] 01/30/2017 12:33:00 2016 14:00:00 DIS Outpatient MONROEDELANEYAVE DO MESHA Pickard [facility] ICU CHEST PAIN [id number] 12/06/2016 09:35:00 2016 13:15:00 DIS Outpatient YOLANDA CLEMONS MD [facility] SDC COL CANCER [id number] 12/04/2016 06:06:00 2016 15:31:00 DIS Outpatient YOLANDA CLEMONS MD [facility] PREOP PALLATIVE CARE [id number] 10/29/2016 11:28:00 2016 00:01:00 DIS Outpatient SHANTEL LIZ MD [facility] ONC [id number] 08/31/2016 09:26:00 2015 13:29:00 DIS Emergency DESHAUN JOHNSON MD [facility] ER CHEMO/CHILLS [id number] 07/30/2016 09:49:00 2015 09:17:00 DIS Outpatient SHANTEL LIZ MD [facility] ONC [id number] 06/05/2016 08:46:00 2015 00:01:00 DIS Outpatient SHANTEL LIZ MD [facility] ONC [id number] 05/29/2016 22:27:00 2015 22:36:00 DIS Emergency AMBROSIO VALENTINO DO [facility] ER I-V PORT ISSUES [id number] 03/06/2016 10:33:00 2015 00:01:00 DIS Outpatient SHANTEL LIZ MD [facility] ONC [id number] 02/08/2016 22:46:00 2015 00:15:00 DIS Emergency AMBROSIO VALENTINO DO [facility] ER BLOOD COMING OUT OF PORT [id number] 01/30/2016 05:34:00 2015 09:03:00 DIS Outpatient YOLANDA CLEMONS MD [facility] PREOP COLON CANCER [id number] 01/15/2016 07:18:00 2015 10:35:00 DIS Outpatient YOLANDA CLEMONS MD [facility] SDC HX COLON CANCER [id number] 01/12/2016 05:49:00 2015 15:38:00 DIS Outpatient YOLANDA CLEMONS MD [facility] PREOP HISTORY COLON CANCER [id number] 10/31/2015 12:51:00 2015 00:01:00 DIS Outpatient SHANTEL LIZ MD [facility] ONC [id number] 09/11/2015 08:55:00 2014 23:59:59 CLS Outpatient LINH PAT [facility] LAB AAA,CAD [id number] 07/11/2015 09:59:00 2014 00:01:00 DIS Outpatient SHANTEL LIZ MD [facility] ONC [id number] 07/11/2015 09:08:00 2014 23:59:59 CLS Outpatient MESHA FUENTES DO [facility] RAD SCREENING [id number] 06/06/2015 10:47:00 2014 23:59:59 CLS Outpatient SHANTEL LIZ MD [facility] RAD COLON CA [id number] 05/09/2015 08:39:00 2014 00:01:00 DIS Outpatient SHANTEL LIZ MD [facility] ONC [id number] 03/17/2015 07:37:00 2014 23:59:59 CLS Outpatient LINH PAT [facility] LAB CAD, AAA [id number] 02/13/2015 10:44:00 2014 23:59:59 CLS Outpatient SHANTEL LIZ MD [facility] RAD TOBACCO USE, SIGMOID COLON CA [id number] 01/10/2015 08:45:00 2014 00:01:00 DIS Outpatient SHANTEL LIZ MD [facility] ONC [id number] 11/16/2014 12:16:00 2014 17:39:00 DIS Emergency DUC LONGO, DARRIAN Moody [facility] ER BACK PAIN [id number] 11/14/2014 08:48:00 2014 12:35:00 DIS Outpatient YOLANDA CLEMONS MD [facility] HX OF COLON CA [id number] 11/11/2014 05:55:00 2014 23:59:59 CLS Outpatient YOLANDA CLEMONS MD [facility] PREOP HX OF COLON CANCER [id number] 10/24/2014 11:48:00 2013 16:55:00 DIS Outpatient YOLANDA CLEMONS MD [facility] HX COLON CANCER [id number] 10/19/2014 06:21:00 2013 23:59:59 CLS Outpatient YOLANDA CLEMONS MD [facility] PREOP HX COLON CANCER [id number] 10/13/2014 10:26:00 2013 23:59:59 CLS Outpatient SHANTEL LIZ MD [facility] ONC [id number] 10/11/2014 07:19:00 2013 15:30:00 DIS Outpatient FRANK WINKLER MD, FACC, FACP CCDS [facility] CATH ABNORMAL STRESS, CAD,SOB [id number] 09/26/2014 11:35:00 2013 23:59:59 CLS Outpatient FRANK WINKLER MD, FACC, FACP CCDS [facility] CARD CAD,HTN,HLP [id number] 06/28/2014 10:42:00 2013 00:01:00 DIS Outpatient SHANTEL LIZ MD [facility] ONC [id number] 09/22/2014 08:44:00 2013 23:59:59 CLS Outpatient FRANK WINKLER MD, FACC, FACP CCDS [facility] RAD AAA,CAD,ISCHEMIC CARDIOMYOPATHY [id number] 08/05/2014 09:00:00 2013 23:59:59 CLS Outpatient LINH PAT [facility] LAB HYPERLIPADEMIA [id number] 07/05/2014 10:24:00 2013 23:59:59 CLS Outpatient SHANTEL LIZ MD [facility] RAD SCREENING [id number] 06/24/2014 12:53:00 2013 16:05:00 DIS Outpatient MESHA FUENTES DO [facility] REHAB LYMPHEDEMA JOSE DE JESUS LEGS [id number] 03/29/2014 08:43:00 2013 00:01:00 DIS Outpatient SHANTEL LIZ MD [facility] ONC [id number] 04/05/2014 14:03:00 2013 11:30:00 DIS Inpatient MESHA FUENTES DO [facility] 4TH RT LEG SWELLING, CELLULITIS PAIN [id number] 12/28/2013 10:19:00 2013 00:01:00 DIS Outpatient SHANTEL LIZ MD [facility] ONC [id number] 02/04/2014 09:03:00 2013 23:59:59 CLS Outpatient LINH PAT DIRECTOR [employer] [facility] LAB STATIN TX,HTN,CAD, HYPERLIPADEMIA [id number] 10/12/2013 10:30:00 2013 13:56:00 DIS Outpatient MESHA FUENTES DO [facility] WOUNDCARE LEAKING WOUND [id number] 09/15/2013 06:20:00 2012 11:10:00 DIS Inpatient YOLANDA CLEMONS MD [facility] SURGICAL CANCER [id number] 09/10/2013 07:47:00 2012 23:59:59 CLS Outpatient CATHI ORTA FACC, FRANK FACJanis CCDS [facility] RAD CAD,HTN,HLP SURGERY CLEARANCE [id number] 09/09/2013 09:30:00 2012 23:59:59 CLS Outpatient YOLANDA CLEMONS MD [facility] PREOP CANCER [id number] 09/06/2013 14:16:00 2012 23:59:59 CLS Outpatient YOLANDA CLEMONS MD [facility] RAD SIGMOID CARCINOMA [id number] 09/06/2013 07:27:00 2012 23:59:59 [facility] [id number] 09/02/2013 09:28:00 2012 23:59:59 CLS Outpatient YOLANDA CLEMONS MD [facility] PREOP ANEMIA/BLOOD IN STOOL [id number] 08/06/2013 07:40:00 2012 23:59:59 CLS Outpatient LINH PAT [facility] LAB HLP,HTN [id number] 04/12/2013 07:55:00 2012 23:59:59 CLS Outpatient LINH PAT [facility] CARD POSITIVE MURMUR [id number] 01/30/2017 10:11:00 ACT Outpatient SHANTEL LIZ MD [facility] ONC [id number] 10/08/2016 10:54:00 ACT Outpatient SHANTEL LIZ MD [facility] RAD PAIN AND SWELLING [id number] 07/22/2016 10:56:00 ACT Outpatient SHANTEL LIZ MD [facility] RAD COLON CA [id number] 06/05/2016 10:36:00 ACT Outpatient SHANTEL LIZ MD [facility] RAD 1-I71.4 [id number] 04/05/2016 12:56:00 ACT Outpatient CATHI ORTA FACC, ALI FACJanis CCDS [facility] CARD AAA,CAD,CAROTID ARTERIAL DISEASE,HTN,HLP [id number] 04/02/2016 10:56:00 ACT Outpatient SHANTEL LIZ MD [facility] RAD AAA [id number] 01/31/2016 10:24:00 [facility] [id number] 01/19/2016 13:28:00 ACT Outpatient SHAE VERDUGO [employer] [facility] ONC [id number] 01/12/2016 07:00:00 ACT Outpatient SHANTEL LIZ MD [facility] RAD ABNORMAL POSITRON EMISSION TOMOGRAPHY PET SCAN [id number] 01/09/2016 08:52:00 ACT Outpatient SHANTEL LIZ MD [facility] RAD PRIMARY MALIGNANT NEOPLASM OF SIGMOID COLON [id number] 12/20/2015 09:25:00 ACT Outpatient SHANTEL LIZ MD [facility] RAD PRIMARY MALIGNANT NEOPLASM OF SIGMOID COLON [id number] 10/14/2014 08:33:00 Document Registration [id number] 10/14/2014 08:33:00 Document Registration [id number] 09/21/2014 09:55:00 Document Registration [id number] 10/02/2012 09:30:00 Document Registration [id number] 09/04/2012 07:07:00 Document Registration [id number] 03/05/2012 06:48:00 Document Registration [id number] 03/05/2012 06:43:00 Document Registration [id number] 02/10/2012 08:38:00 Document Registration [id number] 12/16/2011 08:20:00 Document Registration [id number] 09/06/2011 07:29:00 Document Registration [id number] 06/03/2011 07:22:00 Document Registration [id number] 03/06/2011 07:30:00 Document Registration [id number] 02/06/2011 07:35:00 Document Registration [id number] 01/30/2011 12:40:00 Document Registration [id number] 01/07/2011 07:41:00 Document Registration [id number] 12/21/2010 08:53:00 Document Registration [id number] 12/10/2010 10:02:00 Document Registration [id number] 09/27/2010 10:52:00 Document Registration [id number] 09/04/2010 08:15:00 Document Registration [id number] 08/07/2010 05:54:00 Document Registration [id number] 08/01/2010 08:46:00 Document Registration [id number] 10/31/2009 12:09:00 Document Registration [id number] 08/16/2009 12:32:00 Document Registration [id number] 12/28/2008 07:17:00 Document Registration [id number] 08/12/2008 10:49:00 Document Registration [id number] 08/10/2007 13:28:00 Document Registration [id number] 06/09/2006 13:22:00 Document Registration
== END 2017-01-31 10:47 | disposition home health service (06) ==
LOC: ENPENDDIS → EDUNIT# 10:20 → ER 10:22 → UNDOADMOB 12:33 → ICU 12:33 → UNDODISOB 01-31 14:00
PROVIDERS: ADMIT Family Medicine; ATTEND Family Medicine
DX: R07.9 Chest pain, unspecified (principal); I48.0 Paroxysmal atrial fibrillation; C18.7 Malignant neoplasm of sigmoid colon; I25.10 Atherosclerotic heart disease of native coronary artery without angina pectoris; Z95.1 Presence of aortocoronary bypass graft; E03.9 Hypothyroidism, unspecified; I10 Essential (primary) hypertension; D63.8 Anemia in other chronic diseases classified elsewhere; D51.3 Other dietary vitamin B12 deficiency anemia
CPT/HCPCS: 36415; 71010; 80053; 80061; 81000; 83735; 83874; 84443; 84484; 85025; 85610; 85730; 87088; 93005; 93041; 94761; G0378

== ENCOUNTER → 2017-04-04 | Outpatient (CLI) | payer MEDICARE, OTHER ==
[~2017-04-04] MED LIST changes: +AMOX500C2 PO; +APIX2.5T PO; +CATHETER FLUSH 10 ML SYR IV PRN; +CYAN10006 PO; +IOHEXOL 350 MG/ML 100 ML (OMNIPAQUE 350) VIAL IV ONE; +NS 100 ML (IVPB) BAG IV ONE; +TRIF1TAB10 PO; +TRIF1TAB7 PO
--- NOTE | 2017-04-04 14:17 | Diagnostic Imaging Report ---
CT ANGIO ABDOMEN W TECHNIQUE: Postcontrast axial imaging of the abdomen was performed. Per the angiogram protocol, coronal MIP reformats were created and submitted for interpretation. INDICATION: Followup abdominal aortic aneurysm. COMPARISON: CT abdomen and pelvis of 10/08/2016. FINDINGS: No evidence of retroperitoneal hemorrhage. No aortic dissection. The fusiform infrarenal abdominal aortic aneurysm is unchanged with maximal diameter of 3.4 cm. The celiac, superior mesenteric, bilateral renal, and inferior mesenteric arteries all remain patent proximally. Unchanged mild ectasia of the left common iliac artery measuring up to 1.7 cm. Extensive atherosclerosis of the abdominal aorta is unchanged. Enlargement of right lower lobe pulmonary nodule now measuring 1.2 cm (previously 0.7 cm). No new pulmonary nodule or mass in the visible lung bases. Stable cardiomegaly without pericardial effusion. No pleural effusion. No free intraperitoneal air or fluid. The liver has no focal lesion. Status post cholecystectomy. Unchanged intrahepatic and extrahepatic biliary duct dilatation, which may be physiologic post cholecystectomy. The spleen is normal. No adrenal mass. 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 No dilation of the main pancreatic duct. Prominence of bilateral renal pelves and ureters has increased since prior examination. The entire ureters and urinary bladder are not imaged on CT of the abdomen. Left lower quadrant ostomy with parastomal hernia is incompletely imaged. No bowel obstruction. No abdominal lymphadenopathy. IMPRESSION: 1. Stable size of infrarenal abdominal aortic aneurysm with maximal diameter of 3.4 cm. 2. Increased size of right lower lobe pulmonary nodule is concerning for neoplastic process. 3. Increased dilation of the renal pelvis and proximal ureters. Distal ureters and urinary bladder are not imaged on CT of the abdomen. Consider CT abdomen and pelvis for more complete evaluation. Dictated by: Dictated on workstation # [id number]
== END ==
LOC: RAD 11:04
PROVIDERS: ATTEND Nurse Practitioner
DX: I71.4 Abdominal aortic aneurysm, without rupture (principal); R91.8 Other nonspecific abnormal finding of lung field; N28.9 Disorder of kidney and ureter, unspecified
CPT/HCPCS: 74175

== ENCOUNTER → 2017-05-14 | Outpatient (CLI) | payer MEDICARE ==
[~2017-05-14] MED LIST changes: +BARIUM SUSPENSION 2.1% (VANILLA SILQ) 450 ML PO ONE
--- NOTE | 2017-05-14 11:45 | Diagnostic Imaging Report ---
PROCEDURE: CT chest with contrast, CT abdomen and pelvis with and without contrast. TECHNIQUE: Pre and post intravenous contrast axial imaging of the abdomen and pelvis and post contrast axial imaging of the chest were performed. INDICATION: History of colon cancer. COMPARISON: 10/08/2016. FINDINGS: CT chest: There is a pulmonary nodule measuring 1.2 cm in the medial aspect of the right lower lobe compared to 7.0 mm measurement on 10/08/2016, exam. It measures similar to 04/04/2017. Tiny nonspecific nodule is again noted in the left lung base measuring 4 mm without change. There is no pericardial or pleural effusion. The thoracic aorta is normal caliber. Post CABG changes are seen. The heart size is normal. There is no mediastinal mass or significantly enlarged lymph node. No significant lymphadenopathy in the jj or axilla. The osseous structures demonstrate mild degenerative changes. CT abdomen and pelvis: The liver demonstrates biliary dilatation that is stable from prior exam probably related to cholecystectomy. The spleen, the pancreas, and the adrenal glands appear unremarkable. The kidneys demonstrate bilateral moderate hydronephrosis with dilatation of both ureters and thickening of the urinary bladder without stones identified. The urinary bladder has lobulated contour with wall thickening and enhancement. This could relate to cystitis. Neoplastic infiltration is a less likely possibility. Correlate clinically. The abdominal aorta is 3.4 cm in caliber. This is unchanged from the previous exam. There is a pelvic mass probably arising from the sacrum with sacral destruction measuring 8.7 x 6.4 x 8.6 cm significantly enlarged from the previous study where it measured about 4.0 x 3.7 x 5.6 cm. This mass extends into the gluteal and presacral regions and is associated with significant destruction of most of the lower sacrum and coccyx and portions of the upper sacrum as well. The tumor extends into the central canal, and the sacral foramina at all levels are involved except for the first left sacral foramen which is spared at this time. No other osseous metastasis is identified. Bilateral hernias are seen in the inguinal regions significantly larger on the left side and containing bowel loops. There is prominent dilatation of the sigmoid colon similar to prior exams, probably related to functional abnormality. No dilatation of the small bowel loops or proximal colon. IMPRESSION: CT chest: Interval enlargement of a 1.2-cm medial right lung base nodule compatible with metastasis. CT abdomen and pelvis: 1. 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 2. Moderate hydroureteronephrosis seen bilaterally with significant enhancement of the urothelium and thickening of the urinary bladder wall. This could be a functional obstruction with a component of mass effect from the urothelial thickening, due to inflammation or infection. No definite obstructive mass. No stones. 3. Stable infrarenal AAA measuring 3.4 cm. 4. Bilateral inguinal hernias much larger on the left side and likely functional dilatation of the sigmoid colon without significant change. The findings on this exam were discussed with Dr. Calzada at time of dictation. Dictated by: Dictated on workstation # [id number]
== END ==
LOC: RAD 09:43
PROVIDERS: ATTEND Internal Medicine Hematology & Oncology
DX: M53.3 Sacrococcygeal disorders, not elsewhere classified (principal); R91.1 Solitary pulmonary nodule; N13.30 Unspecified hydronephrosis; N32.9 Bladder disorder, unspecified; I71.4 Abdominal aortic aneurysm, without rupture; K40.20 Bilateral inguinal hernia, without obstruction or gangrene, not specified as recurrent; C18.9 Malignant neoplasm of colon, unspecified
CPT/HCPCS: 71260; 74178

== ENCOUNTER 2017-05-22 11:00 | Outpatient (RCR) | payer MEDICARE, OTHER ==
[2017-02-24 13:05] LABS: BASOPHILS % (AUTO) 0 % (0-10); EOSINOPHILS % (AUTO) 0 % (0-10); LYMPHOCYTES # (AUTO) 1.2 X 10^3 (1.0-4.0); LYMPHOCYTES % (AUTO) 32 % (12-44); MEAN CORPUSCULAR HEMOGLOBIN 29 PG (25-34); MEAN CORPUSCULAR HGB CONC 30 G/DL (32-36); MEAN CORPUSCULAR VOLUME 97 FL (80-99); MEAN PLATELET VOLUME 8.9 FL (7.4-10.4); MONOCYTES # (AUTO) 0.7 X 10^3 (0.0-1.0); MONOCYTES % (AUTO) 19 % (0-12); NEUTROPHILS # (AUTO) 1.7 X 10^3 (1.8-7.8); NEUTROPHILS % (AUTO) 48 % (42-75); PLATELET COUNT 166 10^3/uL (130-400); RED BLOOD COUNT 2.83 10^6/uL (4.35-5.85); RED CELL DISTRIBUTION WIDTH 20.2 % (10.0-14.5); WHITE BLOOD COUNT 3.6 10^3/uL (4.3-11.0)
[2017-02-24 14:08] LABS: ALANINE AMINOTRANSFERASE 13 U/L (0-55); ALBUMIN 3.3 G/DL (3.2-4.5); ANION GAP 7 MMOL/L (5-14); ASPARTATE AMINO TRANSFERASE 23 U/L (5-34); BILIRUBIN,TOTAL 0.5 MG/DL (0.1-1.0); BLOOD UREA NITROGEN 19 MG/DL (7-18); BUN/CREATININE RATIO 25; CALCIUM 8.6 MG/DL (8.5-10.1); CARBON DIOXIDE 31 MMOL/L (21-32); CHLORIDE 105 MMOL/L (98-107); CREATININE SERUM 0.77 MG/DL (0.60-1.30); GFR ESTIMATED > 60; GLUCOSE 100 MG/DL (70-105); MAGNESIUM 1.4 MG/DL (1.8-2.4); POTASSIUM 3.8 MMOL/L (3.6-5.0); SODIUM 143 MMOL/L (135-145); TOTAL PROTEIN 6.3 G/DL (6.4-8.2)
[2017-03-03 09:12] LABS: BASOPHILS % (AUTO) 0 % (0-10); EOSINOPHILS % (AUTO) 0 % (0-10); LYMPHOCYTES # (AUTO) 1.4 X 10^3 (1.0-4.0); LYMPHOCYTES % (AUTO) 32 % (12-44); MEAN CORPUSCULAR HEMOGLOBIN 29 PG (25-34); MEAN CORPUSCULAR HGB CONC 30 G/DL (32-36); MEAN CORPUSCULAR VOLUME 98 FL (80-99); MEAN PLATELET VOLUME 8.9 FL (7.4-10.4); MONOCYTES # (AUTO) 0.1 X 10^3 (0.0-1.0); MONOCYTES % (AUTO) 2 % (0-12); NEUTROPHILS % (AUTO) 66 % (42-75); PLATELET COUNT 154 10^3/uL (130-400); RED BLOOD COUNT 2.91 10^6/uL (4.35-5.85); RED CELL DISTRIBUTION WIDTH 19.9 % (10.0-14.5); WHITE BLOOD COUNT 4.5 10^3/uL (4.3-11.0)
[2017-03-03 09:32] LABS: ANION GAP 10 MMOL/L (5-14); BLOOD UREA NITROGEN 30 MG/DL (7-18); BUN/CREATININE RATIO 34; CARBON DIOXIDE 30 MMOL/L (21-32); CHLORIDE 104 MMOL/L (98-107); CREATININE SERUM 0.87 MG/DL (0.60-1.30); GFR ESTIMATED > 60; GLUCOSE 95 MG/DL (70-105); MAGNESIUM 1.9 MG/DL (1.8-2.4); POTASSIUM 4.3 MMOL/L (3.6-5.0); SODIUM 144 MMOL/L (135-145)
[2017-03-10 10:50] LABS: BASOPHILS % (AUTO) 1 % (0-10); EOSINOPHILS % (AUTO) 0 % (0-10); LYMPHOCYTES # (AUTO) 1.1 X 10^3 (1.0-4.0); LYMPHOCYTES % (AUTO) 59 % (12-44); MEAN CORPUSCULAR HEMOGLOBIN 29 PG (25-34); MEAN CORPUSCULAR HGB CONC 30 G/DL (32-36); MEAN CORPUSCULAR VOLUME 98 FL (80-99); MONOCYTES % (AUTO) 2 % (0-12); NEUTROPHILS # (AUTO) 0.7 X 10^3 (1.8-7.8); NEUTROPHILS % (AUTO) 39 % (42-75); PLATELET COUNT 55 10^3/uL (130-400); RED BLOOD COUNT 2.25 10^6/uL (4.35-5.85); RED CELL DISTRIBUTION WIDTH 18.9 % (10.0-14.5); WHITE BLOOD COUNT 1.8 10^3/uL (4.3-11.0)
[2017-03-10 11:00] LABS: ANION GAP 6 MMOL/L (5-14); BLOOD UREA NITROGEN 27 MG/DL (7-18); BUN/CREATININE RATIO 33; CALCIUM 8.5 MG/DL (8.5-10.1); CARBON DIOXIDE 29 MMOL/L (21-32); CHLORIDE 106 MMOL/L (98-107); CREATININE SERUM 0.83 MG/DL (0.60-1.30); GFR ESTIMATED > 60; GLUCOSE 96 MG/DL (70-105); MAGNESIUM 1.9 MG/DL (1.8-2.4); SODIUM 141 MMOL/L (135-145)
[2017-03-17 09:03] LABS: BASOPHILS % (AUTO) 0 % (0-10); EOSINOPHILS % (AUTO) 1 % (0-10); LYMPHOCYTES # (AUTO) 1.4 X 10^3 (1.0-4.0); LYMPHOCYTES % (AUTO) 64 % (12-44); MEAN CORPUSCULAR HEMOGLOBIN 31 PG (25-34); MEAN CORPUSCULAR HGB CONC 32 G/DL (32-36); MEAN CORPUSCULAR VOLUME 97 FL (80-99); MEAN PLATELET VOLUME 10.6 FL (7.4-10.4); MONOCYTES # (AUTO) 0.4 X 10^3 (0.0-1.0); MONOCYTES % (AUTO) 19 % (0-12); NEUTROPHILS # (AUTO) 0.4 X 10^3 (1.8-7.8); NEUTROPHILS % (AUTO) 16 % (42-75); PLATELET COUNT 83 10^3/uL (130-400); RED BLOOD COUNT 2.62 10^6/uL (4.35-5.85); RED CELL DISTRIBUTION WIDTH 17.9 % (10.0-14.5); WHITE BLOOD COUNT 2.2 10^3/uL (4.3-11.0)
[2017-03-17 09:46] LABS: ANION GAP 7 MMOL/L (5-14); BLOOD UREA NITROGEN 18 MG/DL (7-18); BUN/CREATININE RATIO 23; CALCIUM 8.7 MG/DL (8.5-10.1); CARBON DIOXIDE 26 MMOL/L (21-32); CHLORIDE 110 MMOL/L (98-107); GFR ESTIMATED > 60; GLUCOSE 86 MG/DL (70-105); MAGNESIUM 1.5 MG/DL (1.8-2.4); POTASSIUM 3.3 MMOL/L (3.6-5.0); SODIUM 143 MMOL/L (135-145)
[2017-03-27 12:51] LABS: BASOPHILS % (AUTO) 0 % (0-10); EOSINOPHILS % (AUTO) 0 % (0-10); LYMPHOCYTES # (AUTO) 1.8 X 10^3 (1.0-4.0); LYMPHOCYTES % (AUTO) 32 % (12-44); MEAN CORPUSCULAR HEMOGLOBIN 31 PG (25-34); MEAN CORPUSCULAR HGB CONC 30 G/DL (32-36); MEAN CORPUSCULAR VOLUME 103 FL (80-99); MEAN PLATELET VOLUME 9.4 FL (7.4-10.4); MONOCYTES # (AUTO) 0.6 X 10^3 (0.0-1.0); MONOCYTES % (AUTO) 11 % (0-12); NEUTROPHILS # (AUTO) 3.1 X 10^3 (1.8-7.8); NEUTROPHILS % (AUTO) 56 % (42-75); PLATELET COUNT 195 10^3/uL (130-400); RED BLOOD COUNT 2.69 10^6/uL (4.35-5.85); RED CELL DISTRIBUTION WIDTH 21.5 % (10.0-14.5); WHITE BLOOD COUNT 5.6 10^3/uL (4.3-11.0)
[2017-03-27 13:16] LABS: ALANINE AMINOTRANSFERASE 20 U/L (0-55); ALBUMIN 3.5 G/DL (3.2-4.5); ANION GAP 8 MMOL/L (5-14); ASPARTATE AMINO TRANSFERASE 29 U/L (5-34); BILIRUBIN,TOTAL 0.4 MG/DL (0.1-1.0); BLOOD UREA NITROGEN 18 MG/DL (7-18); BUN/CREATININE RATIO 23; CALCIUM 9.1 MG/DL (8.5-10.1); CARBON DIOXIDE 32 MMOL/L (21-32); CHLORIDE 107 MMOL/L (98-107); CREATININE SERUM 0.78 MG/DL (0.60-1.30); GFR ESTIMATED > 60; GLUCOSE 87 MG/DL (70-105); MAGNESIUM 1.7 MG/DL (1.8-2.4); POTASSIUM 3.6 MMOL/L (3.6-5.0); SODIUM 147 MMOL/L (135-145); TOTAL PROTEIN 6.6 G/DL (6.4-8.2)
[2017-04-09 09:22] LABS: BASOPHILS % (AUTO) 0 % (0-10); EOSINOPHILS % (AUTO) 0 % (0-10); LYMPHOCYTES # (AUTO) 1.1 X 10^3 (1.0-4.0); LYMPHOCYTES % (AUTO) 26 % (12-44); MEAN CORPUSCULAR HEMOGLOBIN 32 PG (25-34); MEAN CORPUSCULAR HGB CONC 30 G/DL (32-36); MEAN CORPUSCULAR VOLUME 105 FL (80-99); MEAN PLATELET VOLUME 9.1 FL (7.4-10.4); MONOCYTES # (AUTO) 0.2 X 10^3 (0.0-1.0); MONOCYTES % (AUTO) 4 % (0-12); NEUTROPHILS # (AUTO) 3.1 X 10^3 (1.8-7.8); NEUTROPHILS % (AUTO) 70 % (42-75); PLATELET COUNT 142 10^3/uL (130-400); RED CELL DISTRIBUTION WIDTH 20.4 % (10.0-14.5); WHITE BLOOD COUNT 4.4 10^3/uL (4.3-11.0)
[2017-04-16 09:59] LABS: BASOPHILS % (AUTO) 0 % (0-10); EOSINOPHILS % (AUTO) 0 % (0-10); LYMPHOCYTES # (AUTO) 0.8 X 10^3 (1.0-4.0); LYMPHOCYTES % (AUTO) 31 % (12-44); MEAN CORPUSCULAR HEMOGLOBIN 32 PG (25-34); MEAN CORPUSCULAR HGB CONC 31 G/DL (32-36); MEAN CORPUSCULAR VOLUME 104 FL (80-99); MEAN PLATELET VOLUME 9.9 FL (7.4-10.4); MONOCYTES # (AUTO) 0.1 X 10^3 (0.0-1.0); MONOCYTES % (AUTO) 3 % (0-12); NEUTROPHILS # (AUTO) 1.7 X 10^3 (1.8-7.8); NEUTROPHILS % (AUTO) 66 % (42-75); PLATELET COUNT 75 10^3/uL (130-400); RED BLOOD COUNT 2.04 10^6/uL (4.35-5.85); RED CELL DISTRIBUTION WIDTH 19.3 % (10.0-14.5); WHITE BLOOD COUNT 2.6 10^3/uL (4.3-11.0)
[2017-04-16 10:28] LABS: ANION GAP 10 MMOL/L (5-14); BLOOD UREA NITROGEN 21 MG/DL (7-18); BUN/CREATININE RATIO 24 (0-20); CALCIUM 8.8 MG/DL (8.5-10.1); CARBON DIOXIDE 25 MMOL/L (21-32); CHLORIDE 109 MMOL/L (98-107); CREATININE SERUM 0.86 MG/DL (0.60-1.30); GFR ESTIMATED > 60; GLUCOSE 102 MG/DL (70-105); MAGNESIUM 1.3 MG/DL (1.8-2.4); POTASSIUM 3.3 MMOL/L (3.6-5.0); SODIUM 144 MMOL/L (135-145)
[2017-04-23 13:57] LABS: BASOPHILS % (AUTO) 0 % (0-10); EOSINOPHILS % (AUTO) 1 % (0-10); LYMPHOCYTES # (AUTO) 1.1 X 10^3 (1.0-4.0); LYMPHOCYTES % (AUTO) 46 % (12-44); MEAN CORPUSCULAR HEMOGLOBIN 32 PG (25-34); MEAN CORPUSCULAR HGB CONC 31 G/DL (32-36); MEAN CORPUSCULAR VOLUME 104 FL (80-99); MEAN PLATELET VOLUME 10.4 FL (7.4-10.4); MONOCYTES # (AUTO) 0.5 X 10^3 (0.0-1.0); MONOCYTES % (AUTO) 19 % (0-12); NEUTROPHILS # (AUTO) 0.8 X 10^3 (1.8-7.8); NEUTROPHILS % (AUTO) 34 % (42-75); PLATELET COUNT 95 10^3/uL (130-400); RED BLOOD COUNT 2.66 10^6/uL (4.35-5.85); RED CELL DISTRIBUTION WIDTH 20.7 % (10.0-14.5); WHITE BLOOD COUNT 2.4 10^3/uL (4.3-11.0)
[2017-04-23 14:17] LABS: ALANINE AMINOTRANSFERASE 15 U/L (0-55); ALBUMIN 3.3 GM/DL (3.2-4.5); ANION GAP 9 MMOL/L (5-14); ASPARTATE AMINO TRANSFERASE 22 U/L (5-34); BILIRUBIN,TOTAL 0.6 MG/DL (0.1-1.0); BLOOD UREA NITROGEN 19 MG/DL (7-18); BUN/CREATININE RATIO 25 (0-20); CALCIUM 8.7 MG/DL (8.5-10.1); CARBON DIOXIDE 27 MMOL/L (21-32); CHLORIDE 107 MMOL/L (98-107); CREATININE SERUM 0.77 MG/DL (0.60-1.30); GFR ESTIMATED > 60; GLUCOSE 86 MG/DL (70-105); HEMOLYSIS 5 (-100-29); ICTERUS 0.4 (-100-1.9); LIPEMIA -4 (-100-49); MAGNESIUM 1.3 MG/DL (1.8-2.4); POTASSIUM 3.3 MMOL/L (3.6-5.0); SODIUM 143 MMOL/L (135-145); TOTAL PROTEIN 6.4 GM/DL (6.4-8.2)
[2017-04-30 10:29] LABS: BASOPHILS % (AUTO) 0 % (0-10); EOSINOPHILS % (AUTO) 0 % (0-10); LYMPHOCYTES # (AUTO) 1.1 X 10^3 (1.0-4.0); LYMPHOCYTES % (AUTO) 18 % (12-44); MEAN CORPUSCULAR HEMOGLOBIN 33 PG (25-34); MEAN CORPUSCULAR HGB CONC 31 G/DL (32-36); MEAN CORPUSCULAR VOLUME 107 FL (80-99); MEAN PLATELET VOLUME 8.6 FL (7.4-10.4); MONOCYTES # (AUTO) 0.4 X 10^3 (0.0-1.0); MONOCYTES % (AUTO) 7 % (0-12); NEUTROPHILS # (AUTO) 4.8 X 10^3 (1.8-7.8); NEUTROPHILS % (AUTO) 75 % (42-75); PLATELET COUNT 161 10^3/uL (130-400); RED BLOOD COUNT 2.61 10^6/uL (4.35-5.85); RED CELL DISTRIBUTION WIDTH 21.2 % (10.0-14.5); WHITE BLOOD COUNT 6.3 10^3/uL (4.3-11.0)
[2017-04-30 11:09] LABS: ANION GAP 7 MMOL/L (5-14); BLOOD UREA NITROGEN 17 MG/DL (7-18); BUN/CREATININE RATIO 20; CALCIUM 8.5 MG/DL (8.5-10.1); CARBON DIOXIDE 30 MMOL/L (21-32); CHLORIDE 108 MMOL/L (98-107); CREATININE SERUM 0.86 MG/DL (0.60-1.30); GFR ESTIMATED > 60; GLUCOSE 110 MG/DL (70-105); MAGNESIUM 1.6 MG/DL (1.8-2.4); POTASSIUM 3.6 MMOL/L (3.6-5.0); SODIUM 145 MMOL/L (135-145)
[2017-05-07 10:00] LABS: BASOPHILS % (AUTO) 0 % (0-10); EOSINOPHILS % (AUTO) 0 % (0-10); LYMPHOCYTES % (AUTO) 28 % (12-44); MEAN CORPUSCULAR HEMOGLOBIN 33 PG (25-34); MEAN CORPUSCULAR HGB CONC 30 G/DL (32-36); MEAN CORPUSCULAR VOLUME 109 FL (80-99); MEAN PLATELET VOLUME 8.4 FL (7.4-10.4); MONOCYTES # (AUTO) 0.1 X 10^3 (0.0-1.0); MONOCYTES % (AUTO) 4 % (0-12); NEUTROPHILS # (AUTO) 2.4 X 10^3 (1.8-7.8); NEUTROPHILS % (AUTO) 68 % (42-75); PLATELET COUNT 99 10^3/uL (130-400); RED BLOOD COUNT 2.33 10^6/uL (4.35-5.85); RED CELL DISTRIBUTION WIDTH 20.2 % (10.0-14.5); WHITE BLOOD COUNT 3.6 10^3/uL (4.3-11.0)
[2017-05-07 10:45] LABS: ANION GAP 7 MMOL/L (5-14); BLOOD UREA NITROGEN 18 MG/DL (7-18); BUN/CREATININE RATIO 21; CALCIUM 8.6 MG/DL (8.5-10.1); CARBON DIOXIDE 33 MMOL/L (21-32); CHLORIDE 106 MMOL/L (98-107); CREATININE SERUM 0.86 MG/DL (0.60-1.30); GFR ESTIMATED > 60; GLUCOSE 99 MG/DL (70-105); MAGNESIUM 1.5 MG/DL (1.8-2.4); POTASSIUM 3.3 MMOL/L (3.6-5.0); SODIUM 146 MMOL/L (135-145)
[2017-05-14 11:31] LABS: BASOPHILS % (AUTO) 1 % (0-10); EOSINOPHILS % (AUTO) 0 % (0-10); LYMPHOCYTES # (AUTO) 0.8 X 10^3 (1.0-4.0); LYMPHOCYTES % (AUTO) 70 % (12-44); MEAN CORPUSCULAR HEMOGLOBIN 33 PG (25-34); MEAN CORPUSCULAR HGB CONC 31 G/DL (32-36); MEAN CORPUSCULAR VOLUME 105 FL (80-99); MEAN PLATELET VOLUME 10.8 FL (7.4-10.4); MONOCYTES # (AUTO) 0.1 X 10^3 (0.0-1.0); MONOCYTES % (AUTO) 5 % (0-12); NEUTROPHILS # (AUTO) 0.3 X 10^3 (1.8-7.8); NEUTROPHILS % (AUTO) 24 % (42-75); RED BLOOD COUNT 2.58 10^6/uL (4.35-5.85); RED CELL DISTRIBUTION WIDTH 18.4 % (10.0-14.5)
[2017-05-14 11:33] LABS: WHITE BLOOD COUNT 1.1 10^3/uL (4.3-11.0)
[2017-05-14 11:36] LABS: PLATELET COUNT 28 10^3/uL (130-400)
[2017-05-14 12:34] LABS: ANION GAP 11 MMOL/L (5-14); BLOOD UREA NITROGEN 16 MG/DL (7-18); BUN/CREATININE RATIO 20; CARBON DIOXIDE 30 MMOL/L (21-32); CHLORIDE 103 MMOL/L (98-107); CREATININE SERUM 0.81 MG/DL (0.60-1.30); GFR ESTIMATED > 60; GLUCOSE 95 MG/DL (70-105); SODIUM 144 MMOL/L (135-145)
[2017-05-14 12:35] LABS: CALCIUM 8.9 MG/DL (8.5-10.1); MAGNESIUM 1.5 MG/DL (1.8-2.4)
[2017-05-21 15:28] LABS: BASOPHILS % (AUTO) 0 % (0-10); EOSINOPHILS % (AUTO) 0 % (0-10); LYMPHOCYTES # (AUTO) 1.2 X 10^3 (1.0-4.0); LYMPHOCYTES % (AUTO) 46 % (12-44); MEAN CORPUSCULAR HEMOGLOBIN 34 PG (25-34); MEAN CORPUSCULAR HGB CONC 31 G/DL (32-36); MEAN CORPUSCULAR VOLUME 109 FL (80-99); MEAN PLATELET VOLUME 9.7 FL (7.4-10.4); MONOCYTES # (AUTO) 0.6 X 10^3 (0.0-1.0); MONOCYTES % (AUTO) 22 % (0-12); NEUTROPHILS # (AUTO) 0.8 X 10^3 (1.8-7.8); NEUTROPHILS % (AUTO) 32 % (42-75); PLATELET COUNT 98 10^3/uL (130-400); RED BLOOD COUNT 1.93 10^6/uL (4.35-5.85); RED CELL DISTRIBUTION WIDTH 20.7 % (10.0-14.5); WHITE BLOOD COUNT 2.6 10^3/uL (4.3-11.0)
[2017-05-21 15:53] LABS: ALANINE AMINOTRANSFERASE 19 U/L (0-55); ALBUMIN 3.1 GM/DL (3.2-4.5); ANION GAP 8 MMOL/L (5-14); ASPARTATE AMINO TRANSFERASE 18 U/L (5-34); BILIRUBIN,TOTAL 0.4 MG/DL (0.1-1.0); BLOOD UREA NITROGEN 15 MG/DL (7-18); BUN/CREATININE RATIO 17; CALCIUM 8.5 MG/DL (8.5-10.1); CARBON DIOXIDE 27 MMOL/L (21-32); CHLORIDE 108 MMOL/L (98-107); CREATININE SERUM 0.86 MG/DL (0.60-1.30); GFR ESTIMATED > 60; GLUCOSE 84 MG/DL (70-105); MAGNESIUM 1.3 MG/DL (1.8-2.4); POTASSIUM 4.3 MMOL/L (3.6-5.0); SODIUM 143 MMOL/L (135-145); TOTAL PROTEIN 6.3 GM/DL (6.4-8.2)
[~2017-05-22 11:00] MED LIST changes: +ACETAMINOPHEN 500 MG TAB (TYLENOL) CANCER CTR ONE; +ATROPINE INJ 0.4 MG/ML SDV (CANCER CENTER) INJ SCH; -BARIUM SUSPENSION 2.1% (VANILLA SILQ) 450 ML PO ONE; -CATHETER FLUSH 10 ML SYR IV PRN; +D5W IV SCH; +DARBEPOETIN 100 MCG/ML (ARANESP) 1 ML VIAL SC SCH; +DARBEPOETIN 60 MCG/ML ARANESP (CANCER CTR) INJ SCH; +DEXAMETHASONE IV SCH; +FAMOTIDINE 20MG/2ML IV (CANCER CTR) IV SCH; +FLUOROURACIL IV SCH; -IOHEXOL 350 MG/ML 100 ML (OMNIPAQUE 350) VIAL IV ONE; +IRINOTECAN HCL IV SCH; +LEUCOVORIN CALCIUM IV SCH; +MAGNESIUM SULFATE IV SCH; +NS (IVPB) CANCER CENTER 250 ML ONE; -NS 100 ML (IVPB) BAG IV ONE; +NS IV 500 ML (CANCER CENTER) IV SCH; +ONDANSETRON IV SCH; +POTASSIUM CHL IV SCH; +[UNRECOGNIZED DRUG - OTHER] IV SCH; +[UNRECOGNIZED DRUG - OTHER] IV SCH; +diphenhydrAMINE 25 MG TAB (BENADRYL) CANCER CENTER PO SCH
[2017-05-22] MEDS ORDERED: ACETAMINOPHEN 500 MG TAB (TYLENOL) CANCER CTR ONE (13:04)
[2017-05-25] MEDS ORDERED: FURO-125 PO (20:41)
[2017-05-25] MEDS ORDERED: HYDR-3812 PO (20:41)
[2017-05-25] MEDS ORDERED: ONDA8TAB13 PO (20:41)
[2017-05-25] MEDS ORDERED: PRD20T PO (20:41)
== END 2017-05-25 | disposition home or self-care (01) ==
LOC: ONC 11:00
PROVIDERS: ATTEND Internal Medicine Hematology & Oncology
DX: C18.7 Malignant neoplasm of sigmoid colon (principal); D63.1 Anemia in chronic kidney disease; N18.9 Chronic kidney disease, unspecified; I12.9 Hypertensive chronic kidney disease with stage 1 through stage 4 chronic kidney disease, or unspecified chronic kidney disease; M79.662 Pain in left lower leg; D51.3 Other dietary vitamin B12 deficiency anemia; I25.10 Atherosclerotic heart disease of native coronary artery without angina pectoris; E03.9 Hypothyroidism, unspecified; E78.5 Hyperlipidemia, unspecified; R60.9 Edema, unspecified; R82.99 Other abnormal findings in urine; Z95.1 Presence of aortocoronary bypass graft; Z79.899 Other long term (current) drug therapy
CPT/HCPCS: 36415; 36430; 80048; 80053; 82378; 83735; 85025; 86850; 86900; 86901; 86920; 96365; 96366; 96372; 99213

== ENCOUNTER 2017-05-25 14:47 | Emergency (ER) | payer MEDICARE ==
[~2017-05-25] VITALS: Ht 157.5 cm; Wt 64.0 kg
[~2017-05-25 14:47] MED LIST changes: -ACETAMINOPHEN 500 MG TAB (TYLENOL) CANCER CTR ONE; -ATROPINE INJ 0.4 MG/ML SDV (CANCER CENTER) INJ SCH; -D5W IV SCH; -DARBEPOETIN 100 MCG/ML (ARANESP) 1 ML VIAL SC SCH; -DARBEPOETIN 60 MCG/ML ARANESP (CANCER CTR) INJ SCH; -DEXAMETHASONE IV SCH; -FAMOTIDINE 20MG/2ML IV (CANCER CTR) IV SCH; -FLUOROURACIL IV SCH; -IRINOTECAN HCL IV SCH; -LEUCOVORIN CALCIUM IV SCH; -MAGNESIUM SULFATE IV SCH; -NS (IVPB) CANCER CENTER 250 ML ONE; -NS IV 500 ML (CANCER CENTER) IV SCH; -ONDANSETRON IV SCH; -POTASSIUM CHL IV SCH; -[UNRECOGNIZED DRUG - OTHER] IV SCH; -[UNRECOGNIZED DRUG - OTHER] IV SCH; -diphenhydrAMINE 25 MG TAB (BENADRYL) CANCER CENTER PO SCH
--- NOTE | 2017-05-25 17:29 | ED General ---
General Chief Complaint: Lower Extremity Stated Complaint: FEET SWELLING Nursing Triage Note: Pt reports swelling in bilat ankles for several days. Pt now reports swelling continues to get worse and pain has increased. Nursing Sepsis Screen: No Definite Risk Source of Information: Patient Exam Limitations: No Limitations History of Present Illness Time Seen by Provider: 17:29 Initial Comments 76-year-old female patient presents to the emergency department with complaints of right buttock pain and swelling of the bilateral ankles for several days. Patient states swelling has gotten worse over the last 2-3 days. Did receive a blood transfusion on 05/21. Patient has a history of colon cancer with anemia. Patient previously was on Lasix, but taken off 2 months ago. Patient is scheduled to take another round of chemotherapy in one week. States right buttock pain has occurred off and on for the last year since the bone marrow biopsy was done. Worse with sitting and standing. States she does have pain pills at home, but does not like to take these. Took 1 dose of pain medicine yesterday. Does have a history of CHF. Denies fevers, chills, shortness of air , chest pain. Timing/Duration: 2-3 Days, Getting Worse Modifying Factors: improves with Other (slightly improved with elevating the LE 's.) Allergies and Home Medications Allergies Coded Allergies: No Known Drug Allergies (Verified , 01/30/16) Home Medications Amlodipine Besylate 10 Mg Tablet, 10 MG PO DAILY, (Reported) Amoxicillin 500 Mg Capsule, 500 MG PO TID for 7 Days, #21 Prescribed by: JIMMY JIMÉNEZ on 01/31/17 1047 Apixaban 2.5 Mg Tablet, 2.5 MG PO BID, #60 Ref 5 Prescribed by: LINH PAT on 01/31/17 0832 Aspirin 81 Mg Tabec, 81 MG PO DAILY, (Reported) Cyanocobalamin (Vitamin B-12) 1,000 Mcg Tablet, 1,000 MCG PO DAILY, (Reported) Gabapentin 300 Mg Capsule, 600 MG PO HS, (Reported) TAKES 2 (300 MG) CAPSULES Gabapentin 300 Mg Capsule, 300 MG PO DAILY@1100, (Reported) Magnesium Oxide 400 Mg Tablet, 400 MG PO DAILY, (Reported) Quinapril Hcl 40 Mg Tablet, 40 MG PO DAILY, (Reported) Simvastatin 10 Mg Tablet, 10 MG PO HS, (Reported) Tramadol HCl 50 Mg Tablet, 50 MG PO Q12H PRN for PAIN, (Reported) Trifluridine/Tipiracil HCl 1 Each Tablet, 40 MG PO UD, (Reported) TAKES 2 (20 MG) TABLETS ALONG WITH 1 (15 MG) TABLET FOR A TOTAL DOSE OF 55MG / TAKES ON DAYS 1-5 & 8-12 EVERY 28 DAYS Trifluridine/Tipiracil HCl 1 Each Tablet, 15 MG PO, (Reported) TAKES 1 (15 MG) TABLET ALONG WITH 2 (20 MG) TABLETS FOR A TOTAL DOSE OF 55MG / TAKES ON DAYS 1-5 & 8-12 EVERY 28 DAYS Constitutional: No chills, No diaphoresis, No dizziness, No fever, No malaise EENTM: no symptoms reported Respiratory: No cough, No orthopnea, No short of breath Cardiovascular: No chest pain, No palpitations, No syncope Gastrointestinal: abdominal pain (chronic generalized abdominal pain), No constipation, No diarrhea, No hematemesis, melena (chronic melena. Has been seen Dr. 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) All Other Systems Reviewed Negative Unless Noted: Yes (Negative excepted noted.) Past Lhlgbfk-Qkfwcr-Ttgltt Hx Patient Social History Alcohol Use: Denies Use Recreational Drug Use: No Smoking Status: Former Smoker Former Smoker/When Quit: Oct 24, 1974 2nd Hand Smoke Exposure: No Recent Foreign Travel: No Contact w/Someone Who Travel: No Recent Infectious Disease Expo: No Recent Hopitalizations: No Immunizations Up To Date Tetanus Booster (TDap): More than 5yrs Date of Pneumonia Vaccine: Oct 15, 2012 Date of Influenza Vaccine: Aug 13, 2016 Seasonal Allergies Seasonal Allergies: No Surgeries HX Surgeries: Yes (COLON CA, ABDOMINAL HERNIA X 3, LASIK, PORT R CHEST) Surgeries: Abdominal, Appendectomy, Bowel Surgery, Cardiac, CABG, Eye Surgery, Gallbladder Respiratory Hx Respiratory Disorders: No Cardiovascular Hx Cardiac Disorders: Yes (LEGS SWELL, DOUBLE BYPASS) Cardiac Disorders: Aneurysm, Chronic Edema/Swelling, Coronary Artery Disease, Heart Attack, High Cholesterol, Hypertension Neurological Hx Neurological Disorders: No Reproductive System Hx Reproductive Disorders: No Sexually Transmitted Disease: No HIV/AIDS: No Female Reproductive Disorders: Denies Genitourinary Hx Genitourinary Disorders: No Gastrointestinal Hx Gastrointestinal Disorders: Yes (COLOSTOMY / COLON CANCER) Gastrointestinal Disorders: Abdominal Hernia (Peristomal hernia. GI Bleed) Musculoskeletal Hx Musculoskeletal Disorders: Yes Musculoskeletal Disorders: Arthritis Endocrine Hx Endocrine Disorders: Yes Endocrine Disorders: Hypothyroidsim HEENT HX ENT Disorders: Yes (GLASSES, CATARACTS OU, DENTURES, LASIK SURGERY) HEENT Disorders: Cataract Loss of Vision: Denies Hearing Impairment: Denies Cancer Hx Cancer: Yes (RECURRENT COLON CA DX 2013-S/P SURGERY-COLOSTOMY,NOW ON CHEMO) Cancer: Skin, Colon Psychosocial Hx Psychiatric Problems: No Integumentary HX Skin/Integumentary Disorder: No Blood Transfusions Hx Blood Disorders: No (BRUISING) Adverse Reaction to a Blood Tr: No Reviewed Nursing Assessment Reviewed/Agree w Nursing PMH: Yes Family Medical History Significant Family History: No Pertinent Family Hx Family Medial History: Cancer 03 FATHER (UNSURE OF TYPE) 09 SISTER (UTERUS) Family history: Hypertension 03 MOTHER 09 SISTER History of - respiratory disease 09 SISTER Myocardial infarction 09 BROTHER No Family History of: Abdominal aortic aneurysm Bhaskar's disease Alcoholism Aphasia Physical Exam Vital Signs Vital Sign - Last 12Hours 05/25/17 15:02 Temp 99.6 Pulse 76 Resp 18 B/P (MAP) 123/58 Pulse Ox 96 O2 Delivery Room Air Capillary Refill : Less Than 3 Seconds General Appearance: No Apparent Distress, WD/WN HEENT: PERRL/EOMI, Pharynx Normal Neck: Normal Inspection, Supple Respiratory: Lungs Clear, Normal Breath Sounds, No Respiratory Distress Cardiovascular: Regular Rate, Rhythm, No Murmur, Normal Peripheral Pulses Gastrointestinal: Normal Bowel Sounds, Soft, No Distended, Hernia (peristomal hernia noted in the LLQ without obstruction. brown stool noted in the ostomy bag.), Tenderness (generalized abdominal tenderness without guarding or rebound. ) Back: Normal Inspection, No Vertebral Tenderness Extremity: Normal Capillary Refill, Other (rt buttock tenderness w/o swelling or evidence of trauma. 2+ pedal edema bilaterally to the level of the tibial tuberosity.) Neurologic/Psychiatric: Alert, Oriented x3, Normal Mood/Affect Skin: Warm/Dry, Pallor Progress/Results/Core Measures Results/Orders Lab Results Laboratory Tests Test 05/25/17 18:00 05/25/17 20:02 Range/Units White Blood Count 4.9 4.3-11.0 10^3/uL Red Blood Count 1.99 L 4.35-5.85 10^6/uL Hemoglobin 6.6 *L 11.5-16.0 G/DL Hematocrit 21 L 35-52 % Mean Corpuscular Volume 106 H 80-99 FL Mean Corpuscular Hemoglobin 33 25-34 PG Mean Corpuscular Hemoglobin Concent 31 L 32-36 G/DL Red Cell Distribution Width 21.6 H 10.0-14.5 % Platelet Count 152 130-400 10^3/uL Mean Platelet Volume 10.1 7.4-10.4 FL Neutrophils (%) (Auto) 62 42-75 % Lymphocytes (%) (Auto) 22 12-44 % Monocytes (%) (Auto) 15 H 0-12 % Eosinophils (%) (Auto) 0 0-10 % Basophils (%) (Auto) 0 0-10 % Neutrophils # (Auto) 3.1 1.8-7.8 X 10^3 Lymphocytes # (Auto) 1.1 1.0-4.0 X 10^3 Monocytes # (Auto) 0.7 0.0-1.0 X 10^3 Eosinophils # (Auto) 0.0 0.0-0.3 10^3/uL Basophils # (Auto) 0.0 0.0-0.1 10^3/uL Neutrophils % (Manual) 52 % Lymphocytes % (Manual) 23 % Monocytes % (Manual) 3 % Eosinophils % (Manual) 0 % Basophils % (Manual) 0 % Band Neutrophils 22 % Macrocytosis MODERATE Sodium Level 142 135-145 MMOL/L Potassium Level 3.7 3.6-5.0 MMOL/L Chloride Level 107 98-107 MMOL/L Carbon Dioxide Level 20 L 21-32 MMOL/L Anion Gap 15 H 5-14 MMOL/L Blood Urea Nitrogen 16 7-18 MG/DL Creatinine 0.88 0.60-1.30 MG/DL Estimat Glomerular Filtration Rate > 60 BUN/Creatinine Ratio 18 Glucose Level 100 70-105 MG/DL Calcium Level 8.3 L 8.5-10.1 MG/DL Total Bilirubin 0.4 0.1-1.0 MG/DL Aspartate Amino Transf (AST/SGOT) 24 5-34 U/L Alanine Aminotransferase (ALT/SGPT) 16 0-55 U/L Alkaline Phosphatase 90 40-136 U/L B-Type Natriuretic Peptide 187.1 H <100.0 PG/ML Total Protein 6.4 6.4-8.2 GM/DL Albumin 3.0 L 3.2-4.5 GM/DL TSH [place] Testing 2.28 0.35-4.94 UIU/ML Urine Color YELLOW Urine Clarity CLEAR Urine pH 5 5-9 Urine Specific [place] 1.010 L 1.016-1.022 Urine Protein 3+ H NEGATIVE Urine Glucose (UA) NEGATIVE NEGATIVE Urine Ketones NEGATIVE NEGATIVE Urine Nitrite NEGATIVE NEGATIVE Urine Bilirubin NEGATIVE NEGATIVE Urine Urobilinogen NORMAL NORMAL MG/DL Urine Leukocyte Esterase NEGATIVE NEGATIVE Urine RBC (Auto) NEGATIVE NEGATIVE Urine RBC NONE /HPF Urine WBC 2-5 /HPF Urine Crystals PRESENT H /LPF Urine Amorphous Sediment FEW CHRIS URATES H /LPF Urine Bacteria FEW H /HPF Urine Casts NONE /LPF Urine Mucus NEGATIVE /LPF Urine Culture Indicated NO My Orders Orders - DARRIAN XAVIER Saline Lock/Iv-Start (05/25/17 17:47) BNP (05/25/17 17:47) Cbc With Automated Diff (05/25/17 17:47) Comprehensive Metabolic Panel (05/25/17 17:47) Thyroid Analyzer (05/25/17 17:47) Ua Culture If Indicated (05/25/17 17:47) Hip, Right, 2 Views (05/25/17 17:47) Morphine Injection (Morphine Injection (05/25/17 17:47) Furosemide Injection (Lasix Injection) (05/25/17 18:00) Manual Differential (05/25/17 18:00) Ondansetron Injection (Zofran Injectio (05/25/17 19:15) Ondansetron Injection (Zofran Injectio (05/25/17 19:01) Medications Given in ED Current Medications Medications Dose Ordered Sig/Eric Route Start Time Stop Time Status Last Admin Dose Admin Furosemide 40 mg ONCE ONCE IVP 05/25/17 18:00 05/25/17 18:01 DC 05/25/17 17:58 40 MG Ondansetron HCl 8 mg ONCE ONCE IVP 05/25/17 19:15 05/25/17 19:16 DC 05/25/17 19:08 8 MG Vital Signs/I&O Vital Sign - Last 12Hours 05/25/17 15:02 Temp 99.6 Pulse 76 Resp 18 B/P (MAP) 123/58 Pulse Ox 96 O2 Delivery Room Air Blood Pressure Mean: 79 Diagnostic Imaging Diagonstic Imaging: Xray Plain Films/CT/US/NM/MRI: hip Comments FINDINGS: There are arthritic changes to the right hip with no fracture or dislocation. No bony destructive process. IMPRESSION: No acute appearing abnormality Dictated by: Dictated on workstation # [id number] Reviewed: Reviewed by Me (radiology report reviewed by me. ) Departure Impression Impression: Primary Impression: Sciatica of right side Additional Impressions: Pedal edema Chronic anemia Urinary retention Disposition: HOME, SELF-CARE Condition: Improved Departure-Patient Inst. Decision time for Depature: 20:37 Referrals: MESHA FUENTES DO (PCP/Family) Primary Care Physician SHANTEL LIZ MD Patient Instructions: Dependent Edema (DC), Sciatica (DC), Sciatica Exercises Add. Discharge Instructions: All discharge instructions reviewed with patient and/or family. Voiced understanding. Medications as instructed. Continue usual home medications. Follow-up with Dr. Gerard tomorrow as previously scheduled. Follow-up with Dr. Liz in the next 1-2 days for recheck and repeat labs. Follow-up with Dr. Fuentes as an outpatient. Call tomorrow morning for appointment times. Return to the emergency department immediately for worsened pain, numbness, weakness, swelling, fever, shortness of air, chest pain, abdominal swelling, abdominal pain, or any other concerns. Scripts Furosemide (Lasix) 20 Mg Tablet 20 MG PO DAILY, #3 TAB 0 Refills Prov: DARRIAN XAVIER 05/25/17 Prednisone (Prednisone) 20 Mg Tab 20 MG PO BID, #6 TAB 0 Refills Prov: DARRIAN XAVIER 05/25/17 Ondansetron (Ondansetron Odt) 8 Mg Tab.rapdis 8 MG PO Q6H Y for NAUSEA/VOMITING-1ST LINE, #10 TAB 0 Refills Prov: DARRIAN XAVIER 05/25/17 Hydrocodone/Acetaminophen (Hydrocodon -Acetaminophen 5-325) 1 Each Tablet 0.5-1 EACH PO Q4H Y for PAIN, #20 TAB 0 Refills Prov: DARRIAN XAVIER 05/25/17 DARRIAN XAVIER May 25, 2017 17:29
[2017-05-25] MEDS ORDERED: morphine INJ 10 MG/ML 1ML (SYR OR VIAL) IVP STA (17:47)
[2017-05-25] MEDS ORDERED: FUROSEMIDE 40 MG/4 ML INJ (LASIX) IVP ONE (18:00)
[2017-05-25 18:11] LABS: BASOPHILS % (AUTO) 0 % (0-10); EOSINOPHILS % (AUTO) 0 % (0-10); LYMPHOCYTES # (AUTO) 1.1 X 10^3 (1.0-4.0); LYMPHOCYTES % (AUTO) 22 % (12-44); MEAN CORPUSCULAR HEMOGLOBIN 33 PG (25-34); MEAN CORPUSCULAR HGB CONC 31 G/DL (32-36); MEAN CORPUSCULAR VOLUME 106 FL (80-99); MEAN PLATELET VOLUME 10.1 FL (7.4-10.4); MONOCYTES # (AUTO) 0.7 X 10^3 (0.0-1.0); MONOCYTES % (AUTO) 15 % (0-12); NEUTROPHILS # (AUTO) 3.1 X 10^3 (1.8-7.8); NEUTROPHILS % (AUTO) 62 % (42-75); PLATELET COUNT 152 10^3/uL (130-400); RED BLOOD COUNT 1.99 10^6/uL (4.35-5.85); RED CELL DISTRIBUTION WIDTH 21.6 % (10.0-14.5); WHITE BLOOD COUNT 4.9 10^3/uL (4.3-11.0)
[2017-05-25 18:27] LABS: BAND NEUTROPHILS 22 %; BASOPHILS % (MANUAL) 0 %; EOSINOPHILS % (MANUAL) 0 %; LYMPHOCYTES % (MANUAL) 23 %; NEUTROPHILS % (MANUAL) 52 %
[2017-05-25 18:30] LABS: ALANINE AMINOTRANSFERASE 16 U/L (0-55); ANION GAP 15 MMOL/L (5-14); ASPARTATE AMINO TRANSFERASE 24 U/L (5-34); BILIRUBIN,TOTAL 0.4 MG/DL (0.1-1.0); BLOOD UREA NITROGEN 16 MG/DL (7-18); BUN/CREATININE RATIO 18; CALCIUM 8.3 MG/DL (8.5-10.1); CARBON DIOXIDE 20 MMOL/L (21-32); CHLORIDE 107 MMOL/L (98-107); CREATININE SERUM 0.88 MG/DL (0.60-1.30); GFR ESTIMATED > 60; GLUCOSE 100 MG/DL (70-105); POTASSIUM 3.7 MMOL/L (3.6-5.0); SODIUM 142 MMOL/L (135-145); TOTAL PROTEIN 6.4 GM/DL (6.4-8.2)
--- NOTE | 2017-05-25 18:34 | Diagnostic Imaging Report ---
INDICATION: Chronic right hip pain, swelling in the leg, history of colon cancer. FINDINGS: There are arthritic changes to the right hip with no fracture or dislocation. No bony destructive process. IMPRESSION: No acute appearing abnormality Dictated by: Dictated on workstation # [id number]
[2017-05-25] MEDS ORDERED: ONDANSETRON 4 MG/2 ML (SDV) Z0FRAN ONE (19:01)
[2017-05-25] MEDS ORDERED: ONDANSETRON 4 MG/2 ML (SDV) Z0FRAN IVP ONE (19:15)
[2017-05-25 20:10] LABS: BILIRUBIN,URINE NEGATIVE (NEGATIVE); KETONES,URINE NEGATIVE (NEGATIVE); LEUKOCYTE ESTERASE ,URINE NEGATIVE (NEGATIVE); NITRITE,URINE NEGATIVE (NEGATIVE); PH,URINE 5 (5-9); PROTEIN,URINE 3+ (NEGATIVE); UROBILINOGEN,URINE NORMAL (NORMAL)
[2017-05-25] MEDS ORDERED: HYDR-3812 PO (20:41)
[2017-05-25] MEDS ORDERED: PRD20T PO (20:41)
[2017-05-25] MEDS ORDERED: ONDA8TAB13 PO (20:41)
[2017-05-25] MEDS ORDERED: FURO-125 PO (20:41)
[2017-05-25 20:42] VITALS: BP 159/69
[2017-05-25] MEDS ORDERED: ONDANSETRON 4 MG (ZOFRAN) ORAL DISSOLVE TAB SL STA (21:31)
== END 2017-05-25 20:42 | disposition home or self-care (01) ==
LOC: EDUNIT# 14:47 → ER 14:48
DX: R60.0 Localized edema (principal)
CPT/HCPCS: 36415; 73502; 80053; 81000; 83880; 84443; 85007; 85027; 96374; 96375

== ENCOUNTER → 2017-09-24 | Outpatient (CLI) | payer MEDICARE ==
[~2017-09-24] MED LIST changes: +FURO-125 PO; +HYDR-3812 PO; +ONDA8TAB13 PO; +PRD20T PO
[2017-09-24 16:50] LABS: BASOPHILS % (AUTO) 0 % (0-10); EOSINOPHILS % (AUTO) 1 % (0-10); LYMPHOCYTES # (AUTO) 1.3 X 10^3 (1.0-4.0); LYMPHOCYTES % (AUTO) 20 % (12-44); MEAN CORPUSCULAR HEMOGLOBIN 34 PG (25-34); MEAN CORPUSCULAR HGB CONC 29 G/DL (32-36); MEAN CORPUSCULAR VOLUME 116 FL (80-99); MEAN PLATELET VOLUME 10.1 FL (7.4-10.4); MONOCYTES # (AUTO) 0.4 X 10^3 (0.0-1.0); MONOCYTES % (AUTO) 7 % (0-12); NEUTROPHILS # (AUTO) 4.6 X 10^3 (1.8-7.8); NEUTROPHILS % (AUTO) 72 % (42-75); PLATELET COUNT 170 10^3/uL (130-400); RED BLOOD COUNT 2.13 10^6/uL (4.35-5.85); WHITE BLOOD COUNT 6.4 10^3/uL (4.3-11.0)
[2017-09-24 17:28] LABS: ALBUMIN 2.5 GM/DL (3.2-4.5); BILIRUBIN,TOTAL 0.3 MG/DL (0.1-1.0); CALCIUM 7.7 MG/DL (8.5-10.1); CREATININE SERUM 1.38 MG/DL (0.60-1.30); TOTAL PROTEIN 4.9 GM/DL (6.4-8.2)
== END ==
LOC: HOSHH 16:40
PROVIDERS: ATTEND Family Medicine
DX: D64.9 Anemia, unspecified (principal); C18.9 Malignant neoplasm of colon, unspecified
CPT/HCPCS: 80053; 85025